=== PATIENT | female | born 1945 | race Caucasian/White ===

== ENCOUNTER → 2018-03-02 15:56 | Outpatient (CLI) | payer MEDICARE, SELFPAY | PROVIDERS: Family Provider Family Medicine; PCP Family Medicine; Referring Provider Family Medicine; Visit Provider Family Medicine | DX: R30.0 Dysuria (principal) | CPT/HCPCS: 87077; 87086; 87088; 87186 ==

== ENCOUNTER → 2018-08-11 11:33 | Outpatient (CLI) | payer MEDICARE, SELFPAY ==
[2017-10-17 09:56] VITALS: BMI 37.1
--- NOTE | 2018-08-11 11:39 | RAD_ITS ---
STUDY: X-RAY - ABDOMEN/PELVIS REASON FOR EXAM: Female, 73 years old. Abdominal pain. History of IBS. TECHNIQUE: AP supine and upright views of the abdomen and pelvis. COMPARISON: None. FINDINGS: Normal visualized lung bases. There is a nonspecific bowel gas pattern. Air is seen in the colon as well as nondistended small bowel loops predominantly in the left mid abdomen. There is no obvious obstruction. There is increased rectal feces There is no demonstrated free abdominal air. The visualized liver, spleen and kidneys are grossly normal in size and morphology. Normal soft tissue structures. The there is a left artificial hip. RAD/Abd Inc Decub and/or Erect IMPRESSION: Nonspecific bowel gas pattern without obvious obstruction or ileus. Electronically Signed: Luis Enrique Santoro DO at 22:51 EST Tel [phone], Service support ,
== END ==
PROVIDERS: Family Provider Family Medicine; PCP Family Medicine; Referring Provider Family Medicine; Visit Provider Family Medicine
DX: R10.9 Unspecified abdominal pain (principal)
CPT/HCPCS: 74019

== ENCOUNTER → 2018-09-13 | Outpatient (CLI) | payer MEDICARE, SELFPAY | END | disposition home or self-care (01) | LOC: PSN 12:40 | PROVIDERS: Family Provider Family Medicine; PCP Family Medicine; Referring Provider Nurse Practitioner Family; Visit Provider Nurse Practitioner Family | DX: R00.2 Palpitations (principal) | CPT/HCPCS: 93225; 93226 ==

== ENCOUNTER 2019-08-27 16:49 | Emergency (ER) | payer MEDICARE, SELFPAY ==
[2019-03-21 10:47] VITALS: BMI 35.0
[2019-08-27 16:50] VITALS: BP 161/102; PULSE 57; RESP 16; TEMP 36.8; O2SAT 100; BMI 35.1
--- NOTE | 2019-08-27 17:20 | CT_ITS ---
STUDY: CT ABDOMEN AND PELVIS WITH CONTRAST REASON FOR EXAM: Female, 74 years old. RUQ PAIN THAT WRAPS AROUND TO THE BACK. PRIOR CHOLECYSTECTOM RADIATION DOSAGE (If Supplied By Facility): CTDIvol = ( 17.78 ) mGy, DLP = ( 1096.82 ) mGycm TECHNIQUE: Transaxial images were obtained from the dome of the diaphragm to the symphysis pubis with oral contrast. Oral and IV Gastrografin and 100mL Isovue-300 was administered. Sagittal and coronal images were reconstructed. Individualized dose optimization techniques were used for this CT. COMPARISON: 03/18/2013 FINDINGS: The visualized lung bases are unremarkable. The visualized portions of the heart are within normal limits. Normal liver. There are surgical clips in the gallbladder fossa consistent with a prior cholecystectomy. There are multiple benign calcified granulomata of the spleen. Normal pancreas. Normal bilateral adrenal glands. Normal right kidney. Normal left kidney. There is a small hiatal hernia. Normal small intestine. There are multiple colonic diverticula consistent with diverticulosis. The appendix is visualized and appears normal. Normal abdominal aorta. Normal inferior vena cava. Normal retroperitoneum. Normal urinary bladder. There is atrophy of the uterus. Normal abdominal wall. There are diffuse degenerative changes of the visualized lumbar spine. Left hip arthroplasty CT/Abdomen/Pelvis WITH Contrast IMPRESSION: No acute findings. Prior cholecystectomy. Chronic diverticulosis without acute diverticulitis. Electronically Signed: Ramesh Darby DO at 19:49 EDT Tel , Service support ,
--- NOTE | 2019-08-27 17:24 | ED.VISSUMM ---
- ER Visit Summary Date of Service: 08/27/19 Chief Complaint: Abdominal pain History of Present Illness: The patient is a 74 F presenting with abdominal pain. She states started yesterday. She is having right upper and right lower quadrant abdominal pain. She states she has had this intermittently in the past. She had her gallbladder removed in 1992. She states that she was told that she has scar tissue in that area and has had intermittent pain associated with this. She has had 3 episodes of diarrhea. She denies blood in her stool. Denies sick contacts. Denies recent travel. Denies recent antibiotics. She denies fever or chills. Denies chest pain or shortness of breath. Denies other complaints. Physical Examination: Vitals are stable. Patient is afebrile. Alert no acute distress. HEENT exam is unremarkable. Neck is supple. Lungs are clear and equal bilaterally. Heart is regular rate and rhythm. Abdomen is soft right upper and right lower quadrant tenderness with no guarding or rebound Extremities are unremarkable. Skin is warm and dry. No focal neurologic deficit. Remainder of exam is unremarkable. Emergency Department Course and Treatment: Patient was given IV fluids, Zofran. She declined pain medication. CBC, CMP, lipase are unremarkable. CT abdomen pelvis shows no acute findings. Prior cholecystectomy. Chronic diverticulosis without acute diverticulitis. On reevaluation, patient is resting comfortably. She will follow-up with her GI physician tomorrow. She is advised return to the ED for worsening complaints. Disposition: Discharge home Impression: Abdominal pain This note was generated with [employer] dictation software. It may contain incorrect words, spelling, and punctuation that were not noted in review of the chart prior to signing ED Disposition - Plan for ED Patient: Instructions: ABDOMINAL PAIN, Unknown Cause, (Female) Referrals: Dimitri Nicole MD [Primary Care Provider] -
[2019-08-27] MEDS: Ondansetron 4 MG/2 ML Vial IV (17:45)
[2019-08-27 17:49] VITALS: BP 161/102; PULSE 57; RESP 16; TEMP 36.8; O2SAT 100
[2019-08-27 17:59] VITALS: BP 155/78; PULSE 52; RESP 18; O2SAT 99
[2019-08-27 18:03] LABS: Mucous, Urine 0 SEEN /hpf (<or=2+); Red Blood Cells-Urine 0 SEEN /hpf (0-5)
[2019-08-27 18:06] LABS: Absolute Lymphocyte Count 2.85 X10^3/uL (0.83-4.51); Absolute Neutrophil Count 3.1 X10^3/uL (2.0-7.7); Basophil# 0.02 X10^3/uL; Basophil% 0.3 % (0-1); Eosinophil# 0.16 X10^3/uL; Eosinophils% 2.4 % (0-5); Hemoglobin 15.4 g/dL (12.0-15.0); Lymphocyte # 2.85 X10^3/ul (4.0); Lymphocyte % 43.2 % (19-41); Mean Corp Hgb Conc 32.8 g/dL (32-36); Mean Corpuscular Hgb 30.6 pg (27.0-32.0); Mean Corpuscular Volume 93.4 fL (81-99); Mean Platelet Vol. 10.2 fl (6.2-12.0); Monocyte# 0.48 X10^3/uL; Monocyte% 7.3 % (0-10); NRBC Flagged by Analyzer 0 % (0-5); Neutrophil # 3.08 X10^3/uL (2.7-7.7); Neutrophil % 46.6 % (47-70); Platelet Count 232 K/mm3 (150-450); RBC Distribution Width CV 13.5 % (11.6-14.6); RBC Distribution Width SD 46.4 fl (35.1-43.9); Red Blood Count 5.03 M/mm3 (4.2-5.4); White Blood Count 6.6 K/mm3 (4.4-11.0)
[2019-08-27 18:08] LABS: Color, Urine Yellow (Yellow); Glucose, Dipstick Normal (Normal); Ketone-Dipstick Negative (Negative); Leukocyte Esterase-Dipstick 25 /ul (Negative); Nitrite-Dipstick Negative (Negative); Occult Blood-Urine Negative /ul (Negative); Protein-Dipstick Negative (Negative); Urine Bilirubin Dipstick Negative (Negative); Urine Clarity Clear (Clear); Urine Urobilinogen Normal (Normal)
[2019-08-27 18:24] LABS: AST(SGOT) 24 U/L (15-37); Alanine Aminotransfer ALT/SGPT 27 U/L (13-56); Albumin, Serum 3.8 g/dL (3.2-5.0); Alkaline Phosphatase 112 U/L (45-117); Anion Gap 5 (5-15); BUN 10 mg/dL (7-18); BUN/Creat Ratio 12.7 RATIO (10-20); Calcium,Total 9.2 mg/dL (8.5-10.1); Chloride 105 mmol/L (98-107); Creatinine, Serum 0.79 mg/dL (0.55-1.02); EST Glomerular Filtration Rate 76 mL/min (>60); Est Glom Filt Rate - Afr Amer 92 mL/min (>60); Estimated Creatinine Clearance 49.45 ml/min; Globulin 3.9 g/dL (2.2-4.2); Glucose 93 mg/dL (74-106); Lipase 83 U/L (73-393); Potassium 3.7 mmol/L (3.5-5.1); Protein, Total 7.7 g/dL (6.4-8.2); Sodium Level 142 mmol/L (136-145)
[2019-08-27 19:00] VITALS: BP 130/74; PULSE 56; RESP 18; TEMP 36.6; O2SAT 97
[2019-08-27 19:15] LABS: Bacteria 1+ /hpf (None Seen); Squamous Epithelial Cells - UA 0-5 SEEN /hpf (5-10); White Blood Cells 0-5 SEEN /hpf (0-5)
--- NOTE | 2019-08-27 19:58 | ED.DEP ---
ED Disposition - Plan for ED Patient: Instructions: ABDOMINAL PAIN, Unknown Cause, (Female) Referrals: Dimitri Nicole MD [Primary Care Provider] -
== END 2019-08-27 20:20 | disposition home or self-care (01) ==
LOC: ED 17:23
PROVIDERS: Emergency Provider Emergency Medicine; PCP Family Medicine
DX: R10.31 Right lower quadrant pain (principal); R10.11 Right upper quadrant pain; K21.9 Gastro-esophageal reflux disease without esophagitis; Z79.82 Long term (current) use of aspirin; Z79.899 Other long term (current) drug therapy
CPT/HCPCS: 74177; 80053; 81001; 83690; 85025; 96361; 96374; 99283; J7030; Q9967; A4216; J2405

== ENCOUNTER → 2020-01-17 | Outpatient (CLI) | payer MEDICARE, SELFPAY ==
--- NOTE | 2020-01-17 15:13 | US_ITS ---
STUDY: THYROID ULTRASOUND REASON FOR EXAM: Female, 74 years old. Palpable nodule. TECHNIQUE: Ultrasound evaluation of the thyroid was performed with real-time and static dickey-scale imaging. COMPARISON: None. FINDINGS: RIGHT LOBE: The right lobe of the thyroid gland measures 4.3 x 1.4 x 1.6 cm. There is a heterogeneous echotexture. In the lower pole, there is a 1.5 x 0.9 x 0.9 cm anechoic structure with coarse calcifications along its posterior wall. Superiorly there is a 0.9 x 0.7 x 0.4 cm minimally hypoechoic nodule with very nodular vascularity. There are also small colloid cysts. LEFT LOBE: The left lobe of the thyroid gland measures 4.0 x 1.1 x 1.2 cm. There is a homogeneous echotexture. In the lateral mid thyroid there is a mixed solid and cystic but primarily solid isoechoic nodule measuring 1.1 x 0.5 x 0.5 cm. There is also 0.7 x 0.4 x 0.4 cm dominantly cystic nodule in the lower pole. Additional either multiple tiny cysts within the thyroid. ISTHMUS: The isthmus measures . The regional lymph nodes are normal. US/Thyroid IMPRESSION: 1. Bilateral thyroid nodules. The most suspicious nodule is the solid right thyroid nodule which would be catheterized via the ACR TIRADS CORD and system as a TR 4, moderately suspicious nodule. One-year follow-up recommended. 2. Larger primarily cystic nodule in the right thyroid. Question whether this correlates with the palpable mass since no further clinical information was provided as to its location. Electronically Signed: Luis Enrique Santoro DO at 16:31 EDT Tel [phone], Service support ,
== END | disposition home or self-care (01) ==
LOC: US 15:12
PROVIDERS: PCP Family Medicine; Referring Provider Family Medicine; Visit Provider Family Medicine
DX: E04.1 Nontoxic single thyroid nodule (principal)
CPT/HCPCS: 76536

== ENCOUNTER → 2020-08-14 10:04 | Outpatient (CLI) | payer MEDICARE, SELFPAY ==
[2020-03-24 10:07] VITALS: BMI 36.5
--- NOTE | 2020-08-14 10:09 | RAD_ITS ---
STUDY: X-RAY - ABDOMEN/PELVIS REASON FOR EXAM: Female, 75 years old. ABD PAIN RLQ TECHNIQUE: 4 AP views COMPARISON: None. FINDINGS: Normal visualized lung bases. There is an unremarkable bowel gas pattern. There is no demonstrated free abdominal air. Splenic calcifications noted, previous cholecystectomy The visualized liver, spleen and kidneys are grossly normal in size and morphology. Normal soft tissue structures. There are diffuse degenerative changes of the visualized lumbar spine. Replaced left hip joint free of complication RAD/Abd Inc Decub and/or Erect IMPRESSION: No acute findings Electronically Signed: Jack Becerril MD at 10:29 EST , Service support ,
== END ==
PROVIDERS: PCP Family Medicine; Referring Provider Family Medicine; Visit Provider Family Medicine
DX: R10.31 Right lower quadrant pain (principal)
CPT/HCPCS: 74019

== ENCOUNTER 2020-09-20 10:18 | Emergency (ER) | payer MEDICARE, SELFPAY ==
[2020-03-24 10:07] VITALS: BMI 36.5
[2020-09-20 10:20] VITALS: BP 117/78; PULSE 59; RESP 17; TEMP 36.6; O2SAT 94; BMI 36.1
--- NOTE | 2020-09-20 10:42 | CT_ITS ---
INDICATION: Flank pain EXAMINATION: CT Abdomen And Pelvis W/O Contrast Injection TECHNIQUE: Helically acquired images were obtained of the abdomen and pelvis without the use of IV contrast. A radiation dose optimization technique was used for this scan. Oral contrast: None. COMPARISON: 08/27/2019 FINDINGS: Evaluation of the solid organs and vascular structures is limited without intravenous contrast. Visualized lung bases: Emphysematous changes. Liver: Diffusely hypodense consistent with fatty liver. Gallbladder: Surgically absent. Spleen: Multiple splenic granulomas. Pancreas: Unremarkable Adrenal Glands: Unremarkable Kidneys: 1.4 cm intermediate density exophytic mass in the left lower pole. When compared to prior CT with contrast on 08/27/2019, this mass enhances. Vasculature: Mild scattered aortoiliac atherosclerotic calcifications. GI Tract: Hiatal hernia. Scattered colonic diverticula. Lymphadenopathy: None Peritoneum: No ascites. Bladder: Unremarkable Reproductive organs: Unremarkable Bones/Soft tissues: Mild scattered degenerative changes of the visualized spine. Status post left hip arthroplasty. CT/Abdomen/Pelvis without Cont IMPRESSION: 1.4 cm mass in the lower pole of the left kidney enhances (when compared to prior CT w/ contrast on 08/27/2019) and therefore is suspicious for renal cell carcinoma. No renal vein involvement or lymphadenopathy. Fatty liver. Hiatal hernia. Electronically Signed: Mart Servin MD at 11:37 EDT Tel , Service support ,
[2020-09-20] MEDS: Ondansetron 4 MG/2 ML Vial IV (11:02)
[2020-09-20] MEDS: Morphine 4 MG/ML Syringe IV (11:02)
[2020-09-20] MEDS: 0.9% Normal Saline 1,000 ML 1000 ML IV (11:03)
[2020-09-20 11:06] LABS: Absolute Lymphocyte Count 1.66 X10^3/uL (0.83-4.51); Absolute Neutrophil Count 2.9 X10^3/uL (2.0-7.7); Basophil# 0.02 X10^3/uL; Basophil% 0.4 % (0-1); Eosinophil# 0.09 X10^3/uL; Eosinophils% 1.8 % (0-5); Hematocrit 45.6 % (37-47); Hemoglobin 14.8 g/dL (12.0-15.0); Lymphocyte # 1.66 X10^3/ul (0.83-4.51); Lymphocyte % 32.7 % (19-41); Mean Corp Hgb Conc 32.5 g/dL (32-36); Mean Corpuscular Volume 95.4 fL (81-99); Monocyte# 0.46 X10^3/uL; Monocyte% 9.1 % (0-10); NRBC Flagged by Analyzer 0 % (0-5); Neutrophil # 2.85 X10^3/uL (2.7-7.7); Platelet Count 236 K/mm3 (150-450); RBC Distribution Width CV 13.4 % (11.6-14.6); RBC Distribution Width SD 47.9 fl (35.1-43.9); Red Blood Count 4.78 M/mm3 (4.2-5.4); White Blood Count 5.1 K/mm3 (4.4-11.0)
[2020-09-20 11:06] LABS: Mucous, Urine 0 SEEN /hpf (<or=2+); Red Blood Cells-Urine 0 SEEN /hpf (0-5)
[2020-09-20 11:07] LABS: Glucose, Dipstick Normal (Normal); Ketone-Dipstick Negative (Negative); Leukocyte Esterase-Dipstick 25 /ul (Negative); Nitrite-Dipstick Positive (Negative); Occult Blood-Urine 10 /ul (Negative); Protein-Dipstick 30 mg/dl (Negative); Specific Gravity, Urine 1.015 (1.002-1.030); Urine Clarity Clear (Clear); Urine Urobilinogen 12 mg/dl (Normal)
[2020-09-20 11:13] LABS: Color, Urine SEE COMMENT BELOW (Yellow); Urine Bilirubin Dipstick 6 mg/dL (Negative)
[2020-09-20 11:16] LABS: Bacteria 1+ /hpf (None Seen); Squamous Epithelial Cells - UA 5-10 SEEN /hpf (5-10); White Blood Cells 10-25 SEEN /hpf (0-5)
[2020-09-20 11:18] LABS: ALB/GLOB Ratio 1.1 RATIO (0.9-2.4); AST(SGOT) 19 U/L (15-37); Alanine Aminotransfer ALT/SGPT 27 U/L (13-56); Albumin, Serum 3.8 g/dL (3.2-5.0); Alkaline Phosphatase 105 U/L (45-117); Anion Gap 4 (5-15); BUN 18 mg/dL (7-18); BUN/Creat Ratio 19.8 RATIO (10-20); Calcium,Total 9.3 mg/dL (8.5-10.1); Chloride 107 mmol/L (98-107); Creatinine, Serum 0.91 mg/dL (0.55-1.02); EST Glomerular Filtration Rate 65 mL/min (>60); Est Glom Filt Rate - Afr Amer 78 mL/min (>60); Estimated Creatinine Clearance 53.54 ml/min; Globulin 3.6 g/dL (2.2-4.2); Glucose 100 mg/dL (74-106); Lipase 67 U/L (73-393); Potassium 3.8 mmol/L (3.5-5.1); Protein, Total 7.4 g/dL (6.4-8.2); Sodium Level 141 mmol/L (136-145)
--- NOTE | 2020-09-20 11:24 | ED.VISSUMM ---
- ER Visit Summary Date of Service: 09/20/20 Chief Complaint: Abdominal pain and right flank pain History of Present Illness: The patient is a [address] Arambula, Dr. Kumar, and has an appointment with Dr. Tomer Lopez for a colonoscopy. Patient reports that she has had abdominal pain intermittently for the past 20 years after having her gallbladder removed. States that she had a colonoscopy and was told it scar tissue. States pain worsened 2 days ago. It is a continuous cramping pain is 9-10 worsening to 10 currently. Is worsened by nothing relieved by nothing. She had nausea without vomiting. No diarrhea. Her last bowel was yesterday. No melena medic easier. Patient reports she has had dysuria and frequency for the past [address] Kumar 2 days ago and had a urinalysis obtained. She was placed on Macrobid and Pyridium. She reports the frequency is improved, but has not resolved. Physical Examination: Vitals: Stable. Afebrile. General: Well-nourished and well-developed. Head: Normocephalic atraumatic. Neck: Supple, no lymphadenopathy. No JVD. Nontender. Cardiovascular: Regular rate and rhythm. No murmurs. Respiratory: No respiratory distress. Clear to auscultation bilaterally. Abdominal: Soft, mild tenderness palpation right upper quadrant and epigastric regions, nondistended, normal bowel sounds. No guarding, rebound, or peritoneal signs. Back: Mild CVA tenderness bilaterally. Extremities: Nontender, no edema. Skin: Normal color, no rash. Neurologic: Alert and oriented ?3. Cranial nerves II through XII are intact. Normal strength and sensation. Psych: Normal affect. Test Results: CBC is normal. Chem-7 is normal. LFTs are normal. Lipase is 67. UA shows leukocytes, nitrites, blood, and 10-25 white blood cells with 5-10 epithelial cells. However, she is on Pyridium. Clinical Impression(s) from Imaging Studies Abdomen/Pelvis CT 09/20/20 10:42 IMPRESSION: 1.4 cm mass in the lower pole of the left kidney enhances (when compared to prior CT w/ contrast on 08/27/2019) and therefore is suspicious for renal cell carcinoma. No renal vein involvement or lymphadenopathy. Fatty liver. Hiatal hernia. Electronically Signed: Mart Servin MD at 11:37 EDT Tel , Service support , Emergency Department Course and Treatment: Patient had an IV placed. She was given morphine and Zofran IV. She is resting more comfortably. I did have a prolonged discussion with her about the results of her CT. I do not think that this is the source of her pain today. Treatment Plan: Patient will be discharged with [place] and senna. Instructed to follow-up with Dr. Arambula in 3 to 5 days for further evaluation of her abdominal pain. She is also instructed to follow Dr. Kumar within 3 to 5 days for further evaluation of this left renal mass. Return to the emergency department for any worsening symptoms. Disposition: To home in improved and stable condition. Impression: 1. Abdominal pain, uncertain cause. 2. Left renal mass. This note was generated with [employer] dictation software. It may contain incorrect words, spelling, and punctuation that were not noted in review of the chart prior to signing ED Disposition - Plan for ED Patient: Instructions: ED Abdominal Pain Unkn Cause Fem Prescriptions: Hydrocodone Bitart/Apap 5-325 [[place] 5MG-325MG] 1 tablet PO Q6H PRN PRN 3 Days #10 tab PRN Reason: Pain Prescription Printed Sennosides [Senna] 8.6 mg PO QHS #10 tablet Prescription Printed Referrals: Dimitri Nicole MD [Primary Care Provider] - 3-5 Days if not improving Sonia Kumar MD [STAFF PHYSICIAN] - 3-5 Days
== END 2020-09-20 12:54 | disposition home or self-care (01) ==
PROVIDERS: Emergency Provider Emergency Medicine; PCP Family Medicine
DX: N28.89 Other specified disorders of kidney and ureter (principal); R10.13 Epigastric pain; R10.11 Right upper quadrant pain
CPT/HCPCS: 74176; 80053; 81001; 83690; 85025; 96361; 96374; 96375; 99283; J7030; A4216; J2405

== ENCOUNTER → 2020-10-13 | Outpatient (CLI) | payer MEDICARE, SELFPAY ==
[2020-09-20 10:20] VITALS: BMI 36.1
[2020-10-13 16:17] LABS: Red Blood Cells-Urine 0 SEEN /hpf (0-5)
[2020-10-13 17:10] LABS: Color, Urine Yellow (Yellow); Glucose, Dipstick Normal (Normal); Ketone-Dipstick Negative (Negative); Leukocyte Esterase-Dipstick 100 /ul (Negative); Nitrite-Dipstick Negative (Negative); Occult Blood-Urine 10 /ul (Negative); Protein-Dipstick Negative (Negative); Urine Bilirubin Dipstick Negative (Negative); Urine Clarity Clear (Clear); Urine Urobilinogen Normal (Normal)
[2020-10-13 17:17] LABS: Bacteria RARE /hpf (None Seen); Mucous, Urine RARE /hpf (<or=2+); Squamous Epithelial Cells - UA 0-5 SEEN /hpf (5-10); White Blood Cells 0-5 SEEN /hpf (0-5)
== END | disposition home or self-care (01) ==
LOC: LABSPEC 15:38
PROVIDERS: PCP Family Medicine; Referring Provider Family Medicine; Visit Provider Family Medicine
DX: K58.9 Irritable bowel syndrome, unspecified (principal); R30.0 Dysuria
CPT/HCPCS: 81001; 87086; 87088

== ENCOUNTER → 2021-03-23 | Outpatient (CLI) | payer MEDICARE, SELFPAY | END | disposition home or self-care (01) | PROVIDERS: PCP Family Medicine; Referring Provider Family Medicine; Visit Provider Family Medicine | DX: Z20.822 Contact with and (suspected) exposure to COVID-19 (principal) | CPT/HCPCS: 87635; U0005; U0003 ==

== ENCOUNTER → 2021-04-16 16:56 | Outpatient (CLI) | payer MEDICARE, SELFPAY | PROVIDERS: PCP Family Medicine; Referring Provider Urology; Visit Provider Urology | DX: N30.00 Acute cystitis without hematuria (principal) | CPT/HCPCS: 87086 ==

== ENCOUNTER → 2021-04-16 17:58 | Outpatient (CLI) | payer MEDICARE, SELFPAY | PROVIDERS: PCP Family Medicine; Referring Provider Family Medicine; Visit Provider Family Medicine | DX: N30.00 Acute cystitis without hematuria (principal); Z20.822 Contact with and (suspected) exposure to COVID-19 | CPT/HCPCS: 87086; 87088; 87635; U0005; U0003 ==

== ENCOUNTER → 2021-05-01 06:59 | Outpatient (CLI) | payer MEDICARE, SELFPAY ==
--- NOTE | 2021-05-01 07:02 | CT_ITS ---
INDICATION: Follow-up left renal mass. EXAMINATION: CT ABDOMEN AND PELVIS WITH CONTRAST - CT Abdomen And Pelvis W/ Contrast Injection TECHNIQUE: Helically acquired images were obtained of the abdomen and pelvis following IV contrast. A radiation dose optimization technique was used for this scan. IV Contrast dosage and agent: 100 mL ISOVUE-300 Oral contrast: None. COMPARISON: CT abdomen/pelvis from 09/30/2020, 08/27/2019, 03/18/2013. FINDINGS: Metallic streak artifact from left hip total arthroplasty somewhat obscures evaluation of adjacent structures. Lower thorax: There are some intraparenchymal thin-walled cystic changes in the visualized lung bases. Bibasilar dependent atelectasis. Liver: Normal morphology. Diffuse hepatic steatosis. No hepatic masses. Gallbladder: Status post cholecystectomy. Spleen: Calcified granulomas. No masses. Pancreas: Chronic pancreatic atrophy. Some irregular areas of pancreatic duct dilation in the pancreatic head appear unchanged since CT from 2012. No new or acute findings. Adrenal glands: Unremarkable. Right kidney: A few stable subcentimeter hypodensities are too small to characterize but likely benign. No solid masses. No hydronephrosis. Left kidney: 1.4 x 1.2 cm enhancing left lower pole partially exophytic lesion (series 2, 59), previously measuring 1.4 x 1.[address] from 08/27/2019. A few additional subcentimeter hypodensities are too small to catheterize but likely benign. No hydronephrosis. GI tract: Small hiatal hernia. Colonic diverticulosis without diverticulitis. No significant bowel wall thickening or bowel dilation. Normal appendix. Peritoneum/mesentery/retroperitoneum: No ascites. No free air. No masses. No lymphadenopathy. Pelvis: Bladder is collapsed. No ascites or free air. No masses. Vascular: Arterial metastatic disease. No abdominal aortic or iliac aneurysm. Bones/soft tissues: Multilevel degenerative disc disease most prominent at the L2-L3 level. No destructive osseous lesions. Stable left hip total arthroplasty postoperative changes. CT/Abdomen/Pelvis W IV Cont ONLY IMPRESSION: 1. 1.4 cm enhancing left renal lesion suspicious for neoplasm is stable since 08/27/2019. No metastatic disease. 2. Thin walled intraparenchymal cystic changes in the visualized lung bases and presence of left renal lesion. Although findings are nonspecific, these can be seen with Qjeh-Pwnp-Igpi syndrome. 3. Diffuse hepatic steatosis. Electronically Signed: Osmel Rudd MD at 10:11 EST Tel , Service support ,
[2021-05-01 07:41] LABS: CREATININE FINGERSTICK 0.9 mg/dL (0.55-1.02); EGFR FINGERSTICK > 60.0000 mL/min (>60)
== END ==
PROVIDERS: PCP Family Medicine; Referring Provider Urology; Visit Provider Urology
DX: D41.02 Neoplasm of uncertain behavior of left kidney (principal)
CPT/HCPCS: 74177; Q9967

== ENCOUNTER → 2021-05-12 10:51 | Outpatient (CLI) | payer MEDICARE, SELFPAY ==
[2021-05-12 12:49] LABS: Erythrocyte Sedimentation Rate 8 mm/hr (0-30)
[2021-05-12 12:51] LABS: Absolute Lymphocyte Count 2.44 X10^3/uL (0.83-4.51); Absolute Neutrophil Count 3.4 X10^3/uL (2.0-7.7); Basophil# 0.02 X10^3/uL; Basophil% 0.3 % (0-1); Eosinophil# 0.13 X10^3/uL; Hematocrit 45.8 % (37-47); Hemoglobin 14.7 g/dL (12.0-15.0); Lymphocyte # 2.44 X10^3/ul (0.83-4.51); Lymphocyte % 37.9 % (19-41); Mean Corp Hgb Conc 32.1 g/dL (32-36); Mean Corpuscular Hgb 30.5 pg (27.0-32.0); Monocyte# 0.47 X10^3/uL; Monocyte% 7.3 % (0-10); NRBC Flagged by Analyzer 0 % (0-5); Neutrophil # 3.35 X10^3/uL (2.7-7.7); Neutrophil % 52.2 % (47-70); Platelet Count 254 K/mm3 (150-450); RBC Distribution Width CV 14.2 % (11.6-14.6); RBC Distribution Width SD 50.2 fl (35.1-43.9); Red Blood Count 4.82 M/mm3 (4.2-5.4); White Blood Count 6.4 K/mm3 (4.4-11.0)
[2021-05-12 13:17] LABS: ALB/GLOB Ratio 0.9 RATIO (0.9-2.4); AST(SGOT) 19 U/L (15-37); Alanine Aminotransfer ALT/SGPT 25 U/L (13-56); Albumin, Serum 3.4 g/dL (3.2-5.0); Alkaline Phosphatase 102 U/L (45-117); Amylase 41 U/L (25-115); Anion Gap 6 (5-15); BUN 13 mg/dL (7-18); BUN/Creat Ratio 15.8 RATIO (10-20); Calcium,Total 9.8 mg/dL (8.5-10.1); Chloride 107 mmol/L (98-107); Creatinine, Serum 0.82 mg/dL (0.55-1.02); EST Glomerular Filtration Rate 72 mL/min (>60); Est Glom Filt Rate - Afr Amer 87 mL/min (>60); Globulin 3.9 g/dL (2.2-4.2); Glucose 96 mg/dL (74-106); Lipase 56 U/L (73-393); Potassium 4.4 mmol/L (3.5-5.1); Protein, Total 7.3 g/dL (6.4-8.2); Sodium Level 142 mmol/L (136-145); Thyroid Stim Hormone (TSH) 0.74 uIU/mL (0.358-3.74)
== END ==
PROVIDERS: PCP Family Medicine; Referring Provider Family Medicine; Visit Provider Family Medicine
DX: E04.1 Nontoxic single thyroid nodule (principal); R10.31 Right lower quadrant pain
CPT/HCPCS: 36415; 80053; 82150; 83690; 84443; 85025; 85652

== ENCOUNTER → 2021-05-22 11:57 | Outpatient (CLI) | payer MEDICARE, SELFPAY ==
--- NOTE | 2021-05-22 11:59 | RAD_ITS ---
EXAM: XR SINUSES/PARANASAL COMPLETE, 3 OR MORE VIEWS CLINICAL INDICATION: SINUSITIS TECHNIQUE: Frontal, lateral and Figueroa views of the sinuses and paranasal structures. This report was created using [employer] report generation technology. COMPARISON: None. FINDINGS: BONES/JOINTS: Unremarkable. The regional bones are grossly intact. SINUSES: Unremarkable. No significant mucosal thickening. There are no air-fluid levels. RAD/Sinuses min 3 Views IMPRESSION: Negative sinus series. Electronically Signed: Jay Moseley MD at 17:04 EST , Service support ,
== END ==
PROVIDERS: PCP Family Medicine; Referring Provider Family Medicine; Visit Provider Family Medicine
DX: J32.9 Chronic sinusitis, unspecified (principal)
CPT/HCPCS: 70220

== ENCOUNTER → 2021-12-21 | Outpatient (CLI) | payer MEDICARE, SELFPAY ==
[2021-12-21 12:22] LABS: Erythrocyte Sedimentation Rate 23 mm/hr (0-30)
[2021-12-21 12:38] LABS: CRP 4.24 mg/L (0.0-3.0); LDH 200 U/L (84-246)
[2021-12-22 13:08] LABS: Anti-Centromere B Ab <0.2 AI (0.0-0.9); Anti-Chromatin <0.2 AI (0.0-0.9); Anti-Jo <0.2 AI (0.0-0.9); Anti-Scleroderma-70 AB <0.2 AI (0.0-0.9); RNP Ab <0.2 AI (0.0-0.9); SJOGREN'S Anti-SS-A test < 0.2 AI (0.0-0.9); SJOGREN'S Anti-SS-B test < 0.2 AI (0.0-0.9); Smith Ab <0.2 AI (0.0-0.9)
[2021-12-22 15:07] LABS: Endomysial Antibody IgA Negative (Negative)
[2021-12-24 14:20] LABS: Immunoglobulin A 179 mg/dL (64-422); t-Transglutaminase IgA <2 U/mL (0-3)
[2021-12-24 14:48] LABS: Anti-dsDNA Ab 2 IU/mL (0-9)
[2021-12-24 19:07] LABS: Albumin 3.5 g/dL (2.9-4.4); Alpha-1-Globulins 0.2 g/dL (0.0-0.4); Alpha-2-Globulins 0.7 g/dL (0.4-1.0); Cytoplasmic Ab (C-ANCA) <1:20 titer (Neg:<1:20); Gamma Globulin 1.2 g/dL (0.4-1.8); Immunoglobulin A 177 mg/dL (64-422); Immunoglobulin G 1047 mg/dL (586-1602); Immunoglobulin M 164 mg/dL (26-217); PROEL- TOTAL PROTEIN 6.7 g/dL (6.0-8.5)
[2021-12-25 07:42] LABS: Gastrin, Serum 16 pg/mL (0-115); Immunoglobulin E 83 IU/mL (6-495); Perinuclear Ab (P-ANCA) <1:20 titer (Neg:<1:20)
== END | disposition home or self-care (01) ==
LOC: LAB 10:46
PROVIDERS: PCP Family Medicine; Referring Provider Internal Medicine Gastroenterology; Visit Provider Internal Medicine Gastroenterology
DX: K58.9 Irritable bowel syndrome, unspecified (principal)
CPT/HCPCS: 36415; 82784; 82785; 82941; 83516; 83615; 84165; 85652; 86140; 86225; 86235; 86255; 86256; 86334

== ENCOUNTER → 2021-12-30 | Outpatient (CLI) | payer MEDICARE, SELFPAY ==
--- NOTE | 2021-12-30 07:35 | US_ITS ---
EXAM: US ABDOMEN LIMITED, RIGHT UPPER QUADRANT CLINICAL INDICATION: RUQ PAIN TECHNIQUE: Real-time ultrasound of the right upper quadrant with image documentation. This report was created using [employer] report generation technology. COMPARISON: None. FINDINGS: LIVER: The liver measures 12.9 cm in length. The liver slightly increased in echogenicity. No intrahepatic biliary ductal dilation. GALLBLADDER: The patient is status post cholecystectomy. COMMON BILE DUCT: Unremarkable as visualized. The proximal common bile duct is within normal limits for the patient''s age. PANCREAS: Unremarkable as visualized. No focal abnormality is demonstrated in the pancreas. No pancreatic ductal dilatation. RIGHT KIDNEY: The right kidney measures 10.2 x 5.3 x 4.7 cm. There is no hydronephrosis. No shadowing calculus. No focal lesion or perinephric collection is demonstrated. OTHER FINDINGS: Comment bilateral measures 7 mm. US/Abdomen Limited IMPRESSION: Mild fatty infiltration of the liver. Patient status post cholecystectomy. Electronically Signed: Jean Claude Linton MD at 3:01 EDT ,
== END | disposition home or self-care (01) ==
LOC: US 07:33
PROVIDERS: PCP Family Medicine; Referring Provider Internal Medicine Gastroenterology; Visit Provider Internal Medicine Gastroenterology
DX: K76.0 Fatty (change of) liver, not elsewhere classified (principal); Z90.49 Acquired absence of other specified parts of digestive tract
CPT/HCPCS: 76705

== ENCOUNTER → 2022-03-16 | Outpatient (CLI) | payer MEDICARE, SELFPAY ==
[2022-03-16 11:08] LABS: Erythrocyte Sedimentation Rate 24 mm/hr (0-30)
[2022-03-16 11:39] LABS: Amylase 40 U/L (25-115); Lipase 103 U/L (73-393)
[2022-03-18 17:30] LABS: Carbohydrate Ag 19-9 2261 11 U/mL (0-35)
== END | disposition home or self-care (01) ==
LOC: LAB 09:51
PROVIDERS: PCP Family Medicine; Visit Provider Internal Medicine Gastroenterology
DX: K86.1 Other chronic pancreatitis (principal); R10.11 Right upper quadrant pain
CPT/HCPCS: 36415; 82150; 83690; 85652; 86140; 86301

== ENCOUNTER → 2022-04-13 | Outpatient (CLI) | payer MEDICARE, SELFPAY ==
--- NOTE | 2022-04-13 13:29 | CT_ITS ---
STUDY: CT ABDOMEN AND PELVIS WITH CONTRAST REASON FOR EXAM: Female, 76 years old. ACUTE ABD PAIN. RADIATION DOSAGE (If Supplied By Facility): CTDIvol = ( 32.52 ) mGy, DLP = ( 1423.10 ) mGycm TECHNIQUE: Transaxial images were obtained from the dome of the diaphragm to the symphysis pubis without oral contrast. IV 100mL Isovue-300 was administered. Sagittal and coronal images were reconstructed. Individualized dose optimization techniques were used for this CT. COMPARISON: Comparison is made with prior study dated 05/01/2021. FINDINGS: Stable mild degree of increased markings at the lung bases suggestive of scarring. There is elevation of the left hemidiaphragm. The visualized portions of the heart are within normal limits. There is decreased attenuation of the liver consistent with steatosis. There are surgical clips in the gallbladder fossa consistent with a prior cholecystectomy. There are multiple benign calcified granulomata of the spleen. Normal pancreas. Normal bilateral adrenal glands. Stable small bilateral renal cysts. Stable 1.4 cm mildly enhancing left renal hypodensity in the inferior aspect of the left kidney. Normal visualized stomach. Normal small intestine. There are multiple colonic diverticula consistent with diverticulosis. The appendix is visualized and appears normal. There is scattered atherosclerotic calcification of the abdominal aorta, without a demonstrated aneurysm. Normal inferior vena cava. Normal retroperitoneum. Normal urinary bladder. Normal abdominal wall. There are degenerative changes of the visualized lumbar spine. Status post left total hip replacement. CT/Abdomen/Pelvis WITH Contrast IMPRESSION: Stable examination. Electronically Signed: Anthony Luna MD at 14:49 EST ,
[2022-04-13 14:01] LABS: CREATININE FINGERSTICK < 0.9 mg/dL (0.55-1.02); EGFR FINGERSTICK > 60.0000 mL/min (>60)
== END | disposition home or self-care (01) ==
LOC: CT 13:26
PROVIDERS: PCP Family Medicine; Referring Provider Family Medicine; Visit Provider Family Medicine
DX: R10.9 Unspecified abdominal pain (principal)
CPT/HCPCS: 74177; Q9967

== ENCOUNTER → 2022-04-19 | Outpatient (CLI) | payer MEDICARE, MEDICAID, SELFPAY ==
[2022-04-19 18:23] LABS: Absolute Lymphocyte Count 2.63 X10^3/uL (0.83-4.51); Absolute Neutrophil Count 4.3 X10^3/uL (2.0-7.7); Basophil# 0.02 X10^3/uL; Basophil% 0.3 % (0-1); Eosinophil# 0.06 X10^3/uL; Eosinophils% 0.8 % (0-5); Hematocrit 45.5 % (37-47); Lymphocyte # 2.63 X10^3/ul (0.83-4.51); Lymphocyte % 34.6 % (19-41); Mean Corpuscular Hgb 31.6 pg (27.0-32.0); Mean Platelet Vol. 11.2 fl (6.2-12.0); Monocyte# 0.57 X10^3/uL; Monocyte% 7.5 % (0-10); NRBC Flagged by Analyzer 0 % (0-5); Neutrophil # 4.31 X10^3/uL (2.7-7.7); Neutrophil % 56.7 % (47-70); Platelet Count 263 K/mm3 (150-450); RBC Distribution Width CV 14.8 % (11.6-14.6); RBC Distribution Width SD 52.9 fl (35.1-43.9); Red Blood Count 4.74 M/mm3 (4.2-5.4); White Blood Count 7.6 K/mm3 (4.4-11.0)
[2022-04-19 18:41] LABS: Vitamin B12 504 pg/mL (211-911); Vitamin D,25 Hydroxy 29.9 ng/mL
[2022-04-19 18:46] LABS: ALB/GLOB Ratio 0.9 RATIO (0.9-2.4); AST(SGOT) 21 U/L (15-37); Alanine Aminotransfer ALT/SGPT 31 U/L (13-56); Albumin, Serum 3.4 g/dL (3.2-5.0); Alkaline Phosphatase 91 U/L (45-117); Anion Gap 8 (5-15); BUN 14 mg/dL (7-18); BUN/Creat Ratio 17.9 RATIO (10-20); CRP 4.77 mg/L (0.0-3.0); Calcium,Total 9.3 mg/dL (8.5-10.1); Chloride 105 mmol/L (98-107); Creatinine, Serum 0.78 mg/dL (0.55-1.02); EST Glomerular Filtration Rate 76 mL/min (>60); Est Glom Filt Rate - Afr Amer 92 mL/min (>60); Globulin 3.6 g/dL (2.2-4.2); Glucose 99 mg/dL (74-106); Potassium 4.1 mmol/L (3.5-5.1); Sodium Level 140 mmol/L (136-145); Thyroid Stim Hormone (TSH) 0.95 uIU/mL (0.358-3.74)
== END | disposition home or self-care (01) ==
LOC: MFPLAB 14:05
PROVIDERS: PCP Family Medicine; Referring Provider Family Medicine; Visit Provider Family Medicine
DX: R10.9 Unspecified abdominal pain (principal); R42 Dizziness and giddiness; F43.20 Adjustment disorder, unspecified
CPT/HCPCS: 36415; 80053; 82306; 82607; 84443; 85025; 86140

== ENCOUNTER → 2022-11-11 | Outpatient (CLI) | payer MEDICARE, SELFPAY | END | disposition home or self-care (01) | LOC: LABSPEC 10:00 | PROVIDERS: PCP Family Medicine; Referring Provider Family Medicine; Visit Provider Family Medicine | DX: R42 Dizziness and giddiness (principal) | CPT/HCPCS: 87077; 87086; 87088; 87186 ==

== ENCOUNTER → 2022-12-14 | Outpatient (CLI) | payer MEDICARE, MEDICAID, SELFPAY ==
[2022-12-14 11:22] LABS: Erythrocyte Sedimentation Rate 16 mm/hr (0-30)
[2022-12-14 11:52] LABS: Amylase 52 U/L (25-115); CPK Total, Creatine Kinase 74 U/L (26-192); LDH 191 U/L (84-246); Lipase 25 U/L (13-75); Thyroid Stim Hormone (TSH) 1.24 uIU/mL (0.358-3.74)
[2022-12-16 15:09] LABS: Albumin 3.2 g/dL (2.9-4.4); Aldolase 4.2 U/L (3.3-10.3); Alpha-1-Globulins 0.2 g/dL (0.0-0.4); Alpha-2-Globulins 0.9 g/dL (0.4-1.0); Carbohydrate Ag 19-9 2261 30 U/mL (0-35); Cytoplasmic Ab (C-ANCA) <1:20 titer (Neg:<1:20); Endomysial Antibody IgA Negative (Negative); Gamma Globulin 1.2 g/dL (0.4-1.8); IgG, Quant 1151 mg/dL (586-1602); Immunoglobulin A 210 mg/dL (64-422); Immunoglobulin G, Subclass 1 683 mg/dL (248-810); Immunoglobulin G, Subclass 2 316 mg/dL (130-555); Immunoglobulin G, Subclass 3 30 mg/dL (15-102); Immunoglobulin G, Subclass 4 37 mg/dL (2-96); Immunoglobulin M 201 mg/dL (26-217); PROEL- TOTAL PROTEIN 6.7 g/dL (6.0-8.5); Perinuclear Ab (P-ANCA) <1:20 titer (Neg:<1:20); t-Transglutaminase IgA <2 U/mL (0-3)
== END | disposition home or self-care (01) ==
LOC: LAB 10:53
PROVIDERS: PCP Family Medicine; Referring Provider Internal Medicine Gastroenterology; Visit Provider Internal Medicine Gastroenterology
DX: K86.1 Other chronic pancreatitis (principal); R10.11 Right upper quadrant pain; K58.9 Irritable bowel syndrome, unspecified; E78.00 Pure hypercholesterolemia, unspecified
CPT/HCPCS: 36415; 82085; 82150; 82533; 82550; 82784; 82787; 83516; 83615; 83690; 84165; 84443; 85652; 86140; 86255; 86256; 86301; 86334

== ENCOUNTER → 2023-03-03 | Outpatient (CLI) | payer MEDICARE, MEDICAID, SELFPAY ==
--- NOTE | 2023-03-03 13:28 | ECHOCS_ITS ---
Reason For Study: Dizziness Procedure This was a 2D Doppler, Color Flow transthoracic echocardiogram. The study was technically difficult. Contrast injection was performed. Exam performed in department. Left Ventricle Normal size and thickness. Apical false tendon noted. The left ventricular ejection fraction is 65 %. Normal diastology for age. Right Ventricle Normal right ventricle. Atria The left atrium is mildly enlarged. Normal right atrium. Mitral Valve Trivial mitral valve insufficiency. Tricuspid Valve Trivial tricuspid valve insufficiency. Unable to estimate RV systolic pressure due to insufficient tricuspid regurgitant envelope. Aortic Valve Aortic sclerosis, no stenosis. Pulmonic Valve The pulmonic valve is not well visualized. Great Vessels Mildly dilated aortic root. Pericardium/Pleural No pericardial effusion. Medication 22 gauge I.V. with prn adaptor inserted into left arm. Diluted definity 1.5ml given slow IV push to enhance endocardial definition. Performed a rapid injection of agitated mix of 9 cc saline and 1cc air to assess for atrial septal defect. MMode/2D Measurements & Calculations LVIDd: 4.5 cm IVSd: 0.92 cm Ao root diam: 3.0 cm LVIDs: 2.9 cm LVPWd: 0.82 cm LA dimension: 3.7 cm RVDd: 3.0 cm FS: 34.4 % LAV(MOD-bp): 44.1 ml LVAd ap4: 26.8 cm2 SV(MOD-sp4): 56.5 ml LAV(MOD-bp) Indexed: 21.3 ml/m2 LVLd ap4: 7.1 cm LAV(MOD-sp2): 44.7 ml EDV(MOD-sp4): 82.0 ml LAV(MOD-sp4): 42.1 ml EDV(sp4-el): 85.5 ml LVAs ap4: 12.5 cm2 LVLs ap4: 5.1 cm ESV(MOD-sp4): 25.5 ml ESV(sp4-el): 26.1 ml EF(MOD-sp4): 68.9 % EF(sp4-el): 69.5 % SV(sp4-el): 59.5 ml LA A4 area: 17.2 cm2 RA A4 area: 11.8 cm2 TAPSE: 1.6 cm Time Measurements MV dec time: 0.20 sec Doppler Measurements & Calculations MV E max gabe: 80.6 cm/sec Lat Peak E' Gabe: 8.5 cm/sec Med Peak E' Gabe: 6.5 cm/sec MV A max gabe: 100.4 cm/sec E/E' lat: 9.5 E/E' med: 12.4 MV E/A: 0.80 MV V2 max: 125.5 cm/sec MV P1/2t max gabe: 91.8 cm/sec Ao V2 max: 165.4 cm/sec MV max P.3 mmHg MV P1/2t: 66.8 msec Ao max P.9 mmHg MV V2 mean: 60.2 cm/sec Ao V2 mean: 110.9 cm/sec MV mean P.8 mmHg MV dec slope: 402.6 cm/sec2 Ao mean P.6 mmHg MV V2 VTI: 29.8 cm MVA(P1/2t): 3.3 cm2 Ao V2 VTI: 39.1 cm AV (velocity ratio): 0.61 LV V1 max: 106.1 cm/sec PA V2 max: 62.2 cm/sec LV V1 max P.5 mmHg LV V1 mean P.5 mmHg LV V1 mean: 73.5 cm/sec LV V1 VTI: 23.9 cm ECHO/Echo Complete W/ Contrast Interpretation Summary Apical false tendon noted. The left ventricular ejection fraction is 65 %. The left atrium is mildly enlarged. Aortic sclerosis, no stenosis. Mildly dilated aortic root. Ordering Physician: Imer Zarate Referring Physician: Imer Zarate Performed By: Anthony Mendoza RCS
== END | disposition home or self-care (01) ==
PROVIDERS: PCP Family Medicine; Referring Provider Nurse Practitioner Family; Visit Provider Nurse Practitioner Family
DX: R42 Dizziness and giddiness (principal); R00.2 Palpitations
CPT/HCPCS: 93306; Q9957; A4216; C8929

== ENCOUNTER → 2023-05-16 | Outpatient (CLI) | payer MEDICARE, MEDICAID, SELFPAY ==
[2023-05-16 09:56] LABS: Bacteria 0 SEEN /hpf (None Seen); Mucous, Urine 0 SEEN /hpf (<or=2+); Red Blood Cells-Urine 0 SEEN /hpf (0-5)
[2023-05-16 10:12] LABS: Color, Urine Yellow (Yellow); Glucose, Dipstick Normal (Normal); Ketone-Dipstick Negative (Negative); Leukocyte Esterase-Dipstick 25 /ul (Negative); Nitrite-Dipstick Negative (Negative); Occult Blood-Urine 10 /ul (Negative); Protein-Dipstick Negative (Negative); Urine Bilirubin Dipstick Negative (Negative); Urine Clarity Clear (Clear); Urine Urobilinogen Normal (Normal)
[2023-05-16 10:26] LABS: White Blood Cells 0-5 SEEN /hpf (0-5)
[2023-05-16 10:27] LABS: Squamous Epithelial Cells - UA 0-5 SEEN /hpf (5-10)
== END | disposition home or self-care (01) ==
LOC: LABSPEC 09:47
PROVIDERS: PCP Family Medicine; Referring Provider Physician Assistant; Visit Provider Physician Assistant
DX: R10.11 Right upper quadrant pain (principal)
CPT/HCPCS: 81001; 87086; 87088

== ENCOUNTER → 2023-06-02 | Outpatient (CLI) | payer MEDICARE, MEDICAID, SELFPAY ==
[2023-06-02 10:08] LABS: Mucous, Urine 0 SEEN /hpf (<or=2+); Red Blood Cells-Urine 0 SEEN /hpf (0-5)
--- OUTSIDE RECORDS SUMMARY | 2023-06-02 10:24 | XMS RPT_ITS | CCD ---
Author Name Unknown Address [address] [place] [address] Organization [facility] Care Team Providers 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 Name Role Phone TEQUILA DAVIS Attending Unavailable CHERYL BUCIO Consulting Unavailable TEQUILA DAVIS Admitting Unavailable TEQUILA DAVIS Primary Care Unavailable PROVIDER, UNKNOWN Consulting Unavailable CHERYL BUCIO Consulting Unavailable IRVING, DR GREY Anguiano Admitting Unavaila ble IRVING, DR GREY Anguiano Primary Care Unavaila ble IRVING, DR GREY Anguiano Attending Unavaila ble PROVIDER, UNKNOWN Consulting Unavailable Kaesy Nicole MD Primary Care Provider Kasey Nicole MD Primary Care Provider Kasey Nicole MD Primary Care Provider Kasey Nicole MD Primary Care Provider KASEY NICOLE Primary Care Unavailabl e KASEY NICOLE Primary Care Unavailabl e KASEY NICOLE Primary Care Unavailabl e DR KASEY LAGUERRE DO Consulting Sylvia vailable CARLOTTA CHUA, ~[phone] KASEY Diaz Admittin g Unavailable CARLOTTA CHUA DR~[phone] KASEY Diaz Attendin g Unavailable KASEY NICOLE Primary Care Unavailabl e DR KASEY LAGUERRE DO Consulting Sylvia vailable KASEY NICOLE Consulting Unavailabl KASEY Arndt Consulting Unavailabl michele TAPIA MD, MATHEUS Consulting Unavailable WILLIE GENTILE, MATHEUS Consulting Unavailable Allergies Allergy Classification Reported Allergen(s) Allergy Type Date of Onset Reaction(s) Facility (1 source) Penicillins Drug allergy (disorder) [facility] Repository (1 source) Sulfonamides (Antibiotic) Drug allergy (disorder) [facility] Repository (7 sources) gabapentin; Translations: [GABAPENTIN] Drug Allergy 0 Mental Status Change [facility] (7 sources) Morphine; Translations: [MORPHINE] Drug Allergy 0 Other: See Comments [facility] (7 sources) Penicillin G; Translations: [PENICILLIN G] Drug Allergy 6 [facility] Work Phone: (7 sources) Sulfonamides (Antibiotic); Translations: [SULFA (SULFONAMIDE ANTIBIOTICS)] Propensity to adverse reactions 6 [facility] Work Phone: Medications Current Medications Medication Drug Class(es) Dates Sig (Normalized) Sig (Original) cephalexin 500 mg oral capsule (2 sources) Cephalosporin Antibacterial Start: 03-13-2022 End: 03-20-2022 take 1 capsule by mouth twice daily cephALEXin (KEFLEX) 500 mg capsule Take 1 capsule by mouth twice daily for 7 days. 14 capsule 0 03/13/2022 03/20/2022 Active Completed/Discontinued Medications Medication Drug Class(es) Dates Sig (Normalized) Sig (Original) amylase 86629 unt / lipase 3000 unt / protease 9500 unt delayed release oral capsule (1 source) Start: 12-15-2022 CREON 3,000-9,500- 15,000 unit delayed release capsule aspirin 81 mg oral tablet (6 sources) Platelet Aggregation Inhibitor, Nonsteroidal Anti-inflammatory Drug Start: 06-21-2005 ASPIRIN 81 MG TAB Indications: Headache(784.0) Take one (1) tablet daily . 0 06/21/2005 Active Problems Active Problems Problem Classification Problem Date Documented Da te Episodic/Chronic Gastrointestinal hemorrhage (12 sources) Hemorrhage of rectum and anus; Translations: [Hemorrhage of anus and rectum] Onset: 08-03-2005 08-03-2005 Episodic Genitourinary symptoms and ill-defined conditions (1 source) Dysuria; Translations: [Dysuria] Episodic Other bone disease and musculoskeletal deformities (6 sources) Osteopenia; Translations: [Other specified disorders of bone density and structure, unspecified site] 04-24-2015 Episodic Other screening for suspected conditions (not mental disorders or infectious disease) (2 sources) Mammography abnormal; Translations: [Other abnormal and inconclusive findings on diagnostic imaging of breast] Episodic Other upper respiratory infections (4 sources) Chronic sinusitis, unspecified; Translations: [Chronic ethmoidal sinusitis] Onset: 04-19-2023 Chronic Other upper respiratory infections (2 sources) Acute frontal sinusitis; Translations: [Acute frontal sinusitis, unspecified] Episodic Past or Other Problems Problem Classification Problem Date Documented Date Episodic/Chronic Gastritis and duodenitis (6 sources) Acute gastritis; Translations: [Acute gastritis without bleeding] Onset: 08-03-2005 08-03-2005 Episodic Other acquired deformities (6 sources) Other specified acquired deformities of unspecified lower leg; Translations: [Other acquired deformities of ankle and foot] Onset: 09-22-2009 09-22-2009 Episodic Residual codes; unclassified (6 sources) Family history of malignant neoplasm of gastrointestinal tract; Translations: [Family history of malignant neoplasm of digestive organs] Onset: 08-03-2005 06-19-2015 Episodic Spondylosis; intervertebral disc disorders; other back problems (6 sources) Backache; Translations: [Dorsalgia, unspecified] Onset: 04-14-2009 04-14-2009 Episodic Results Test Name Value Interpretation Reference Range Facil ity Vital Signs Date Time Vital Sign Value Performing Clinician Faci lity 02-20-2023 08:18-0400 Body temperature 98.2 [degF] Deb Duval APRN.CNP Work Phone: [facility] 02-20-2023 08:18-0400 Body weight 96.16 kg Deb Duval APRN.CNP Work Phone: [facility] 02-20-2023 08:18-0400 Diastolic blood pressure 82 mm[Hg] Deb Duval APRN.CNP Work Phone: [facility] 02-20-2023 08:18-0400 Heart rate 72 /min Deb Duval APRN.CNP Work Phone: [facility] 02-20-2023 08:18-0400 Respiratory rate 16 /min Deb Duval APRN.CNP Work Phone: [facility] 02-20-2023 08:18-0400 SaO2% (BldA) [Mass fraction] 97 % Deb Duval APRN.CNP Work Phone: [facility] 02-20-2023 08:18-0400 Systolic blood pressure 132 mm[Hg] Deb Duval INSTRUMENT MAN.BENCH EXAMINER Work Phone: [facility] 10-31-2022 12:48-0400 Body temperature 98.29 [degF] Krislyn Aberegg PA Work Phone: [facility] 10-31-2022 12:48-0400 Body weight 96.62 kg Krislyn Aberegg PA Work Phone: [facility] 10-31-2022 12:48-0400 Diastolic blood pressure 64 mm[Hg] Krislyn Aberegg PA Work Phone: [facility] 10-31-2022 12:48-0400 Heart rate 80 /min Krislyn Aberegg PA Work Phone: [facility] 10-31-2022 12:48-0400 Respiratory rate 16 /min Krislyn Aberegg PA Work Phone: [facility] 10-31-2022 12:48-0400 SaO2% (BldA) [Mass fraction] 96 % Krislyn Aberegg PA Work Phone: [facility] 10-31-2022 12:48-0400 Systolic blood pressure 102 mm[Hg] Krislyn Aberegg PA Work Phone: [facility] 03-13-2022 08:57-0400 Body temperature 98.2 [degF] Caren Jose INSTRUMENT MAN.BENCH EXAMINER Work Phone: [facility] 03-13-2022 08:57-0400 Body weight 99.52 kg Caren Jose INSTRUMENT MAN.BENCH EXAMINER Work Phone: [facility] 03-13-2022 08:57-0400 Diastolic blood pressure 72 mm[Hg] Caren Jose INSTRUMENT MAN.BENCH EXAMINER Work Phone: [facility] 03-13-2022 08:57-0400 Heart rate 71 /min Caren Jose INSTRUMENT MAN.BENCH EXAMINER Work Phone: [facility] 03-13-2022 08:57-0400 Respiratory rate 18 /min Caren Jose INSTRUMENT MAN.BENCH EXAMINER Work Phone: [facility] 03-13-2022 08:57-0400 SaO2% (BldA) [Mass fraction] 97 % Caren Jose INSTRUMENT MAN.BENCH EXAMINER Work Phone: [facility] 03-13-2022 08:57-0400 Systolic blood pressure 110 mm[Hg] Caren Jose INSTRUMENT MAN.BENCH EXAMINER Work Phone: [facility] Encounters Encounter Date Encounter Type Care Provider Facility Start: 04-19-2023 End: 04-20-[address] KASEY LAGUERRE DO Facility:[facility] Start: 02-20-2023 End: 02-20-2023 ambulatory KASEY NICOLE Facility:[facility] Start: 02-20-2023 End: 02-20-2023 Patient encounter procedure Deb Duval INSTRUMENT MAN.BENCH EXAMINER Work Phone: [facility] Procedures Date Procedure Procedure Detail Performing Clinician Start: 03-13-2022 Urnls dip stick/tabl et rgnt auto w/o microscopy Caren Jose INSTRUMENT MAN.BENCH EXAMINER Work Phone: Start: 09-23-2021 Us breast uni real t amina with image limited Isatu Ramirez MD Work Phone: Start: 09-23-2021 ANA DIAG W JESUS RT Rianna Ramirez MD Work Phone: Start: 08-21-2021 Mammography Us 1 Work Phone: Start: 10-07-2020 Colonoscopy Us 1 Work Phone: Plan of Treatment Date Care Activity Detail Author Start: 10-07-2025 Colonoscopy COLONOSCOPY [facility] Start: 10-07-2025 COLORECTAL CANCER SCREENING COLORECTAL CANCER SCREENING [facility] Start: 10-24-2023 DIABETES SCREEN DIABETES SCREEN [facility] Start: 10-24-2023 Diabetes Screening Diabetes Screening [facility] Start: 02-20-2023 End: 03-06-2023 COVID & INFLUENZA A/B & RSV NAAT, ROUTINE COVID & INFLUENZA A/B & RSV NAAT, ROUTINE Microbiology Routine URI, acute Expected: 02/20/2023, Expires: 03/06/2023 [facility] Work Phone: Immunizations Immunization Date Immunization Notes Care Provider Barak pedraza 03-02-2022 influenza virus vaccine, unspecified formulation Deb Duval APRN.BENCH EXAMINER Work Phone: [facility] 08-15-2020 COVID-19 vaccine, ag e 12+ yr (PFIZER-BIONTECH - PURPLE TOP) Us 1 Work Phone: [facility] Work Phone: 07-25-2020 COVID-19 vaccine, ag e 12+ yr (PFIZER-BIONTECH - PURPLE TOP) Us 1 Work Phone: [facility] Work Phone: Payers Date Payer Category Payer Medicare HU[employer]NA MEDICARE HU[employer]NA MEDICARE PPO [id number] 2013-Present [phone] [address] [address] [place] [address] PPO [id number] 2013 Medicare HUMANA MEDICARE HU[employer]NA MEDICARE PPO [id number] 2013-Present [phone] [address] [address] [place] [address] PPO [id number] 1959 Medicaid [id number] 1957 Medicare [id number] 1945 Unknown [id number] 1945 Unknown [id number] 1945 Unknown [id number] Social History Date Type Detail Facility Start: 03-07-2012 Tobacco smoking stat us MIIS Never smoked tobacco [facility] Start: 08-03-2021 End: 02-20-2023 Alcohol intake Current non-drinker of alcohol (finding) [facility] Start: 1945 Sex Assigned At Not on file [facility] Start: 08-22-2021 End: 03-13-2022 Exposure to SARS-CoV-2 (event) Not sure [facility] Start: 03-07-2012 Tobacco use and exposure Smokeless tobacco non-user [facility] Work Phone: Start: 05-11-2020 End: 02-20-2023 History of Social function [facility] Start: 05-11-2020 End: 02-20-2023 Tobacco use panel [facility] National Score (1-100), lower number is lower risk Not on file [facility] Clinical Notes 02-16-2012 to 02-20-2023 Deb Duval APRN.CNP - 02/20/2023 8:23 AM KATHARINATBRI Vega - 10/31/2022 12:55 PM EDTTelephone Encounter - Citlaly Giron LPN - 03/16/2022 4:25 PM EDTPatient Instructions Note Date & Type Note Facility 02-20-2023 Note HNO ID: [id number] Author: Deb Duval APRN.HAMMAD Service: ? Author Type: Nurse Practitioner Type: Progress Notes Filed: 02/20/2023 8:29 AM Note Text: CC: Patient presents with: Flu Like Symptoms: Started 4 days ago HPI: Landon Cabral is a 77 year old female who presents to the office with complaint of head congestion, cough, nonproductive, sore throat, sinus symptoms, and rhinorrhea for 4 days. Symptoms are staying the same. Associated symptoms includes nausea. Denies wheezing, dyspnea, vomiting , and diarrhea. Treatments tried include nothing so far. with no relief of symptoms. Sick contacts: unknown. History of asthma, frequent episodes of bronchitis, chronic bronchitis, bronchiectasis or COPD: No Smoker: No Seasonal/environmental allergies: No The ROS is otherwise negative. The patient's pmh, medications, allergies, and past visits are reviewed. PHYSICAL EXAM: BP 132/82 Pulse 72 Temp 36.8 ?C (98.2 ?F) Resp 16 Wt 96.2 kg (212 lb) SpO2 97% BMI 33.67 kg/m? General appearance: alert, cooperative, pleasant, in no acute distress Head: Normocephalic Eyes: EOM's intact, conjunctiva pink and moist, no icterus, sclera white, non-injected Ears: Right ear: External ear/canal- Normal, TM - clear with good landmarks. Left ear: External ear/canal- Normal, TM - clear with good landmarks Oropharynx:moist without lesions, No erythema, exudates or tonsillar hypertrophy. Heart: Negative. RRR without obvious murmur, gallop, or rubs. No ectopy. Lungs: clear to auscultation, without rales or wheeze, good air exchange PAST MEDICAL HISTORY Diagnosis Date Abdominal pain, right upper quadrant Allergic rhinitis, cause unspecified Chest pain, unspecified Disorders of lipoid metabolism Diverticulosis of colon (without mention of hemorrhage) Esophagitis, unspecified Family history of malignant neoplasm of gastrointestinal tract Colon Cancer/Brother Hemorrhage of gastrointestinal tract, unspecified Hemorrhage of rectum and anus Irritable bowel syndrome Osteopenia Palpitations Skin cancer Temporomandibular joint disorders, unspecified Unspecified constipation PAST SURGICAL HISTORY Procedure Laterality Date ABDOMINAL SURGERY HX ARTHRP ACETBLR/PROX FEM PROSTC AGRFT/ALGRFT 05/2010 Lt hip ARTHRP KNE CONDYLEANDPLATU MEDIALANDLAT COMPARTMENTS 02/19/2013 Knee replacement, total, Right BACK SURGERY HX DELIVERY ONLY X 2 , low transverse CHOLECYSTECTOMY 1992 COLONOSCOPY FLX DX W/COLLJ SPEC WHEN PFRMD 08/26/2005 COLONOSCOPY FLX DX W/COLLJ SPEC WHEN PFRMD 10/01/2010 COLONOSCOPY FLX DX W/COLLJ SPEC WHEN PFRMD 06/19/2015 Colonoscopy COLONOSCOPY FLX DX W/COLLJ SPEC WHEN PFRMD 10/07/2020 EGD TRANSORAL BIOPSY SINGLE/MULTIPLE 07/26/2006 ESOPHAGOGASTRODUODENOSCOPY TRANSORAL DIAGNOSTIC 10/07/2020 HYSTEROSCOPY 04/20/2012 Hysteroscopy and DANDC JOINT REPLACEMENT HX LAMINECTOMY W/O FFD 1/2 VERT SEG LUMBAR 1974 L4-5 PAST SURGICAL HISTORY OF 2013 part of nose tissue removed PAST SURGICAL HISTORY OF 1974 laminectomy SKIN BIOPSY HX TONSILLECTOMY HX ALLERGIES Gabapentin, Morphine, Penicillin G, and Sulfa (Sulfonamide Antibiotics) MEDICATIONS CREON 3,000-9,500- 15,000 unit delayed release capsule omeprazole (PRILOSEC) 40 mg capsule Take 1 capsule by mouth once daily. propranolol 20 mg tablet Take 40 mg by mouth one time only. phenazopyridine (PYRIDIUM) 200 mg tablet Take 1 tablet by mouth three times daily as needed. (Patient not taking: Reported on 10/31/2022) sucralfate (CARAFATE) 1 gram tablet Take 1 tablet by mouth four times daily. Dissolve tablet in water (medicine cup) then swallow (Patient not taking: Reported on 08/03/2021 ) polyethylene glycol 3350 (MIRALAX, GLYCOLAX) 17 gram/dose powder Use as directed for Miralax / Gatorade Bowel Prep Kit (Patient not taking: Reported on 10/31/2022) Gatorade Sports Drink Use as directed for Miralax / Gatorade Bowel Prep Kit (Patient not taking: Reported on 10/31/2022) Bisacodyl (DULCOLAX) 5 mg tab Use as directed for Miralax / Gatorade Bowel Prep Kit (Patient not taking: Reported on 10/31/2022) dicyclomine (BENTYL) 20 mg tablet Take 1 tablet by mouth twice daily as needed. (Patient not taking: Reported on 10/31/2022) predniSONE (DELTASONE) 20 mg tablet Take 2 with lunch daily. (Patient not taking: Reported on 09/15/2020 ) colestipol (COLESTID) 1 gram tablet Take 1 tablet by mouth twice daily. (Patient not taking: Reported on 09/15/2020 ) clotrimazole-betamethasone (LOTRISONE) cream Apply 1 application to affected area twice daily. (Patient not taking: Reported on 09/15/2020 ) CALCIUM CARBONATE/VITAMIN D3 (CALCIUM 600 + D ORAL) Take 1 tablet by mouth once daily. (Patient not taking: Reported on 09/15/2020 ) Cholecalciferol, Vitamin D3, (VITAMIN D-3) 5,000 unit tab Take 5,000 Units by mouth twice daily. Takes a total of 10,000 units a day (Patient not taki (more content not included)... [facility] 02-20-2023 History of Presen t illness Narrative CC: Patient presents with: Flu Like Symptoms: Started 4 days ago HPI: Landon Cabral is a 77 year old female who presents to the office with complaint of head congestion, cough, nonproductive, sore throat, sinus symptoms, and rhinorrhea for 4 days. Symptoms are staying the same. Associated symptoms includes nausea. Denies wheezing, dyspnea, vomiting , and diarrhea. Treatments tried include nothing so far. with no relief of symptoms. Sick contacts: unknown. History of asthma, frequent episodes of bronchitis, chronic bronchitis, bronchiectasis or COPD: No Smoker: No Seasonal/environmental allergies: No The ROS is otherwise negative. The patient's pmh, medications, allergies, and past visits are reviewed. PHYSICAL EXAM: BP 132/82 Pulse 72 Temp 36.8 C (98.2 F) Resp 16 Wt 96.2 kg (212 lb) SpO2 97% BMI 33.67 kg/m General appearance: alert, cooperative, pleasant, in no acute distress Head: Normocephalic Eyes: EOM's intact, conjunctiva pink and moist, no icterus, sclera white, non-injected Ears: Right ear: External ear/canal- Normal, TM - clear with good landmarks. Left ear: External ear/canal- Normal, TM - clear with good landmarks Oropharynx:moist without lesions, No erythema, exudates or tonsillar hypertrophy. Heart: Negative. RRR without obvious murmur, gallop, or rubs. No ectopy. Lungs: clear to auscultation, without rales or wheeze, good air exchange PAST MEDICAL HISTORY Diagnosis Date Abdominal pain, right upper quadrant Allergic rhinitis, cause unspecified Chest pain, unspecified Disorders of lipoid metabolism Diverticulosis of colon (without mention of hemorrhage) Esophagitis, unspecified Family history of malignant neoplasm of gastrointestinal tract Colon Cancer/Brother Hemorrhage of gastrointestinal tract, unspecified Hemorrhage of rectum and anus Irritable bowel syndrome Osteopenia Palpitations Skin cancer Temporomandibular joint disorders, unspecified Unspecified constipation PAST SURGICAL HISTORY Procedure Laterality Date ABDOMINAL SURGERY HX ARTHRP ACETBLR/PROX FEM PROSTC AGRFT/ALGRFT 05/2010 Lt hip ARTHRP KNE CONDYLE&PLATU MEDIAL&LAT COMPARTMENTS 02/19/2013 Knee replacement, total, Right BACK SURGERY HX DELIVERY ONLY X 2 , low transverse CHOLECYSTECTOMY 1992 COLONOSCOPY FLX DX W/COLLJ SPEC WHEN PFRMD 08/26/2005 COLONOSCOPY FLX DX W/COLLJ SPEC WHEN PFRMD 10/01/2010 COLONOSCOPY FLX DX W/COLLJ SPEC WHEN PFRMD 06/19/2015 Colonoscopy COLONOSCOPY FLX DX W/COLLJ SPEC WHEN PFRMD 10/07/2020 EGD TRANSORAL BIOPSY SINGLE/MULTIPLE 07/26/2006 ESOPHAGOGASTRODUODENOSCOPY TRANSORAL DIAGNOSTIC 10/07/2020 HYSTEROSCOPY 04/20/2012 Hysteroscopy and D&C JOINT REPLACEMENT HX LAMINECTOMY W/O FFD 06/07 VERT SEG LUMBAR 1974 L4-5 PAST SURGICAL HISTORY OF 2013 part of nose tissue removed PAST SURGICAL HISTORY OF 1974 laminectomy SKIN BIOPSY HX TONSILLECTOMY HX ALLERGIES Gabapentin, Morphine, Penicillin G, and Sulfa (Sulfonamide Antibiotics) MEDICATIONS CREON 3,000-9,500- 15,000 unit delayed release capsule omeprazole (PRILOSEC) 40 mg capsule Take 1 capsule by mouth once daily. propranolol 20 mg tablet Take 40 mg by mouth one time only. phenazopyridine (PYRIDIUM) 200 mg tablet Take 1 tablet by mouth three times daily as needed. (Patient not taking: Reported on 10/31/2022) sucralfate (CARAFATE) 1 gram tablet Take 1 tablet by mouth four times daily. Dissolve tablet in water (medicine cup) then swallow (Patient not taking: Reported on 08/03/2021 ) polyethylene glycol 3350 (MIRALAX, GLYCOLAX) 17 gram/dose powder Use as directed for Miralax / Gatorade Bowel Prep Kit (Patient not taking: Reported on 10/31/2022) Gatorade Sports Drink Use as directed for Miralax / Gatorade Bowel Prep Kit (Patient not taking: Reported on 10/31/2022) Bisacodyl (DULCOLAX) 5 mg tab Use as directed for Miralax / Gatorade Bowel Prep Kit (Patient not taking: Reported on 10/31/2022) dicyclomine (BENTYL) 20 mg tablet Take 1 tablet by mouth twice daily as needed. (Patient not taking: Reported on 10/31/2022) predniSONE (DELTASONE) 20 mg tablet Take 2 with lunch daily. (Patient not taking: Reported on 09/15/2020 ) colestipol (COLESTID) 1 gram tablet Take 1 tablet by mouth twice daily. (Patient not taking: Reported on 09/15/2020 ) clotrimazole-betamethasone (LOTRISONE) cream Apply 1 application to affected area twice daily. (Patient not taking: Reported on 09/15/2020 ) CALCIUM CARBONATE/VITAMIN D3 (CALCIUM 600 + D ORAL) Take 1 tablet by mouth once daily. (Patient not taking: Reported on 09/15/2020 ) Cholecalciferol, Vitamin D3, (VITAMIN D-3) 5,000 unit tab Take 5,000 Units by mouth twice daily. Takes a total of 10,000 units a day (Patient not taking: Reported on 09/15/2020 ) ibuprofen 200 mg ORAL tablet Take 200 mg by mouth every 6 hours as needed. ASPIRIN 81 MG TAB Take one (1) tablet daily . (Patient not taking: Reported on 02/20/2023) FAMILY HISTORY Problem Relation Age of Onset other (Other) Mother Archana Aby's Heart Father Colon Cancer Brother Social History Tobacco Use Smoking status: Never Smokeless tobacco: Never Substance Use Topics Alcohol use: No Drug use: No ASSESSMENT/PLAN: 1. URI, acute - ICD9: 465.9, ICD10: J06.9 - COVID & INFLUENZA A/B & RSV NAAT, ROUTINE OTC medication for symptoms management. Potential red flag symptoms discussed with the patient. Reviewed appropriate action plan to take if red flag symptoms occur. Patient agreeable to treatment plan. Deb Duval APRN.HAMMAD documented in this encounter [facility] 10-31-2022 Note HNO ID: [id number] Author: BRI Vega Service: ? Author Type: Physician Assistant Director Of Financial Aid Type: Progress Notes Filed: 10/31/2022 12:57 PM Note Text: This note was created using Bocomriter. Subjective Landon Cabral is a 77 year old female. HPI 77-year-old female presents for sinus pressure, sinus pain, nasal congestion x10 days. Patient states that she has seasonal allergies. She has seen ENT and is on Flonase and allergy medication. She states that normally these help somewhat, but over the past 10 days, she feels ill and feels symptoms are much worse. She states that she has chills, sinus pressure and pain, headaches. No cough. No fevers. No vomiting or diarrhea. No other complaints. PAST MEDICAL HISTORY Diagnosis Date Abdominal pain, right upper quadrant Allergic rhinitis, cause unspecified Chest pain, unspecified Disorders of lipoid metabolism Diverticulosis of colon (without mention of hemorrhage) Esophagitis, unspecified Family history of malignant neoplasm of gastrointestinal tract Colon Cancer/Brother Hemorrhage of gastrointestinal tract, unspecified Hemorrhage of rectum and anus Irritable bowel syndrome Osteopenia Palpitations Skin cancer Temporomandibular joint disorders, unspecified Unspecified constipation PAST SURGICAL HISTORY Procedure Laterality Date ABDOMINAL SURGERY HX ARTHRP ACETBLR/PROX FEM PROSTC AGRFT/ALGRFT 05/2010 Lt hip ARTHRP KNE CONDYLEANDPLATU MEDIALANDLAT COMPARTMENTS 02/19/2013 Knee replacement, total, Right BACK SURGERY HX DELIVERY ONLY X 2 , low transverse CHOLECYSTECTOMY 1992 COLONOSCOPY FLX DX W/COLLJ SPEC WHEN PFRMD 08/26/2005 COLONOSCOPY FLX DX W/COLLJ SPEC WHEN PFRMD 10/01/2010 COLONOSCOPY FLX DX W/COLLJ SPEC WHEN PFRMD 06/19/2015 Colonoscopy COLONOSCOPY FLX DX W/COLLJ SPEC WHEN PFRMD 10/07/2020 EGD TRANSORAL BIOPSY SINGLE/MULTIPLE 07/26/2006 ESOPHAGOGASTRODUODENOSCOPY TRANSORAL DIAGNOSTIC 10/07/2020 HYSTEROSCOPY 04/20/2012 Hysteroscopy and DANDC JOINT REPLACEMENT HX LAMINECTOMY W/O FFD 1/2 VERT SEG LUMBAR 1974 L4-5 PAST SURGICAL HISTORY OF 2013 part of nose tissue removed PAST SURGICAL HISTORY OF 1974 laminectomy SKIN BIOPSY HX TONSILLECTOMY HX ALLERGIES Gabapentin, Morphine, Penicillin G, and Sulfa (Sulfonamide Antibiotics) MEDICATIONS omeprazole (PRILOSEC) 40 mg capsule Take 1 capsule by mouth once daily. propranolol 20 mg tablet Take 40 mg by mouth one time only. ibuprofen 200 mg ORAL tablet Take 200 mg by mouth every 6 hours as needed. ASPIRIN 81 MG TAB Take one (1) tablet daily . doxycycline monohydrate 100 mg tablet Take 1 tablet by mouth twice daily for 5 days. phenazopyridine (PYRIDIUM) 200 mg tablet Take 1 tablet by mouth three times daily as needed. (Patient not taking: Reported on 10/31/2022) sucralfate (CARAFATE) 1 gram tablet Take 1 tablet by mouth four times daily. Dissolve tablet in water (medicine cup) then swallow (Patient not taking: Reported on 08/03/2021 ) polyethylene glycol 3350 (MIRALAX, GLYCOLAX) 17 gram/dose powder Use as directed for Miralax / Gatorade Bowel Prep Kit (Patient not taking: Reported on 10/31/2022) Gatorade Sports Drink Use as directed for Miralax / Gatorade Bowel Prep Kit (Patient not taking: Reported on 10/31/2022) Bisacodyl (DULCOLAX) 5 mg tab Use as directed for Miralax / Gatorade Bowel Prep Kit (Patient not taking: Reported on 10/31/2022) dicyclomine (BENTYL) 20 mg tablet Take 1 tablet by mouth twice daily as needed. (Patient not taking: Reported on 10/31/2022) predniSONE (DELTASONE) 20 mg tablet Take 2 with lunch daily. (Patient not taking: Reported on 09/15/2020 ) colestipol (COLESTID) 1 gram tablet Take 1 tablet by mouth twice daily. (Patient not taking: Reported on 09/15/2020 ) clotrimazole-betamethasone (LOTRISONE) cream Apply 1 application to affected area twice daily. (Patient not taking: Reported on 09/15/2020 ) CALCIUM CARBONATE/VITAMIN D3 (CALCIUM 600 + D ORAL) Take 1 tablet by mouth once daily. (Patient not taking: Reported on 09/15/2020 ) Cholecalciferol, Vitamin D3, (VITAMIN D-3) 5,000 unit tab Take 5,000 Units by mouth twice daily. Takes a total of 10,000 units a day (Patient not taking: Reported on 09/15/2020 ) FAMILY HISTORY Problem Relation Age of Onset other (Other) Mother Archana Gehrig's Heart Father Colon Cancer Brother Social History Tobacco Use Smoking status: Never Smokeless tobacco: Never Substance Use Topics Alcohol use: No Drug use: No Review of Systems Constitutional: Positive for chills. Negative for fever. HENT: Positive for congestion, ear pain, postnasal drip, sinus pressure and sinus pain. Negative for sore throat. Respiratory: Negative for cough and shortness of breath. Cardiovascular: Negative for chest pain. Gastrointestinal: Negative for diarrhea and vomiting. Objective BP 102/64 Pulse 80 Temp 36.8 ?C (98.3 ?F) Resp 16 Wt 96. (more content not included)... [facility] 10-31-2022 History of Presen t illness Narrative This note was created using Bocomriter. Subjective Landon Cabral is a 77 year old female. HPI 77-year-old female presents for sinus pressure, sinus pain, nasal congestion x10 days. Patient states that she has seasonal allergies. She has seen ENT and is on Flonase and allergy medication. She states that normally these help somewhat, but over the past 10 days, she feels ill and feels symptoms are much worse. She states that she has chills, sinus pressure and pain, headaches. No cough. No fevers. No vomiting or diarrhea. No other complaints. PAST MEDICAL HISTORY Diagnosis Date Abdominal pain, right upper quadrant Allergic rhinitis, cause unspecified Chest pain, unspecified Disorders of lipoid metabolism Diverticulosis of colon (without mention of hemorrhage) Esophagitis, unspecified Family history of malignant neoplasm of gastrointestinal tract Colon Cancer/Brother Hemorrhage of gastrointestinal tract, unspecified Hemorrhage of rectum and anus Irritable bowel syndrome Osteopenia Palpitations Skin cancer Temporomandibular joint disorders, unspecified Unspecified constipation PAST SURGICAL HISTORY Procedure Laterality Date ABDOMINAL SURGERY HX ARTHRP ACETBLR/PROX FEM PROSTC AGRFT/ALGRFT 05/2010 Lt hip ARTHRP KNE CONDYLE&PLATU MEDIAL&LAT COMPARTMENTS 02/19/2013 Knee replacement, total, Right BACK SURGERY HX DELIVERY ONLY X 2 , low transverse CHOLECYSTECTOMY 1992 COLONOSCOPY FLX DX W/COLLJ SPEC WHEN PFRMD 08/26/2005 COLONOSCOPY FLX DX W/COLLJ SPEC WHEN PFRMD 10/01/2010 COLONOSCOPY FLX DX W/COLLJ SPEC WHEN PFRMD 06/19/2015 Colonoscopy COLONOSCOPY FLX DX W/COLLJ SPEC WHEN PFRMD 10/07/2020 EGD TRANSORAL BIOPSY SINGLE/MULTIPLE 07/26/2006 ESOPHAGOGASTRODUODENOSCOPY TRANSORAL DIAGNOSTIC 10/07/2020 HYSTEROSCOPY 04/20/2012 Hysteroscopy and D&C JOINT REPLACEMENT HX LAMINECTOMY W/O FFD 1/2 VERT SEG LUMBAR 1974 L4-5 PAST SURGICAL HISTORY OF 2013 part of nose tissue removed PAST SURGICAL HISTORY OF 1974 laminectomy SKIN BIOPSY HX TONSILLECTOMY HX ALLERGIES Gabapentin, Morphine, Penicillin G, and Sulfa (Sulfonamide Antibiotics) MEDICATIONS omeprazole (PRILOSEC) 40 mg capsule Take 1 capsule by mouth once daily. propranolol 20 mg tablet Take 40 mg by mouth one time only. ibuprofen 200 mg ORAL tablet Take 200 mg by mouth every 6 hours as needed. ASPIRIN 81 MG TAB Take one (1) tablet daily . doxycycline monohydrate 100 mg tablet Take 1 tablet by mouth twice daily for 5 days. phenazopyridine (PYRIDIUM) 200 mg tablet Take 1 tablet by mouth three times daily as needed. (Patient not taking: Reported on 10/31/2022) sucralfate (CARAFATE) 1 gram tablet Take 1 tablet by mouth four times daily. Dissolve tablet in water (medicine cup) then swallow (Patient not taking: Reported on 08/03/2021 ) polyethylene glycol 3350 (MIRALAX, GLYCOLAX) 17 gram/dose powder Use as directed for Miralax / Gatorade Bowel Prep Kit (Patient not taking: Reported on 10/31/2022) Gatorade Sports Drink Use as directed for Miralax / Gatorade Bowel Prep Kit (Patient not taking: Reported on 10/31/2022) Bisacodyl (DULCOLAX) 5 mg tab Use as directed for Miralax / Gatorade Bowel Prep Kit (Patient not taking: Reported on 10/31/2022) dicyclomine (BENTYL) 20 mg tablet Take 1 tablet by mouth twice daily as needed. (Patient not taking: Reported on 10/31/2022) predniSONE (DELTASONE) 20 mg tablet Take 2 with lunch daily. (Patient not taking: Reported on 09/15/2020 ) colestipol (COLESTID) 1 gram tablet Take 1 tablet by mouth twice daily. (Patient not taking: Reported on 09/15/2020 ) clotrimazole-betamethasone (LOTRISONE) cream Apply 1 application to affected area twice daily. (Patient not taking: Reported on 09/15/2020 ) CALCIUM CARBONATE/VITAMIN D3 (CALCIUM 600 + D ORAL) Take 1 tablet by mouth once daily. (Patient not taking: Reported on 09/15/2020 ) Cholecalciferol, Vitamin D3, (VITAMIN D-3) 5,000 unit tab Take 5,000 Units by mouth twice daily. Takes a total of 10,000 units a day (Patient not taking: Reported on 09/15/2020 ) FAMILY HISTORY Problem Relation Age of Onset other (Other) Mother Archana Darlings Heart Father Colon Cancer Brother Social History Tobacco Use Smoking status: Never Smokeless tobacco: Never Substance Use Topics Alcohol use: No Drug use: No Review of Systems Constitutional: Positive for chills. Negative for fever. HENT: Positive for congestion, ear pain, postnasal drip, sinus pressure and sinus pain. Negative for sore throat. Respiratory: Negative for cough and shortness of breath. Cardiovascular: Negative for chest pain. Gastrointestinal: Negative for diarrhea and vomiting. Objective BP 102/64 Pulse 80 Temp 36.8 C (98.3 F) Resp 16 Wt 96.6 kg (213 lb) SpO2 96% BMI 33.83 kg/m Physical Exam Vitals and nursing note reviewed. Constitutional: General: She is not in acute distress. Appearance: Normal appearance. She is not toxic-appearing. HENT: Right Ear: Ear canal normal. A middle ear effusion is present. Left Ear: Ear canal normal. A middle ear effusion is present. Nose: Mucosal edema present. Right Sinus: Frontal sinus tenderness present. Left Sinus: Frontal sinus tenderness present. Mouth/Throat: Mouth: Mucous membranes are moist. Pharynx: No oropharyngeal exudate or posterior oropharyngeal erythema. Eyes: Conjunctiva/sclera: Conjunctivae normal. Cardiovascular: Rate and Rhythm: Normal rate and regular rhythm. Pulmonary: Effort: Pulmonary effort is normal. Breath sounds: Normal breath sounds. Neurological: Mental Status: She is alert. Assessment and Plan ASSESSMENT/PLAN: 1. Acute frontal sinusitis, recurrence not specified - ICD9: 461.1, ICD10: J01.10 - Will begin treatment with Doxycycline - The patient should also be given OTC decongestants prn for the first 5-7 days of treatment. Recommend continuing allergy medication and Flonase. - Supportive care with plenty of fluids, rest, and analgesia prn. Diagnosis and treatment plan were discussed and questions were answered to the patient's satisfaction. Pt acknowledged understanding of concepts and follow up plan. Specific signs and symptoms that would indicate the need for higher level of care were discussed in detail warranting prompt ER evaluation. BRI Vega documented in this encounter [facility] 03-16-2022 Miscellaneous Notes Spoke with pt and information listed below given. Pt verbalizes understanding. Citlaly Giron LPN Unable to reach patient. Mailbox full/Mailbox not set up/ Number incorrect. Please try again later. Violetta Segovia ----- Message from Lakisha Melendez APRN.BENCH EXAMINER sent at 03/15/2022 7:15 AM EDT ----- Please advise patient: Urine culture did not show clear evidence of infection. She may continue to take antibiotic if it has been helpful. If not improving, recommend follow up with PCP. Lakisha Melendez CNP documented in this encounter [facility] 03-13-2022 Note HNO ID: [id number] Author: Caren Jose APRN.HAMMAD Service: ? Author Type: Nurse Practitioner Type: Progress Notes Filed: 03/13/2022 10:43 AM Note Text: This note was created using NoteWriter. Subjective Landon Misty Cabral is a 76 year old female. 76 year old female with PMH gastritis and osteopenia presents with complaints of possible UTI. Acute onset yesterday evening. +suprapubic pressure that kept her up during night This morning she has developed burning with urination +lower back pain Denies vaginal bleeding. Denies vaginal discharge Denies recent sexual activity (states that her last week from [place]) The history is provided by the patient. No life skills educator was used. UTI This is a new problem. The current episode started yesterday. The problem occurs every urination. The problem has been gradually worsening. The quality of the pain is described as burning. The pain is at a severity of 4/10. The pain is mild. There has been no fever. She is Not sexually active. There is No history of pyelonephritis. Associated symptoms include frequency and urgency. Pertinent negatives include no chills, no sweats, no nausea, no vomiting, no discharge, no hematuria, no hesitancy, no possible and no flank pain. She has tried nothing for the symptoms. Her past medical history does not include kidney stones, single kidney, urological procedure, recurrent UTIs, urinary stasis or catheterization. PAST MEDICAL HISTORY Diagnosis Date Abdominal pain, right upper quadrant Allergic rhinitis, cause unspecified Chest pain, unspecified Disorders of lipoid metabolism Diverticulosis of colon (without mention of hemorrhage) Esophagitis, unspecified Family history of malignant neoplasm of gastrointestinal tract Colon Cancer/Brother Hemorrhage of gastrointestinal tract, unspecified Hemorrhage of rectum and anus Irritable bowel syndrome Osteopenia Palpitations Skin cancer Temporomandibular joint disorders, unspecified Unspecified constipation PAST SURGICAL HISTORY Procedure Laterality Date ABDOMINAL SURGERY HX ARTHRP ACETBLR/PROX FEM PROSTC AGRFT/ALGRFT 05/2010 Lt hip ARTHRP KNE CONDYLEANDPLATU MEDIALANDLAT COMPARTMENTS 02/19/2013 Knee replacement, total, Right BACK SURGERY HX DELIVERY ONLY X 2 , low transverse CHOLECYSTECTOMY 1992 COLONOSCOPY FLX DX W/COLLJ SPEC WHEN PFRMD 08/26/2005 COLONOSCOPY FLX DX W/COLLJ SPEC WHEN PFRMD 10/01/2010 COLONOSCOPY FLX DX W/COLLJ SPEC WHEN PFRMD 06/19/2015 Colonoscopy COLONOSCOPY FLX DX W/COLLJ SPEC WHEN PFRMD 10/07/2020 EGD TRANSORAL BIOPSY SINGLE/MULTIPLE 07/26/2006 ESOPHAGOGASTRODUODENOSCOPY TRANSORAL DIAGNOSTIC 10/07/2020 HYSTEROSCOPY 04/20/2012 Hysteroscopy and DANDC JOINT REPLACEMENT HX LAMINECTOMY W/O FFD 1/2 VERT SEG LUMBAR 1974 L4-5 PAST SURGICAL HISTORY OF 2013 part of nose tissue removed PAST SURGICAL HISTORY OF 1974 laminectomy SKIN BIOPSY HX TONSILLECTOMY HX ALLERGIES Gabapentin, Morphine, Penicillin G, and Sulfa (Sulfonamide Antibiotics) MEDICATIONS Bisacodyl (DULCOLAX) 5 mg tab Use as directed for Miralax / Gatorade Bowel Prep Kit dicyclomine (BENTYL) 20 mg tablet Take 1 tablet by mouth twice daily as needed. omeprazole (PRILOSEC) 40 mg capsule Take 1 capsule by mouth once daily. propranolol 20 mg tablet Take 40 mg by mouth one time only. ASPIRIN 81 MG TAB Take one (1) tablet daily . cephALEXin (KEFLEX) 500 mg capsule Take 1 capsule by mouth twice daily for 7 days. phenazopyridine (PYRIDIUM) 200 mg tablet Take 1 tablet by mouth three times daily as needed. sucralfate (CARAFATE) 1 gram tablet Take 1 tablet by mouth four times daily. Dissolve tablet in water (medicine cup) then swallow (Patient not taking: Reported on 08/03/2021 ) polyethylene glycol 3350 (MIRALAX, GLYCOLAX) 17 gram/dose powder Use as directed for Miralax / Gatorade Bowel Prep Kit Gatorade Sports Drink Use as directed for Miralax / Gatorade Bowel Prep Kit predniSONE (DELTASONE) 20 mg tablet Take 2 with lunch daily. (Patient not taking: Reported on 09/15/2020 ) colestipol (COLESTID) 1 gram tablet Take 1 tablet by mouth twice daily. (Patient not taking: Reported on 09/15/2020 ) clotrimazole-betamethasone (LOTRISONE) cream Apply 1 application to affected area twice daily. (Patient not taking: Reported on 09/15/2020 ) CALCIUM CARBONATE/VITAMIN D3 (CALCIUM 600 + D ORAL) Take 1 tablet by mouth once daily. (Patient not taking: Reported on 09/15/2020 ) Cholecalciferol, Vitamin D3, (VITAMIN D-3) 5,000 unit tab Take 5,000 Units by mouth twice daily. Takes a total of 10,000 units a day (Patient not taking: Reported on 09/15/2020 ) ibuprofen 200 mg ORAL tablet Take 200 mg by mouth every 6 hours as needed. FAMILY HISTORY Problem Relation Age of Onset other (Other) Mother Archana Gehrig's Heart Father Colon Cancer Brother Social History Tobacco Use (more content not included)... [facility] 03-13-2022 Instructions Caren Jose APRN.BENCH EXAMINER - 03/13/2022 9:10 AM EDT Images from the original note were not included. Urinary Problem-When to Seek Help? Symptoms of a urinary problem may lead to a bladder infection. Women are at greater risk of a urinary tract infection than are men. Most urinary tract infections in women are caused by bacteria and involve the lower urinary tract including the bladder and urethra. Symptoms: Pain or burning when passing urine, urgency, frequency, blood in the urine, difficult emptying your bladder, and lower abdominal fullness or pressure. Common Causes: Sexual intercourse, menopause, constipation, uncontrolled diabetes, dehydration and feminine products such as tampons, and kidney stones. When to Get Help: Seek medical attention if you get frequent bladder infections, urinary concerns such as leakage, blood in the urine or frequent need to urinate. You may be recommended to get help from a specialist, such as a urologist. Diagnosis & Treatment: Lab testing may include: urinalysis, and urine culture that can be collected in the lab or walk-in clinic. Most bladder infections can easily be treated. A physician, nurse practitioner or physician assistant county attorney may treat with a short course of an antibiotic. Delaying treatment can lead to worsening symptoms, like a kidney infection. Self-Care: Avoid a full bladder, bubble baths, bath oils, food and beverages that may irritate the bladder such as caffeine. Avoid spermicide foam and diaphragms Void before and after sexual intercourse Wipe front to back after using the bathroom. Stay hydrated Stop Smoking Follow-up Care: Follow up testing is not needed in healthy young women if symptoms resolve. documented in this encounter [facility] 03-13-2022 History of Presen t illness Narrative This note was created using Bocomriter. Subjective Landon Cabral is a 76 year old female. 76 year old female with PMH gastritis and osteopenia presents with complaints of possible UTI. Acute onset yesterday evening. +suprapubic pressure that kept her up during night This morning she has developed burning with urination +lower back pain Denies vaginal bleeding. Denies vaginal discharge Denies recent sexual activity (states that her last week from [place]) The history is provided by the patient. No life skills educator was used. UTI This is a new problem. The current episode started yesterday. The problem occurs every urination. The problem has been gradually worsening. The quality of the pain is described as burning. The pain is at a severity of 4/10. The pain is mild. There has been no fever. She is Not sexually active. There is No history of pyelonephritis. Associated symptoms include frequency and urgency. Pertinent negatives include no chills, no sweats, no nausea, no vomiting, no discharge, no hematuria, no hesitancy, no possible and no flank pain. She has tried nothing for the symptoms. Her past medical history does not include kidney stones, single kidney, urological procedure, recurrent UTIs, urinary stasis or catheterization. PAST MEDICAL HISTORY Diagnosis Date Abdominal pain, right upper quadrant Allergic rhinitis, cause unspecified Chest pain, unspecified Disorders of lipoid metabolism Diverticulosis of colon (without mention of hemorrhage) Esophagitis, unspecified Family history of malignant neoplasm of gastrointestinal tract Colon Cancer/Brother Hemorrhage of gastrointestinal tract, unspecified Hemorrhage of rectum and anus Irritable bowel syndrome Osteopenia Palpitations Skin cancer Temporomandibular joint disorders, unspecified Unspecified constipation PAST SURGICAL HISTORY Procedure Laterality Date ABDOMINAL SURGERY HX ARTHRP ACETBLR/PROX FEM PROSTC AGRFT/ALGRFT 05/2010 Lt hip ARTHRP KNE CONDYLE&PLATU MEDIAL&LAT COMPARTMENTS 02/19/2013 Knee replacement, total, Right BACK SURGERY HX DELIVERY ONLY X 2 , low transverse CHOLECYSTECTOMY 1992 COLONOSCOPY FLX DX W/COLLJ SPEC WHEN PFRMD 08/26/2005 COLONOSCOPY FLX DX W/COLLJ SPEC WHEN PFRMD 10/01/2010 COLONOSCOPY FLX DX W/COLLJ SPEC WHEN PFRMD 06/19/2015 Colonoscopy COLONOSCOPY FLX DX W/COLLJ SPEC WHEN PFRMD 10/07/2020 EGD TRANSORAL BIOPSY SINGLE/MULTIPLE 07/26/2006 ESOPHAGOGASTRODUODENOSCOPY TRANSORAL DIAGNOSTIC 10/07/2020 HYSTEROSCOPY 04/20/2012 Hysteroscopy and D&C JOINT REPLACEMENT HX LAMINECTOMY W/O FFD 1/2 VERT SEG LUMBAR 1974 L4-5 PAST SURGICAL HISTORY OF 2013 part of nose tissue removed PAST SURGICAL HISTORY OF 1974 laminectomy SKIN BIOPSY HX TONSILLECTOMY HX ALLERGIES Gabapentin, Morphine, Penicillin G, and Sulfa (Sulfonamide Antibiotics) MEDICATIONS Bisacodyl (DULCOLAX) 5 mg tab Use as directed for Miralax / Gatorade Bowel Prep Kit dicyclomine (BENTYL) 20 mg tablet Take 1 tablet by mouth twice daily as needed. omeprazole (PRILOSEC) 40 mg capsule Take 1 capsule by mouth once daily. propranolol 20 mg tablet Take 40 mg by mouth one time only. ASPIRIN 81 MG TAB Take one (1) tablet daily . cephALEXin (KEFLEX) 500 mg capsule Take 1 capsule by mouth twice daily for 7 days. phenazopyridine (PYRIDIUM) 200 mg tablet Take 1 tablet by mouth three times daily as needed. sucralfate (CARAFATE) 1 gram tablet Take 1 tablet by mouth four times daily. Dissolve tablet in water (medicine cup) then swallow (Patient not taking: Reported on 08/03/2021 ) polyethylene glycol 3350 (MIRALAX, GLYCOLAX) 17 gram/dose powder Use as directed for Miralax / Gatorade Bowel Prep Kit Gatorade Sports Drink Use as directed for Miralax / Gatorade Bowel Prep Kit predniSONE (DELTASONE) 20 mg tablet Take 2 with lunch daily. (Patient not taking: Reported on 09/15/2020 ) colestipol (COLESTID) 1 gram tablet Take 1 tablet by mouth twice daily. (Patient not taking: Reported on 09/15/2020 ) clotrimazole-betamethasone (LOTRISONE) cream Apply 1 application to affected area twice daily. (Patient not taking: Reported on 09/15/2020 ) CALCIUM CARBONATE/VITAMIN D3 (CALCIUM 600 + D ORAL) Take 1 tablet by mouth once daily. (Patient not taking: Reported on 09/15/2020 ) Cholecalciferol, Vitamin D3, (VITAMIN D-3) 5,000 unit tab Take 5,000 Units by mouth twice daily. Takes a total of 10,000 units a day (Patient not taking: Reported on 09/15/2020 ) ibuprofen 200 mg ORAL tablet Take 200 mg by mouth every 6 hours as needed. FAMILY HISTORY Problem Relation Age of Onset other (Other) Mother Archana Gehrig's Heart Father Colon Cancer Brother Social History Tobacco Use Smoking status: Never Smokeless tobacco: Never Substance Use Topics Alcohol use: No Drug use: No Review of Systems Constitutional: Negative for chills, fatigue and fever. Eyes: Negative for pain, discharge, redness and itching. Respiratory: Negative for apnea, cough, choking and chest tightness. Cardiovascular: Negative for chest pain, palpitations and leg swelling. Gastrointestinal: Negative for nausea and vomiting. +suprapubic pressure Genitourinary: Positive for dysuria, frequency and urgency. Negative for flank pain, hematuria and hesitancy. Musculoskeletal: Negative for arthralgias, back pain and gait problem. Skin: Negative for color change, pallor, rash and wound. Allergic/Immunologic: Negative for environmental allergies, food allergies and immunocompromised state. Neurological: Negative for dizziness and facial asymmetry. Hematological: Negative for adenopathy. Does not bruise/bleed easily. Psychiatric/Behavioral: Negative for agitation and behavioral problems. Objective BP 110/72 Pulse 71 Temp 36.8 C (98.2 F) (Tympanic) Resp 18 Wt 99.5 kg (219 lb 6.4 oz) SpO2 97% BMI 34.84 kg/m Physical Exam Vitals and nursing note reviewed. Constitutional: General: She is not in acute distress. Appearance: Normal appearance. She is normal weight. She is not ill-appearing, toxic-appearing or diaphoretic. HENT: Head: Normocephalic and atraumatic. Right Ear: Ear canal and external ear normal. Left Ear: Ear canal and external ear normal. Nose: Nose normal. No congestion or rhinorrhea. Mouth/Throat: Mouth: Mucous membranes are moist. Pharynx: No oropharyngeal exudate or posterior oropharyngeal erythema. Eyes: General: Right eye: No discharge. Left eye: No discharge. Extraocular Movements: Extraocular movements intact. Conjunctiva/sclera: Conjunctivae normal. Pupils: Pupils are equal, round, and reactive to light. Cardiovascular: Rate and Rhythm: Normal rate and regular rhythm. Pulses: Normal pulses. Heart sounds: Normal heart sounds. No murmur heard. No friction rub. Pulmonary: Effort: Pulmonary effort is normal. No respiratory distress. Breath sounds: Normal breath sounds. No stridor. No wheezing, rhonchi or rales. Chest: Chest wall: No tenderness. Abdominal: General: Abdomen is flat. There is no distension. Palpations: Abdomen is soft. There is no mass. Tenderness: There is no abdominal tenderness. There is no right CVA tenderness, left CVA tenderness, guarding or rebound. Hernia: No hernia is present. Musculoskeletal: General: No swelling, tenderness, deformity or signs of injury. Normal range of motion. Cervical back: Normal range of motion and neck supple. No rigidity. Right lower leg: No edema. Left lower leg: No edema. Lymphadenopathy: Cervical: No cervical adenopathy. Skin: General: Skin is warm and dry. Capillary Refill: Capillary refill takes less than 2 seconds. Coloration: Skin is not jaundiced or pale. Findings: No bruising, erythema, lesion or rash. Neurological: General: No focal deficit present. Mental Status: She is alert and oriented to person, place, and time. Cranial Nerves: No cranial nerve deficit. Sensory: No sensory deficit. Motor: No weakness. Coordination: Coordination normal. Gait: Gait normal. Psychiatric: Mood and Affect: Mood normal. Behavior: Behavior normal. Thought Content: Thought content normal. Judgment: Judgment normal. Assessment and Plan ASSESSMENT/PLAN: 1. Dysuria - ICD9: 788.1, ICD10: R30.0 acute - UA positive for lyric esterase, protein, bili - Send urine for culture - Begin treatment with Keflex for 7 days - Patient education for prevention given RX Pyridium - UA DIP, URINE (POC) - URINE CULTURE Caren Jose APRN.HAMMAD documented in this encounter [facility] 09-23-2021 History of Presen t illness Narrative Radiology Service Progress Note PATIENT NAME: Landon Cabral DATE OF SERVICE: September 23, 2021 TIME: 9:19 AM PATIENT IDENTITY VERIFICATION COMPLETED USING TWO (2) IDENTIFIERS: Name and Date of confirmed by patient verbally. FALL SCREENING: Has the patient had 2 falls in the last year or 1 fall with injury or currently using an Ambulatory Assistive Device (Walker, Cane, Wheelchair, Crutches, etc.)? No PATIENT GENDER DATA: Female. status: : No status: NO. PATIENT RELEVANT IMPLANT DATA REVIEWED: Not Applicable RADIOLOGY DEPARTMENT: Mammography PERIPHERAL IV DATA: Not applicable SIGNED BY: Mimi Aguirre September 23, 2021 9:19 AM documented in this encounter [facility] documented as of this encounter (statuses as of 09/24/2021) [facility] History of Past illness Narrative* Problem Noted Date Resolved Date Post-menopausal bleeding 02/16/2012 015 Hip joint replacement by other means 07/24/2010 04/29/2015 Osteoarthrosis, unspecified whether generalized or localized, pelvic region and thigh 10/01/2009 07/20/2011 Palpitations 10/12/2006 04/29/2015 Unspecified constipation 08/03/2005 015 documented as of this encounter (statuses as of 09/24/2021) [facility] History of Past illness Narrative* Problem Noted Date Resolved Date Post-menopausal bleeding 02/16/2012 015 Hip joint replacement by other means 07/24/2010 04/29/2015 Osteoarthrosis, unspecified whether generalized or localized, pelvic region and thigh 10/01/2009 07/20/2011 Palpitations 10/12/2006 04/29/2015 Unspecified constipation 08/03/2005 015 documented as of this encounter (statuses as of 03/13/2022) [facility] of Past illness Narrative* Problem Noted Date Resolved Date Post-menopausal bleeding 02/16/2012 015 Hip joint replacement by other means 07/24/2010 04/29/2015 Osteoarthrosis, unspecified whether generalized or localized, pelvic region and thigh 10/01/2009 07/20/2011 Palpitations 10/12/2006 04/29/2015 Unspecified constipation 08/03/2005 015 documented as of this encounter (statuses as of 03/16/2022) [facility] of [facility] illness Narrative* Problem Noted Date Resolved Date Post-menopausal bleeding 02/16/2012 015 Hip joint replacement by other means 07/24/2010 04/29/2015 Osteoarthrosis, unspecified whether generalized or localized, pelvic region and thigh 10/01/2009 07/20/2011 Palpitations 10/12/2006 04/29/2015 Unspecified constipation 08/03/2005 015 documented as of this encounter (statuses as of 10/31/2022) [facility] of Past illness Narrative* Problem Noted Date Diagnosed Date Resolved Date Post-menopausal bleeding 02/16/2012 Hip joint replacement by other means 07/24/2010 04/29/2015 Osteoarthrosis, unspecified whether generalized or localized, pelvic region and thigh 10/01/2009 07/20/2011 Palpitations 10/12/2006 04/29/2015 Unspecified constipation 08/03/2005 documented as of this encounter (statuses as of 02/20/2023) [facility] note* Diagnosis Abnormal mammogram Abnormal mammogram, unspecified documented in this encounter [facility] note* Diagnosis Abnormal mammogram Abnormal mammogram, unspecified documented in this encounter [facility] note* Diagnosis Dysuria- Primary documented in this encounter [facility] note* Diagnosis Acute frontal sinusitis, recurrence not specified- Primary documented in this encounter [facility] note* Diagnosis URI, acute- Primary Acute upper respiratory infections of unspecified site documented in this encounter [facility] for referral (narrative)* Diagnostic Procedure Only (Routine) - Closed Specialty Diagnoses / Procedures Referred By Jennifer villa Referred To Contact [facility] Diagnoses Abnormal mammogram Procedures US BREAST LTD RT US BREAST UNI REAL TIME WITH IMAGE LIMITED Isatu Betancourt MD [address] [place] [address] [facility] [address] [place] [address] Referral ID Status Reason Start Date Expiration Date V isits Requested Visits Authorized [id number] Closed Auto-Generate d Referral 08/21/2021 09/20/2022 1 1 [facility] for visit Narrative* Diagnostic Procedure Only (Routine) - Closed Specialty Diagnoses / Procedures Referred By Jennifer villa Referred To Contact [facility] Diagnoses Abnormal mammogram Procedures US BREAST LTD RT US BREAST UNI REAL TIME WITH IMAGE LIMITED Isatu Betancourt MD [address] [place] [address] [facility] [address] [place] [address] Referral ID Status Reason Start Date Expiration Date V isits Requested Visits Authorized [id number] Closed Auto-Generate d Referral 08/21/2021 09/20/2022 1 1 [facility] Summary Purpose Family History No Family History Records FoundNo Family History Records FoundNo Family History Records FoundNo Family History Records Found Advance Directives No Advanced Directives Records FoundDocuments on File Type Date Recorded 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 Advance Directive(s) Advance Directive(s) 10/07/2020 11:35 AM Advance Directive(s) 10/02/2020 10:48 AM Documents on File Type Date Recorded 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 Advance Directive(s) Advance Directive(s) 10/07/2020 11:35 AM Advance Directive(s) 10/02/2020 10:48 AM Reason for Referral Specialty Diagnoses / Procedures Referred By Jennifer t Referred To Contact Caren Jose APRN.[employer] [address] [place] [address] Referral ID Status Reason Start Date Expiration Date V isits Requested Visits Authorized [id number] Pending Review 1 1 Health Concerns Infection Onset Date Last Indicated Resolved Time COVID-19 Rule-Out 02/20/2023 02/20/2023 Additional Source Comments INFORMATION SOURCE (unrecogn ized section and content) DATE CREATED AUTHOR AUTHOR'S ORGANIZ ATION 05/20/2021 [facility] DATE CREATED AUTHOR AUTHOR'S ORGANIZ ATION 02/22/2023 [facility] DATE CREATED AUTHOR AUTHOR'S ORGANIZ ATION 04/23/2023 [facility] Source Comments (unrecognize d section and content) In the event this informatio n is protected by the Federal Confidentiality of Alcohol and Drug Abuse Patient Records regulations: The Federal rules restrict any use of the information to criminally investigate or prosecute any alcohol or drug abuse patient.[facility] the event this information is protected by the Federal Confidentiality of Alcohol and Drug Abuse Patient Records regulations: The Federal rules restrict any use of the information to criminally investigate or prosecute any alcohol or drug abuse patient.[facility] the event this information is protected by the Federal Confidentiality of Alcohol and Drug Abuse Patient Records regulations: The Federal rules restrict any use of the information to criminally investigate or prosecute any alcohol or drug abuse patient.[facility] the event this information is protected by the Federal Confidentiality of Alcohol and Drug Abuse Patient Records regulations: The Federal rules restrict any use of the information to criminally investigate or prosecute any alcohol or drug abuse patient.[facility] the event this information is protected by the Federal Confidentiality of Alcohol and Drug Abuse Patient Records regulations: The Federal rules restrict any use of the information to criminally investigate or prosecute any alcohol or drug abuse patient.[facility] the event this information is protected by the Federal Confidentiality of Alcohol and Drug Abuse Patient Records regulations: The Federal rules restrict any use of the information to criminally investigate or prosecute any alcohol or drug abuse patient.[facility] Care Teams (unrecognized sec tion and content) 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 Relationship Specialty Start Date End Date Kasey Nicole MD [address] [place] [address] [phone] PCP - General 04/20/12 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 Relationship Specialty Start Date End Date Kasey Nicole MD [address] [place] [address] [phone] PCP - General 04/20/12 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 Relationship Specialty Start Date End Date Kasey Nicole MD [address] [place] [address] [phone] PCP - General 04/20/12 [employer]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 Relationship Specialty Start Date End Date Kasey Nicole MD [address] [place] [address] [id number] PCP - General 04/20/12 [employer]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 Relationship Specialty Start Date End Date Kasey Nicole MD [address] [place] [address] [phone] PCP - General 04/20/12 Reason for Visit (unrecogniz ed section and content) Specialty Diagnoses / Procedures Referred By Contac t Referred To Contact [facility] Diagnoses Abnormal mammogram Procedures AAN DIAGNOSTIC RT DIAGNOSTIC MAMMOGRAPHY COMPUTER-AIDED [facility] Isatu Betancourt MD [address] [place] [address] [facility] [address] [place] [address] Referral ID Status Reason Start Date Expiration Date V isits Requested Visits Authorized [id number] Closed Auto-Generate d Referral 08/21/2021 09/20/2022 1 1 Reason Comments lower abdominal discomfort Started last night-not really having any other urinary symptoms Reason Comments Results Reason Comments Sinus Problem sinus pressure x 10 days Reason Comments Flu Like Symptoms Started 4 days ago FOR RECORDS PERTAINING TO PATIENTS WHO ARE OR HAVE BEEN ENROLLED IN A CHEMICAL DEPENDENCY/SUBSTANCEABUSE PROGRAM, SOME INFORMATION MAY BE OMITTED. This clinical summary was aggregated from multiple sources. Caution should be exercised in using it in the provision of clinical care. This summary normalizes information from multiple sources, and as a consequence, information in this document may materially change the coding, format and clinical context of patient data. In addition, data may be omitted in some cases. CLINICAL DECISIONS SHOULD BE BASED ON THE PRIMARY CLINICAL RECORDS. [facility] provides no warranty or guarantee of the accuracy or completeness of information in this document.
[2023-06-02 10:25] LABS: Color, Urine Yellow (Yellow); Glucose, Dipstick Normal (Normal); Ketone-Dipstick Negative (Negative); Leukocyte Esterase-Dipstick 100 /ul (Negative); Nitrite-Dipstick Negative (Negative); Occult Blood-Urine Negative /ul (Negative); Protein-Dipstick Negative (Negative); Urine Bilirubin Dipstick Negative (Negative); Urine Clarity Sl. Cloudy (Clear); Urine Urobilinogen Normal (Normal)
[2023-06-02 10:39] LABS: Bacteria 1+ /hpf (None Seen); Squamous Epithelial Cells - UA 10-25 SEEN /hpf (5-10); White Blood Cells 10-25 SEEN /hpf (0-5)
== END | disposition home or self-care (01) ==
LOC: LABSPEC 10:01
PROVIDERS: PCP Family Medicine; Referring Provider Physician Assistant Surgical; Visit Provider Physician Assistant Surgical
DX: N39.0 Urinary tract infection, site not specified (principal); R30.0 Dysuria
CPT/HCPCS: 81001; 87086

== ENCOUNTER → 2023-06-08 | Outpatient (CLI) | payer MEDICARE, MEDICAID, SELFPAY ==
--- OUTSIDE RECORDS SUMMARY | 2023-06-08 16:15 | XMS RPT_ITS | CCD ---
Author Name Unknown Address [address] [place] [address] Organization [facility] Care Team Providers Care Checkout Operator Name Role Phone TEQUILA DAVIS Attending Unavailable CHERYL BUCIO Consulting Unavailable TEQUILA DAVIS Admitting Unavailable TEQUILA DAVIS Primary Care Unavailable PROVIDER, UNKNOWN Consulting Unavailable CHERYL BUCIO Consulting Unavailable IRVING, DR GREY Anguiano Admitting Unavaila ble IRVING, DR GREY Anguiano Primary Care Unavaila ble IRVING, DR GREY Anguiano Attending Unavaila ble PROVIDER, UNKNOWN Consulting Unavailable Kasey Nicole MD Primary Care Provider Kasey Nicole MD Primary Care Provider Kasey Nicole MD Primary Care Provider Kasey Nicole MD Primary Care Provider KASEY NICOLE Primary Care Unavailabl e KASEY NICOLE Primary Care Unavailabl e KASEY NICOLE Primary Care Unavailabl e DR KASEY LAGUERRE DO Consulting Sylvia vailable CARLOTTA CHUA, ~[phone] KASEY Diaz Admittin g Unavailable CARLOTTA CHUA DR~[phone] KASEY Diaz Attendin g Unavailable KASEY NICOLE Primary Care Unavailabl e DR KASEY LAGUERRE DO Consulting Sylvia vailable KASEY NICOLE Consulting Unavailabl KASEY Arndt Consulting Unavailabl michele TAPIA MD, MATHEUS Consulting Unavailable WILLIE GENTILE, MATHEUS Consulting Unavailable Allergies Allergy Classification Reported Allergen(s) Allergy Type Date of Onset Reaction(s) Facility (1 source) Penicillins Drug allergy (disorder) [facility] Repository (1 source) Sulfonamides (Antibiotic) Drug allergy (disorder) [facility] (7 sources) gabapentin; Translations: [GABAPENTIN] Drug Allergy 0 Mental Status Change [facility] (7 sources) Morphine; Translations: [MORPHINE] Drug Allergy 0 Other: See Comments [facility] (7 sources) Penicillin G; Translations: [PENICILLIN G] Drug Allergy 6 [facility] Work Phone: (7 sources) Sulfonamides (Antibiotic); Translations: [SULFA (SULFONAMIDE ANTIBIOTICS)] Propensity to adverse reactions 6 [facility] Work Phone: Medications Current Medications Medication [...] Class(es) Dates Sig (Normalized) Sig (Original) amylase 13020 unt / lipase 3000 unt / protease [...] 98.2 [degF] Deb Duval APRN.CNP Work Phone: [facility] 02-20-2023 08:18-0400 Body weight 96.16 kg Deb Duval APRN.CNP Work Phone: [facility] 02-20-2023 08:18-0400 Diastolic blood pressure 82 mm[Hg] Deb Duval APRN.CNP Work Phone: [facility] 02-20-2023 08:18-0400 Heart rate 72 /min Deb Duval APRN.CNP Work Phone: [facility] 02-20-2023 08:18-0400 Respiratory rate 16 /min Deb Duval APRN.CNP Work Phone: [facility] 02-20-2023 08:18-0400 SaO2% (BldA) [Mass fraction] 97 % Deb Duval APRN.CNP Work Phone: [facility] 02-20-2023 08:18-0400 Systolic blood pressure 132 mm[Hg] Deb Duval RUBBER GOODS CUTTER FINISHER.CYBER SYSTEMS ENGINEER Work Phone: [facility] 10-31-2022 12:48-0400 Body temperature 98.29 [degF] Krislyn Aberegg PA Work Phone: [facility] 10-31-2022 12:48-0400 Body weight 96.62 kg Krislyn Aberegg PA Work Phone: [facility] 10-31-2022 12:48-0400 Diastolic blood pressure 64 mm[Hg] Krislyn Aberegg PA Work Phone: [facility] 10-31-2022 12:48-0400 Heart rate 80 /min Krislyn Aberegg PA Work Phone: [facility] 10-31-2022 12:48-0400 Respiratory rate 16 /min Krislyn Aberegg PA Work Phone: [facility] 10-31-2022 12:48-0400 SaO2% (BldA) [Mass fraction] 96 % Krislyn Aberegg PA Work Phone: [facility] 10-31-2022 12:48-0400 Systolic blood pressure 102 mm[Hg] Krislyn Aberegg PA Work Phone: [facility] 03-13-2022 08:57-0400 Body temperature 98.2 [degF] Caren Jose RUBBER GOODS CUTTER FINISHER.CYBER SYSTEMS ENGINEER Work Phone: [facility] 03-13-2022 08:57-0400 Body weight 99.52 kg Caren Jose RUBBER [employer] CUTTER FINISHER.CYBER SYSTEMS ENGINEER Work Phone: [facility] 03-13-2022 08:57-0400 Diastolic blood pressure 72 mm[Hg] Caren Jose RUBBER [employer] CUTTER FINISHER.CYBER SYSTEMS ENGINEER Work Phone: [facility] 03-13-2022 08:57-0400 Heart rate 71 /min Caren Jose RUBBER [employer] CUTTER FINISHER.CYBER SYSTEMS ENGINEER Work Phone: [facility] 03-13-2022 08:57-0400 Respiratory rate 18 /min Caren Jose RUBBER [employer] CUTTER FINISHER.CYBER SYSTEMS ENGINEER Work Phone: [facility] 03-13-2022 08:57-0400 SaO2% (BldA) [Mass fraction] 97 % Caren Jose RUBBER [employer] CUTTER FINISHER.CYBER SYSTEMS ENGINEER Work Phone: [facility] 03-13-2022 08:57-0400 Systolic blood pressure 110 mm[Hg] Caren Jose RUBBER GOODS CUTTER FINISHER.CYBER SYSTEMS ENGINEER Work Phone: [facility] Encounters Encounter Date Encounter Type Care Provider Facility Start: 04-19-2023 End: 04-20-[address] KASEY LAGUERRE DO Facility:[facility] Start: 02-20-2023 End: 02-20-2023 ambulatory KASEY NICOLE Facility:[facility] Start: 02-20-2023 End: 02-20-2023 Patient encounter procedure Deb Duval RUBBER [employer] CUTTER FINISHER.CYBER SYSTEMS ENGINEER Work Phone: [facility] Procedures Date Procedure Procedure Detail Performing Clinician Start: 03-13-2022 Urnls dip stick/tabl et rgnt auto w/o microscopy Caren Jose RUBBER [employer] CUTTER FINISHER.CYBER SYSTEMS ENGINEER Work Phone: Start: 09-23-2021 Us breast uni real t amina with image limited Isatu Ramirez MD Work Phone: Start: 09-23-2021 ANA DIAG W JESUS RT Rianna Ramirez MD Work Phone: Start: 08-21-2021 Mammography Us 1 Work Phone: Start: 10-07-2020 Colonoscopy [facility] 1 Work Phone: Plan of Treatment Date Care Activity Detail Author Start: 10-07-2025 Colonoscopy COLONOSCOPY [facility] Start: 10-07-2025 COLORECTAL CANCER SCREENING COLORECTAL CANCER SCREENING [facility] Start: 10-24-2023 DIABETES SCREEN DIABETES SCREEN [facility] Start: 10-24-2023 Diabetes Screening Diabetes Screening [facility] Start: 02-20-2023 End: 03-06-2023 COVID & INFLUENZA A/B & RSV NAAT, ROUTINE COVID & INFLUENZA A/B & RSV NAAT, ROUTINE Microbiology Routine URI, acute Expected: 02/20/2023, Expires: 03/06/2023 [facility] Work Phone: Immunizations Immunization Date Immunization Notes Care Provider Barak pedraza 03-02-2022 influenza virus vaccine, unspecified formulation Deb Duval APRN.CYBER SYSTEMS ENGINEER Work Phone: [facility] 08-15-2020 COVID-19 vaccine, ag e 12+ yr (PFIZER-BIONTECH - PURPLE TOP) Us 1 Work Phone: [facility] Work Phone: 07-25-2020 COVID-19 vaccine, ag e 12+ yr (PFIZER-BIONTECH - PURPLE TOP) Us 1 Work Phone: [facility] Work Phone: Payers Date Payer Category Payer Medicare HUMANA MEDICARE HU[employer]NA MEDICARE PPO [id number] 2013-Present [phone] [address] [address] [place] [address] PPO [id number] 2013 Medicare HUMANA MEDICARE HU[employer]NA MEDICARE PPO [id number] 2013-Present [phone] [address] [address] [place] [address] PPO [id number] 1959 Medicaid [id number] 1957 Medicare [id number] 1945 Unknown [id number] 1945 Unknown [id number] 1945 Unknown [id number] Social History Date Type Detail Facility Start: 03-07-2012 Tobacco smoking stat us [facility] Never smoked tobacco [facility] Start: 08-03-2021 End: 02-20-2023 Alcohol intake Current non-drinker of alcohol (finding) [facility] Start: 1945 Sex Assigned At Not on file [facility] Start: 08-22-2021 End: 03-13-2022 Exposure to SARS-CoV-2 (event) Not sure [facility] Start: 03-07-2012 Tobacco use and exposure Smokeless tobacco non-user [facility] Work Phone: Start: 05-11-2020 End: 02-20-2023 History of Social function [facility] Start: 05-11-2020 End: 02-20-2023 Tobacco use panel [facility] National Score (1-100), lower number is lower risk Not on file [facility] Clinical Notes 02-16-2012 to 02-20-2023 Deb Duval APRN.CNP - 02/20/2023 8:23 AM KATHARINATBRI Vega - 10/31/2022 12:55 PM EDTTelephone Encounter - Citlaly Giron LPN - 03/16/2022 4:25 PM EDTPatient Instructions Note Date & Type Note Facility 02-20-2023 Note HNO ID: [id number] Author: Deb Duval APRN.HAMMAD Service: ? Author [...] (Patient not taki (more content not included)... [facility] 02-20-2023 History of Presen t illness Narrative [...] Deb Duval APRN.HAMMAD documented in this encounter [facility] 10-31-2022 Note HNO ID: [id number] Author: BRI Vega Service: ? Author Type: Physician Child Protective Investigator Type: Progress Notes Filed: 10/31/2022 12:57 PM Note Text: This note was created using Vipshopriter. Subjective Landon Cabral is a 77 year [...] 16 Wt 96. (more content not included)... [facility] 10-31-2022 History of Presen t illness Narrative This note was created using Vipshopriter. Subjective Landon Cabral is a 77 year [...] evaluation. BRI Vega documented in this encounter [facility] 03-16-2022 Miscellaneous Notes Spoke with pt and information listed below given. Pt verbalizes understanding. Citlaly Giron LPN Unable to reach patient. Mailbox full/Mailbox not set up/ Number incorrect. Please try again later. Violetta Segovia ----- Message from Lakisha Melendez APRN.CYBER SYSTEMS ENGINEER sent at 03/15/2022 7:15 AM EDT ----- Please advise patient: Urine culture did not show clear evidence of infection. She may continue to take antibiotic if it has been helpful. If not improving, recommend follow up with PCP. Lakisha Melendez CNP documented in this encounter [facility] 03-13-2022 Note HNO ID: [id number] Author: Caren Jose APRN.HAMMAD Service: ? Author [...] activity (states that her last week from [place]) The history is provided by the patient. No wincher was used. UTI This is a new [...] History Tobacco Use (more content not included)... [facility] 03-13-2022 Instructions Caren Jose APRN.CYBER SYSTEMS ENGINEER - 03/13/2022 9:10 AM EDT Images from [...] treated. A physician, nurse practitioner or physician carpenter's assistant may treat with a short course of [...] if symptoms resolve. documented in this encounter [facility] 03-13-2022 History of Presen t illness Narrative This note was created using Vipshopriter. Subjective Landon Cabral is a 76 year old female. 76 year old female with PMH gastritis and osteopenia presents with complaints of possible UTI. Acute onset yesterday evening. +suprapubic pressure that kept her up during night This morning she has developed burning with urination +lower back pain Denies vaginal bleeding. Denies vaginal discharge Denies recent sexual activity (states that her last week from [place]) The history is provided by the patient. No wincher was used. UTI This is a new [...] Caren Jose APRN.HAMMAD documented in this encounter [facility] 09-23-2021 History of Presen t illness Narrative [...] 2021 9:19 AM documented in this encounter [facility] documented as of this encounter (statuses as of 09/24/2021) [facility]2012 History of Past illness Narrative* Problem Noted Date Resolved Date Post-menopausal bleeding 02/16/2012 015 Hip joint replacement by other means 07/24/2010 04/29/2015 Osteoarthrosis, unspecified whether generalized or localized, pelvic region and thigh 10/01/2009 07/20/2011 Palpitations 10/12/2006 04/29/2015 Unspecified constipation 08/03/2005 015 documented as of this encounter (statuses as of 09/24/2021) [facility] History of Past illness Narrative* Problem Noted Date Resolved Date Post-menopausal bleeding 02/16/2012 015 Hip joint replacement by other means 07/24/2010 04/29/2015 Osteoarthrosis, unspecified whether generalized or localized, pelvic region and thigh 10/01/2009 07/20/2011 Palpitations 10/12/2006 04/29/2015 Unspecified constipation 08/03/2005 015 documented as of this encounter (statuses as of 03/13/2022) [facility] History of Past illness Narrative* Problem Noted Date Resolved Date Post-menopausal bleeding 02/16/2012 015 Hip joint replacement by other means 07/24/2010 04/29/2015 Osteoarthrosis, unspecified whether generalized or localized, pelvic region and thigh 10/01/2009 07/20/2011 Palpitations 10/12/2006 04/29/2015 Unspecified constipation 08/03/2005 015 documented as of this encounter (statuses as of 03/16/2022) [facility] History of Past illness Narrative* Problem Noted Date Resolved Date Post-menopausal bleeding 02/16/2012 015 Hip joint replacement by other means 07/24/2010 04/29/2015 Osteoarthrosis, unspecified whether generalized or localized, pelvic region and thigh 10/01/2009 07/20/2011 Palpitations 10/12/2006 04/29/2015 Unspecified constipation 08/03/2005 015 documented as of this encounter (statuses as of 10/31/2022) [facility] History of Past illness Narrative* Problem Noted Date Diagnosed Date Resolved Date Post-menopausal bleeding 02/16/2012 Hip joint replacement by other means 07/24/2010 04/29/2015 Osteoarthrosis, unspecified whether generalized or localized, pelvic region and thigh 10/01/2009 07/20/2011 Palpitations 10/12/2006 04/29/2015 Unspecified constipation 08/03/2005 documented as of this encounter (statuses as of 02/20/2023) [facility] note* Diagnosis Abnormal mammogram Abnormal mammogram, unspecified documented in this encounter [facility] note* Diagnosis Abnormal mammogram Abnormal mammogram, unspecified documented in this encounter [facility] note* Diagnosis Dysuria- Primary documented in this encounter [facility] note* Diagnosis Acute frontal sinusitis, recurrence not specified- Primary documented in this encounter [facility] note* Diagnosis URI, acute- Primary Acute upper respiratory infections of unspecified site documented in this encounter [facility] for referral (narrative)* Diagnostic Procedure Only (Routine) - Closed Specialty Diagnoses / Procedures Referred By Jennifer villa Referred To Contact [facility] Diagnoses Abnormal mammogram Procedures US BREAST LTD RT US BREAST UNI REAL TIME WITH IMAGE LIMITED Isatu Betancourt MD [address] [place] [address] [facility] [address] [place] [place] [address] Referral ID Status Reason Start Date Expiration Date V isits Requested Visits Authorized [id number] Closed Auto-Generate d Referral 08/21/2021 09/20/2022 1 1 [facility] for visit Narrative* Diagnostic Procedure Only (Routine) - Closed Specialty Diagnoses / Procedures Referred By Jennifer villa Referred To Contact [facility] Diagnoses Abnormal mammogram Procedures US BREAST LTD RT US BREAST UNI REAL TIME WITH IMAGE LIMITED Isatu Betancourt MD [address] [place] [address] [facility] [address] [place] [address] Referral ID Status Reason Start Date Expiration Date V isits Requested Visits Authorized [id number] Closed Auto-Generate d Referral 08/21/2021 09/20/2022 1 1 [facility] Summary Purpose Family History No Family History Records FoundNo Family History Records FoundNo Family History Records FoundNo Family History Records Found Advance Directives No Advanced Directives Records FoundDocuments on File Type Date Recorded Patient Retail Cashier Associate Expl anation Advance Directive(s) Advance Directive(s) 10/07/2020 11:35 AM Advance Directive(s) 10/02/2020 10:48 AM Documents on File Type Date Recorded Patient Retail Cashier Associate Expl anation Advance Directive(s) Advance Directive(s) 10/07/2020 11:35 AM Advance Directive(s) 10/02/2020 10:48 AM Reason for Referral Specialty Diagnoses / Procedures Referred By Jennifer t Referred To Contact Caren Jose APRN.CYBER SYSTEMS ENGINEER [address] [place] [address] Referral ID Status Reason Start Date Expiration Date V isits Requested Visits Authorized [id number] Pending Review 1 1 Health Concerns Infection Onset Date Last Indicated Resolved Time COVID-19 Rule-Out 02/20/2023 02/20/2023 Additional Source Comments INFORMATION SOURCE (unrecogn ized section and content) DATE CREATED AUTHOR AUTHOR'S ORGANIZ ATION 05/20/2021 [facility] DATE CREATED AUTHOR AUTHOR'S ORGANIZ ATION 02/22/2023 [facility] DATE CREATED AUTHOR AUTHOR'S ORGANIZ ATION 04/23/2023 [facility] Source Comments (unrecognize d section and content) In the event this informatio n is protected by the Federal Confidentiality of Alcohol and Drug Abuse Patient Records regulations: The Federal rules restrict any use of the information to criminally investigate or prosecute any alcohol or drug abuse patient.[facility] the event this information is protected by the Federal Confidentiality of Alcohol and Drug Abuse Patient Records regulations: The Federal rules restrict any use of the information to criminally investigate or prosecute any alcohol or drug abuse patient.[facility] the event this information is protected by the Federal Confidentiality of Alcohol and Drug Abuse Patient Records regulations: The Federal rules restrict any use of the information to criminally investigate or prosecute any alcohol or drug abuse patient.[facility] the event this information is protected by the Federal Confidentiality of Alcohol and Drug Abuse Patient Records regulations: The Federal rules restrict any use of the information to criminally investigate or prosecute any alcohol or drug abuse patient.[facility] the event this information is protected by the Federal Confidentiality of Alcohol and Drug Abuse Patient Records regulations: The Federal rules restrict any use of the information to criminally investigate or prosecute any alcohol or drug abuse patient.[facility] the event this information is protected by the Federal Confidentiality of Alcohol and Drug Abuse Patient Records regulations: The Federal rules restrict any use of the information to criminally investigate or prosecute any alcohol or drug abuse patient.[facility] Care Teams (unrecognized sec tion and content) Checkout Operator Relationship Specialty Start Date End Date Kasey Nicole MD [address] [place] [address] [id number] PCP - General 04/20/12 Checkout Operator Relationship Specialty Start Date End Date Kasey Nicole MD [address] [place] [address] [id number] PCP - General 04/20/12 Checkout Operator Relationship Specialty Start Date End Date Kasey Nicole MD [address] [place] [address] [id number] PCP - General 04/20/12 Checkout Operator Relationship Specialty Start Date End Date Kasey Nicole MD [address] [place] [address] [id number] PCP - General 04/20/12 Checkout Operator Relationship Specialty Start Date End Date Kasey Nicole MD [address] [place] [address] [id number] PCP - General 04/20/12 Reason for Visit (unrecogniz ed section and content) Specialty Diagnoses / Procedures Referred By Contac t Referred To Contact [facility] Diagnoses Abnormal mammogram Procedures ANA DIAGNOSTIC RT DIAGNOSTIC MAMMOGRAPHY COMPUTER-AIDED [facility]CJ [facility] Isatu Betancourt MD [address] [place] [address] [facility] [address] [place] [address] Referral ID Status Reason Start Date Expiration Date V isits Requested Visits Authorized [id number] Closed Auto-Generate d Referral 08/21/2021 09/20/2022 1 [...] BE BASED ON THE PRIMARY CLINICAL RECORDS. [employer] provides no warranty or guarantee of the accuracy or completeness of information in this document.
== END | disposition home or self-care (01) ==
PROVIDERS: PCP Family Medicine; Referring Provider Physician Assistant; Visit Provider Physician Assistant
DX: N39.0 Urinary tract infection, site not specified (principal)
CPT/HCPCS: 87086; 87088

== ENCOUNTER → 2023-06-27 | Outpatient (CLI) | payer MEDICARE, MEDICAID, SELFPAY ==
--- NOTE | 2023-06-27 13:05 | CT_ITS ---
INDICATION: NEOPLASM OF UNCERTAIN BEHAVIOR OF LEFT KIDNEY EXAMINATION: CT ABDOMEN AND PELVIS WITH AND WITHOUT CONTRAST - CT Abdomen And Pelvis WO/W Contrast Injection TECHNIQUE: Helically acquired images were obtained of the abdomen and pelvis both before and after IV contrast. A radiation dose optimization technique was used for this scan. IV Contrast dosage and agent: 100 cc of Isovue-370 Oral contrast: None. RADIATION DOSAGE (If Supplied By Facility): CTDIvol = ( 19.51 ) mGy, DLP = ( 1596.35 ) mGycm COMPARISON: Prior studies dated: 04/13/2022 and 05/01/2021 FINDINGS: LOWER CHEST: Lung bases are clear. No cardiomegaly or pericardial effusion. LIVER: Hepatic steatosis. No focal mass. GALLBLADDER AND BILIARY TREE: Status post cholecystectomy. No intra- or extrahepatic biliary ductal dilation. PANCREAS: No focal cystic or solid mass. SPLEEN: Multiple calcified granulomata. ADRENAL GLANDS: No nodules. KIDNEYS AND URETERS: Stable 1.1 cm hypodense nodule in the lower pole of the left kidney unchanged since prior examinations. Additional small tiny symphysis bilaterally for which no further follow-up exam is needed. No hydronephrosis. PERITONEUM: No ascites or free air. No other fluid collection. BOWEL: Moderate size hiatal hernia. No stomach or bowel distension. No focal inflammatory change. LYMPH NODES: No enlarged mesenteric or retroperitoneal lymph nodes. VESSELS: Aorta is non-dilated. URINARY BLADDER: Unremarkable. REPRODUCTIVE ORGANS: No pelvic masses. ABDOMINAL WALL: No discrete abdominal or pelvic wall hernia. BONES: No lytic or blastic abnormality. Degenerative changes of the spine. Left hip arthroplasty. CT/CT Abd/Pelvis W/WO Contrast IMPRESSION: 1. Stable small left renal lesion unchanged since prior examinations. 2. No focal acute inflammatory process. 3. Hepatic steatosis. 4. Moderate size hiatal hernia Electronically Signed: Roby Alford MD at 14:11 EST ,
[2023-06-27 13:39] LABS: CREATININE FINGERSTICK < 1.0 mg/dL (0.55-1.02); EGFR FINGERSTICK > 60.0000 mL/min (>60)
== END | disposition home or self-care (01) ==
PROVIDERS: PCP Family Medicine; Referring Provider Urology; Visit Provider Urology
DX: D41.02 Neoplasm of uncertain behavior of left kidney (principal)
CPT/HCPCS: 74178; Q9967

== ENCOUNTER → 2023-07-12 | Outpatient (CLI) | payer MEDICARE, MEDICAID, SELFPAY ==
[2023-07-12 12:18] LABS: Erythrocyte Sedimentation Rate 9 mm/hr (0-30)
[2023-07-12 12:19] LABS: Absolute Lymphocyte Count 1.84 X10^3/uL (0.83-4.51); Absolute Neutrophil Count 3.2 X10^3/uL (2.0-7.7); Basophil# 0.03 X10^3/uL; Basophil% 0.5 % (0-1); Eosinophil# 0.08 X10^3/uL; Eosinophils% 1.4 % (0-5); Hematocrit 47.9 % (37-47); Hemoglobin 15.3 g/dL (12.0-15.0); Lymphocyte # 1.84 X10^3/ul (0.83-4.51); Lymphocyte % 32.5 % (19-41); Mean Corp Hgb Conc 31.9 g/dL (32-36); Mean Corpuscular Hgb 30.4 pg (27.0-32.0); Mean Platelet Vol. 10.7 fl (6.2-12.0); Monocyte# 0.46 X10^3/uL; Monocyte% 8.1 % (0-10); NRBC Flagged by Analyzer 0 % (0-5); Neutrophil # 3.24 X10^3/uL (2.7-7.7); Neutrophil % 57.3 % (47-70); Platelet Count 260 K/mm3 (150-450); RBC Distribution Width CV 13.9 % (11.6-14.6); RBC Distribution Width SD 48.8 fl (35.1-43.9); Red Blood Count 5.04 M/mm3 (4.2-5.4); White Blood Count 5.7 K/mm3 (4.4-11.0)
--- OUTSIDE RECORDS SUMMARY | 2023-07-12 13:07 | XMS RPT_ITS | CCD ---
Author Name Unknown Address [address] [place] [address] Organization [facility] Care Team Providers Care Neck Pinner Name Role Phone TEQUILA DAVIS Attending Unavailable [...] LAGUERRE DO Consulting Sylvia vailable CARLOTTA CHUA, ~[phone] KASEY Diaz Admittin g Unavailable CARLOTTA CHUA DR~[phone] KASEY Diaz Attendin g Unavailable KASEY NICOLE Primary Care Unavailabl e DR KASEY LAGUERRE DO Consulting Sylvia vailable KASEY INCOLE Consulting Unavailabl KASEY Arndt Consulting Unavailabl michele TAPIA MD, MATHEUS Consulting Unavailable WILLIE GENTILE, MATHEUS Consulting Unavailable Allergies Allergy Classification Reported Allergen(s) Allergy Type Date of Onset Reaction(s) Facility (1 source) Penicillins Drug allergy (disorder) [facility] Repository (1 source) Sulfonamides (Antibiotic) Drug allergy (disorder) [facility] Repository (7 sources) gabapentin; Translations: [GABAPENTIN] Drug Allergy 0 Mental Status Change [facility] (7 sources) Morphine; Translations: [MORPHINE] Drug Allergy 0 Other: See Comments [facility] (7 sources) Penicillin G; Translations: [PENICILLIN G] Drug Allergy 6 [facility] Work Phone: (7 sources) Sulfonamides (Antibiotic); Translations: [SULFA (SULFONAMIDE ANTIBIOTICS)] Propensity to adverse reactions 6 [facility] Work Phone: Medications Current Medications Medication Drug [...] Class(es) Dates Sig (Normalized) Sig (Original) amylase 54954 unt / lipase 3000 unt / protease [...] 98.2 [degF] Deb Duval APRN.CNP Work Phone: [facility] 02-20-2023 08:18-0400 Body weight 96.16 kg Deb Duval APRN.CNP Work Phone: [facility] 02-20-2023 08:18-0400 Diastolic blood pressure 82 mm[Hg] Deb Duval APRN.CNP Work Phone: [facility] 02-20-2023 08:18-0400 Heart rate 72 /min Deb Duval APRN.CNP Work Phone: [facility] 02-20-2023 08:18-0400 Respiratory rate 16 /min Deb Duval APRN.CNP Work Phone: [facility] 02-20-2023 08:18-0400 SaO2% (BldA) [Mass fraction] 97 % Deb Duval APRN.CNP Work Phone: [facility] 02-20-2023 08:18-0400 Systolic blood pressure 132 mm[Hg] Deb Duval PROTOHISTORIAN.INFERTILITY MEDICAL ASSISTANT Work Phone: [facility] 10-31-2022 12:48-0400 Body temperature 98.29 [degF] Krislyn Aberegg PA Work Phone: [facility] 10-31-2022 12:48-0400 Body weight 96.62 kg Krislyn Aberegg PA Work Phone: [facility] 10-31-2022 12:48-0400 Diastolic blood pressure 64 mm[Hg] Krislyn Aberegg PA Work Phone: [facility] 10-31-2022 12:48-0400 Heart rate 80 /min Krislyn Aberegg PA Work Phone: [facility] 10-31-2022 12:48-0400 Respiratory rate 16 /min Krislyn Aberegg PA Work Phone: [facility] 10-31-2022 12:48-0400 SaO2% (BldA) [Mass fraction] 96 % Krislyn Aberegg PA Work Phone: [facility] 10-31-2022 12:48-0400 Systolic blood pressure 102 mm[Hg] Krislyn Aberegg PA Work Phone: [facility] 03-13-2022 08:57-0400 Body temperature 98.2 [degF] Caren Jose PROTOHISTORIAN.INFERTILITY MEDICAL ASSISTANT Work Phone: [facility] 03-13-2022 08:57-0400 Body weight 99.52 kg Caren Jose PROTOHISTORIAN.INFERTILITY MEDICAL ASSISTANT Work Phone: [facility] 03-13-2022 08:57-0400 Diastolic blood pressure 72 mm[Hg] Caren Jose PROTOHISTORIAN.INFERTILITY MEDICAL ASSISTANT Work Phone: [facility] 03-13-2022 08:57-0400 Heart rate 71 /min Caren Jose PROTOHISTORIAN.INFERTILITY MEDICAL ASSISTANT Work Phone: [facility] 03-13-2022 08:57-0400 Respiratory rate 18 /min Caren Jose PROTOHISTORIAN.INFERTILITY MEDICAL ASSISTANT Work Phone: [facility] 03-13-2022 08:57-0400 SaO2% (BldA) [Mass fraction] 97 % Caren Jose PROTOHISTORIAN.INFERTILITY MEDICAL ASSISTANT Work Phone: [facility] 03-13-2022 08:57-0400 Systolic blood pressure 110 mm[Hg] Caren Jose PROTOHISTORIAN.INFERTILITY MEDICAL ASSISTANT Work Phone: [facility] Encounters Encounter Date Encounter Type Care Provider Facility Start: 04-19-2023 End: 04-20-[address] KASEY LAGUERRE DO Facility:[facility] Start: 02-20-2023 End: 02-20-2023 ambulatory KASEY NICOLE Facility:[facility] [place] Start: 02-20-2023 End: 02-20-2023 Patient encounter procedure eDb Duval PROTOHISTORIAN.INFERTILITY MEDICAL ASSISTANT Work Phone: [facility] Procedures Date Procedure Procedure Detail Performing Clinician Start: 03-13-2022 Urnls dip stick/tabl et rgnt auto w/o microscopy Caren Jose PROTOHISTORIAN.INFERTILITY MEDICAL ASSISTANT Work Phone: Start: 09-23-2021 Us breast uni real t amina with image limited Isatu Ramirez MD Work Phone: Start: 09-23-2021 ANA DIAG W JESUS RT Rianna Ramirez MD Work Phone: Start: 08-21-2021 Mammography Us 1 Work Phone: Start: 10-07-2020 Colonoscopy Us 1 Work Phone: Plan of Treatment Date Care Activity Detail Author Start: 10-07-2025 Colonoscopy COLONOSCOPY [facility] Start: 10-07-2025 COLORECTAL CANCER SCREENING COLORECTAL CANCER SCREENING [facility] Start: 10-24-2023 DIABETES SCREEN DIABETES SCREEN [facility] Start: 10-24-2023 Diabetes Screening Diabetes Screening [facility] Start: 02-20-2023 End: 03-06-2023 COVID & INFLUENZA A/B & RSV NAAT, ROUTINE COVID & INFLUENZA A/B & RSV NAAT, ROUTINE Microbiology Routine URI, acute Expected: 02/20/2023, Expires: 03/06/2023 [facility] Work Phone: Immunizations Immunization Date Immunization Notes Care Provider Barak pedraza 03-02-2022 influenza virus vaccine, unspecified formulation Deb Duval APRN.INFERTILITY MEDICAL ASSISTANT Work Phone: [facility] 08-15-2020 COVID-19 vaccine, ag e 12+ yr (PFIZER-BIONTECH - PURPLE TOP) Us 1 Work Phone: [facility] Work Phone: 07-25-2020 COVID-19 vaccine, ag e 12+ yr (PFIZER-BIONTECH - PURPLE TOP) Us 1 Work Phone: [facility] Work Phone: Payers Date Payer Category Payer Medicare [employer] MEDICARE HU[employer]NA MEDICARE PPO [id number] 2013-Present [phone] [address] [address] [place] [address] PPO [id number] 2013 Medicare HU[employer]NA MEDICARE HU[employer] MEDICARE PPO [id number] 2013-Present [phone] [address] [address] [place] [address] PPO [id number] 1959 Medicaid [id number] 1957 Medicare [id number] 1945 Unknown [id number] 1945 Unknown [id number] 1945 Unknown [id number] Social History Date Type Detail Facility Start: 03-07-2012 Tobacco smoking stat us WIIS Never smoked tobacco [facility] Start: 08-03-2021 End: 02-20-2023 Alcohol intake Current non-drinker of alcohol (finding) [facility] Start: 1945 Sex Assigned At Not on file [facility] Start: 08-22-2021 End: 03-13-2022 Exposure to SARS-CoV-2 (event) Not sure [facility] Start: 03-07-2012 Tobacco use and exposure Smokeless tobacco non-user [facility] Work Phone: Start: 05-11-2020 End: 02-20-2023 History of Social function [facility] Start: 05-11-2020 End: 02-20-2023 Tobacco use panel [facility] National Score (1-100), lower number is lower risk Not on file [facility] Clinical Notes 02-16-2012 to 02-20-2023 Deb Duval APRN.CNP - 02/20/2023 8:23 AM KATHARINATBRI Vega - 10/31/2022 12:55 PM EDTTelephone Encounter - Citlaly Giron LPN - 03/16/2022 4:25 PM EDTPatient Instructions Note Date & Type Note Facility 02-20-2023 Note HNO ID: [id number] Author: Deb Duval APRN.HAMMAD Service: ? Author [...] (Patient not taki (more content not included)... [facility] 02-20-2023 History of Presen t illness Narrative [...] Deb Duval APRN.HAMMAD documented in this encounter [facility] 10-31-2022 Note HNO ID: [id number] Author: BRI Vega Service: ? Author Type: Physician Scale Assembly Set Up Worker Type: Progress Notes Filed: 10/31/2022 12:57 PM Note Text: This note was created using qunbriter. Subjective Landon Cabral is a 77 year [...] 16 Wt 96. (more content not included)... [facility] 10-31-2022 History of Presen t illness Narrative This note was created using qunbriter. Subjective Landon Cabral is a 77 year [...] evaluation. BRI Vega documented in this encounter [facility] 03-16-2022 Miscellaneous Notes Spoke with pt and information listed below given. Pt verbalizes understanding. Citlaly Giron LPN Unable to reach patient. Mailbox full/Mailbox not set up/ Number incorrect. Please try again later. Violetta Segovia ----- Message from Lakisha Melendez APRN.INFERTILITY MEDICAL ASSISTANT sent at 03/15/2022 7:15 AM EDT ----- Please advise patient: Urine culture did not show clear evidence of infection. She may continue to take antibiotic if it has been helpful. If not improving, recommend follow up with PCP. Lakisha Melendez CNP documented in this encounter [facility] 03-13-2022 Note HNO ID: [id number] Author: Caren Jose APRN.HAMMAD Service: ? Author [...] activity (states that her last week from [place]) The history is provided by the patient. No telecom analyst was used. UTI This is a new [...] History Tobacco Use (more content not included)... [facility] 03-13-2022 Instructions Caren Jose APRN.INFERTILITY MEDICAL ASSISTANT - 03/13/2022 9:10 AM EDT Images from [...] treated. A physician, nurse practitioner or physician legal document assistant may treat with a short course [...] if symptoms resolve. documented in this encounter [facility] 03-13-2022 History of Presen t illness Narrative This note was created using qunbriter. Subjective Landon Cabral is a 76 year old female. 76 year old female with PMH gastritis and osteopenia presents with complaints of possible UTI. Acute onset yesterday evening. +suprapubic pressure that kept her up during night This morning she has developed burning with urination +lower back pain Denies vaginal bleeding. Denies vaginal discharge Denies recent sexual activity (states that her last week from [place]) The history is provided by the patient. No telecom analyst was used. UTI This is a new [...] Caren Jose APRN.HAMMAD documented in this encounter [facility] 09-23-2021 History of Presen t illness [...] 2021 9:19 AM documented in this encounter [facility] documented as of this encounter (statuses as of 09/24/2021) [facility]09-12-2012 History of Past illness Narrative* Problem Noted Date Resolved Date Post-menopausal bleeding 02/16/2012 015 Hip joint replacement by other means 07/24/2010 04/29/2015 Osteoarthrosis, unspecified whether generalized or localized, pelvic region and thigh 10/01/2009 07/20/2011 Palpitations 10/12/2006 04/29/2015 Unspecified constipation 08/03/2005 015 documented as of this encounter (statuses as of 09/24/2021) [facility] History of Past illness Narrative* Problem Noted Date Resolved Date Post-menopausal bleeding 02/16/2012 015 Hip joint replacement by other means 07/24/2010 04/29/2015 Osteoarthrosis, unspecified whether generalized or localized, pelvic region and thigh 10/01/2009 07/20/2011 Palpitations 10/12/2006 04/29/2015 Unspecified constipation 08/03/2005 015 documented as of this encounter (statuses as of 03/13/2022) [facility] History of Past illness Narrative* Problem Noted Date Resolved Date Post-menopausal bleeding 02/16/2012 015 Hip joint replacement by other means 07/24/2010 04/29/2015 Osteoarthrosis, unspecified whether generalized or localized, pelvic region and thigh 10/01/2009 07/20/2011 Palpitations 10/12/2006 04/29/2015 Unspecified constipation 08/03/2005 015 documented as of this encounter (statuses as of 03/16/2022) [facility]-12-2012 History of Past illness Narrative* Problem Noted Date Resolved Date Post-menopausal bleeding 02/16/2012 015 Hip joint replacement by other means 07/24/2010 04/29/2015 Osteoarthrosis, unspecified whether generalized or localized, pelvic region and thigh 10/01/2009 07/20/2011 Palpitations 10/12/2006 04/29/2015 Unspecified constipation 08/03/2005 015 documented as of this encounter (statuses as of 10/31/2022) [facility]2012 History of Past illness Narrative* Problem Noted Date Diagnosed Date Resolved Date Post-menopausal bleeding 02/16/2012 Hip joint replacement by other means 07/24/2010 04/29/2015 Osteoarthrosis, unspecified whether generalized or localized, pelvic region and thigh 10/01/2009 07/20/2011 Palpitations 10/12/2006 04/29/2015 Unspecified constipation 08/03/2005 documented as of this encounter (statuses as of 02/20/2023) [facility] note* Diagnosis Abnormal mammogram Abnormal mammogram, unspecified documented in this encounter [facility] note* Diagnosis Abnormal mammogram Abnormal mammogram, unspecified documented in this encounter [facility] note* Diagnosis Dysuria- Primary documented in this encounter [facility] note* Diagnosis Acute frontal sinusitis, recurrence not specified- Primary documented in this encounter [facility] note* Diagnosis URI, acute- Primary Acute upper respiratory infections of unspecified site documented in this encounter [facility] for referral (narrative)* Diagnostic Procedure Only (Routine) - Closed Specialty Diagnoses / Procedures Referred By Jennifer villa Referred To Contact [facility] Diagnoses Abnormal mammogram Procedures US BREAST LTD RT US BREAST UNI REAL TIME WITH IMAGE LIMITED Isatu Betancourt MD [address] [place] [address] [facility] [address] [place] [address] Referral ID Status Reason Start Date Expiration Date V isits Requested Visits Authorized [id number] Closed Auto-Generate d Referral 08/21/2021 09/20/2022 1 1 [facility] for visit Narrative* Diagnostic Procedure Only (Routine) - Closed Specialty Diagnoses / Procedures Referred By Jennifer villa Referred To Contact [facility] Diagnoses Abnormal mammogram Procedures US BREAST LTD RT US BREAST UNI REAL TIME WITH IMAGE LIMITED Isatu Betancourt MD [address] [place] [address] [facility] [address] [place] [address] Referral ID Status Reason Start Date Expiration Date V isits Requested Visits Authorized [id number] Closed Auto-Generate d Referral 08/21/2021 09/20/2022 1 1 [facility] Summary Purpose Family History No Family History Records FoundNo Family History Records FoundNo Family History Records FoundNo Family History Records Found Advance Directives No Advanced Directives Records FoundDocuments on File Type Date Recorded Patient Senior Contracts Manager Expl anation Advance Directive(s) Advance Directive(s) 10/07/2020 11:35 AM Advance Directive(s) 10/02/2020 10:48 AM Documents on File Type Date Recorded Patient Senior Contracts Manager Expl anation Advance Directive(s) Advance Directive(s) 10/07/2020 11:35 AM Advance Directive(s) 10/02/2020 10:48 AM Reason for Referral Specialty Diagnoses / Procedures Referred By Jennifer t Referred To Contact Caren Jose APRN.INFERTILITY MEDICAL ASSISTANT [address] [place] [address] Referral ID Status Reason Start Date Expiration Date V isits Requested Visits Authorized [id number] Pending Review 1 1 Health Concerns Infection Onset Date Last Indicated Resolved Time COVID-19 Rule-Out 02/20/2023 02/20/2023 Additional Source Comments INFORMATION SOURCE (unrecogn ized section and content) DATE CREATED AUTHOR AUTHOR'S ORGANIZ ATION 05/20/2021 [facility] DATE CREATED AUTHOR AUTHOR'S ORGANIZ ATION 02/22/2023 [facility] DATE CREATED AUTHOR AUTHOR'S ORGANIZ ATION 04/23/2023 [facility] ospital Source Comments (unrecognize d section and content) In the event this informatio n is protected by the Federal Confidentiality of Alcohol and Drug Abuse Patient Records regulations: The Federal rules restrict any use of the information to criminally investigate or prosecute any alcohol or drug abuse patient.[facility] the event this information is protected by the Federal Confidentiality of Alcohol and Drug Abuse Patient Records regulations: The Federal rules restrict any use of the information to criminally investigate or prosecute any alcohol or drug abuse patient.[facility] the event this information is protected by the Federal Confidentiality of Alcohol and Drug Abuse Patient Records regulations: The Federal rules restrict any use of the information to criminally investigate or prosecute any alcohol or drug abuse patient.[facility] the event this information is protected by the Federal Confidentiality of Alcohol and Drug Abuse Patient Records regulations: The Federal rules restrict any use of the information to criminally investigate or prosecute any alcohol or drug abuse patient.[facility] the event this information is protected by the Federal Confidentiality of Alcohol and Drug Abuse Patient Records regulations: The Federal rules restrict any use of the information to criminally investigate or prosecute any alcohol or drug abuse patient.[facility] the event this information is protected by the Federal Confidentiality of Alcohol and Drug Abuse Patient Records regulations: The Federal rules restrict any use of the information to criminally investigate or prosecute any alcohol or drug abuse patient.[facility] Care Teams (unrecognized sec tion and content) Neck Pinner Relationship Specialty Start Date End Date Kasey Nicole MD [address] [place] [address] [id number] PCP - General 04/20/12 Neck Pinner Relationship Specialty Start Date End Date Kasey Nicole MD [address] [place] [address] [id number] PCP - General 04/20/12 Neck Pinner Relationship Specialty Start Date End Date Kasey Nicole MD [address] [place] [address] [id number] PCP - General 04/20/12 Neck Pinner Relationship Specialty Start Date End Date Kasey Nicole MD [address] [place] [address] [id number] PCP - General 04/20/12 Neck Pinner Relationship Specialty Start Date End Date Kasey Nicole MD [address] [place] [address] [id number] PCP - General 04/20/12 Reason for Visit (unrecogniz ed section and content) Specialty Diagnoses / Procedures Referred By Contac t Referred To Contact [facility] Diagnoses Abnormal mammogram Procedures ANA DIAGNOSTIC RT DIAGNOSTIC MAMMOGRAPHY COMPUTER-AIDED [facility]CJ [facility] Isatu Betancourt MD [address] [place] [address] [facility] [address] [place] [address] Referral ID Status Reason Start Date Expiration Date V isits Requested Visits Authorized [id number] Closed Auto-Generate d Referral 08/21/2021 09/20/2022 1 [...] BE BASED ON THE PRIMARY CLINICAL RECORDS. [employer] provides no warranty or guarantee of the accuracy or completeness of information in this document.
[2023-07-12 13:51] LABS: ALB/GLOB Ratio 0.9 RATIO (0.9-2.4); AST(SGOT) 22 U/L (15-37); Alanine Aminotransfer ALT/SGPT 28 U/L (13-56); Albumin, Serum 3.6 g/dL (3.2-5.0); Alkaline Phosphatase 106 U/L (45-117); Anion Gap 5 (5-15); BUN 16 mg/dL (7-18); BUN/Creat Ratio 22.8 RATIO (10-20); Calcium,Total 9.4 mg/dL (8.5-10.1); Chloride 104 mmol/L (98-107); EST Glomerular Filtration Rate 86 mL/min (>60); Est Glom Filt Rate - Afr Amer 104 mL/min (>60); Globulin 3.9 g/dL (2.2-4.2); Glucose 92 mg/dL (74-106); Potassium 3.9 mmol/L (3.5-5.1); Protein, Total 7.5 g/dL (6.4-8.2); Sodium Level 136 mmol/L (136-145); Thyroid Stim Hormone (TSH) 0.93 uIU/mL (0.358-3.74)
== END | disposition home or self-care (01) ==
PROVIDERS: PCP Family Medicine; Visit Provider Family Medicine
DX: N39.0 Urinary tract infection, site not specified (principal); R53.81 Other malaise; R53.83 Other fatigue
CPT/HCPCS: 36415; 80053; 84443; 85025; 85652; 87086; 87088

== ENCOUNTER → 2023-07-21 | Outpatient (CLI) | payer MEDICARE, MEDICAID, SELFPAY ==
--- OUTSIDE RECORDS SUMMARY | 2023-07-21 11:39 | XMS RPT_ITS | CCD ---
Author Name Unknown Address [address] [place] [address] Organization [facility] Care Team Providers Care Software Test Automation Engineer Name Role Phone TEQUILA DAVIS Attending Unavailable [...] LAGUERRE DO Consulting Sylvia vailable CARLOTTA CHUA, [phone] KASEY Diaz Admittin g Unavailable CARLOTTA CHUA DR~[phone] KASEY Diaz Attendin g Unavailable KASEY NICOLE Primary Care Unavailabl e DR KASEY LAGUERRE DO Consulting Sylvia vailable KASEY NICOLE Consulting Unavailabl KASEY Arndt Consulting Unavailabl michele TAPIA MD, MATHEUS Consulting Unavailable WILLIE GENTILE, MATHEUS Consulting Unavailable Allergies Allergy Classification Reported Allergen(s) Allergy Type Date of Onset Reaction(s) Facility (1 source) Penicillins Drug allergy (disorder) [facility] Repository (1 source) Sulfonamides (Antibiotic) Drug allergy (disorder) [facility] Repository (7 sources) gabapentin; Translations: [GABAPENTIN] Drug Allergy 0 Mental Status Change [facility] (7 sources) Morphine; Translations: [MORPHINE] Drug Allergy 0 Other: See Comments [facility] (7 sources) Penicillin G; Translations: [PENICILLIN G] Drug Allergy 6 [facility] Work Phone: (7 sources) Sulfonamides (Antibiotic); Translations: [SULFA (SULFONAMIDE ANTIBIOTICS)] Propensity to adverse reactions 6 [facility] Work Phone: Medications Current Medications Medication Drug [...] Class(es) Dates Sig (Normalized) Sig (Original) amylase 71242 unt / lipase 3000 unt / protease [...] 98.2 [degF] Deb Duval APRN.CNP Work Phone: [facility] 02-20-2023 08:18-0400 Body weight 96.16 kg Deb Duval APRN.CNP Work Phone: [facility] 02-20-2023 08:18-0400 Diastolic blood pressure 82 mm[Hg] Deb Duval APRN.CNP Work Phone: [facility] 02-20-2023 08:18-0400 Heart rate 72 /min Deb Duval APRN.CNP Work Phone: [facility] 02-20-2023 08:18-0400 Respiratory rate 16 /min Deb Duavl APRN.CNP Work Phone: [facility] 02-20-2023 08:18-0400 SaO2% (BldA) [Mass fraction] 97 % Deb Duval APRN.CNP Work Phone: [facility] 02-20-2023 08:18-0400 Systolic blood pressure 132 mm[Hg] Deb Duval AIRVEYOR OPERATOR.MANAGER ADMINISTRATIVE Work Phone: [facility] 10-31-2022 12:48-0400 Body temperature 98.29 [degF] Krislyn Aberegg PA Work Phone: [facility] 10-31-2022 12:48-0400 Body weight 96.62 kg Krislyn Aberegg PA Work Phone: [facility] 10-31-2022 12:48-0400 Diastolic blood pressure 64 mm[Hg] Krislyn Aberegg PA Work Phone: [facility] 10-31-2022 12:48-0400 Heart rate 80 /min Krislyn Aberegg PA Work Phone: [facility] 10-31-2022 12:48-0400 Respiratory rate 16 /min Krislyn Aberegg PA Work Phone: [facility] 10-31-2022 12:48-0400 SaO2% (BldA) [Mass fraction] 96 % Krislyn Aberegg PA Work Phone: [facility] 10-31-2022 12:48-0400 Systolic blood pressure 102 mm[Hg] Krislyn Aberegg PA Work Phone: [facility] 03-13-2022 08:57-0400 Body temperature 98.2 [degF] Caren Jose AIRVEYOR OPERATOR.MANAGER ADMINISTRATIVE Work Phone: [facility] 03-13-2022 08:57-0400 Body weight 99.52 kg Caren Jose AIRVEYOR OPERATOR.MANAGER ADMINISTRATIVE Work Phone: [facility] 03-13-2022 08:57-0400 Diastolic blood pressure 72 mm[Hg] Caren Jose AIRVEYOR OPERATOR.MANAGER ADMINISTRATIVE Work Phone: [facility] 03-13-2022 08:57-0400 Heart rate 71 /min Caren Jose AIRVEYOR OPERATOR.MANAGER ADMINISTRATIVE Work Phone: [facility] 03-13-2022 08:57-0400 Respiratory rate 18 /min Caren Jose AIRVEYOR OPERATOR.MANAGER ADMINISTRATIVE Work Phone: [facility] 03-13-2022 08:57-0400 SaO2% (BldA) [Mass fraction] 97 % Caren Jose AIRVEYOR OPERATOR.MANAGER ADMINISTRATIVE Work Phone: [facility] 03-13-2022 08:57-0400 Systolic blood pressure 110 mm[Hg] Caren Jose AIRVEYOR OPERATOR.MANAGER ADMINISTRATIVE Work Phone: [facility] Encounters Encounter Date Encounter Type Care Provider Facility Start: 04-19-2023 End: 04-20-[address] KASEY LAGUERRE DO Facility:[facility] Start: 02-20-2023 End: 02-20-2023 ambulatory KASEY NICOLE Facility:[facility] Start: 02-20-2023 End: 02-20-2023 Patient encounter procedure Deb Duval AIRVEYOR OPERATOR.MANAGER ADMINISTRATIVE Work Phone: [facility] Procedures Date Procedure Procedure Detail Performing Clinician Start: 03-13-2022 Urnls dip stick/tabl et rgnt auto w/o microscopy Caren Jose AIRVEYOR OPERATOR.MANAGER ADMINISTRATIVE Work Phone: Start: 09-23-2021 Us breast uni real t amina with image limited Isatu Ramirez MD Work Phone: Start: 09-23-2021 ANA DIAG W JESUS RT Rianna Ramirez MD Work Phone: Start: 08-21-2021 Mammography Us 1 Work Phone: Start: 10-07-2020 Colonoscopy Us 1 Work Phone: Plan of Treatment Date Care Activity Detail Author Start: 10-07-2025 Colonoscopy COLONOSCOPY [facility] Start: 10-07-2025 COLORECTAL CANCER SCREENING COLORECTAL CANCER SCREENING [facility] Start: 10-24-2023 DIABETES SCREEN DIABETES SCREEN [facility] Start: 10-24-2023 Diabetes Screening Diabetes Screening [facility] Start: 02-20-2023 End: 03-06-2023 COVID & INFLUENZA A/B & RSV NAAT, ROUTINE COVID & INFLUENZA A/B & RSV NAAT, ROUTINE Microbiology Routine URI, acute Expected: 02/20/2023, Expires: 03/06/2023 [facility] Work Phone: Immunizations Immunization Date Immunization Notes Care Provider Barak pedraza 03-02-2022 influenza virus vaccine, unspecified formulation Deb Duval APRN.MANAGER ADMINISTRATIVE Work Phone: [facility] 08-15-2020 COVID-19 vaccine, ag e 12+ yr (PFIZER-BIONTECH - PURPLE TOP) Us 1 Work Phone: [facility] Work Phone: 07-25-2020 COVID-19 vaccine, ag e 12+ yr (PFIZER-BIONTECH - PURPLE TOP) Us 1 Work Phone: [facility] Work Phone: Payers Date Payer Category Payer Medicare HUMANA MEDICARE HU[employer]NA MEDICARE PPO [id number] 2013-Present [phone] [address] [address] [place] [address] PPO [id number] 2013 Medicare HUMANA MEDICARE HU[employer]NA MEDICARE PPO [id number] 2013-Present [phone] [address] [address] [place] [address] PPO [id number] 1959 Medicaid [id number] 1957 Medicare [id number] 1945 Unknown [id number] 1945 Unknown [id number] 1945 Unknown [id number] Social History Date Type Detail Facility Start: 03-07-2012 Tobacco smoking stat us NMIS Never smoked tobacco [facility] Start: 08-03-2021 End: 02-20-2023 Alcohol intake Current non-drinker of alcohol (finding) [facility] Start: 1945 Sex Assigned At Not on file [facility] Start: 08-22-2021 End: 03-13-2022 Exposure to SARS-CoV-2 (event) Not sure [facility] Start: 03-07-2012 Tobacco use and exposure Smokeless tobacco non-user [facility] Work Phone: Start: 05-11-2020 End: 02-20-2023 History of Social function [facility] Start: 05-11-2020 End: 02-20-2023 Tobacco use panel [facility] National Score (1-100), lower number is lower risk Not on file [facility] Clinical Notes 02-16-2012 to 02-20-2023 Deb Duval APRN.CNP - 02/20/2023 8:23 AM KATHARINATBRI Vega - 10/31/2022 12:55 PM EDTTelephone Encounter - Citlaly Giron LPN - 03/16/2022 4:25 PM EDTPatient Instructions Note Date & Type Note Facility 02-20-2023 Note HNO ID: [id number] Author: Deb Duval APRN.HAMMAD Service: ? Author [...] (Patient not taki (more content not included)... [facility] 02-20-2023 History of Presen t illness Narrative [...] Deb Duval APRN.HAMMAD documented in this encounter [facility] 10-31-2022 Note HNO ID: [id number] Author: BRI Vega Service: ? Author Type: Physician Developer [employer] Type: Progress Notes Filed: 10/31/2022 12:57 PM Note Text: This note was created using [employer]riter. Subjective Landon Cabral is a 77 year [...] 16 Wt 96. (more content not included)... [facility] 10-31-2022 History of Presen t illness Narrative This note was created using [employer]riter. Subjective Landon Cabral is a 77 year [...] evaluation. BRI Vega documented in this encounter [facility] 03-16-2022 Miscellaneous Notes Spoke with pt and information listed below given. Pt verbalizes understanding. Citlaly Giron LPN Unable to reach patient. Mailbox full/Mailbox not set up/ Number incorrect. Please try again later. Violetta Segovia ----- Message from Lakisha Melendez APRN.MANAGER ADMINISTRATIVE sent at 03/15/2022 7:15 AM EDT ----- Please advise patient: Urine culture did not show clear evidence of infection. She may continue to take antibiotic if it has been helpful. If not improving, recommend follow up with PCP. Lakisha Melendez CNP documented in this encounter [facility] 03-13-2022 Note HNO ID: [id number] Author: Caren Jose APRN.HAMMAD Service: ? Author [...] activity (states that her last week from [place]) The history is provided by the patient. No high school foreign language teacher was used. UTI This is a new [...] History Tobacco Use (more content not included)... [facility] 03-13-2022 Instructions Caren Jose APRN.MANAGER ADMINISTRATIVE - 03/13/2022 9:10 AM EDT Images from [...] treated. A physician, nurse practitioner or physician school health assistant may treat with a short course [...] if symptoms resolve. documented in this encounter [facility] 03-13-2022 History of Presen t illness Narrative This note was created using [employer]riter. Subjective Landon Cabral is a 76 year old female. 76 year old female with PMH gastritis and osteopenia presents with complaints of possible UTI. Acute onset yesterday evening. +suprapubic pressure that kept her up during night This morning she has developed burning with urination +lower back pain Denies vaginal bleeding. Denies vaginal discharge Denies recent sexual activity (states that [place] last [place] from [place]) The history is provided by the patient. No high school foreign language teacher was used. UTI This is a new [...] Caren Jose APRN.HAMMAD documented in this encounter [facility] 09-23-2021 History of Presen t illness [...] 2021 9:19 AM documented in this encounter [facility] documented as of this encounter (statuses as of 09/24/2021) [facility]09-12-2012 History of Past illness Narrative* Problem Noted Date Resolved Date Post-menopausal bleeding 02/16/2012 015 Hip joint replacement by other means 07/24/2010 04/29/2015 Osteoarthrosis, unspecified whether generalized or localized, pelvic region and thigh 10/01/2009 07/20/2011 Palpitations 10/12/2006 04/29/2015 Unspecified constipation 08/03/2005 015 documented as of this encounter (statuses as of 09/24/2021) [facility] History of Past illness Narrative* Problem Noted Date Resolved Date Post-menopausal bleeding 02/16/2012 015 Hip joint replacement by other means 07/24/2010 04/29/2015 Osteoarthrosis, unspecified whether generalized or localized, pelvic region and thigh 10/01/2009 07/20/2011 Palpitations 10/12/2006 04/29/2015 Unspecified constipation 08/03/2005 015 documented as of this encounter (statuses as of 03/13/2022) [facility] History of Past illness Narrative* Problem Noted Date Resolved Date Post-menopausal bleeding 02/16/2012 015 Hip joint replacement by other means 07/24/2010 04/29/2015 Osteoarthrosis, unspecified whether generalized or localized, pelvic region and thigh 10/01/2009 07/20/2011 Palpitations 10/12/2006 04/29/2015 Unspecified constipation 08/03/2005 015 documented as of this encounter (statuses as of 03/16/2022) [facility] History of Past illness Narrative* Problem Noted Date Resolved Date Post-menopausal bleeding 02/16/2012 015 Hip joint replacement by other means 07/24/2010 04/29/2015 Osteoarthrosis, unspecified whether generalized or localized, pelvic region and thigh 10/01/2009 07/20/2011 Palpitations 10/12/2006 04/29/2015 Unspecified constipation 08/03/2005 015 documented as of this encounter (statuses as of 10/31/2022) [facility] History of Past illness Narrative* Problem Noted Date Diagnosed Date Resolved Date Post-menopausal bleeding 02/16/2012 Hip joint replacement by other means 07/24/2010 04/29/2015 Osteoarthrosis, unspecified whether generalized or localized, pelvic region and thigh 10/01/2009 07/20/2011 Palpitations 10/12/2006 04/29/2015 Unspecified constipation 08/03/2005 documented as of this encounter (statuses as of 02/20/2023) [facility] note* Diagnosis Abnormal mammogram Abnormal mammogram, unspecified documented in this encounter [facility] note* Diagnosis Abnormal mammogram Abnormal mammogram, unspecified documented in this encounter [facility] note* Diagnosis Dysuria- Primary documented in this encounter [facility] note* Diagnosis Acute frontal sinusitis, recurrence not specified- Primary documented in this encounter [facility] note* Diagnosis URI, acute- Primary Acute upper respiratory infections of unspecified site documented in this encounter [facility] for referral (narrative)* Diagnostic Procedure Only (Routine) - Closed Specialty Diagnoses / Procedures Referred By Jennifer villa Referred To Contact [facility] Diagnoses Abnormal mammogram Procedures US BREAST LTD RT US BREAST UNI REAL TIME WITH IMAGE LIMITED Isatu Betancourt MD [address] [place] [address] [facility] [address] [place] [address] Referral ID Status Reason Start Date Expiration Date V isits Requested Visits Authorized [id number] Closed Auto-Generate d Referral 08/21/2021 09/20/2022 1 1 [facility] for visit Narrative* Diagnostic Procedure Only (Routine) - Closed Specialty Diagnoses / Procedures Referred By Jennifer villa Referred To Contact [facility] Diagnoses Abnormal mammogram Procedures US BREAST LTD RT US BREAST UNI REAL TIME WITH IMAGE LIMITED Isatu Betancourt MD [address] [place] [address] [facility] [address] [place] [address] Referral ID Status Reason Start Date Expiration Date V isits Requested Visits Authorized [id number] Closed Auto-Generate d Referral 08/21/2021 09/20/2022 1 1 [facility] Summary Purpose Family History No Family History Records FoundNo Family History Records FoundNo Family History Records FoundNo Family History Records Found Advance Directives No Advanced Directives Records FoundDocuments on File Type Date Recorded Patient Clother In Expl anation Advance Directive(s) Advance Directive(s) 10/07/2020 11:35 AM Advance Directive(s) 10/02/2020 10:48 AM Documents on File Type Date Recorded Patient Clother In Expl anation Advance Directive(s) Advance Directive(s) 10/07/2020 11:35 AM Advance Directive(s) 10/02/2020 10:48 AM Reason for Referral Specialty Diagnoses / Procedures Referred By Jennifer t Referred To Contact Caren Jose APRN.MANAGER ADMINISTRATIVE [address] [place] [address] Referral ID Status Reason Start Date Expiration Date V isits Requested Visits Authorized [id number] Pending Review 1 1 Health Concerns Infection Onset Date Last Indicated Resolved Time COVID-19 Rule-Out 02/20/2023 02/20/2023 Additional Source Comments INFORMATION SOURCE (unrecogn ized section and content) DATE CREATED AUTHOR AUTHOR'S ORGANIZ ATION 05/20/2021 [facility] DATE CREATED AUTHOR AUTHOR'S ORGANIZ ATION 02/22/2023 [facility] DATE CREATED AUTHOR AUTHOR'S ORGANIZ ATION 04/23/2023 [facility] Source Comments (unrecognize d section and content) In the event this informatio n is protected by the Federal Confidentiality of Alcohol and Drug Abuse Patient Records regulations: The Federal rules restrict any use of the information to criminally investigate or prosecute any alcohol or drug abuse patient.[facility] the event this information is protected by the Federal Confidentiality of Alcohol and Drug Abuse Patient Records regulations: The Federal rules restrict any use of the information to criminally investigate or prosecute any alcohol or drug abuse patient.[facility] the event this information is protected by the Federal Confidentiality of Alcohol and Drug Abuse Patient Records regulations: The Federal rules restrict any use of the information to criminally investigate or prosecute any alcohol or drug abuse patient.[facility] the event this information is protected by the Federal Confidentiality of Alcohol and Drug Abuse Patient Records regulations: The Federal rules restrict any use of the information to criminally investigate or prosecute any alcohol or drug abuse patient.[facility] the event this information is protected by the Federal Confidentiality of Alcohol and Drug Abuse Patient Records regulations: The Federal rules restrict any use of the information to criminally investigate or prosecute any alcohol or drug abuse patient.[facility] the event this information is protected by the Federal Confidentiality of Alcohol and Drug Abuse Patient Records regulations: The Federal rules restrict any use of the information to criminally investigate or prosecute any alcohol or drug abuse patient.[facility] Care Teams (unrecognized sec tion and content) Software Test Automation Engineer Relationship Specialty Start Date End Date Kasey Nicole MD [address] [place] [address] [id number] PCP - General 04/20/12 Software Test Automation Engineer Relationship Specialty Start Date End Date Kasey Nicole MD [address] [place] [address] [id number] PCP - General 04/20/12 Software Test Automation Engineer Relationship Specialty Start Date End Date Kasey Nicole MD [address] [place] [id number] PCP - General 04/20/12 Software Test Automation Engineer Relationship Specialty Start Date End Date Kasey Nicole MD [address] [place] [address] [id number] PCP - General 04/20/12 Software Test Automation Engineer Relationship Specialty Start Date End Date Kasey Nicole MD [address] [place] [address] [id number] PCP - General 04/20/12 Reason for Visit (unrecogniz ed section and content) Specialty Diagnoses / Procedures Referred By Contac t Referred To Contact [facility] Diagnoses Abnormal mammogram Procedures ANA DIAGNOSTIC RT DIAGNOSTIC MAMMOGRAPHY COMPUTER-AIDED [facility] Isatu Betancourt MD [address] [place] [address] [facility] [address] [place] [address] Referral ID Status Reason Start Date Expiration Date V isits Requested Visits Authorized [id number] Closed Auto-Generate d Referral 08/21/2021 09/20/2022 1 [...] BE BASED ON THE PRIMARY CLINICAL RECORDS. [employer] provides no warranty or guarantee of the accuracy or completeness of information in this document.
[2023-07-27 06:09] LABS: Alternaria tenuis <0.10 kU/L (Class 0); Bermuda Grass 0.16 kU/L (Class 0/I); Bluegrass, Kentucky 0.14 kU/L (Class 0/I); Cat Hair / Dander,Stand <0.10 kU/L (Class 0); Cladosporium herbarum 0.48 kU/L (Class I); D farinae Mite <0.10 kU/L (Class 0); D pteronyssinus <0.10 kU/L (Class 0); Dog Epithelia <0.10 kU/L (Class 0); Lamb's Quarter 0.14 kU/L (Class 0/I); Maple/Box Elder 0.15 kU/L (Class 0/I); Oak, White 0.13 kU/L (Class 0/I); Ragweed, Short/Common 0.17 kU/L (Class 0/I)
[2023-07-29 14:34] LABS: Cockroach, American <0.10
== END | disposition home or self-care (01) ==
PROVIDERS: PCP Family Medicine
DX: J30.89 Other allergic rhinitis (principal)
CPT/HCPCS: 36415; 86003

== ENCOUNTER → 2023-09-05 | Outpatient (CLI) | payer MEDICARE, MEDICAID, SELFPAY ==
--- NOTE | 2023-09-05 16:02 | MRI_ITS ---
INDICATION: Dizziness, headaches, unsteady gait and nausea EXAMINATION: MRI - MR Brain WO/W Contrast TECHNIQUE: Multiplanar and multisequence MR images of the brain were obtained without and with gadolinium. IV Contrast Dosage and Agent: 20 cc Clariscan COMPARISON: No relevant prior comparison study available FINDINGS: BRAIN PARENCHYMA: No MRI evidence of hemorrhage. No evidence of acute infarct. No intracranial mass or mass effect. There is preservation of the dickey/white matter interface. Normal sella turcica, pituitary gland, infundibular stalk, optic chiasm and hypothalamus. Posterior fossa structures are unremarkable. INTERNAL AUDITORY CANALS: The internal auditory canals are well visualized and patent. No mass identified. CSF SPACES: Appropriate for age. No hydrocephalus. Basal cisterns are patent. VASCULAR SYSTEM: Normal flow voids in the major intracranial circulation. CALVARIUM, SKULL BASE, PARANASAL SINUSES AND MASTOID AIR CELLS: Clear. No expansile changes. ORBITS: Both globes, extraocular muscles, optic nerves and retrobulbar fat appear unremarkable. MRI/Brain W/WO Contrast IMPRESSION: Negative MRI Brain and Internal Auditory Canals. Electronically Signed: Tucker Wheatley MD at 21:11 EDT ,
[2023-09-05 16:45] LABS: CREATININE FINGERSTICK < 1.0 mg/dL (0.55-1.02); EGFR FINGERSTICK > 60.0000 mL/min (>60)
== END | disposition home or self-care (01) ==
LOC: MRI 15:56
PROVIDERS: PCP Family Medicine
DX: D33.3 Benign neoplasm of cranial nerves (principal)
CPT/HCPCS: 70553; A9575

== ENCOUNTER 2023-12-17 08:50 | Emergency (ER) | payer MEDICARE, MEDICAID, SELFPAY ==
[2023-12-17 08:51] VITALS: BP 144/90; PULSE 113; PULSE 114; RESP 12; RESP 16; TEMP 35.8; O2SAT 97
[2023-12-17 08:53] VITALS: BMI 35.5
--- NOTE | 2023-12-17 10:22 | EKG12_ITS ---
Test Reason : GENERAL Blood Pressure : / mmHG Vent. Rate : 061 BPM Atrial Rate : 061 BPM P-R Int : 162 ms QRS Dur : 088 ms QT Int : 414 ms P-R-T Axes : 034 018 016 degrees QTc Int : 416 ms Normal sinus rhythm Normal ECG Confirmed by MARK ANTHONY GENTILE, SEDRICK ([id number]), script editor JEREMÍAS VALVERDE ([id number]) on 12/21/2023 9:44:46 AM Referred By: Confirmed By:SHAY HOPSON MD
--- NOTE | 2023-12-17 10:22 | EX.ED.DYSGE1 ---
HPI History of Present Illness Chief Complaint: Weakness Informant: patient Narrative Narrative: Patient presents secondary to weakness and dizziness. She reports having waxing and waning symptoms for the last 18 months. She has seen her primary care physician and had significant workups with no definitive cause. She was seen by neurology earlier this week who found her to be orthostatically hypotensive. She called her preschool assistant who advised her to hold her propranolol that she had been on secondary to MVP. Patient states that she is been feeling worse the past 2 days and lives alone so she was concerned. She does report having palpitations where her heart will start racing. She did not check her pulse during these episodes. She describes a lightheaded sensation and does not feel as if she is vertiginous. She does not feel as if she is going to pass out. 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 Home Medications ?Medication ?Instructions ?Recorded ?Last Taken ?Type [id number] 3 cap PO TID #320 caps 09/14/23 Unknown Rx 3,000-9,500-15,000 unit capsule, delayed rel (Creon) meclizine 25 mg tablet 25 mg PO TID PRN dizziness #20 tabs 11/08/23 Unknown Rx dicyclomine 20 mg tablet 20 mg PO TID PRN abdominal 12/09/23 Unknown Rx discomfort #360 TABLETS omeprazole 20 mg capsule,delayed 20 mg PO BID #180 caps 12/09/23 Unknown Rx release propranolol 40 mg tablet 20 mg (1/2 x 40 mg) PO .COMPLEX 12/09/23 Unknown Rx #180 tabs Allergy/AdvReac Type Severity Reaction Status Date / Time nitrofurantoin (From Allergy Mild Rash Verified 12/17/23 09:28 Macrobid) ciprofloxacin (From Cipro) Allergy Itching Verified 12/17/23 09:28 Penicillins (PCN) Allergy Hives Verified 12/17/23 09:28 Sulfa (Sulfonamide Allergy Hives Verified 12/17/23 09:28 Antibiotics) atorvastatin (From Lipitor) AdvReac Severe Myalgias Verified 12/17/23 09:28 pravastatin (From Pravachol) AdvReac Intermediate Myalgias Verified 12/17/23 09:28 Family History Father CAD (coronary artery disease) Myocardial infarction Brother CAD (coronary artery disease) Colon cancer Myocardial infarction Mother No problems noted. Surgical History History of knee replacement History of hip replacement H/O laminectomy FH: cholecystectomy Social History Smoking Status: Never smoker alcohol intake: never caffeine: Yes Type: other what type of physical activity do you participate in: none ROS ROS ED Constitutional Constitutional ED: Denies chills or fever(s) Eyes Eyes: Denies discharge from eye(s) ENT ENT ED: Denies discharge from eye(s), rhinorrhea or sore throat Cardiovascular Cardiovascular: Reports palpitations; Denies chest pain Respiratory/Chest Respiratory/Chest: Denies cough or dyspnea Gastrointestinal Gastrointestinal: Denies abdominal pain, nausea or vomiting Genitourinary Genitourinary ED: Denies dysuria Musculoskeletal Musculoskeletal: Denies back pain or extremity pain Integumentary Denies Abrasions or rash Neurologic Neurologic: Reports weakness; Denies headache(s) Psychiatric Psychiatric: Reports anxiety; Denies depression Allergic/Immunologic Allergic/Immunologic ED: Denies urticaria EXAM Physical Exam Const Vital Signs: 12/17/23 08:51 12/17/23 08:51 12/17/23 09:24 Temperature 96.5 F L Temperature Source Temporal Pulse Rate 113 H 114 H Pulse Rate [Lying] Pulse Rate [Sitting (for 1 minute prior to obtaining)] Pulse Rate [Standing (for 1 minute prior to obtaining)] Respiratory Rate 16 12 Respiratory Effort Normal Respiratory Pattern Normal Blood Pressure 144/90 H 144/90 H Blood Pressure [Lying] Blood Pressure [Sitting (for 1 minute prior to obtaining)] Blood Pressure [Standing (for 1 minute prior to obtaining)] Blood Pressure Mean 108 108 Blood Pressure Mean [Lying] Blood Pressure Mean [Sitting (for 1 minute prior to obtaining)] Blood Pressure Mean [Standing (for 1 minute prior to obtaining)] Pulse Ox 97 97 Oxygen Delivery Method Room Air Room Air 12/17/23 11:00 12/17/23 12:01 Temperature Temperature Source Pulse Rate 64 Pulse Rate [Lying] 71 Pulse Rate [Sitting (for 1 minute prior to obtaining)] 70 Pulse Rate [Standing (for 1 minute prior to obtaining)] 85 Respiratory Rate 16 Respiratory Effort Respiratory Pattern Blood Pressure 129/77 H Blood Pressure [Lying] 133/72 H Blood Pressure [Sitting (for 1 minute prior to obtaining)] 149/77 H Blood Pressure [Standing (for 1 minute prior to obtaining)] 146/85 H Blood Pressure Mean 94 Blood Pressure Mean [Lying] 92 Blood Pressure Mean [Sitting (for 1 minute prior to obtaining)] 101 Blood Pressure Mean [Standing (for 1 minute prior to obtaining)] 105 Pulse Ox 98 Oxygen Delivery Method Room Air Positive well nourished and well developed General Appearance ED: well developed HEENT Reports moist mucous membranes Eyes EOMs intact bilaterally Chest Wall inspection of chest normal and palpation of chest normal Resp normal respiratory effort and clear to auscultation bilaterally Cardio regular rate and regular rhythm GI non-tender Auscultation: normoactive bowel sounds Palpation: soft Extremity normal to inspection Neuro oriented x3 and no sensory deficits noted Motor Exam: strength 5/5 throughout Psych mental status grossly normal Skin no rashes or lesions noted MDM MDM MDM Narrative Medical decision making narrative: Patient's heart rate when I was in the room was in the 60s. It is noted that on arrival her heart rate was in the 1 teens. Blood pressure appears to be stable. Patient placed on cotton picker operator. IV line established. Patient given IV fluids. EKG obtained to evaluate for cardiac arrhythmia/ischemia. Chest x-ray obtained to evaluate for acute lung pathology, cardiac size, or mediastinal abnormality. Labwork obtained to evaluate for leukocytosis, anemia, and electrolyte derangement. Urinalysis obtained to evaluate for infection/hematuria. History & Record Review Discussion w/independent historian: Patient Additional record(s) reviewed:: Prior outpatient record and Prior labs Lab Data Attestation: I reviewed the patient's lab results. Labs: Laboratory Results - last 24 hr 12/17/23 12/17/23 09:35 11:15 WBC 5.5 RBC 4.75 Hgb 15.1 H Hct 45.9 MCV 96.6 MCH 31.8 MCHC 32.9 RDW Std Deviation 50.1 H RDW Coeff of Christiane 13.9 Plt Count 263 MPV 10.4 Immature Gran % (Auto) 0.200 Neut % (Auto) 57.6 Lymph % (Auto) 33.9 [place] % (Auto) 6.6 Eos % (Auto) 1.1 Baso % (Auto) 0.6 Absolute Neuts (auto) 3.1 Absolute Lymphs (auto) 1.85 Nucleated RBC % 0 Sodium 141 Potassium 4.2 Chloride 108 H Carbon Dioxide 31.0 Anion Gap 2 L BUN 11 Creatinine 0.82 Estim Creat Clear Calc 71.98 Est GFR (MDRD) Af Amer 87 Est GFR (MDRD) Non-Af 72 BUN/Creatinine Ratio 13.3 Glucose 105 Calcium 9.4 Troponin I High Sens 6 TSH 0.96 Urine Color Yellow Urine Clarity Clear Urine pH 7.0 Ur Specific [place] 1.005 Urine Protein Negative Urine Glucose (UA) Normal Urine Ketones Negative Urine Occult Blood Negative Urine Nitrite Negative Urine Bilirubin Negative Urine Urobilinogen Normal Ur Leukocyte Esterase 25 H Urine RBC 0 SEEN Urine WBC 0-5 SEEN Ur Squamous Epith Cells 0 SEEN Urine Bacteria 1+ Urine Mucus 0 SEEN Radiography Chest X-Ray - ED: 1 View, Read by ED Physician, Chronic Changes and No Infiltrates Diagnostic Testing: Clinical Impression(s) from Imaging Studies Chest X-Ray 12/17/23 10:30 IMPRESSION: No radiographic evidence of acute cardiopulmonary disease. Electronically Signed: Roby Alford MD at 11:24 EDT , EKG Initial EKG: Attestation: I personally reviewed and interpreted this EKG as follows: Interpretation: Sinus Rhythm (Sinus at 61 bpm. No acute ischemia.) Treatment and Re-Evaluation :: CBC was normal white count 5.5 with a hemoglobin of 15.1. Normal differential. Chemistry studies unremarkable with normal renal function. Potassium is normal at 4.2. Troponin is normal at 6 and TSH is normal at 0.96. Urinalysis reveals no ketones. 1+ bacteria is noted with 0-5 white cells. No nitrites. Patient has no urinary symptoms. EKG is sinus rhythm with no evidence of acute ischemia. I have not seen any arrhythmias on the cotton picker operator while in the emergency room. Portable chest x-ray per my interpretation was chronic changes with no evidence of infiltrate or overt fluid overload. Radiology interpretation reviewed and agrees. After the patient received initial fluids, I performed orthostatic vital signs at bedside. Blood pressure remained stable but heart rate did increase to 15 points from sitting to standing. She has received additional fluids here. She is able to ambulate to the restroom and back but still feels lightheaded when she first stands. Patient states that she feels worse after stopping her propranolol cold turkey. I did recommend she go back on half dose and taper herself off. Another physician had recommended she may have POTS syndrome and recommended she follow-up with her preschool assistant for further workup for this. I did recommend she call her cardiology office and notify them of these recent medication changes and schedule close follow-up. Patient voices understanding and agreement. I do feel she is stable for discharge. Discharge Plan Triage Chief Complaint: Weakness Other Complaint: Headache ED Provider: Mallory Francois Dx/Rx/DC Orders Clinical Impression: Dizziness Instructions: ED Dizziness, Uncertain Cause Prescriptions: No Action meclizine 25 mg tablet 25 mg PO TID PRN (Reason: dizziness) Qty: 20 0RF Creon 3,000-9,500- 15,000 unit capsule,delayed release(DR/EC) 3 cap PO TID Qty: 320 3RF Rx Instructions: take three caps with meals and one to two with snacks. dicyclomine 20 mg tablet 20 mg PO TID PRN (Reason: abdominal discomfort) Qty: 360 3RF omeprazole 20 mg capsule,delayed release(DR/EC) 20 mg PO BID Qty: 180 3RF propranolol 40 mg tablet 20 mg PO .COMPLEX Qty: 180 4RF Rx Instructions: 20 mg orally daily, may take one extra prn for tachycardia episodes; Primary Care Provider: Mart Nicole Referrals: Mart Nicole MD [Primary Care Provider] - 1 Week Hugo Mcgraw MD [Med Staff - Active Staff] - 1-2 Weeks Print Language: Moldovan Disposition Disposition: Home, Self Care
--- NOTE | 2023-12-17 10:30 | RAD_ITS ---
INDICATION: PALPITATIONS EXAMINATION/TECHNIQUE: X-RAY - XR Chest 1 View COMPARISON: Prior study dated: 03/18/2013 FINDINGS: LINES/DEVICES: None. LUNGS: Mild hypoventilatory changes. Mild stranding in the lower lungs likely due to scarring. No focal infiltrate is seen. No evidence of pleural effusions. MEDIASTINUM AND CARDIOVASCULAR STRUCTURES: Cardiac silhouette not enlarged. Central airways and mediastinal contour are unremarkable. BONES AND SOFT TISSUES: No demonstrated acute osseous changes. RAD/Chest 1 View (Portable) IMPRESSION: No radiographic evidence of acute cardiopulmonary disease. Electronically Signed: Roby Alford MD at 11:24 EDT ,
[2023-12-17] MEDS: 0.9% Normal Saline (1000mL) 1,000 ML 1000 ML IV (10:31)
[2023-12-17 10:33] LABS: Absolute Lymphocyte Count 1.85 X10^3/uL (0.83-4.51); Absolute Neutrophil Count 3.1 X10^3/uL (2.0-7.7); Basophil# 0.03 X10^3/uL; Basophil% 0.6 % (0-1); Eosinophil# 0.06 X10^3/uL; Eosinophils% 1.1 % (0-5); Hematocrit 45.9 % (37-47); Hemoglobin 15.1 g/dL (12.0-15.0); Lymphocyte # 1.85 X10^3/ul (0.83-4.51); Lymphocyte % 33.9 % (19-41); Mean Corp Hgb Conc 32.9 g/dL (32-36); Mean Corpuscular Hgb 31.8 pg (27.0-32.0); Mean Corpuscular Volume 96.6 fL (81-99); Mean Platelet Vol. 10.4 fl (6.2-12.0); Monocyte# 0.36 X10^3/uL; Monocyte% 6.6 % (0-10); NRBC Flagged by Analyzer 0 % (0-5); Neutrophil # 3.14 X10^3/uL (2.7-7.7); Neutrophil % 57.6 % (47-70); Platelet Count 263 K/mm3 (150-450); RBC Distribution Width CV 13.9 % (11.6-14.6); RBC Distribution Width SD 50.1 fl (35.1-43.9); Red Blood Count 4.75 M/mm3 (4.2-5.4); White Blood Count 5.5 K/mm3 (4.4-11.0)
[2023-12-17 10:57] LABS: Anion Gap 2 (5-15); BUN 11 mg/dL (7-18); BUN/Creat Ratio 13.3 RATIO (10-20); Calcium,Total 9.4 mg/dL (8.5-10.1); Chloride 108 mmol/L (98-107); Creatinine, Serum 0.82 mg/dL (0.55-1.02); EST Glomerular Filtration Rate 72 mL/min (>60); Est Glom Filt Rate - Afr Amer 87 mL/min (>60); Estimated Creatinine Clearance 71.98 ml/min; Glucose 105 mg/dL (74-106); Potassium 4.2 mmol/L (3.5-5.1); Sodium Level 141 mmol/L (136-145); Thyroid Stim Hormone (TSH) 0.96 uIU/mL (0.358-3.74); Troponin-I HS 6 pg/mL (3.0-54.0)
[2023-12-17 11:00] VITALS: BP 129/77; PULSE 64; RESP 16; O2SAT 98
[2023-12-17] MEDS: 0.9% Normal Saline (1000mL) 1,000 ML 150 ML IV (11:23)
[2023-12-17 11:28] LABS: Mucous, Urine 0 SEEN /hpf (<or=2+); Red Blood Cells-Urine 0 SEEN /hpf (0-5); Squamous Epithelial Cells - UA 0 SEEN /hpf (5-10)
[2023-12-17 11:33] LABS: Color, Urine Yellow (Yellow); Glucose, Dipstick Normal (Normal); Ketone-Dipstick Negative (Negative); Leukocyte Esterase-Dipstick 25 /ul (Negative); Nitrite-Dipstick Negative (Negative); Occult Blood-Urine Negative /ul (Negative); Protein-Dipstick Negative (Negative); Specific Gravity, Urine 1.005 (1.002-1.030); Urine Bilirubin Dipstick Negative (Negative); Urine Clarity Clear (Clear); Urine Urobilinogen Normal (Normal)
[2023-12-17 11:41] LABS: Bacteria 1+ /hpf (None Seen); White Blood Cells 0-5 SEEN /hpf (0-5)
[2023-12-17 12:01] VITALS: BP 133/72; BP 146/85; BP 149/77; PULSE 70; PULSE 71; PULSE 85
[2023-12-17 13:00] VITALS: BP 139/76; PULSE 64; RESP 18; TEMP 36.4; O2SAT 99
== END 2023-12-17 13:05 | disposition home or self-care (01) ==
PROVIDERS: Emergency Provider Emergency Medicine; PCP Family Medicine; Visit Provider Emergency Medicine
DX: R42 Dizziness and giddiness (principal); E78.00 Pure hypercholesterolemia, unspecified; R00.2 Palpitations; R53.1 Weakness; Z79.899 Other long term (current) drug therapy; F41.9 Anxiety disorder, unspecified
CPT/HCPCS: 71045; 80048; 81001; 84443; 84484; 85025; 93005; 96360; 96361; 99285; J7030; A4216

== ENCOUNTER 2023-12-27 07:48 | Emergency (ER) | payer MEDICARE, MEDICAID, SELFPAY ==
[2023-12-27] VITALS (13 sets, daily range): BP systolic 113–168; BP diastolic 37–97; PULSE 50–86; RESP 6–19; TEMP 36.4–36.7; O2SAT 98–99; BMI 37.5
--- NOTE | 2023-12-27 08:18 | EKG12_ITS ---
Test Reason : DIZZY Blood Pressure : / mmHG Vent. Rate : 053 BPM Atrial Rate : 053 BPM P-R Int : 174 ms QRS Dur : 090 ms QT Int : 432 ms P-R-T Axes : 055 020 014 degrees QTc Int : 405 ms Sinus bradycardia Otherwise normal ECG Confirmed by LENNIE GENTILE, LESLY ([id number]), deputy editor in chief JEREMÍAS VALVERDE ([id number]) on 12/28/2023 10:17:31 AM Referred By: Confirmed By:LESLY HOGUE MD
[2023-12-27 08:40] LABS: Absolute Lymphocyte Count 1.76 X10^3/uL (0.83-4.51); Absolute Neutrophil Count 3.4 X10^3/uL (2.0-7.7); Basophil# 0.02 X10^3/uL; Basophil% 0.3 % (0-1); Eosinophil# 0.07 X10^3/uL; Eosinophils% 1.2 % (0-5); Hematocrit 45.2 % (37-47); Hemoglobin 14.6 g/dL (12.0-15.0); Lymphocyte # 1.76 X10^3/ul (0.83-4.51); Lymphocyte % 30.8 % (19-41); Mean Corp Hgb Conc 32.3 g/dL (32-36); Mean Platelet Vol. 9.9 fl (6.2-12.0); Monocyte% 8.7 % (0-10); NRBC Flagged by Analyzer 0 % (0-5); Neutrophil # 3.36 X10^3/uL (2.7-7.7); Neutrophil % 58.8 % (47-70); Platelet Count 238 K/mm3 (150-450); RBC Distribution Width CV 13.7 % (11.6-14.6); RBC Distribution Width SD 48.7 fl (35.1-43.9); Red Blood Count 4.71 M/mm3 (4.2-5.4); White Blood Count 5.7 K/mm3 (4.4-11.0)
--- NOTE | 2023-12-27 08:42 | EDS_ITS ---
HPI History of Present Illness Chief Complaint: Dizziness Narrative Narrative: 78-year-old female past medical history of tachycardia, on propranolol presents with lightheadedness that she has had for over a year. She states that is been getting worse. In fact, she relates history that she was seen in the emergency department approximately 10 days ago. She had spoken with her acetylene operator previously who told her to stop taking the propranolol as she had spoken with her dressing room attendant regarding its use. While she had stopped that and might of shown improvement, she started having an increased heart rate and tachycardia again so she started taking it approximately 9 days ago. This morning, when she awoke, she states that she feels very lightheaded, and is sometimes nauseated. No chest pain or shortness of breath. She endorses that she had diarrhea for about a week that is resolving. She does have history of irritable bowel syndrome for which she sees gastroenterology. She presents because of the worsening lightheadedness that is worse with standing. She denies vertiginous type symptoms, no room spinning or feeling off balance. [facility] Medical History Dizziness Earache, right RUQ abdominal pain Irritable bowel syndrome (IBS) Seasonal allergies Nonrheumatic mitral (valve) prolapse Pure hypercholesterolemia Lightheadedness Chest pain Palpitations prison use of drug Home Medications ?Medication ?Instructions ?Recorded ?Last Taken ?Type [id number] 3 cap PO TID #320 caps 09/14/23 Unknown Rx 3,000-9,500-15,000 unit capsule, delayed rel (Creon) meclizine 25 mg tablet 25 mg PO TID PRN dizziness #20 tabs 11/08/23 Unknown Rx dicyclomine 20 mg tablet 20 mg PO TID PRN abdominal 12/09/23 Unknown Rx discomfort #360 TABLETS omeprazole 20 mg capsule,delayed 20 mg PO BID #180 caps 12/09/23 Unknown Rx release propranolol 40 mg tablet 20 mg (1/2 x 40 mg) PO .COMPLEX 12/09/23 Unknown Rx #180 tabs Allergy/AdvReac Type Severity Reaction Status Date / Time nitrofurantoin (From Allergy Mild Rash Verified 12/27/23 08:01 Macrobid) ciprofloxacin (From Cipro) Allergy Itching Verified 12/27/23 08:01 Penicillins (PCN) Allergy Hives Verified 12/27/23 08:01 Sulfa (Sulfonamide Allergy Hives Verified 12/27/23 08:01 Antibiotics) atorvastatin (From Lipitor) AdvReac Severe Myalgias Verified 12/27/23 08:01 pravastatin (From Pravachol) AdvReac Intermediate Myalgias Verified 12/27/23 08:01 Family History Father CAD (coronary artery disease) Myocardial infarction Brother CAD (coronary artery disease) Colon cancer Myocardial infarction Mother No problems noted. Surgical History History of knee replacement History of hip replacement H/O laminectomy FH: cholecystectomy Social History Smoking Status: Never smoker alcohol intake: never caffeine: Yes Type: other what type of physical activity do you participate in: none ROS ROS ED ROS Narrative Constitutional: No fever, no chills. HEENT: No sore throat. No neck pain. No loss of vision. No rhinorrhea. Cardiovascular: No chest pain. No palpitations. No pedal edema. Respiratory: No cough, no shortness of breath. Abdominal: No abdominal pain. Positive nausea. No vomiting. Positive diarrhea with history of IBS. Genitourinary: No dysuria. No hematuria. Musculoskeletal: No myalgias. No arthralgias. Neurologic: No headaches. No dizziness. Positive lightheadedness, worse with standing. Skin: No rash. No change in color. Psychiatric: No depression. No anxiety. EXAM Physical Exam Narrative Exam Narrative: Afebrile. Vital signs noted. HEENT: Normocephalic. Atraumatic. PERRL, EOMI. Neck soft and supple. No point tenderness or step off. Cardiovascular: Regular rate and rhythm. No murmurs, rubs, or gallops appreciated. Respiratory: No tachypnea. Lungs clear to auscultation bilaterally. Gastrointestinal: Abdomen soft, nontender, with normoactive bowel sounds. No rebound or guarding. Neurological: Awake. Alert. Nonfocal, nonlateralizing. Skin: No rash. Normal color. No pallor. Musculoskeletal: No pedal edema. Full range of motion extremities. Const Vital Signs: 07/23/24 07:49 12/27/23 08:27 12/27/23 08:30 Temperature 97.5 F L Temperature Source Temporal Pulse Rate 59 L 53 L 56 L Pulse Rate [Lying] Pulse Rate [Sitting (for 1 minute prior to obtaining)] Pulse Rate [Standing (for 1 minute prior to obtaining)] Respiratory Rate 16 16 Blood Pressure 168/97 H 134/76 H Blood Pressure [Lying] Blood Pressure [Sitting (for 1 minute prior to obtaining)] Blood Pressure [Standing (for 1 minute prior to obtaining)] Blood Pressure Mean 120 94 Blood Pressure Mean [Lying] Blood Pressure Mean [Sitting (for 1 minute prior to obtaining)] Blood Pressure Mean [Standing (for 1 minute prior to obtaining)] Pulse Ox 99 Oxygen Delivery Method Room Air 12/27/23 08:34 12/27/23 08:36 12/27/23 08:39 Temperature Temperature Source Pulse Rate 54 L 61 Pulse Rate [Lying] 57 L Pulse Rate [Sitting (for 1 minute prior to obtaining)] 60 Pulse Rate [Standing (for 1 minute prior to obtaining)] 63 Respiratory Rate 19 H 18 Blood Pressure 138/37 H 117/73 Blood Pressure [Lying] 138/37 H Blood Pressure [Sitting (for 1 minute prior to obtaining)] 117/73 Blood Pressure [Standing (for 1 minute prior to obtaining)] 113/81 H Blood Pressure Mean 64 87 Blood Pressure Mean [Lying] 70 Blood Pressure Mean [Sitting (for 1 minute prior to obtaining)] 87 Blood Pressure Mean [Standing (for 1 minute prior to obtaining)] 91 Pulse Ox Oxygen Delivery Method 12/27/23 08:41 12/27/23 08:45 12/27/23 09:00 Temperature Temperature Source Pulse Rate 60 54 L 54 L Pulse Rate [Lying] Pulse Rate [Sitting (for 1 minute prior to obtaining)] Pulse Rate [Standing (for 1 minute prior to obtaining)] Respiratory Rate 15 12 10 L Blood Pressure 113/81 H 126/75 H 122/67 H Blood Pressure [Lying] Blood Pressure [Sitting (for 1 minute prior to obtaining)] Blood Pressure [Standing (for 1 minute prior to obtaining)] Blood Pressure Mean 91 91 84 Blood Pressure Mean [Lying] Blood Pressure Mean [Sitting (for 1 minute prior to obtaining)] Blood Pressure Mean [Standing (for 1 minute prior to obtaining)] Pulse Ox Oxygen Delivery Method 12/27/23 09:20 12/27/23 09:30 12/27/23 09:45 Temperature Temperature Source Pulse Rate 63 50 L 58 L Pulse Rate [Lying] Pulse Rate [Sitting (for 1 minute prior to obtaining)] Pulse Rate [Standing (for 1 minute prior to obtaining)] Respiratory Rate 17 6 L 18 Blood Pressure 125/67 H 133/74 H Blood Pressure [Lying] Blood Pressure [Sitting (for 1 minute prior to obtaining)] Blood Pressure [Standing (for 1 minute prior to obtaining)] Blood Pressure Mean 85 93 Blood Pressure Mean [Lying] Blood Pressure Mean [Sitting (for 1 minute prior to obtaining)] Blood Pressure Mean [Standing (for 1 minute prior to obtaining)] Pulse Ox Oxygen Delivery Method MDM MDM MDM Narrative Medical decision making narrative: I reviewed the patient's prior laboratory work and ED visit. She had been found to be orthostatic at 1 time. Orthostatics were obtained and she did have a drop in her blood pressure from the 130s to 111. She did not become tachycardic, but she is taking her propranolol. She may be dehydrated secondary to her reported diarrhea. I discussed with the patient that I do not feel that she needs CT imaging of her brain, or her abdomen as she is not having any abdominal pain. I think the diarrhea may be secondary to her IBS, and I have low clinical suspicion for obstruction or colitis or diverticulitis. This is because the history and physical does not support this. EKG was obtained and interpreted by myself independently as normal sinus rhythm/sinus bradycardia at [address] changes. No STEMI. I reviewed her laboratory work and she has normal white count of 5.7, hemoglobin 14.6 with hematocrit 45.2 so I do not think anemia is the cause of her lightheadedness. Platelet count normal at 238. Sodium normal at 139 with potassium also normal at 3.9, BUN is normal at 13 and creatinine 0.86 I do not feel that she is dehydrated but she may be intravascularly volume depleted given her positive orthostatics. Glucose is 110 and appropriately elevated with a normal anion gap/low at 2. High-sensitivity troponin is 4. I do not feel that she needs serial enzymes because this has been ongoing. Urinalysis is negative for ketones, negative for infection. I do not feel she needs antibiotics. After 1 L of fluids, she felt the same. However, after her second bolus had begun, she was able to ambulate to the bathroom independently. She does not want the remaining IV fluids. I feel this is acceptable and reasonable and I feel she can be discharged to follow-up with her acetylene operator as well as her primary care provider as well. Return instructions to the emergency department were reviewed. Disposition is discharged home in stable condition. History & Record Review Discussion w/independent historian: Patient Additional record(s) reviewed:: Prior ED visit and Prior labs Lab Data Attestation: I reviewed the patient's lab results. Labs: Laboratory Results - last 24 hr 12/27/23 12/27/23 08:32 09:20 WBC 5.7 RBC 4.71 Hgb 14.6 Hct 45.2 MCV 96.0 MCH 31.0 MCHC 32.3 RDW Std Deviation 48.7 H RDW Coeff of Christiane 13.7 Plt Count 238 MPV 9.9 Immature Gran % (Auto) 0.200 Neut % (Auto) 58.8 Lymph % (Auto) 30.8 [place] % (Auto) 8.7 Eos % (Auto) 1.2 Baso % (Auto) 0.3 Absolute Neuts (auto) 3.4 Absolute Lymphs (auto) 1.76 Nucleated RBC % 0 Sodium 139 Potassium 3.9 Chloride 106 Carbon Dioxide 31.0 Anion Gap 2 L BUN 13 Creatinine 0.86 Estim Creat Clear Calc 70.71 Est GFR (MDRD) Af Amer 83 Est GFR (MDRD) Non-Af 68 BUN/Creatinine Ratio 15.1 Glucose 110 H Calcium 9.3 Total Bilirubin 0.50 AST 21 ALT 25 Alkaline Phosphatase 102 Troponin I High Sens 4 Total Protein 7.0 Albumin 3.2 Globulin 3.8 Albumin/Globulin Ratio 0.8 L Urine Color Yellow Urine Clarity Clear Urine pH 6.5 Ur Specific [place] 1.010 Urine Protein Negative Urine Glucose (UA) Normal Urine Ketones Negative Urine Occult Blood 10 H Urine Nitrite Negative Urine Bilirubin Negative Urine Urobilinogen Normal Ur Leukocyte Esterase 25 H Urine RBC 0-5 SEEN Urine WBC 0-5 SEEN Ur Squamous Epith Cells 0-5 SEEN Urine Bacteria 0 SEEN Urine Mucus 0 SEEN Discharge Plan Triage Chief Complaint: Dizziness ED Provider: Rico Ayers Dx/Rx/DC Orders Clinical Impression: Lightheadedness, Orthostatic hypotension Instructions: ED Hypotension, Orthostatic, ED Near-Fainting, Uncertain Cause Prescriptions: No Action meclizine 25 mg tablet 25 mg PO TID PRN (Reason: dizziness) Qty: 20 0RF Creon 3,000-9,500- 15,000 unit capsule,delayed release(DR/EC) 3 cap PO TID Qty: 320 3RF Rx Instructions: take three caps with meals and one to two with snacks. dicyclomine 20 mg tablet 20 mg PO TID PRN (Reason: abdominal discomfort) Qty: 360 3RF omeprazole 20 mg capsule,delayed release(DR/EC) 20 mg PO BID Qty: 180 3RF propranolol 40 mg tablet 20 mg PO .COMPLEX Qty: 180 4RF Rx Instructions: 20 mg orally daily, may take one extra prn for tachycardia episodes; Primary Care Provider: Mart Nicole Referrals: Mart Nicole MD [Primary Care Provider] - As soon as possible Activity Restrictions/Additional Instructions: Follow-up with your acetylene operator as well. Your propranolol may be causing the drop in your blood pressure. Return with new or worsening symptoms. Print Language: Serbian Disposition Disposition: Home, Self Care
[2023-12-27 09:02] LABS: ALB/GLOB Ratio 0.8 RATIO (0.9-2.4); AST(SGOT) 21 U/L (15-37); Alanine Aminotransfer ALT/SGPT 25 U/L (13-56); Albumin, Serum 3.2 g/dL (3.2-5.0); Alkaline Phosphatase 102 U/L (45-117); Anion Gap 2 (5-15); BUN 13 mg/dL (7-18); BUN/Creat Ratio 15.1 RATIO (10-20); Calcium,Total 9.3 mg/dL (8.5-10.1); Chloride 106 mmol/L (98-107); Creatinine, Serum 0.86 mg/dL (0.55-1.02); EST Glomerular Filtration Rate 68 mL/min (>60); Est Glom Filt Rate - Afr Amer 83 mL/min (>60); Estimated Creatinine Clearance 70.71 ml/min; Globulin 3.8 g/dL (2.2-4.2); Glucose 110 mg/dL (74-106); Potassium 3.9 mmol/L (3.5-5.1); Sodium Level 139 mmol/L (136-145); Troponin-I HS 4 pg/mL (3.0-54.0)
[2023-12-27] MEDS: 0.9% Normal Saline (1000mL) 1,000 ML 999 ML IV ×2 (09:10→10:00)
[2023-12-27 09:25] LABS: Bacteria 0 SEEN /hpf (None Seen); Mucous, Urine 0 SEEN /hpf (<or=2+)
[2023-12-27 09:26] LABS: Color, Urine Yellow (Yellow); Glucose, Dipstick Normal (Normal); Ketone-Dipstick Negative (Negative); Leukocyte Esterase-Dipstick 25 /ul (Negative); Nitrite-Dipstick Negative (Negative); Occult Blood-Urine 10 /ul (Negative); Protein-Dipstick Negative (Negative); Urine Bilirubin Dipstick Negative (Negative); Urine Clarity Clear (Clear); Urine Urobilinogen Normal (Normal); Urine pH 6.5 (5.0 - 8.0)
[2023-12-27 09:32] LABS: Red Blood Cells-Urine 0-5 SEEN /hpf (0-5); Squamous Epithelial Cells - UA 0-5 SEEN /hpf (5-10); White Blood Cells 0-5 SEEN /hpf (0-5)
== END 2023-12-27 10:47 | disposition home or self-care (01) ==
PROVIDERS: Emergency Provider Emergency Medicine; PCP Family Medicine; Visit Provider Emergency Medicine
DX: R42 Dizziness and giddiness (principal); R00.1 Bradycardia, unspecified; E78.00 Pure hypercholesterolemia, unspecified; R19.7 Diarrhea, unspecified; I95.1 Orthostatic hypotension; Z79.899 Other long term (current) drug therapy; Z87.19 Personal history of other diseases of the digestive system; E86.0 Dehydration
CPT/HCPCS: 80053; 81001; 84484; 85025; 93005; 96360; 99285; J7030; A4216

== ENCOUNTER → 2024-01-04 | Outpatient (CLI) | payer MEDICARE, MEDICAID, SELFPAY ==
--- NOTE | 2024-01-04 12:46 | NEURO ---
NCS and/or EMG Patient Report Ordering Doctor: MARGO BHANDARI DATE OF SERVICE: 01/04/24 Anahy presents with complaints of intermittent numbness in the toes of the right foot. He has a remote history of lower back surgery. Electrodiagnostic findings: Right peroneal motor nerve demonstrates normal distal latency and amplitude with an approximately 25% drop in conduction across the fibular head. Right tibial motor response is within normal limits. Normal right tibial and peroneal F?wave. Prolonged left tibial H-reflex. Right sural and right superficial peroneal responses are within normal limits. Needle EMG testing was performed in the right lower limb all muscles tested showed no evidence of denervation with normal motor unit action potentials Electrodiagnostic impression: This is an abnormal study in the right lower limb 1. 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 There is a an approximately 25% drop in conduction across the fibular head. 2. There is no electrodiagnostic evidence for lumbosacral radiculopathy. Multi Select Codes Neurology Neurology Interp Codes: 91144-85 Musc test done w/n test comp (interp) and 31780-09 Nrv cndj tst 5-6 studies (interp)
== END | disposition home or self-care (01) ==
LOC: PSN 08:05
PROVIDERS: PCP Family Medicine; Referring Provider Physician Assistant Medical; Visit Provider Physician Assistant Medical
DX: R53.83 Other fatigue (principal); G62.9 Polyneuropathy, unspecified; R42 Dizziness and giddiness
CPT/HCPCS: 95886; 95909

== ENCOUNTER → 2024-01-09 | Outpatient (CLI) | payer MEDICARE, MEDICAID, SELFPAY ==
--- NOTE | 2024-01-09 07:23 | CDU_ITS ---
Reason For Study: Dizziness Rt. Velocities/BP Lt. Velocities/BP Prox CCA 92/19 cm/sec. Prox CCA 94/25 cm/sec. Mid CCA 79/20 cm/sec. Mid CCA 82/24 cm/sec. Dist CCA 82/23 cm/sec. Dist CCA 87/28 cm/sec. Prox ICA 61/25 cm/sec. Prox ICA 82/24 cm/sec. Mid ICA 51/21 cm/sec. Mid ICA 87/31 cm/sec. Dist ICA 52/23 cm/sec. Dist ICA 110/46 cm/sec. Rt. ICA/CCA = 0.8. Lt. ICA/CCA = 1.3. Prox ECA 79/11 cm/sec. Prox ECA 82/6 cm/sec. Rt. Vert. 62/17 cm/sec. Lt. Vert. 41/13 cm/sec. Right Extracranial There is heterogeneous, irregular atherosclerotic plaque noted in the right common carotid artery. There is intimal thickening but no significant atherosclerotic plaque noted in the right internal carotid artery. There is heterogeneous, smooth atherosclerotic plaque noted in the right external carotid artery. Antegrade flow is noted in the right vertebral artery. Left Extracranial There is intimal thickening but no significant atherosclerotic plaque noted in the left common carotid artery. There is heterogeneous, irregular atherosclerotic plaque noted in the left internal carotid artery. There is no significant atherosclerotic plaque noted in the left external carotid artery. Antegrade flow is noted in the left vertebral artery. Procedure Carotid Duplex 05857. This is a Carotid Duplex examination using B-mode, color flow and specral Doppler. Exam performed in department. VL/Carotid Duplex Ultrasound Interpretation Summary Normal right extracranial internal carotid. Mild (<50%) stenosis left extracranial internal carotid. Patent and antegrade vertebrals bilaterally. Ordering Physician: Nellie Henderson Referring Physician: Mart Nicole Performed By: Karyn Zarate, OSVALDO, RVT
== END | disposition home or self-care (01) ==
LOC: CVS 07:22
PROVIDERS: PCP Family Medicine; Referring Provider Physician Assistant Medical; Visit Provider Physician Assistant Medical
DX: R42 Dizziness and giddiness (principal); I95.1 Orthostatic hypotension; R00.0 Tachycardia, unspecified; R00.2 Palpitations; E78.00 Pure hypercholesterolemia, unspecified
CPT/HCPCS: 93225; 93226; 93880

== ENCOUNTER → 2024-02-21 | Outpatient (CLI) | payer MEDICARE, MEDICAID, SELFPAY ==
[2024-02-21 10:59] LABS: Erythrocyte Sedimentation Rate 29 mm/hr (0-30)
[2024-02-21 11:02] LABS: Hematocrit 45.8 % (37-47); Hemoglobin 14.8 g/dL (12.0-15.0); Mean Corp Hgb Conc 32.3 g/dL (32-36); Mean Corpuscular Hgb 31.4 pg (27.0-32.0); Mean Platelet Vol. 10.1 fl (6.2-12.0); Platelet Count 295 K/mm3 (150-450); RBC Distribution Width CV 13.2 % (11.6-14.6); RBC Distribution Width SD 47.8 fl (35.1-43.9); Red Blood Count 4.72 M/mm3 (4.2-5.4); White Blood Count 5.3 K/mm3 (4.4-11.0)
[2024-02-21 11:14] LABS: CRP 7.67 mg/L (0.0-3.0)
[2024-02-21 11:19] LABS: Cholesterol 260 mg/dL (200); High Density Lipoprotein 68 mg/dL; Triglycerides 106 mg/dL; Very Low Density Lipoprotein 21 mg/dL (5-40)
[2024-02-21 11:29] LABS: Anion Gap 8 (5-15); BUN 18 mg/dL (7-18); BUN/Creat Ratio 22.4 RATIO (10-20); Calcium,Total 9.9 mg/dL (8.5-10.1); Chloride 107 mmol/L (98-107); EST Glomerular Filtration Rate 74 mL/min (>60); Est Glom Filt Rate - Afr Amer 89 mL/min (>60); Glucose 107 mg/dL (74-106); Sodium Level 142 mmol/L (136-145)
[2024-02-22 08:13] LABS: Carbohydrate AG 19-9 13 U/mL (0-35)
--- NOTE | 2024-02-27 17:28 | TILTTABLE_ITS ---
Staff Staff: Kim Lane and Karyn Aguilar Summary Pre Test Resting HR: 78 Pre Test Resting BP: 110/74 Minimum Test HR: 78 Maximum Test HR: 97 Minimum Test BP: 85/58 Maximum Test BP: 110/83 Reason for Test Termination: Reached Maximum Test Time Physician Tilt Table Report Patient's Physicians Primary Care Physician: Mart Nicole Metal Spray Operator: Last Hull Indications/Diagnosis: Syncope Procedure Comments: Patient was brought to the noninvasive lab in the postabsorptive nonsedated state. Informed consent was obtained. Initial heart rate and EKG was obtained demonstrating a heart rate of 72 bpm blood pressure is 151/75 mmHg. The patient was then put in the 70 degree head upright tilt position. The initial vitals recorded a heart rate of 78 bpm and a blood pressure 110/74 mmHg. The patient then stayed in this 70 degree head upright tilt position for the next 30 minutes. The heart rate vacillated between 78 and 96 bpm. The blood pressure stayed stable for almost 10 minutes and then dropped briefly to 85/58 with a mild increase in heart rate to 92 bpm. Mild lightheadedness was noted. After the patient completed the test he was put back in the recumbent position was less lightheaded blood pressure was 119/72 mmHg and heart rate in the 70s to 80s. Summary: The above is suggestive of likely orthostatic changes with 70 degree head upright tilt testing.
[2024-02-27 17:32] VITALS: BP 110/74; BP 110/83; BP 85/58
== END | disposition home or self-care (01) ==
LOC: CVS 10:05
PROVIDERS: Internal Medicine Cardiovascular Disease; Internal Medicine Gastroenterology; PCP Family Medicine; Visit Provider Family Medicine
DX: R42 Dizziness and giddiness (principal); K86.1 Other chronic pancreatitis; E78.00 Pure hypercholesterolemia, unspecified
CPT/HCPCS: 36415; 80048; 80061; 85027; 85652; 86140; 86301; 93660; J7040; A4216

== ENCOUNTER 2024-02-26 08:33 | Emergency (ER) | payer MEDICARE, MEDICAID, SELFPAY ==
[2024-02-26 08:34] VITALS: BP 166/73; PULSE 85; RESP 14; TEMP 36.6; O2SAT 93; BMI 34.9
--- NOTE | 2024-02-26 09:12 | CT_ITS ---
STUDY: CT ABDOMEN AND PELVIS WITH CONTRAST REASON FOR EXAM: Female, 78 years old. LLQ pain RADIATION DOSAGE (If Supplied By Facility): CTDIvol = ( 19.4 ) mGy, DLP = ( 1438.94 ) mGycm TECHNIQUE: IV 100mL Isovue-370 was administered. Transaxial images were obtained from the dome of the diaphragm to the symphysis pubis. Multiplanar coronal and sagittal images were reformatted. The protocol utilizes one or more of the following dose reduction techniques: automated exposure control, adjustment of mA and/or kV according to patient size,and/or use of iterative reconstruction technique. COMPARISON: Prior study dated: 06/27/2023 FINDINGS: The visualized lung bases are essentially unremarkable. The visualized portions of the heart are within normal limits. There is decreased attenuation of the liver consistent with steatosis. There are surgical clips in the gallbladder fossa consistent with a prior cholecystectomy. There are multiple benign calcified granulomata of the spleen. Normal pancreas. Normal bilateral adrenal glands. 9 mm simple cyst in the left kidney for which no further follow-up exam is needed. Another small hyperdense nodule in the lower pole of the left kidney measuring about 9 mm unchanged. Small to moderate size hiatal hernia. Normal in caliber small bowel loops. Focal thickening and inflammatory changes of the distal descending and proximal sigmoid colon consistent with acute diverticulitis. No evidence of drainable abscess or free air. The appendix is visualized and appears normal. Tortuosity of the thoracic aorta without evidence of aneurysm. No retroperitoneal adenopathy. Normal urinary bladder. Mass in the lower uterine segment and cervical region could be due to uterine fibroid. Correlation with pelvic ultrasound is recommended. Very small umbilical hernia containing fat. Normal osseous structures. CT/Abdomen/Pelvis W IV Cont ONLY IMPRESSION: 1. Acute diverticulitis of the sigmoid colon. No evidence of drainable abscess or free air. 2. Hepatic steatosis. 3. Mass in the lower uterine segment and upper cervix could be due to fibroid. Correlation with nonemergent pelvic ultrasound is recommended. Electronically Signed: Roby Alford MD at 11:23 EDT ,
--- NOTE | 2024-02-26 09:12 | EKG12_ITS ---
Test Reason : ABD/FLANK PAIN Blood Pressure : / mmHG Vent. Rate : 069 BPM Atrial Rate : 069 BPM P-R Int : 156 ms QRS Dur : 084 ms QT Int : 384 ms P-R-T Axes : 038 010 010 degrees QTc Int : 411 ms Normal sinus rhythm MINOR Nonspecific T wave abnormality Abnormal ECG Confirmed by Hugo Mcgraw ([id number]), general expeditor JEREMÍAS VALVERDE ([id number]) on 02/28/2024 9:28:08 AM Referred By: Confirmed By:Hugo Mcgraw
[2024-02-26] MEDS: Ondansetron 4 MG/2 ML Vial IV (09:28)
[2024-02-26] MEDS: 0.9% Normal Saline (1000mL) 1,000 ML 999 ML IV (09:28)
[2024-02-26 09:38] LABS: Absolute Lymphocyte Count 1.59 X10^3/uL (0.83-4.51); Basophil# 0.01 X10^3/uL; Basophil% 0.1 % (0-1); Eosinophil# 0.04 X10^3/uL; Eosinophils% 0.5 % (0-5); Hematocrit 43.3 % (37-47); Hemoglobin 14.3 g/dL (12.0-15.0); Lymphocyte # 1.59 X10^3/ul (0.83-4.51); Lymphocyte % 19.2 % (19-41); Mean Corpuscular Hgb 31.9 pg (27.0-32.0); Mean Corpuscular Volume 96.7 fL (81-99); Mean Platelet Vol. 9.8 fl (6.2-12.0); Monocyte# 0.57 X10^3/uL; Monocyte% 6.9 % (0-10); NRBC Flagged by Analyzer 0 % (0-5); Neutrophil # 6.03 X10^3/uL (2.7-7.7); Neutrophil % 73.1 % (47-70); Platelet Count 256 K/mm3 (150-450); RBC Distribution Width CV 13.1 % (11.6-14.6); RBC Distribution Width SD 47.2 fl (35.1-43.9); Red Blood Count 4.48 M/mm3 (4.2-5.4); White Blood Count 8.3 K/mm3 (4.4-11.0)
[2024-02-26 09:45] LABS: Mucous, Urine 0 SEEN /hpf (<or=2+)
[2024-02-26 09:50] LABS: Color, Urine Yellow (Yellow); Glucose, Dipstick Normal (Normal); Ketone-Dipstick Negative (Negative); Leukocyte Esterase-Dipstick 25 /ul (Negative); Nitrite-Dipstick Negative (Negative); Occult Blood-Urine 10 /ul (Negative); Protein-Dipstick 15 mg/dl (Negative); Urine Bilirubin Dipstick Negative (Negative); Urine Clarity Clear (Clear); Urine Urobilinogen Normal (Normal)
--- NOTE | 2024-02-26 09:51 | EX.ED.DYSGE1 ---
HPI History of Present Illness Chief Complaint: Flank Pain Narrative Narrative: Patient is a 78-year-old female past medical history of IBS, hypercholesterolemia, foot drop who presents to the emerged part with a chief complaint of abdominal pain. Patient states that on Tuesday she had eaten at a restaurant and shortly after this developed some abdominal discomfort. States that she believed that this was secondary to what she ate however noted that throughout the weekend things were not getting better therefore she went to urgent care today and they advised her to come to the emergency department further evaluation management. Patient denies any recent sick contacts. [facility] Medical History Dizziness Earache, right RUQ abdominal pain Irritable bowel syndrome (IBS) Seasonal allergies Nonrheumatic mitral (valve) prolapse Pure hypercholesterolemia Lightheadedness Chest pain Palpitations [facility] use of drug Home Medications ?Medication ?Instructions ?Recorded ?Last Taken ?Type [id number] 3 cap PO TID #320 caps 09/14/23 Unknown Rx 3,000-9,500-15,000 unit capsule, delayed rel (Creon) omeprazole 20 mg capsule,delayed 20 mg PO BID PRN 01/03/24 Unknown History release amitriptyline 10 mg tablet 10 mg PO QHS #30 tabs 01/05/24 Unknown Rx hyoscyamine sulfate 0.125 mg tablet 0.125 mg PO BID-QID PRN dyspepsia 01/05/24 Unknown Rx #120 tabs propranolol 40 mg tablet 20 mg PO DAILY 02/03/24 Unknown History Allergy/AdvReac Type Severity Reaction Status Date / Time nitrofurantoin (From Allergy Mild Rash Verified 02/26/24 08:34 Macrobid) ciprofloxacin (From Cipro) Allergy Itching Verified 02/26/24 08:34 Penicillins (PCN) Allergy Hives Verified 02/26/24 08:34 Sulfa (Sulfonamide Allergy Hives Verified 02/26/24 08:34 Antibiotics) atorvastatin (From Lipitor) AdvReac Severe Myalgias Verified 02/26/24 08:34 pravastatin (From Pravachol) AdvReac Intermediate Myalgias Verified 02/26/24 08:34 Family History Father CAD (coronary artery disease) Myocardial infarction Brother CAD (coronary artery disease) Colon cancer Myocardial infarction Mother No problems noted. Surgical History History of knee replacement History of hip replacement H/O laminectomy FH: cholecystectomy Social History Smoking Status: Never smoker alcohol intake: never caffeine: Yes Type: other what type of physical activity do you participate in: none ROS ROS ED ROS Narrative Constitutional: Denies fevers, chills, headaches Eyes: Denies double vision blurry vision change in vision Cardiovascular: Denies chest pain Respiratory: Denies shortness of breath cough Abdomen: Complains of abdominal pain as noted above as well as some nausea denies vomiting diarrhea states that her stools been normal color denies any black stools or blood in her stool : Denies any urinary symptoms Neurological: Denies numbness, weakness or tingling Musculoskeletal: Denies back pain Skin: Denies rashes or lesions EXAM Physical Exam Narrative Exam Narrative: General: Patient was lying in bed rest comfortably did not appear to be in acute distress Head: Atraumatic, normocephalic Eyes: PERRL bilateral, EOMI bilateral, no conjunctival injection noted Neck: Soft, supple, trach midline Cardiovascular: Regular rate and rhythm no murmurs gallops rubs noted Respiratory: Clear to auscultation bilaterally no rales rhonchi or wheeze noted Abdomen: Soft, nondistended, tenderness palpation noted in the left lower quadrant no rebound or guarding on exam, bowel sounds present x 4 Extremities: +5/5 strength noted in the bilateral upper and lower extremities, no pedal edema on exam Neurological: Patient was following commands knew that she was at [facility] years 2023 Skin: Warm, dry, intact Const Vital Signs: 02/26/24 08:34 02/26/24 12:31 Temperature 97.9 F 97.8 F Temperature Source Oral Pulse Rate 85 81 Respiratory Rate 14 16 Blood Pressure 166/73 H 152/70 H Blood Pressure Mean 104 97 Pulse Ox 93 99 Oxygen Delivery Method Room Air MDM MDM MDM Narrative Medical decision making narrative: Patient is a 78-year-old female who presented to the emerged part with a chief complaint of abdominal pain. Patient will have a workup performed here on the differential diagnose includes but not limited to diverticulitis, UTI, viral gastroenteritis, constipation. Once workup is obtained reviewed she will be reevaluated. Patient will be given IV fluids and Zofran does not anything for pain right now. Patient CBC reviewed and showed no evidence leukocytosis white blood count normal at 8.3, hemoglobin stable 14.3, plate count normal at 256. Patient sodium normal 141, potassium normal 3.8, creatinine normal at 0.84. Patient's AST and ALT were 18 and 21 respectively. Patient's lipase normal at 21. Patient's EKG reviewed and showed sinus rhythm rate of 69 bpm. Patient's urinalysis reviewed and showed no evidence of urinary tract infection. Patient CT abdomen pelvis with IV contrast showed acute diverticulitis of the sigmoid colon no evidence of drainable abscess or free air. Hepatic steatosis. Mass in the lower uterine segment and upper cervix could be due to fibroid correlation with nonemergent pelvic ultrasound was recommended. Patient was given a hard copy of this result and encouraged to take this to her Primary care physician appointment and follow-up on this. On reevaluation the patient she would like to go home at this point in time. She does have multiple medicine allergies noted therefore after discussion with the patient we will forego antibiotics. Patient once again was encouraged to return with worsening symptoms or other concerns. She was encouraged to follow-up with Dr. Andres in the outpatient setting as well as her primary care physician. All question concerns answered she is discharged home in stable condition. Lab Data Labs: Laboratory Results - last 24 hr 02/26/24 02/26/24 09:25 09:40 WBC 8.3 RBC 4.48 Hgb 14.3 Hct 43.3 MCV 96.7 MCH 31.9 MCHC 33.0 RDW Std Deviation 47.2 H RDW Coeff of Christiane 13.1 Plt Count 256 MPV 9.8 Immature Gran % (Auto) 0.200 Neut % (Auto) 73.1 H Lymph % (Auto) 19.2 [place] % (Auto) 6.9 Eos % (Auto) 0.5 Baso % (Auto) 0.1 Absolute Neuts (auto) 6.0 Absolute Lymphs (auto) 1.59 Nucleated RBC % 0 Sodium 141 Potassium 3.8 Chloride 107 Carbon Dioxide 29.0 Anion Gap 5 BUN 13 Creatinine 0.84 Estim Creat Clear Calc 69.73 Est GFR (MDRD) Af Amer 85 Est GFR (MDRD) Non-Af 70 BUN/Creatinine Ratio 15.6 Glucose 112 H Calcium 9.2 Total Bilirubin 0.70 AST 18 ALT 21 Alkaline Phosphatase 94 Total Protein 6.8 Albumin 3.2 Globulin 3.6 Albumin/Globulin Ratio 0.9 Lipase 21 Urine Color Yellow Urine Clarity Clear Urine pH 7.0 Ur Specific [place] 1.010 Urine Protein 15 H Urine Glucose (UA) Normal Urine Ketones Negative Urine Occult Blood 10 H Urine Nitrite Negative Urine Bilirubin Negative Urine Urobilinogen Normal Ur Leukocyte Esterase 25 H Urine RBC 0-5 SEEN Urine WBC 0-5 SEEN Ur Squamous Epith Cells 0-5 SEEN Urine Bacteria RARE Urine Mucus 0 SEEN Radiography Diagnostic Testing: Clinical Impression(s) from Imaging Studies Abdomen/Pelvis CT 02/26/24 09:12 IMPRESSION: 1. Acute diverticulitis of the sigmoid colon. No evidence of drainable abscess or free air. 2. Hepatic steatosis. 3. Mass in the lower uterine segment and upper cervix could be due to fibroid. Correlation with nonemergent pelvic ultrasound is recommended. Electronically Signed: Roby Alford MD at 11:23 EDT , Discharge Plan Triage Chief Complaint: Flank Pain ED Provider: Noe Oreilly Dx/Rx/DC Orders Clinical Impression: Diverticulitis Instructions: ED Diverticulitis Prescriptions: No Action omeprazole 20 mg capsule,delayed release(DR/EC) 20 mg PO BID PRN Creon 3,000-9,500- 15,000 unit capsule,delayed release(DR/EC) 3 cap PO TID Qty: 320 3RF Rx Instructions: take three caps with meals and one to two with snacks. hyoscyamine sulfate 0.125 mg tablet 0.125 mg PO BID-QID PRN (Reason: dyspepsia) Qty: 120 1RF amitriptyline 10 mg tablet 10 mg PO QHS Qty: 30 1RF propranolol 40 mg tablet 20 mg PO DAILY Primary Care Provider: Mart Nicole Referrals: Mart Nicole MD [Primary Care Provider] - Activity Restrictions/Additional Instructions: Start with a bland diet over the next couple days advance as tolerated. Return with worsening symptoms such as fevers, worsening pain, vomiting not tolerating oral intake. Follow-up with your primary care physician on your CT scan which you were provided a hardcopy for for a nonemergent pelvic ultrasound. Follow-up with Dr. Andres in the outpatient setting as well. Print Language: Vietnamese Disposition Disposition: Home, Self Care
[2024-02-26 09:54] LABS: ALB/GLOB Ratio 0.9 RATIO (0.9-2.4); AST(SGOT) 18 U/L (15-37); Alanine Aminotransfer ALT/SGPT 21 U/L (13-56); Albumin, Serum 3.2 g/dL (3.2-5.0); Alkaline Phosphatase 94 U/L (45-117); Anion Gap 5 (5-15); BUN 13 mg/dL (7-18); BUN/Creat Ratio 15.6 RATIO (10-20); Calcium,Total 9.2 mg/dL (8.5-10.1); Chloride 107 mmol/L (98-107); Creatinine, Serum 0.84 mg/dL (0.55-1.02); EST Glomerular Filtration Rate 70 mL/min (>60); Est Glom Filt Rate - Afr Amer 85 mL/min (>60); Estimated Creatinine Clearance 69.73 ml/min; Globulin 3.6 g/dL (2.2-4.2); Glucose 112 mg/dL (74-106); Lipase 21 U/L (13-75); Potassium 3.8 mmol/L (3.5-5.1); Protein, Total 6.8 g/dL (6.4-8.2); Sodium Level 141 mmol/L (136-145)
[2024-02-26 09:57] LABS: Bacteria RARE /hpf (None Seen); Red Blood Cells-Urine 0-5 SEEN /hpf (0-5); Squamous Epithelial Cells - UA 0-5 SEEN /hpf (5-10); White Blood Cells 0-5 SEEN /hpf (0-5)
--- NOTE | 2024-02-26 10:55 | ED.RN ---
late seeing this patient r/t busy ED
[2024-02-26 12:31] VITALS: BP 152/70; PULSE 81; RESP 16; TEMP 36.6; O2SAT 99
== END 2024-02-26 13:33 | disposition home or self-care (01) ==
PROVIDERS: Emergency Provider Emergency Medicine; PCP Family Medicine; Visit Provider Emergency Medicine
DX: K57.32 Diverticulitis of large intestine without perforation or abscess without bleeding (principal); K76.0 Fatty (change of) liver, not elsewhere classified; E78.00 Pure hypercholesterolemia, unspecified; K58.9 Irritable bowel syndrome, unspecified
CPT/HCPCS: 74177; 80053; 81001; 83690; 85025; 93005; 96361; 96374; 99282; J7030; Q9967; J2405

== ENCOUNTER 2024-03-09 16:02 | Emergency (ER) | payer MEDICARE, MEDICAID, SELFPAY ==
[2024-03-09 16:03] VITALS: BP 147/87; PULSE 104; RESP 16; TEMP 36.9; O2SAT 98; BMI 35.2
--- NOTE | 2024-03-09 16:36 | CT_ITS ---
STUDY: CT ABDOMEN AND PELVIS WITH CONTRAST REASON FOR EXAM: Female, 78 years old. hx of diverticulitis RADIATION DOSAGE (If Supplied By Facility): CTDIvol = ( 18.34 ) mGy, DLP = ( 1393.27 ) mGycm TECHNIQUE: IV 100mL Isovue-300 was administered. Transaxial images were obtained from the dome of the diaphragm to the symphysis pubis. Multiplanar coronal and sagittal images were reformatted. The protocol utilizes one or more of the following dose reduction techniques: automated exposure control, adjustment of mA and/or kV according to patient size,and/or use of iterative reconstruction technique. COMPARISON: Prior study dated: 02/26/2024 FINDINGS: The visualized lung bases are essentially unremarkable. The visualized portions of the heart are within normal limits. There is decreased attenuation of the liver consistent with steatosis. There are surgical clips in the gallbladder fossa consistent with a prior cholecystectomy. There are multiple benign calcified granulomata of the spleen. Normal pancreas. Normal bilateral adrenal glands. Moderate size hiatal hernia. Normal in caliber small bowel loops. Fecal retention. Diverticulosis of the sigmoid and descending colon. Previously noted acute diverticulitis has essentially resolved. The appendix is visualized and appears normal. There is mild atherosclerotic calcification of the abdominal aorta with elongation and tortuosity, but without a demonstrated aneurysm. No retroperitoneal adenopathy. Multiple small bilateral renal low-density lesion/cysts likely simple and no further follow-up exam is needed. No evidence of hydronephrosis. Normal urinary bladder. Significant artifacts and pelvic region from left hip arthroplasty. These result and ovaries are better evaluated by ultrasound. Normal abdominal wall. Degenerative changes of the spine. CT/Abdomen/Pelvis W IV Cont ONLY IMPRESSION: 1. Diverticulosis without evidence of acute diverticulitis at this time. 2. Hepatic steatosis. 3. No focal acute inflammatory process Electronically Signed: Roby Alford MD at 19:31 EDT ,
--- NOTE | 2024-03-09 17:06 | EX.ED.DYSGE1 ---
HPI <KELLIE Girard - Last Filed: 03/09/24 20:13> History of Present Illness Chief Complaint: Abd Pain Narrative Narrative: Patient is a 78-year-old female with history of tachycardia, diverticulitis who is also being worked up for dizziness for 1 year. Patient was seen here on February 26, 2024, patient was diagnosed with acute diverticulitis. Patient was placed on cefdinir, Flagyl, this is secondary to her allergies. Patient states that she was nauseous the entire time, she never had any pain that was relieved from her abdomen. Pay states the pain is actually getting worse so she is here for reevaluation. Patient denies any fever or chills. Patient dates yesterday she was given a prescription for Zofran, she is also complaining of full body itching and hives, she is concerned about the antibiotics he is on. She is aware that she has multiple allergies. 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 Home Medications ?Medication ?Instructions ?Recorded ?Last Taken ?Type [id number]-[id number] 3 cap PO TID #320 caps 09/14/23 Unknown Rx 3,000-9,500-15,000 unit capsule, delayed rel (Creon) omeprazole 20 mg capsule,delayed 20 mg PO BID PRN 01/03/24 Unknown History release amitriptyline 10 mg tablet 10 mg PO QHS #30 tabs 01/05/24 Unknown Rx hyoscyamine sulfate 0.125 mg tablet 0.125 mg PO BID-QID PRN dyspepsia 01/05/24 Unknown Rx #120 tabs propranolol 40 mg tablet 20 mg PO DAILY 02/03/24 Unknown History metronidazole 500 mg tablet 500 mg PO BID #30 tabs 03/01/24 Unknown Rx moxifloxacin 400 mg tablet 400 mg PO QDAY 14 days #14 tabs 03/01/24 Unknown Rx hydrocodone-acetaminophen 5-325mg 1 tab PO Q6H PRN PRN Pain 3 days 03/09/24 Unknown Rx 5mg-325mg #8 TABLETS Allergy/AdvReac Type Severity Reaction Status Date / Time nitrofurantoin (From Allergy Mild Rash Verified 03/09/24 16:06 Macrobid) ciprofloxacin (From Cipro) Allergy Itching Verified 03/09/24 16:06 Penicillins (PCN) Allergy Hives Verified 03/09/24 16:06 Sulfa (Sulfonamide Allergy Hives Verified 03/09/24 16:06 Antibiotics) atorvastatin (From Lipitor) AdvReac Severe Myalgias Verified 03/09/24 16:06 pravastatin (From Pravachol) AdvReac Intermediate Myalgias Verified 03/09/24 16:06 Family History Father CAD (coronary artery disease) Myocardial infarction Brother CAD (coronary artery disease) Colon cancer Myocardial infarction Mother No problems noted. Surgical History History of knee replacement History of hip replacement H/O laminectomy FH: cholecystectomy Social History Smoking Status: Never smoker alcohol intake: never caffeine: Yes Type: other what type of physical activity do you participate in: none ROS <KELLIE Girard - Last Filed: 03/09/24 20:13> ROS ED ROS Narrative Constitutional: Negative for fever, chills, weight loss, weakness Eyes: Negative for vision loss, vision change, double vision ENT: Negative for any sore throat, ear pain, congestion Cardiovascular: Negative for any chest pain, tightness, palpitations Respiratory: Negative for any cough, sputum production, hemoptysis, dyspnea, dyspnea on exertion, orthopnea Gastrointestinal: Negative for any vomiting, diarrhea, constipation, blood in stool, blood in vomit. Positive for abdominal pain, nausea : Negative for any urinary frequency, dysuria, retention, blood in urine Muscle skeletal: Negative for any neck pain, back pain Neurological: Negative for any headache, syncope, dizziness Skin: Negative for any abrasions, lacerations. Positive for rash, hives Psychiatric: Negative for any depression, anxiety, stress, suicidal ideation, homicidal ideation Hematologic: Negative for any excessive bruising, easy bleeding EXAM <KELLIE Girard - Last Filed: 03/09/24 20:13> Physical Exam Narrative Exam Narrative: Vital signs reviewed. Patient alert and orient x 4, patient is in no obvious distress. HEET: Head normocephalic atraumatic, TMs clear bilaterally. Posterior pharynx is clear, moist mucous membranes. Nares clear bilaterally. Neck: Supple with no lymphadenopathy or tenderness. No signs of meningismus. Cardiac: Regular rate and rhythm no murmurs gallops or rubs, equal peripheral pulses bilaterally. Respiratory: Lungs clear to auscultation bilaterally. No chest tenderness. Abdomen: Soft,nondistended. No abdominal bruit or pulsatile masses. No hepatosplenomegaly. Patient does have pain to the left lower quadrant, as well as the suprapubic area Extremities: No peripheral edema, no signs of gross trauma or deformity. Active full range of motion of all extremities. Neuro: Cranial nerves II through XII intact, no focal neurological deficits. Skin: Clean dry and intact with no rash, purpura, petechiae, vesicles or pustules. Patient does have a hive-like rash to her right arm, upper neck, mid back Backs/flank: No CVA tenderness, no midline spinal tenderness, no deformity. Psych: Normal mood and affect. No SI, HI or acute psychosis. Const Vital Signs: 03/09/24 16:03 03/09/24 18:03 03/09/24 20:00 Temperature 98.4 F 98.2 F Temperature Source Oral Pulse Rate 104 H 70 90 Respiratory Rate 16 18 16 Blood Pressure 147/87 H 118/60 147/97 H Blood Pressure Mean 107 79 113 Pulse Ox 98 99 96 Oxygen Delivery Method Room Air Room Air <Dr. Yoshi Retana, DO - Last Filed: 03/09/24 20:50> Physical Exam Const Vital Signs: 03/09/24 16:03 03/09/24 18:03 03/09/24 20:00 Temperature 98.4 F 98.2 F Temperature Source Oral Pulse Rate 104 H 70 90 Respiratory Rate 16 18 16 Blood Pressure 147/87 H 118/60 147/97 H Blood Pressure Mean 107 79 113 Pulse Ox 98 99 96 Oxygen Delivery Method Room Air Room Air MDM <KELLIE Girard - Last Filed: 03/09/24 20:13> MDM Lab Data Labs: Laboratory Results - last 24 hr 03/09/24 03/09/24 17:23 19:52 WBC 7.1 RBC 4.51 Hgb 14.1 Hct 43.3 MCV 96.0 MCH 31.3 MCHC 32.6 RDW Std Deviation 47.6 H RDW Coeff of [place] 13.4 Plt Count 273 MPV 10.4 Immature Gran % (Auto) 0.100 Neut % (Auto) 61.6 Lymph % (Auto) 29.9 [place] % (Auto) 6.8 Eos % (Auto) 1.0 Baso % (Auto) 0.6 Absolute Neuts (auto) 4.4 Absolute Lymphs (auto) 2.12 Nucleated RBC % 0 Sodium 140 Potassium 3.7 Chloride 108 H Carbon Dioxide 29.0 Anion Gap 4 L BUN 12 Creatinine 0.86 Estim Creat Clear Calc 68.26 Est GFR (MDRD) Af Amer 83 Est GFR (MDRD) Non-Af 69 BUN/Creatinine Ratio 14.0 Glucose 99 Lactic Acid 1.1 Calcium 9.3 Total Bilirubin 0.50 AST 30 ALT 36 Alkaline Phosphatase 81 Total Protein 6.7 Albumin 3.3 Globulin 3.4 Albumin/Globulin Ratio 1.0 Lipase 21 Urine Color Yellow Urine Clarity Clear Urine pH 6.0 Ur Specific [place] 1.010 Urine Protein Negative Urine Glucose (UA) Normal Urine Ketones 5 H Urine Occult Blood Negative Urine Nitrite Negative Urine Bilirubin Negative Urine Urobilinogen Normal Ur Leukocyte Esterase Negative Urine RBC 0 SEEN Urine WBC 0 SEEN Ur Squamous Epith Cells 0-5 SEEN Urine Bacteria 0 SEEN Urine Mucus 0 SEEN Radiography Diagnostic Testing: Clinical Impression(s) from Imaging Studies Abdomen/Pelvis CT 03/09/24 16:36 IMPRESSION: 1. Diverticulosis without evidence of acute diverticulitis at this time. 2. Hepatic steatosis. 3. No focal acute inflammatory process Electronically Signed: Roby Alford MD at 19:31 EDT , Treatment and Re-Evaluation :: Differential diagnosis includes however is not limited to: Acute diverticulitis, diverticulitis with abscess, bowel obstruction, colitis, medication reaction Patient appears generally well, vital signs are stable, patient is nontoxic-appearing. Presenting to the emergency department with complaints of generalized abdominal pain, not improving with antibiotics after being diagnosed with acute diverticulitis. Patient will receive a repeat scan of her abdomen and pelvis, on her previous there was acute diverticulitis with a ureteral mass however she did get this followed up with [facility]. Patient will receive the basic laboratory values well as lactic acid. IV Zofran will be given. All radiologic examinations were read, reviewed by the emergency department attending. From these reads, a plan of care will be put in place. Patient CBC was unremarkable, chemistries were unremarkable, lipase was negative, negative lactic acid. Patient CT scan of the abdomen pelvis showed diverticulosis without evidence of acute diverticulitis at this time. Hepatic steatosis, no focal acute inflammatory process. At this time, patient will stop her antibiotics, by stopping antibiotics, she will stop her hives. She is instructed to take Benadryl. I will give her some pain medicine for home. She already has nausea medicine at home. She is instructed to take half a pill at nighttime to see how she reacts. She is happy with the plan of care, she was given strict return precautions, all questions answered, stable for discharge. <Dr. Yoshi Retana, DO - Last Filed: 03/09/24 20:50> [facility] Narrative Medical decision making narrative: I have personally performed a face to face assessment of the patient and have reviewed the ROSS Note. I performed a substantive portion of the visit including all aspects of the following. My gaines findings include: History: Patient presents with abdominal pain and hives that has gotten progressively worse. Patient states she was seen here on 02/26/2024. Patient was diagnosed with diverticulitis at that point. Patient has been on cefdinir and Flagyl. Patient states she has developed hives while on these medications. Patient denies any difficulty breathing or difficulty swallowing. Patient states her abdominal pain is improving. Patient denies any fevers or chills. Exam: Vital signs are stable. Patient is afebrile. Patient is in no acute distress. Oral mucosa is pink and moist. Neck is supple. Trachea is midline. There is no JVD. Heart was regular rate and rhythm. Lungs are clear and equal bilaterally. Abdomen is soft. Bowel sounds are normal. There is tenderness over the left lower quadrant, left upper quadrant, and right upper quadrant. There is no rebound or guarding noted. Cranial nerves II through XII are intact. There are no focal motor or sensory deficits. Medical Decision Making: Differential diagnosis includes diverticulitis, perforation, abscess, pancreatitis, and gastroenteritis. CBC will be obtained to assess for leukocytosis and anemia. Comprehensive metabolic profile will be obtained to assess for electrolyte abnormality, hepatic function, and renal function. Lipase will be obtained to assess for pancreatitis. Urinalysis will be obtained to assess for urinary tract infection and hematuria. Serum lactate will be obtained to assess for sepsis. CT scan of the abdomen and pelvis will be obtained to assess for perforation, abscess, and diverticulitis. CBC was reviewed and was within normal limits. Comprehensive metabolic profile was reviewed and was within normal limits. Lipase was reviewed and was normal at 21. Serum lactate was reviewed and was normal at 1.1. Urinalysis was reviewed. There is no evidence of urinary tract infection or hematuria. CT scan of the abdomen pelvis was obtained. There is diverticulosis but no evidence of diverticulitis. There is no acute abnormality noted. This was interpreted by the radiologist also independently reviewed by myself. Patient was given a dose of Zofran and Benadryl here. Patient is feeling better on reevaluation. Patient was instructed to stop taking her antibiotics. Patient was instructed to follow-up with her primary care physician in 5 to 7 days. Patient understood and was agreeable with the plan. All questions were answered. Lab Data Labs: Laboratory Results - last 24 hr 03/09/24 03/09/24 17:23 19:52 WBC 7.1 RBC 4.51 Hgb 14.1 Hct 43.3 MCV 96.0 MCH 31.3 MCHC 32.6 RDW Std Deviation 47.6 H RDW Coeff of [place] 13.4 Plt Count 273 MPV 10.4 Immature Gran % (Auto) 0.100 Neut % (Auto) 61.6 Lymph % (Auto) 29.9 Payne % (Auto) 6.8 Eos % (Auto) 1.0 Baso % (Auto) 0.6 Absolute Neuts (auto) 4.4 Absolute Lymphs (auto) 2.12 Nucleated RBC % 0 Sodium 140 Potassium 3.7 Chloride 108 H Carbon Dioxide 29.0 Anion Gap 4 L BUN 12 Creatinine 0.86 Estim Creat Clear Calc 68.26 Est GFR (MDRD) Af Amer 83 Est GFR (MDRD) Non-Af 69 BUN/Creatinine Ratio 14.0 Glucose 99 Lactic Acid 1.1 Calcium 9.3 Total Bilirubin 0.50 AST 30 ALT 36 Alkaline Phosphatase 81 Total Protein 6.7 Albumin 3.3 Globulin 3.4 Albumin/Globulin Ratio 1.0 Lipase 21 Urine Color Yellow Urine Clarity Clear Urine pH 6.0 Ur Specific [place] 1.010 Urine Protein Negative Urine Glucose (UA) Normal Urine Ketones 5 H Urine Occult Blood Negative Urine Nitrite Negative Urine Bilirubin Negative Urine Urobilinogen Normal Ur Leukocyte Esterase Negative Urine RBC 0 SEEN Urine WBC 0 SEEN Ur Squamous Epith Cells 0-5 SEEN Urine Bacteria 0 SEEN Urine Mucus 0 SEEN Radiography Diagnostic Testing: Clinical Impression(s) from Imaging Studies Abdomen/Pelvis CT 03/09/24 16:36 IMPRESSION: 1. Diverticulosis without evidence of acute diverticulitis at this time. 2. Hepatic steatosis. 3. No focal acute inflammatory process Electronically Signed: Roby Alford MD at 19:31 EDT , Discharge Plan Triage Chief Complaint: Abd Pain ED Midlevel Provider: David Zheng ED Provider: Yoshi Retana Dx/Rx/DC Orders Clinical Impression: Abdominal pain, Diverticulosis, Urticaria Instructions: ED Hives (Adult), ED Diverticulosis Prescriptions: New hydrocodone-acetaminophen 5-325 mg tablet 1 tab PO Q6H PRN PRN (Reason: Pain) 3 Days Qty: 8 0RF Rx Instructions: You may take one half a pill. No Action omeprazole 20 mg capsule,delayed release(DR/EC) 20 mg PO BID PRN Creon 3,000-9,500- 15,000 unit capsule,delayed release(DR/EC) 3 cap PO TID Qty: 320 3RF Rx Instructions: take three caps with meals and one to two with snacks. hyoscyamine sulfate 0.125 mg tablet 0.125 mg PO BID-QID PRN (Reason: dyspepsia) Qty: 120 1RF amitriptyline 10 mg tablet 10 mg PO QHS Qty: 30 1RF propranolol 40 mg tablet 20 mg PO DAILY moxifloxacin 400 mg tablet 400 mg PO QDAY 14 Days Qty: 14 0RF metronidazole 500 mg tablet 500 mg PO BID Qty: 30 0RF Primary Care Provider: Mart Nicole Referrals: Mart Nicole MD [Primary Care Provider] - Activity Restrictions/Additional Instructions: Please take the pain medicine, you may take one half at nighttime to see how you react. The hives should decrease because you are stopping the antibiotics. Return for any worsening symptoms. Print Language: [place] Disposition Disposition: Home, Self Care Discharge Date/Time: 03/09/24 20:32
[2024-03-09] MEDS: Ondansetron 4 MG/2 ML Vial IV (17:20)
[2024-03-09] MEDS: DiphenhydrAMINE 25 MG Capsule PO (17:20)
[2024-03-09 17:47] LABS: Absolute Lymphocyte Count 2.12 X10^3/uL (0.83-4.51); Absolute Neutrophil Count 4.4 X10^3/uL (2.0-7.7); Basophil# 0.04 X10^3/uL; Basophil% 0.6 % (0-1); Eosinophil# 0.07 X10^3/uL; Hematocrit 43.3 % (37-47); Hemoglobin 14.1 g/dL (12.0-15.0); Lymphocyte # 2.12 X10^3/ul (0.83-4.51); Lymphocyte % 29.9 % (19-41); Mean Corp Hgb Conc 32.6 g/dL (32-36); Mean Corpuscular Hgb 31.3 pg (27.0-32.0); Mean Platelet Vol. 10.4 fl (6.2-12.0); Monocyte# 0.48 X10^3/uL; Monocyte% 6.8 % (0-10); NRBC Flagged by Analyzer 0 % (0-5); Neutrophil # 4.38 X10^3/uL (2.7-7.7); Neutrophil % 61.6 % (47-70); Platelet Count 273 K/mm3 (150-450); RBC Distribution Width CV 13.4 % (11.6-14.6); RBC Distribution Width SD 47.6 fl (35.1-43.9); Red Blood Count 4.51 M/mm3 (4.2-5.4); White Blood Count 7.1 K/mm3 (4.4-11.0)
[2024-03-09 18:03] VITALS: BP 118/60; PULSE 70; RESP 18; O2SAT 99
[2024-03-09 18:04] LABS: AST(SGOT) 30 U/L (15-37); Alanine Aminotransfer ALT/SGPT 36 U/L (13-56); Albumin, Serum 3.3 g/dL (3.2-5.0); Alkaline Phosphatase 81 U/L (45-117); Anion Gap 4 (5-15); BUN 12 mg/dL (7-18); Calcium,Total 9.3 mg/dL (8.5-10.1); Chloride 108 mmol/L (98-107); Creatinine, Serum 0.86 mg/dL (0.55-1.02); EST Glomerular Filtration Rate 69 mL/min (>60); Est Glom Filt Rate - Afr Amer 83 mL/min (>60); Estimated Creatinine Clearance 68.26 ml/min; Globulin 3.4 g/dL (2.2-4.2); Glucose 99 mg/dL (74-106); Lipase 21 U/L (13-75); Potassium 3.7 mmol/L (3.5-5.1); Protein, Total 6.7 g/dL (6.4-8.2); Sodium Level 140 mmol/L (136-145)
[2024-03-09 18:06] LABS: Lactic Acid 1.1 mmol/L (0.4-1.9)
[2024-03-09 19:55] LABS: Bacteria 0 SEEN /hpf (None Seen); Mucous, Urine 0 SEEN /hpf (<or=2+); Red Blood Cells-Urine 0 SEEN /hpf (0-5); White Blood Cells 0 SEEN /hpf (0-5)
[2024-03-09 20:00] VITALS: BP 147/97; PULSE 90; RESP 16; TEMP 36.8; O2SAT 96
[2024-03-09 20:01] LABS: Color, Urine Yellow (Yellow); Glucose, Dipstick Normal (Normal); Ketone-Dipstick 5 mg/dl (Negative); Leukocyte Esterase-Dipstick Negative /ul (Negative); Nitrite-Dipstick Negative (Negative); Occult Blood-Urine Negative /ul (Negative); Protein-Dipstick Negative (Negative); Urine Bilirubin Dipstick Negative (Negative); Urine Clarity Clear (Clear); Urine Urobilinogen Normal (Normal)
[2024-03-09 20:46] LABS: Squamous Epithelial Cells - UA 0-5 SEEN /hpf (5-10)
== END 2024-03-09 20:32 | disposition home or self-care (01) ==
PROVIDERS: Nurse Practitioner; Emergency Provider Emergency Medicine; PCP Family Medicine; Visit Provider Emergency Medicine
DX: R10.9 Unspecified abdominal pain (principal); L50.9 Urticaria, unspecified; K57.90 Diverticulosis of intestine, part unspecified, without perforation or abscess without bleeding; E78.00 Pure hypercholesterolemia, unspecified
CPT/HCPCS: 74177; 80053; 81001; 83605; 83690; 85025; 96374; 99282; Q9967; A4216; J2405

== ENCOUNTER → 2024-10-03 | Outpatient (CLI) | payer MEDICARE, MEDICAID, SELFPAY ==
[2024-10-03 13:10] LABS: Absolute Lymphocyte Count 1.95 X10^3/uL (0.83-4.51); Absolute Neutrophil Count 2.5 X10^3/uL (2.0-7.7); Basophil# 0.03 X10^3/uL; Basophil% 0.6 % (0-1); Eosinophil# 0.08 X10^3/uL; Eosinophils% 1.6 % (0-5); Hematocrit 43.9 % (37-47); Hemoglobin 14.8 g/dL (12.0-15.0); Lymphocyte # 1.95 X10^3/ul (0.83-4.51); Lymphocyte % 39.2 % (19-41); Mean Corp Hgb Conc 33.7 g/dL (32-36); Mean Corpuscular Hgb 31.6 pg (27.0-32.0); Mean Corpuscular Volume 93.8 fL (81-99); Monocyte# 0.36 X10^3/uL; Monocyte% 7.2 % (0-10); NRBC Flagged by Analyzer 0 % (0-5); Neutrophil # 2.54 X10^3/uL (2.7-7.7); Neutrophil % 51.2 % (47-70); Platelet Count 245 K/mm3 (150-450); RBC Distribution Width SD 47.9 fl (35.1-43.9); Red Blood Count 4.68 M/mm3 (4.2-5.4)
[2024-10-03 13:56] LABS: ALB/GLOB Ratio 1.2 RATIO (0.9-2.4); AST(SGOT) 29 U/L (<=31); Alanine Aminotransfer ALT/SGPT 22 U/L (<=34); Alkaline Phosphatase 101 U/L (35-104); Anion Gap 12 (5-15); BUN 18 mg/dL (4-19); BUN/Creat Ratio 22.6 RATIO (10-20); Calcium,Total 9.6 mg/dL (7.6-11.0); Carbon Dioxide 24.5 mmol/L (21.0-32.0); Chloride 105 mmol/L (98-108); Creatinine, Serum 0.78 mg/dL (0.70-1.20); EST Glomerular Filtration Rate 79 (>60); Globulin 3.2 g/dL (2.2-4.2); Glucose 99 mg/dL (70-99); Potassium 4.3 mmol/L (3.3-5.1); Protein, Total 7.2 g/dL (5.9-8.4); Sodium Level 141 mmol/L (133-145); Total Bilirubin 0.41 mg/dL (0.00-1.30); Vitamin B12 540 pg/mL (180-914); Vitamin D,25 Hydroxy 37.1 ng/mL (30-100)
[2024-10-03 14:14] LABS: Iron 106 ug/dL (50-170)
== END | disposition home or self-care (01) ==
LOC: MFPLAB 11:03
PROVIDERS: PCP Family Medicine; Referring Provider Family Medicine; Visit Provider Family Medicine
DX: R79.89 Other specified abnormal findings of blood chemistry (principal); R53.83 Other fatigue; E55.9 Vitamin D deficiency, unspecified
CPT/HCPCS: 80053; 82306; 82607; 83540; 84443; 85025

== ENCOUNTER → 2025-01-10 | Outpatient (CLI) | payer MEDICARE, MEDICAID, SELFPAY ==
[2025-01-10 18:19] LABS: Hematocrit 46.2 % (37-47); Hemoglobin 15.4 g/dL (12.0-15.0); Mean Corp Hgb Conc 33.3 g/dL (32-36); Mean Corpuscular Volume 95.7 fL (81-99); Mean Platelet Vol. 11.4 fl (6.2-12.0); Platelet Count 231 K/mm3 (150-450); RBC Distribution Width CV 14.1 % (11.6-14.6); RBC Distribution Width SD 49.6 fl (35.1-43.9); Red Blood Count 4.83 M/mm3 (4.2-5.4); White Blood Count 8.0 K/mm3 (4.4-11.0)
[2025-01-10 18:33] LABS: Anion Gap 14 (5-15); BUN 17 mg/dL (4-19); BUN/Creat Ratio 20.7 RATIO (10-20); Calcium,Total 10.1 mg/dL (7.6-11.0); Carbon Dioxide 24.8 mmol/L (21.0-32.0); Chloride 103 mmol/L (98-108); Glucose 99 mg/dL (70-99); Potassium 4.3 mmol/L (3.3-5.1)
== END | disposition home or self-care (01) ==
LOC: MTLAB 15:22
PROVIDERS: PCP Family Medicine; Referring Provider Family Medicine; Visit Provider Family Medicine
DX: R42 Dizziness and giddiness (principal)
CPT/HCPCS: 36415; 80048; 85027

== ENCOUNTER 2025-02-01 15:31 | Emergency (ER) | payer MEDICARE, MEDICAID, SELFPAY ==
[2025-02-01 15:32] VITALS: BP 133/107; PULSE 92; RESP 16; TEMP 36.9; O2SAT 95; BMI 34.9
--- NOTE | 2025-02-01 16:28 | EDS_ITS ---
HPI <BRI Juan - Last Filed: 02/01/25 19:34> History of Present Illness Chief Complaint: Flank Pain Narrative Narrative: 79-year-old female with past medical history of hyperlipidemia, remote kidney stone, tachycardia presents with 2 days of pressure in her bilateral lower abdomen and low back. She has slight burning with urination. She went to urgent care today and was given Azo and was sent here for evaluation. She denies fever, chills, nausea or vomiting. PFSH <BRI Juan - Last Filed: 02/01/25 19:34> [facility] Medical History Dizziness Earache, right (Unknown) RUQ abdominal pain Irritable bowel syndrome (IBS) Seasonal allergies Nonrheumatic mitral (valve) prolapse Pure hypercholesterolemia Lightheadedness Chest pain Palpitations custodial use of drug Home Medications ?Medication ?Instructions ?Recorded ?Last Taken ?Type aogqha-rshtxzxs-jkveooy 3 cap PO TID #320 caps 09/13 Unknown Rx 3,000-9,500-15,000 unit capsule, delayed rel (Creon) omeprazole 20 mg capsule,delayed 20 mg PO QDAY PRN Unknown History release propranolol 40 mg tablet 40 mg PO DAILY dose increase d back 11/29/24 Unknown Rx Held on 01/09/25. to 40 mg #90 tabs Instructions: Dizziness nitrofurantoin 100 mg PO BID 7 days #14 cap s 02/01/25 Unknown Rx monohydrate/macrocrystals 100 mg capsule (Macrobid) phenazopyridine 200 mg tablet 200 mg PO TID PRN pain 3 days #9 02/01/25 Unknown Rx (Pyridium) tabs Allergy/AdvReac Type Severity Reaction Status Date / Time nitrofurantoin (From Allergy Mild Rash Verified 02/01/25 15:31 Macrobid) ciprofloxacin (From Cipro) Allergy Itching Verified 02/01/25 15:31 Penicillins (PCN) Allergy Hives Verified 02/01/25 15:31 Sulfa (Sulfonamide Allergy Hives Verified 02/01/25 15:31 Antibiotics) atorvastatin (From Lipitor) AdvReac Severe Myalgias Verified 02/01/25 15:31 pravastatin (From Pravachol) AdvReac Intermediate Myalgias Verified 02/01/25 15:31 Family History Father CAD (coronary artery disease) Myocardial infarction Brother CAD (coronary artery disease) Colon cancer Myocardial infarction Mother No problems noted. Surgical History History of knee replacement History of hip replacement H/O laminectomy FH: cholecystectomy Social History Smoking Status: Never smoker alcohol intake: never caffeine: Yes Type: other what type of physical activity do you participate in: none ROS <BRI Juan - Last Filed: 02/01/25 19:34> ROS ED ROS Narrative Constitutional: Negative for fever, chills, malaise. GI: Positive for abdominal pain. No nausea, vomiting. : Positive for dysuria. No hematuria. EXAM <BRI Juan - Last Filed: 02/01/25 19:34> Physical Exam Narrative Exam Narrative: CONST: Patient sitting in no acute distress. EYES: Normal inspection. NECK: Normal inspection. RESP: No respiratory distress, CTAB. CVS: Regular rate and rhythm, no murmur, no gallop. ABD: Soft with suprapubic tenderness, no guarding or rebound, nondistended. Back: Normal inspection, no CVA tenderness. SKIN: Color normal, no rash, warm, dry, intact. EXTREMITIES: Normal appearance, no pedal edema. NEURO: Alert and answering questions appropriately. PSYCH: Normal affect. Const Vital Signs: 02/01/25 15:32 02/01/25 19:00 Temperature 98.4 F Temperature Source Oral Pulse Rate 92 58 L Respiratory Rate 16 16 Blood Pressure 133/107 H 130/70 H Blood Pressure Mean 115 90 Pulse Ox 95 100 Oxygen Delivery Method Room Air Room Air <Dr. Lobo Elkins MD - Last Filed: 02/01/25 17:21> Physical Exam Const Vital Signs: 02/01/25 15:32 02/01/25 19:00 Temperature 98.4 F Temperature Source Oral Pulse Rate 92 58 L Respiratory Rate 16 16 Blood Pressure 133/107 H 130/70 H Blood Pressure Mean 115 90 Pulse Ox 95 100 Oxygen Delivery Method Room Air Room Air [facility] <BRI Juan - Last Filed: 02/01/25 19:34> [facility] Narrative Medical decision making narrative: Differential includes but not limited to UTI, kidney stone 79-year-old female has lower abdominal pain and low back pain with dysuria. She appears well and nontoxic. Vital stable. Abdomen soft suprapubic tenderness without peritoneal signs. No flank tenderness. CBC and BMP are unremarkable. UA is consistent with UTI and was sent for culture. Patient has multiple allergies to antibiotics to treat UTIs. She was on Keflex about a week ago so I do not want to repeat this in case it was resistant. She does not recall any severe allergies or anaphylaxis and cannot remember her reactions clearly. I administered the first dose of Macrobid here and she was monitored for 30+ minutes without issue. I prescribed this for home and discussed return precautions. She was discharged in stable condition. I have personally performed a face to face assessment of the patient and have reviewed the ROSS Note. I performed a substantive portion of the visit including all aspects of the following. My gaines findings include: History is 79-year-old female suprapubic and bilateral lower quadrant abdominal pain for 5 to 7 days. Thought she had a UTI was started on Keflex but her symptoms have not improved. Exam is [well-appearing 79-year-old female. Vital signs stable afebrile. H EENT exam pupils round react light. Moist mucous membranes. Neck nontender no JVD. No lymphadenopathy. Lungs clear to auscultation bilaterally. Heart regular rhythm rate about 85 no murmur. Chest wall ribs nontender. Abdomen soft nondistended normal bowel sounds without peritoneal signs. Suprapubic bilateral lower quadrant tenderness. No hernia or mass. No obstruction. Back nontender. No CVA tenderness. Moving all 4 extremities. Nontender. Normal belt back operator strength. Normal dorsi plantarflexion. Neurologically she is awake alert. Answering questions following commands.] Medical Decision Making [79-year-old female lower abdominal pain UTI versus diverticulitis versus other etiologies. CAT scan labs. She did not wining for pain.] Other additions or changes: [None] Lab Data Labs: Laboratory Results - last 24 hr 02/01/25 02/01/25 16:35 17:00 WBC 10.1 RBC 4.88 Hgb 15.8 H Hct 46.3 MCV 94.9 MCH 32.4 H MCHC 34.1 RDW Std Deviation 51.1 H RDW Coeff of Christiane 14.6 Plt Count 278 MPV 9.9 Immature Gran % (Auto) 0.500 Neut % (Auto) 74.6 H Lymph % (Auto) 18.3 L [place] % (Auto) 6.4 Eos % (Auto) 0.0 Baso % (Auto) 0.2 Absolute Neuts (auto) 7.6 Absolute Lymphs (auto) 1.85 Nucleated RBC % 0 Sodium 142 Potassium 4.3 Chloride 105 Carbon Dioxide 25.1 Anion Gap 12 BUN 22 H Creatinine 0.90 Estim Creat Clear Calc 63.93 Est GFR (MDRD) Non-Af 66 BUN/Creatinine Ratio 24.7 H Glucose 110 H Calcium 9.7 Urine Color SEE COMMENT BELOW Urine Clarity Sl. Cloudy Urine pH 5.0 Ur Specific [place] 1.015 Urine Protein 30 H Urine Glucose (UA) 50 H Urine Ketones Negative Urine Occult Blood 10 H Urine Nitrite Positive H Urine Bilirubin 6 H Urine Urobilinogen 8 H Ur Leukocyte Esterase Negative Urine RBC 0-5 SEEN Urine WBC 0-5 SEEN Ur Squamous Epith Cells 0-5 SEEN Ur Transition Epith Cell 0-5 SEEN Urine Bacteria 3+ Urine Mucus 0 SEEN Radiography Diagnostic Testing: Clinical Impression(s) from Imaging Studies Abdomen/Pelvis CT 02/01/25 16:29 IMPRESSION: No acute abnormality Reading [facility] <Dr. Lobo Elkins MD - Last Filed: 02/01/25 17:21> [facility] Narrative Medical decision making narrative: I have personally performed a face to face assessment of the patient and have reviewed the ROSS Note. I performed a substantive portion of the visit including all aspects of the following. My gaines findings include: History is 79-year-old female suprapubic and bilateral lower quadrant abdominal pain for 5 to 7 days. Thought she had a UTI was started on Keflex but her symptoms have not improved. Exam is [well-appearing 79-year-old female. Vital signs stable afebrile. H EENT exam pupils round react light. Moist mucous membranes. Neck nontender no JVD. No lymphadenopathy. Lungs clear to auscultation bilaterally. Heart regular rhythm rate about 85 no murmur. Chest wall ribs nontender. Abdomen soft nondistended normal bowel sounds without peritoneal signs. Suprapubic bilateral lower quadrant tenderness. No hernia or mass. No obstruction. Back nontender. No CVA tenderness. Moving all 4 extremities. Nontender. Normal belt back operator strength. Normal dorsi plantarflexion. Neurologically she is awake alert. Answering questions following commands.] Medical Decision Making [79-year-old female lower abdominal pain UTI versus diverticulitis versus other etiologies. CAT scan labs. She did not wining for pain.] Other additions or changes: [None] History & Record Review Discussion w/independent historian: Patient Additional record(s) reviewed:: Prior inpatient record, Prior outpatient record, Prior ED visit and Prior labs Lab Data Attestation: I reviewed the patient's lab results. Lab results narrative: CBC shows a white count of 10. H&H 15 and 46. Platelets 278. Labs: Laboratory Results - last 24 hr 02/01/25 02/01/25 16:35 17:00 WBC 10.1 RBC 4.88 Hgb 15.8 H Hct 46.3 MCV 94.9 MCH 32.4 H MCHC 34.1 RDW Std Deviation 51.1 H RDW Coeff of Christiane 14.6 Plt Count 278 MPV 9.9 Immature Gran % (Auto) 0.500 Neut % (Auto) 74.6 H Lymph % (Auto) 18.3 L [place] % (Auto) 6.4 Eos % (Auto) 0.0 Baso % (Auto) 0.2 Absolute Neuts (auto) 7.6 Absolute Lymphs (auto) 1.85 Nucleated RBC % 0 Sodium 142 Potassium 4.3 Chloride 105 Carbon Dioxide 25.1 Anion Gap 12 BUN 22 H Creatinine 0.90 Estim Creat Clear Calc 63.93 Est GFR (MDRD) Non-Af 66 BUN/Creatinine Ratio 24.7 H Glucose 110 H Calcium 9.7 Urine Color SEE COMMENT BELOW Urine Clarity Sl. Cloudy Urine pH 5.0 Ur Specific [place] 1.015 Urine Protein 30 H Urine Glucose (UA) 50 H Urine Ketones Negative Urine Occult Blood 10 H Urine Nitrite Positive H Urine Bilirubin 6 H Urine Urobilinogen 8 H Ur Leukocyte Esterase Negative Urine RBC 0-5 SEEN Urine WBC 0-5 SEEN Ur Squamous Epith Cells 0-5 SEEN Ur Transition Epith Cell 0-5 SEEN Urine Bacteria 3+ Urine Mucus 0 SEEN Radiography Diagnostic Testing: Clinical Impression(s) from Imaging Studies Abdomen/Pelvis CT 02/01/25 16:29 IMPRESSION: No acute abnormality Reading Location: [facility] Discharge Plan Triage Chief Complaint: Flank Pain ED Midlevel Provider: Azul Gilmore ED Provider: Lobo Elkins Dx/Rx/DC Orders Clinical Impression: Acute UTI, Abdominal pain Instructions: Urinary Tract Infections in Women Prescriptions: New nitrofurantoin monohyd/m-cryst [Macrobid] 100 mg capsule 100 mg PO BID 7 Days Qty: 14 0RF Rx Instructions: must administer with a meal/food No Action omeprazole 20 mg capsule,delayed release(DR/EC) 20 mg PO QDAY PRN phenazopyridine [Pyridium] 200 mg tablet 200 mg PO TID PRN (Reason: pain) 3 Days Qty: 9 0RF Creon 3,000-9,500- 15,000 unit capsule,delayed release(DR/EC) 3 cap PO TID Qty: 320 3RF Rx Instructions: take three caps with meals and one to two with snacks. propranolol 40 mg tablet 40 mg PO DAILY Qty: 90 3RF Primary Care Provider: Mart Nicole Referrals: Mart Nicole MD [Primary Care Provider] - Activity Restrictions/Additional Instructions: Take all the antibiotics for the UTI. You have multiple allergies so we tried Macrobid since you do not remember when you had a reaction to this and it was not severe. If you have any issues call your PCP or the ED. Print Language: Turkish Disposition Disposition: Home, Self Care
--- NOTE | 2025-02-01 16:29 | CT_ITS ---
PROCEDURE: ABDOMEN/PELVIS WITHOUT CONT 02/01/2025 REASON FOR EXAM: FLANK PAIN TECHNIQUE: Procedure Code: CTABDPEL Modality: CT Procedure: ABDOMEN/PELVIS WITHOUT CONT Noncontrast technique limits evaluation of the abdominal and pelvic viscera. Coronal and Sagittal reconstruction series were provided. One or more dose reduction techniques were used (e.g., Automated exposure control, adjustment of the mA and/or kV according to patient size, use of iterative reconstruction technique). RADIATION DOSE SUMMARY: CTDlvol: 20.3 mGy DLP: 1053 mGycm FINDINGS: Calcified benign splenic granulomas are present. Small hiatal hernia. Gallbladder surgically absent. No noncontrast evidence of liver mass. No pancreatic contour deformity. No hydronephrosis. Negative for renal calculi. Negative for ureteral dilatation. 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 There is sigmoid diverticulosis but no diverticulitis. Negative for adenopathy or aneurysm. CT/Abdomen/Pelvis without Cont IMPRESSION: No acute abnormality Reading [facility]
[2025-02-01 16:56] LABS: Hematocrit 46.3 % (37-47); Hemoglobin 15.8 g/dL (12.0-15.0); Immature Granulocytes Count 0.050 X10^3/uL (0.0-0.0); Mean Corp Hgb Conc 34.1 g/dL (32-36); Mean Corpuscular Volume 94.9 fL (81-99); Mean Platelet Vol. 9.9 fl (6.2-12.0); NRBC Flagged by Analyzer 0 % (0-5); Platelet Count 278 K/mm3 (150-450); RBC Distribution Width CV 14.6 % (11.6-14.6); RBC Distribution Width SD 51.1 fl (35.1-43.9); Red Blood Count 4.88 M/mm3 (4.2-5.4); White Blood Count 10.1 K/mm3 (4.4-11.0)
[2025-02-01 17:14] LABS: Mucous, Urine 0 SEEN /hpf (<or=2+)
[2025-02-01 17:50] LABS: Glucose, Dipstick 50 mg/dl (Normal); Ketone-Dipstick Negative (Negative); Leukocyte Esterase-Dipstick Negative /ul (Negative); Nitrite-Dipstick Positive (Negative); Occult Blood-Urine 10 /ul (Negative); Protein-Dipstick 30 mg/dl (Negative); Specific Gravity, Urine 1.015 (1.002-1.030)
[2025-02-01 17:53] LABS: Color, Urine SEE COMMENT BELOW (Yellow)
[2025-02-01 17:54] LABS: Urine Bilirubin Dipstick 6 mg/dL (Negative)
[2025-02-01 18:16] LABS: Anion Gap 12 (5-15); BUN 22 mg/dL (4-19); BUN/Creat Ratio 24.7 RATIO (10-20); Calcium,Total 9.7 mg/dL (7.6-11.0); Carbon Dioxide 25.1 mmol/L (21.0-32.0); Chloride 105 mmol/L (98-108); Estimated Creatinine Clearance 63.93 ml/min (50-250); Glucose 110 mg/dL (70-99); Potassium 4.3 mmol/L (3.3-5.1)
[2025-02-01 18:35] LABS: Red Blood Cells-Urine 0-5 SEEN /hpf (0-5); Squamous Epithelial Cells - UA 0-5 SEEN /hpf (5-10); Transitional Epithelial - Ur 0-5 SEEN /hpf (0-5)
[2025-02-01 19:00] VITALS: BP 130/70; PULSE 58; RESP 16; O2SAT 100
[2025-02-01 19:45] VITALS: BP 130/70; PULSE 58; RESP 16; TEMP 37; O2SAT 100
== END 2025-02-01 19:49 | disposition home or self-care (01) ==
PROVIDERS: Physician Assistant; Emergency Provider Emergency Medicine; PCP Family Medicine; Visit Provider Emergency Medicine
DX: N39.0 Urinary tract infection, site not specified (principal); R10.9 Unspecified abdominal pain
CPT/HCPCS: 74176; 80048; 81001; 85025; 87086; 87088; 99282; A4216

== ENCOUNTER → 2025-02-01 | Outpatient (CLI) | payer MEDICARE, MEDICAID, SELFPAY | END | disposition home or self-care (01) | LOC: LABSPEC 13:14 | PROVIDERS: PCP Family Medicine; Referring Provider Physician Assistant Surgical; Visit Provider Physician Assistant Surgical | DX: R82.90 Unspecified abnormal findings in urine (principal) | CPT/HCPCS: 87086; 87088 ==

== ENCOUNTER 2025-02-08 05:48 | Day surgery (SDC) | payer MEDICARE, MEDICAID, SELFPAY ==
--- NOTE | 2025-02-05 14:13 | PAT.ANESEVAL ---
Pre-Assessment Diagnosis/Proposed Procedure Planned Operative Procedure(s): HYSTEROSCOPY DILATION AND CURRETAGE Anesthesia History Anesthesia History - dental chairside assistant: Anesthesia History - dental chairside assistant Hx Hospitalization No 02/05/25 10:45 Any Problems With Anesthesia No 02/05/25 10:45 Cholinesterase deficiency No 02/05/25 10:45 You/Your Family Experience No 02/05/25 10:45 fever (hyperthermia) with Relationship Recent Exposure to Contagious Disease Does patient have nerve No 02/05/25 10:45 stimulator Patient instructed to have device shut off --Does patient have Pacemaker or ICD? When Was Last Pacemaker Check QUESTION #4 FULL TEXT: You/Your Family Experience fever (hyperthermia) with Anesthesia Last Oral Intake Last Oral intake: Last Oral Intake NPO since Meds taken in AM with sips of water? Meds patient instructed to take am of surgery PONV PONV - dental chairside assistant: PONV - dental chairside assistant Female Yes 02/05/25 10:45 HX of Motion Sickness No 02/05/25 10:45 HX of N/V After Surgery No 02/05/25 10:45 Non-Smoker Yes 02/05/25 10:45 Duration of Surgery greater No 02/05/25 10:45 than 60 minutes Number of Risk Factors 2 02/05/25 10:45 PONV Score Moderate Risk 02/05/25 10:45 Height & Weight Height & Weight: Anesthesia: Height & Weight Height 5 ft 7 in 03/26/24 10:28 Respiratory Assessment Respiratory Assessment - dental chairside assistant: Respiratory Tract Infection Hx - dental chairside assistant Hx Respiratory Tract Infection No 02/05/25 10:45 STOP Sleep Apnea STOP Sleep Apnea - dental chairside assistant: STOP Sleep Apnea - dental chairside assistant Hx Hypertension No 02/05/25 10:45 Hx Sleep Apnea No 02/05/25 10:45 CPAP BIPAP Do you snore loudly (louder No 02/05/25 10:45 than talking or can be heard Do you often feel tired/ No 02/05/25 10:45 fatigued/ sleepy during daytime? Has anyone observed you stop No 02/05/25 10:45 breathing during sleep? STOP Results Negative 02/05/25 10:45 QUESTION #5 FULL TEXT : Do you snore loudly (louder than talking or can be heard through closed doors)? 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 Specify any problems Hx of Preganancy in last 3 No 02/05/25 10:45 Months Nurse Filling Out Transfusion [email or web address] 02/05/25 10:45 & Questions: Date: 02/05/25 02/05/25 10:45 Time: 10:51 02/05/25 10:45 Patient unable to answer at this time (ie. 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 Home Medications ?Medication ?Instructions ?Recorded ?Last Taken ?Type omeprazole 20 mg capsule,delayed 20 mg PO QDAY PRN GERD 06/18/24 Unknown History release propranolol 40 mg tablet 40 mg PO DAILY dose increased back 11/29/24 Unknown Rx to 40 mg #90 tabs cefdinir 300 mg capsule 300 mg PO BID 7 days #14 caps 02/03/25 Unknown Rx nmdaqk-eifwvenx-nvmlycc 3 cap PO DAILY 02/05/25 Unknown History 3,000-9,500-15,000 unit capsule, delayed rel (Creon) ondansetron HCl 4 mg tablet 4 mg PO Q12H 02/05/25 Unknown History Allergy/AdvReac Type Severity Reaction Status Date / Time nitrofurantoin (From Allergy Mild Rash Verified 02/05/25 10:41 Macrobid) ciprofloxacin (From Cipro) Allergy Itching Verified 02/05/25 10:41 Penicillins (PCN) Allergy Hives Verified 02/05/25 10:41 Sulfa (Sulfonamide Allergy Hives Verified 02/05/25 10:41 Antibiotics) atorvastatin (From Lipitor) AdvReac Severe Myalgias Verified 02/05/25 10:41 pravastatin (From Pravachol) AdvReac Intermediate Myalgias Verified 02/05/25 10:41 Family History Father CAD (coronary artery disease) Myocardial infarction Brother CAD (coronary artery disease) Colon cancer Myocardial infarction Mother No problems noted. Surgical History History of knee replacement History of hip replacement H/O laminectomy FH: cholecystectomy Social History Smoking Status: Never smoker alcohol intake: never caffeine: Yes Type: other what type of physical activity do you participate in: none Audit: Pertinent Findings Pertinent Findings EKG Perinent findings: 03/26/2024. Sinus rhythm. Nonspecific T wave abnormality. Echo (EF%) pertinent findings: 03/03/2023. EF of 65%. No aortic stenosis. Consult pertinent findings: 03/26/2024. Beatriz SHANKAR. 1. Nonrheumatic mitral valve prolapse-by history-no significant mitral regurgitation on the most recent echo. LV is normal EF of 65%. Stable, will continue to follow. 2. Dizziness-encouraged hydration, compression stockings to help alleviate symptoms. Additional pertinent findings: Tilt test?02/27/2024. Likely orthostatic changes with a 70 degree head upright tilt testing. 14-day event monitor. 2023. Baseline sinus rhythm. Less than 1% PVCs and P SVC's no atrial fibrillation. Symptoms of fatigue, flutter or skipped beats correlated with sinus rhythm and sinus tachycardia. Recommendation Anesthesia Recommendation Anesthesia recommendation: OPTIMIZED for anesthesia
--- NOTE | 2025-02-06 16:32 | PCM.HP.BLA ---
History and Physical Date of Admission: 02/08/25 Pre-Op History and Physical HPI: The patient is a 79 year old female presenting for discussion regarding PMB- had episdoe in OCTOBER 2023 for which work up was benign but again presented today for bleeding in jan 2025. pre-operative visit. She is scheduled for Hysteroscopy D&C, for PMB on 02/08/25. Procedure discussed along with risks, benefits and complications. Other alternatives discussed for management. Consent form signed? Yes. PAST MEDICAL HISTORY PAST MEDICAL HISTORY Diagnosis Date ? Abdominal pain, right upper quadrant ? Allergic rhinitis, cause unspecified ? Chest pain, unspecified ? Disorders of lipoid metabolism ? Diverticulosis of colon (without mention of hemorrhage) ? Esophagitis, unspecified ? Family history of malignant neoplasm of gastrointestinal tract Colon Cancer/Brother ? Hemorrhage of gastrointestinal tract, unspecified ? Hemorrhage of rectum and anus ? Irritable bowel syndrome ? Osteopenia ? Palpitations ? Skin cancer ? Temporomandibular joint disorders, unspecified ? Unspecified constipation PAST SURGICAL HISTORY PAST SURGICAL HISTORY Procedure Laterality Date ? ABDOMINAL SURGERY HX ? ARTHRP ACETBLR/PROX FEM PROSTC AGRFT/ALGRFT 05/2010 Lt hip ? ARTHRP KNE CONDYLE&PLATU MEDIAL&LAT COMPARTMENTS 02/19/2013 Knee replacement, total, Right ? BACK SURGERY HX ? DELIVERY ONLY X 2 , low transverse ? CHOLECYSTECTOMY 1992 ? COLONOSCOPY FLX DX W/COLLJ SPEC WHEN PFRMD 08/26/2005 ? COLONOSCOPY FLX DX W/COLLJ SPEC WHEN PFRMD 10/01/2010 ? COLONOSCOPY FLX DX W/COLLJ SPEC WHEN PFRMD 06/19/2015 Colonoscopy ? COLONOSCOPY FLX DX W/COLLJ SPEC WHEN PFRMD 10/07/2020 ? EGD TRANSORAL BIOPSY SINGLE/MULTIPLE 07/26/2006 ? ESOPHAGOGASTRODUODENOSCOPY TRANSORAL DIAGNOSTIC 10/07/2020 ? HYSTEROSCOPY 04/20/2012 Hysteroscopy and D&C ? JOINT REPLACEMENT HX ? LAMINECTOMY W/O FFD 1/2 VERT SEG LUMBAR 1974 L4-5 ? PAST SURGICAL HISTORY OF 2013 part of nose tissue removed ? PAST SURGICAL HISTORY OF 1974 laminectomy ? SKIN BIOPSY HX ? TONSILLECTOMY HX CURRENT MEDICATIONS Current Outpatient Medications Medication Sig Dispense Refill ? ondansetron (ZOFRAN) 4 mg tablet Take 1 tablet by mouth every 8 hours as needed for nausea/vomiting. 90 tablet 0 ? CREON 3,000-9,500- 15,000 unit delayed release capsule Take 1 capsule by mouth once daily. ? propranolol 20 mg tablet Take 40 mg by mouth one time only. ? cefdinir (OMNICEF) 300 mg capsule Take 300 mg by mouth two times a day. Take for 10 days- started on March 02, 2024 (Patient not taking: Reported on 12/08/2024) ? metroNIDAZOLE (FLAGYL) 500 mg tablet Take 500 mg by mouth three times a day. Take for 10 days- started on March 02, 2024 (Patient not taking: Reported on 12/08/2024) ? ibuprofen 200 mg ORAL tablet Take 200 mg by mouth every 6 hours as needed. (Patient not taking: Reported on 12/08/2024) ? ASPIRIN 81 MG TAB Take 81 mg by mouth once daily. (Patient not taking: Reported on 12/08/2024) 0 No current facility-administered medications for this visit. ALLERGIES: Atorvastatin, Ciprofloxacin, Gabapentin, Morphine, Penicillin G, Sulfa (Sulfonamide Antibiotics), and Nitrofurantoin PERSONAL HISTORY: [SOCIAL HISTORY] [SOCIAL HISTORY] Social History Tobacco Use ? Smoking status: Never ? Smokeless tobacco: Never Vaping Use ? Vaping status: Never Used Substance Use Topics ? Alcohol use: Not Currently ? Drug use: Never FAMILY HISTORY: FAMILY HISTORY FAMILY HISTORY Problem Relation Age of Onset ? other (Other) Mother Archana Aby's ? Heart Father ? Colon Cancer Brother REVIEW OF SYMPTOMS: Feeling dizzy with ear pain last few weeks- seeing ENT PHYSICAL EXAMINATION: VITALS: Blood pressure 118/72, height 168.9 cm (5' 6.5), weight 99.8 kg (220 lb). GENERAL: The patient is well nourished, well hydrated in no acute distress. , The patient is oriented to time, place, and person. NECK: full range of motion LUNGS: Clear to auscultation bilaterally. no wheezes, rhonchi or rales HEART: Regular rate and rhythm, Normal heart sounds, and No murmurs or gallops IMPRESSION: 79yo with PMB PLAN: Hysteroscopy D&C Pt has been counseled on risks/benefits and alternatives of surgery including but not limited to anesthesia, bleeding, infection, uterine perforation with subsequent injury to pelvic structures including bowel, bladder, ureters and vessels. Pt wishes to proceed with surgery at this time. Pre and post op instructions reviewed I have reviewed and updated past medical and surgical history, medications and allergies Isatu Ramirez MD
[2025-02-08] VITALS (11 sets, daily range): BP systolic 98–142; BP diastolic 56–98; PULSE 50–65; RESP 16; TEMP 36.1–36.3; O2SAT 94–100; BMI 35.6
--- OUTSIDE RECORDS SUMMARY | 2025-02-08 06:01 | XMS RPT_ITS | CCD ---
Author Organization [facility] CliniSypr Care Team Providers Care Paint Roller Winder Name Role Phone TEQUILA DAVIS Attending Unavailable CHERYL BUCIO Consulting Unavailable TEQUILA DAVIS Admitting Unavailable TEQUILA DAVIS Primary Care Unavailable PROVIDER, UNKNOWN Consulting Unavailable CHERYL BUCIO Consulting Unavailable IRVING, DR GREY Anguiano Admitting Unavaila ble IRVING, DR GREY Anguiano Primary Care Unavaila ble IRVING, DR GREY Anguiano Attending Unavaila ble PROVIDER, UNKNOWN Consulting Unavailable Kasey Nicole MD Primary Care Provider Dr. Dimitri Nicole Primary Care Provider [phone] Dr. Dimitri Nicole Referring Provider Dr. Harsh Andres Attending Provider [phone] Kasey Nicole MD Primary Care Provider Dr. Dimitri Nicole Primary Care Provider [phone] Dr. Dimitri Nicole Referring Provider Dr. Harsh Andres Attending Provider Kasey Nicole MD Primary Care Provider Kasey Nicole MD Primary Care Provider Dr. Dimitri Nicole Primary Care Provider [phone] Dr. Sarbjit Rausch Attending Provider Dr. Sarbjit Rausch Referring Provider [facility] TRIMMING OPERATOR, TRIMMING OPERATOR-Maxwell Diaz Attending Provider Dr. Dimitri Nicole Referring Provider Yo GREGORY, BRI Avendano Attending Provider KELLIE Jacobo Attending Provider BRI Betancourt Attending Provider Dhara Duval Attending Provider Unavailable Friend, Dr. House Attending Provider Dr. Dimitri Nicole Primary Care Provider Dr. Kasey Nicole Primary Care Provider Dr. Kasey Nicole Referring Provider BRI Montaño Attending Provider KELLIE Jacobo Attending Provider BRI Betancourt Attending Provider Dhara Duval Attending Provider Unavailable Friend, Dr. House Attending Provider Dr. Hugo Mcgraw Attending Provider Kasey Nicole MD Primary Care Provider CARLOTTA CHUA, DR~[phone] KASEY Diaz Admittin g Unavailable CARLOTTA CHUA, ~[phone] KASEY Diaz Attendin g Unavailable CARLOTTA CHUA, DR KASEY Diaz Consulting Sylvia vailable KASEY DIAZ~[phone] Primary Care Unavailable CARLOTTA CHUA, DR KASEY Diaz Consulting Sylvia vailable KASEY DIAZ~[phone] Consulting Unavailable KASEY NICOLE Consulting Unavailabl e WILLIE GENTILE, MATHEUS Consulting Unavailable WILLIE GENTILE, MATHEUS Consulting Unavailable Dr. Kasey Nicole MD Primary Care Provider Dr. Kasey Nicole MD Referring Provider Dr. Harsh Andres DO Attending Provider Dr. Kasey Nicole MD Attending Provider Dr. Kasey Nicole MD Primary Care Provider Dr. Kasey Nicole MD Referring Provider Jen Melchor Attending Provider Lavell Bajwa MD Attending Provider Lavell Bajwa MD Referring Provider Dr. Kasey Nicole MD Primary Care Provider Dr. Kasey Nicole MD Referring Provider [phone] Robson Betancourt Attending Provider Robson Betancourt Referring Provider Dr. Lobo Elkins MD Emergency Provider [phone] [facility] TRIMMING OPERATOR-C, Imer Diaz Attending Provider FLOR, MANIER B Primary Care Unavailabl e FELIX DENISE Attending Unavailable KVNG, CAREN Attending Unavailable RANNEY, CHRISTOPHER B Primary Care Unavailabl e KVNG CAREN Referring Unavailable RANNEY, CHRISTOPHER B Primary Care Unavailabl e KVNG, CAREN Referring Unavailable RANNEY, CHRISTOPHER B Primary Care Unavailabl e JOSE PHILLIPS Attending Unavailable ISATU MAST Attending Unavail able KELLY, CAREN Referring Unavailable RANNEY, CHRISTOPHER B Primary Care Unavailabl e RANNEY, CHRISTOPHER B Primary Care Unavailabl e PIPE PATEL Attending Unavailable RANNEY, CHRISTOPHER B Primary Care Unavailabl Robson Godinez Attending Unavailable Ranney, Christopher Primary Care Unavailable Ranney, Christopher Referring Unavailable Ranney, Christopher Primary Care Unavailable Negin Callejas Attending Unavailable Ranney, Christopher Referring Unavailable Ranney, Christopher Primary Care Unavailable Nellie Velasco Attending Unavail able Ranney, Christopher Referring Unavailable Ranney, Christopher Consulting Unavailable Ranney, Christopher Primary Care Unavailable [place] Attending Unavailable Ranney, Christopher Primary Care Unavailable Lei Montaño Attending Unavailable Ranney, Christopher Referring Unavailable Ranney, Christopher Primary Care Unavailable Harsh Andres Attending Unavailable Ranney, Christopher Referring Unavailable Ranney, Christopher Primary Care Unavailable Ranney, Christopher Referring Unavailable Jen Jacobo Attending Unavailable Ranney, Christopher Primary Care Unavailable Ranney, Christopher Referring Unavailable Nellie Velasco Attending Unavail able Ranney, Christopher Primary Care Unavailable [place] Attending Unavailable Nellie Velasco Referring Unavail able Ranney, [facility] Primary Care Unavailable Lobo Elkins Attending Unavailable Tyrese GREGORY, Robson Attending Unavailable Ranney, [facility] Primary Care Unavailable Ranney, Christopher Referring [facility]available [facility]available Lavell Bajwa Referring Unavailable AydeeLavell Attending Unavailable Ranney, Christkareemer Attending Unavailable Ranney, [facility] Primary Care Unavailable Ranney, [facility] Primary Care Unavailable Noe Oreilly Attending Unavailable Ranney, [facility] Primary Care Unavailable Yoshi Retana Attending Unavailable Tyrese GREGORY, Robson Referring Unavailable Tyrese GREGORY, Robson Attending Unavailable Ranney, [facility] Primary Care Unavailable [place], [facility]er Primary Care Unavailable Isatu Andrea Referring Unavail able Isatu Andrea Attending Unavail able Ranney, [facility] Primary Care Unavailable Nellie Velasco Referring Unavail able Nellie Velasco Attending Unavail able [facility] Referring Unavailable Ranney, [facility] Primary Care Unavailable Ranney, Christkareemer Attending Unavailable Tessa TRIMMING OPERATORImer Attending Unavailable [facility] Referring Unavailable Ranney, [facility] Primary Care Unavailable Allergies Allergy Classification Reported Allergen(s) Allergy Type Date of Onset Reaction(s) Facility Anti-Epileptic Agents (1 source) gabapentin Drug Allergy 09-17-19 10 Mental Status Change [facility] Opioid Agonists (1 source) Morphine Drug Allergy 06-02-20 10 Other: See Comments [facility] Penicillins (antibiotic) (1 source) Penicillin G Drug Allergy 06-21-19 06 [facility] Work Phone: Sulfonamides (antibiotic) (1 source) Sulfonamides (Antibiotic) Drug Allergy 06-21-19 06 [facility] (1 source) Penicillins Drug allergy (disorder) [facility] (1 source) Sulfonamides (Antibiotic) Drug allergy (disorder) [facility] (20 sources) gabapentin; Translations: [GABAPENTIN] Drug Allergy 09-17-19 10 Mental Status Change [facility] (20 sources) Morphine; Translations: [MORPHINE] Drug Allergy 06-02-20 10 Other: See Comments [facility] (20 sources) Penicillin G; Translations: [PENICILLIN G] Drug Allergy 06-21-19 06 [facility] Work Phone: (20 sources) Sulfonamides (Antibiotic); Translations: [SULFA (SULFONAMIDE ANTIBIOTICS)] Propensity to adverse reactions 06-21-19 [facility] Work Phone: (20 sources) atorvastatin; Translations: [ATORVASTATIN] Drug Allergy 03-21-20 19 Myalgia [facility] (20 sources) Penicillins; Translations: [Penicillins] Allergy to substance 12-22-19 22 [facility] (19 sources) Pravastatin Drug Allergy 12-22-19 22 Myalgias [facility] (17 sources) Sulfonamides (Antibiotic) Allergy to substance 12-22-19 22 [facility] (20 sources) Nitrofurantoin; Translations: [NITROFURANTOIN] Drug Allergy 06-08-19 24 Rash [facility] (16 sources) Ciprofloxacin; Translations: [CIPROFLOXACIN] Drug Allergy 08-03-19 24 Itching [facility] (1 source) atorvastatin Drug Allergy 02-06-20 25 [facility] (1 source) Ciprofloxacin Drug Allergy 02-06-20 25 [facility] (1 source) Nitrofurantoin Drug Allergy 02-06-20 25 [facility] (1 source) Pravastatin Drug Allergy 02-06-20 25 [facility] (1 source) Sulfonamides (Antibiotic) Drug allergy (disorder) 02-06-20 25 [facility] Medications Current Medications Medication Drug Class(es) Dates Sig (Normalized) Sig (Original) cefdinir 300 mg oral capsule (9 sources) Cephalosporin Antibacterial Start: 02-03-2025 take 1 capsule by mouth twice daily Cefdinir 300 mg capsule Active 300 mg PO TWICE A DAY 14 7 0 February 03, 2025 12:00am February 09, 2025 12:00am Start: 03-01-2024 End: 01-30-2025 cefdinir (OMNICEF) 300 mg ca psule Take 300 mg by mouth two times a day. Take for 10 days- started on March 02, 2024 03/01/2024 01/30/2025 Discontinued cephalexin 500 mg oral capsule (4 sources) Cephalosporin Antibacterial Start: 01-24-2025 End: 01-29-2025 take 1 capsule by mouth twice daily cephALEXin (KEFLEX) 500 mg capsule Indications: Urinary frequency Take 1 capsule by mouth two times a day for 5 days. 10 capsule 01/24/2025 01/29/2025 Active Start: 03-13-2022 End: 03-20-2022 take 1 capsule by mouth twice daily cephALEXin (KEFLEX) 500 mg capsule Take 1 capsule by mouth twice daily for 7 days. 14 capsule 0 03/13/2022 03/20/2022 Active Comment on above: Take 1 capsule by mo [facility] twice daily for 7 days. doxycycline hyclate 100 mg oral tablet (14 sources) Tetracycline-clas s Drug Start: 11-19-2023 End: 11-24-2023 take 1 tablet by mouth twice daily doxycycline (VIBRA-TABS) 100 mg tablet Indications: Bacterial sinusitis Take 1 tablet by mouth two times a day for 5 days. 10 tablet 0 11/19/2023 11/24/2023 Active Start: 05-21-2023 End: 05-28-2023 take 1 capsule by mouth twice daily Doxycycline Hyclate 100 mg capsule Discontinued 100 mg PO TWICE A DAY 14 7 0 May 21, 2023 1:00am May 27, 2023 1:00am May 28, 2023 1:27am Start: 10-31-2022 End: 11-05-2022 take 1 tablet by mouth twice daily doxycycline monohydrate 100 mg tablet Take 1 tablet by mouth twice daily for 5 days. 10 tablet 0 10/31/2022 11/05/2022 Active Comment on above: Take 1 tablet by [facility] twice daily for 5 days. Kovgas-Koacgoqy-Ap ylase (Creon) 3,000-9,500- 15,000 unit capsule,delayed release(DR/EC) (1 source) Start: 02-06-20 Gfgpke-Kefzphql-Ed ylase (Creon) 3,000-9,500- 15,000 unit capsule,delayed release(DR/EC) Active 3 NMA PO DAILY February 05, 2025 12:00am take three caps with meals and one to two with snacks. omeprazole 20 mg delayed release oral capsule (20 sources) Proton Pump Inhibitor Start: 06-18-19 take 1 capsule by mouth once daily as needed for gastroesophageal reflux disease Omeprazole 20 mg capsule,delayed release(DR/EC) Active 20 mg PO daily as needed for GERD June 18, 2024 1:00am Start: 01-19-2023 End: 03-26-2024 take 1 capsule by mouth twice daily Omeprazole 20 mg capsule,delayed release(DR/EC) Discontinued 20 mg PO TWICE A DAY 180 3 December 09, 2023 8:14am January 03, 2024 1:11pm Start: 09-15-2020 End: 03-08-2024 take 1 capsule by mouth once daily Omeprazole 40 mg capsule,delayed release(DR/EC) Discontinued 40 mg PO DAILY 30 60 0 December 22, 2022 2:38pm February 19, 2023 12:00am January 19, 2023 10:52am Start: 10-11-2017 End: 03-21-2019 take 1 capsule by mouth once daily as needed Omeprazole 40 mg capsule,delayed release(DR/EC) Discontinued 40 mg PO daily as needed October 11, 2017 12:00am March 21, 2019 10:48am Comment on above: Take 1 capsule by [facility] once daily. ondansetron 4 mg oral tablet (20 sources) Serotonin-3 Receptor Antagonist Start: take 1 tablet by mouth every twelve hours Ondansetron Hcl 4 mg tablet Active 4 mg PO Q12H February 05, 2025 12:00am Start: 03-08-2024 End: 03-08-2024 take 1 tablet by mouth every eight hours as needed for nausea and nausea ondansetron (ZOFRAN) 4 mg tablet Indications: Nausea Take 1 tablet by mouth every 8 hours as needed for nausea/vomiting. 90 tablet 03/08/2024 Active Start: 03-18-2013 End: 10-17-2017 take 1 tablet by mouth every eight hours as needed for nausea Ondansetron Hcl 8 MG tablet Discontinued 8 mg PO EVERY 8 HOURS NEEDED as needed for Nausea 20 0 March 18, 2013 10:36pm October 17, 2017 10:13am propranolol hydrochloride 40 mg oral tablet (20 sources) beta-Adrenergic Ruslan Start: 11-29-2024 End: 11-29-2024 take 1 tablet by mouth once daily Propranolol 40 mg tablet Active 40 mg PO DAILY 90 3 November 29, 2024 11:55am dose increased back to 40 mg Start: 07-27-2024 End: 11-29-2024 take 1 tablet by mouth once daily at bedtime Propranolol 10 mg tablet Discontinued 10 mg PO .COMPLEX 30 July 27, 2024 4:39pm November 29, 2024 11:30am 10 mg orally qhs; Start: 02-03-2024 End: 07-27-2024 Propranolol 40 mg tablet Discontinued 20 mg PO DAILY February 03, 2024 3:44pm July 27, 2024 4:38pm Start: 01-20-2024 End: 02-03-2024 take 1 tablet by mouth once daily Propranolol 40 mg tablet Discontinued 40 mg PO DAILY January 20, 2024 12:00am February 03, 2024 3:44pm Start: 03-14-2023 Propranolol Ac tive 20 MG PO .COMPLEX 180 March 14, 2023 3:22pm 20 mg orally daily, may take one extra prn for tachycardia episodes; Start: 03-18-2013 End: 01-03-2024 take 1 tablet by mouth once daily as needed Propranolol 40 mg tablet Discontinued 20 mg PO .COMPLEX 180 December 09, 2023 10:04am January 03, 2024 1:40pm 20 mg orally daily, may take one extra prn for tachycardia episodes; Start: 04-11-2012 take 2 tablets by mouth once p ropranolol 20 mg tablet Take 40 mg by mouth one time only. 04/11/2012 Active Comment on above: Take 40 mg by mouth one time only. Completed/Discontinued Medications Medication Drug Class(es) Dates Sig (Normalized) Sig (Original) acetaminophen 325 mg / HYDROcodone bitartrate 5 mg oral tablet (20 sources) Opioid Agonist Start: 03-09-2024 End: 03-26-2024 take 1 tablet by mouth every six hours as needed for pain Hydrocodone-Acetami nophen 5-325 mg tablet Discontinued 1 {tbl} PO EVERY 6 HOURS NEEDED as needed for Pain 8 3 0 March 09, 2024 March 26, 2024 9:19am Abdominal pain Unspecified abdominal pain You may take one half a pill. Start: 09-20-2020 End: 09-23-2020 Hydrocodone-Acetaminophen 1 TABLET tablet Discontinued 1 {tbl} PO EVERY 6 HOURS NEEDED as needed for Pain 10 3 0 September 20th, 2021 [place] 19th, 2021 12:00am September 23, 2020 12:02am Abdominal pain Unspecified abdominal pain Start: 09-20-2020 End: 09-23-2020 take 1 tablet by mouth every six hours as needed Hydrocodone-Acetaminophen Discontinued 1 TABLET PO EVERY 6 HOURS NEEDED 10 September 20, 2020 September 23, 2020 12:02am amitriptyline hydrochloride 10 mg oral tablet (20 sources) Tricyclic Antidepressant Start: 01-05-2024 End: 03-20-2024 take 1 tablet by mouth at bedtime Amitriptyline 10 mg tablet Discontinued 10 mg PO AT BEDTIME 30 January 05, 2024 12:00am March 20, 2024 7:53am Start: 06-11-2022 End: 08-03-2023 take 1 tablet by mouth at bedtime Amitriptyline 10 mg tablet Discontinued 10 mg PO AT BEDTIME 30 0 June 11, 2022 1:00am August 03, 2023 2:17pm amylase [id number] unt / lipase 3000 unt / protease 9500 unt delayed release oral capsule (20 sources) Start: 12-15-2022 take 1 capsule by mouth once daily CREON 3,000-9,500- 15,000 unit delayed release capsule Take 1 capsule by mouth once daily. 12/15/2022 Active Start: 12-15-2022 CREON 3,000-9, 500- 15,000 unit delayed release capsule 12/15/2022 Active Start: 03-16-2022 End: 02-05-2025 Wubpsa-Ksoszlof-Btipprp (Cre on) 3,000-9,500- 15,000 unit capsule,delayed release(DR/EC) Discontinued 3 NMA PO THREE TIMES A DAY 320 September 14, 2023 1:45pm February 05, 2025 10:44am take three caps with meals and one to two with snacks. Start: 03-16-2022 End: 03-16-2022 take 1 capsule by mouth every twenty-four hours Skhksn-Iokajhaw-Pibezjh (Creon) 3,000-9,500- 15,000 unit capsule,delayed release(DR/EC) Discontinued 12.417 NMA PO THREE TIMES A DAY 90 March 16, 2022 12:00am March 16, 2022 4:39pm do not exceed 10,000 unit/kg lipase per 24 hrs aspirin 81 mg delayed release oral tablet (20 sources) Platelet Aggregation Inhibitor, Nonsteroidal Anti-inflammatory Drug Start: 10-11-2017 End: 08-03-2023 Aspirin (Adult Low Dose Aspirin) 81 mg tablet,delayed release (DR/EC) Discontinued 81 mg PO daily October 11, 2017 12:00am August 03, 2023 2:17pm Start: 06-21-2005 End: 01-30-2025 take 1 tablet by mouth once daily ASPIRIN 81 MG TAB Indications: Headache(784.0) Take 81 mg by mouth once daily. 0 06/21/2005 01/30/2025 Discontinued Comment on above: Take one (1) tablet daily . azithromycin 250 mg oral tablet (7 sources) Macrolide Antimicrobial Start: 03-26-20 End: 06-18-19 Azithromycin 250 mg tablet Discontinued 250 mg PO .COMPLEX 12 0 March 26, 2024 12:00am June 18, 2024 2:49pm 2 tablets (500 mg) on day 1, then 1 tablet daily on days 2 through 11 betamethasone 0.5 mg/ml / clotrimazole 10 mg/ml topical cream (19 sources) Azole Antifungal, Corticosteroid Start: 03-09-20 End: 03-08-20 clotrimazole-betamet hasone (LOTRISONE) cream Indications: Acute vaginitis Apply 1 application to affected area twice daily. 15 g 2 03/09/2018 03/08/2024 Discontinued Comment on above: Apply 1 application to affected area twice daily. bisacodyl 5 mg delayed release oral tablet (19 sources) Stimulant Laxative Start: 09-16-19 End: 03-08-20 Bisacodyl (DULCOLAX) 5 mg tab Use as directed for Miralax / Gatorade Bowel Prep Kit 4 tablet 09/15/2020 03/08/2024 Discontinued Comment on above: Use as directed for Miralax / Gatorade Bowel Prep Kit calcium carbonate 1500 mg oral tablet (19 sources) Start: 10-18-19 18 End: 03-21-20 take 1 tablet by mouth once daily Calcium Carbonate (Calcium 600) 600 mg calcium (1,500 mg) tablet Discontinued 600 mg PO daily October 17, 2017 12:00am March 21, 2019 10:48am Calcium Carbonate / vitamin D3 (19 sources) End: 03-08-20 take 1 tablet by mouth once daily CALCIUM CARBONATE/VITAMIN D3 (CALCIUM 600 + D ORAL) Take 1 tablet by mouth once daily. 03/08/2024 Discontinued take 1 tablet by mouth once swapna y CALCIUM CARBONATE/VITAMIN D3 (CALCIUM 600 + D ORAL) Take 1 tablet by mouth once daily. Active take 1 tablet by mouth once swapna y CALCIUM CARBONATE/VITAMIN D3 (CALCIUM 600 + D ORAL) Take 1 tablet by mouth once daily. 0 Active Comment on above: Take 1 tablet by renato th once daily. cholecalciferol 0.125 mg oral tablet (19 sources) Vitamin D End: take 1 tablet by mouth twice daily, then take 2 tablets by mouth once daily Cholecalciferol, Vitamin D3, (VITAMIN D-3) 5,000 unit tab Take 5,000 Units by mouth twice daily. Takes a total of 10,000 units a day 03/08/2024 Discontinued Comment on above: Take 5,000 Units by mouth twice daily. Takes a total of 10,000 units a day ciprofloxacin 500 mg oral tablet (20 sources) Quinolone Antimicrobial Start: End: take 1 tablet by mouth twice daily Ciprofloxacin Hcl 500 mg tablet Discontinued 500 mg PO TWICE A DAY 10 June 08, 2023 1:00am August 03, 2023 2:17pm Start: 03-18-2013 End: 10-17-2017 take 1 tablet by mouth twice daily Ciprofloxacin Hcl 250 MG tablet Discontinued 250 mg PO TWICE A DAY March 18, 2013 12:00am October 17, 2017 10:13am colestipol hydrochloride 1000 mg oral tablet (19 sources) Bile Acid Sequestrant Start: 09-06-2019 End: 03-08-2024 take 1 tablet by mouth twice daily colestipol (COLESTID) 1 gram tablet Indications: Functional bowel disorder , Status post cholecystectomy Take 1 tablet by mouth twice daily. 60 tablet 6 09/06/2019 03/08/2024 Discontinued Comment on above: Take 1 tablet by renato th twice daily. dicyclomine hydrochloride 10 mg oral capsule (20 sources) Anticholinergic Start: 03-20-2024 End: 03-26-2024 take 1 capsule by mouth twice daily as needed for pain Dicyclomine 10 mg capsule Discontinued 10 mg PO TWICE A DAY as needed for abdominal pain 30 0 March 20, 2024 12:00am March 26, 2024 9:19am Start: 10-11-2017 End: 01-05-2024 take 1 tablet by mouth three times daily as needed Dicyclomine 20 mg tablet Discontinued 20 mg PO THREE TIMES A DAY as needed for abdominal discomfort 360 3 December 09, 2023 8:13am January 05, 2024 4:19pm Start: 10-11-2017 End: 03-08-2024 Dicyclomine 20 mg tablet Discontinued 20 mg PO .As needed September 14, 2023 1:45pm December 09, 2023 8:14am Comment on above: Take 1 tablet by renato twice daily as needed. escitalopram 5 mg oral tablet (14 sources) Serotonin Reuptake Inhibitor Start: End: take 1 tablet by mouth once daily Escitalopram Oxalate (Lexapro) 5 mg tablet Discontinued 5 mg PO DAILY May 03, 2022 1:00am August 03, 2023 2:17pm Gatorade Sports Drink (19 sources) Start: End: Gatorade Sports Drink Use as directed for Miralax / Gatorade Bowel Prep Kit 64 oz 09/15/2020 03/08/2024 Discontinued Start: 09-15-2020 Gatorade Sport s Drink Use as directed for Miralax / Gatorade Bowel Prep Kit 64 oz 09/15/2020 Active Start: 09-15-2020 Gatorade Sport s Drink Use as directed for Miralax / Gatorade Bowel Prep Kit 64 oz 0 09/15/2020 Active Comment on above: Use as directed for Miralax / Gatorade Bowel Prep Kit hyoscyamine sulfate 0.125 mg oral tablet (20 sources) Start: 01-05-2024 End: 03-20-2024 Hyoscyamine Sulfate 0.125 mg tablet Discontinued 0.125 mg PO 2 to 4 times per day as needed for dyspepsia 120 1 January 05, 2024 12:00am March 20, 2024 7:53am Start: 03-16-2022 End: 04-15-2022 Hyoscyamine Sulfate 0.125 mg tablet Discontinued 0.125 mg PO 2 to 4 times per day as needed for dyspepsia 30 30 0 March 16, 2022 12:00am April 14, 2022 1:00am April 15, 2022 1:04am ibuprofen 200 mg oral tablet (20 sources) Nonsteroidal Anti-inflammatory Drug End: 01-30-2025 take 1 tablet by mouth every six hours as needed ibuprofen 200 mg ORAL tablet Take 200 mg by mouth every 6 hours as needed. 01/30/2025 Discontinued Comment on above: Take 200 mg by mouth every 6 hours as needed. meclizine hydrochloride 25 mg oral tablet (7 sources) Antiemetic Start: 11-08-2023 End: 01-03-2024 take 1 tablet by mouth three times daily as needed for dizziness Meclizine 25 mg tablet Discontinued 25 mg PO THREE TIMES A DAY as needed for dizziness 20 0 November 08, 2023 12:00am January 03, 2024 1:11pm metoprolol tartrate 25 mg oral tablet (7 sources) beta-Adrenergic Ruslan Start: 01-03-2024 End: 01-20-2024 take 1 tablet by mouth twice daily Metoprolol Tartrate 25 mg tablet Discontinued 25 mg PO TWICE A DAY 180 3 January 03, 2024 12:00am January 20, 2024 4:35pm On Hold: multiple symptoms metroNIDAZOLE 500 mg oral tablet (14 sources) Nitroimidazole Antimicrobial Start: 03-01-2024 End: 01-30-2025 metroNIDAZOLE (FLAGYL) 500 mg tablet Take 500 mg by mouth three times a day. Take for 10 days- started on March 02, 2024 03/01/2024 01/30/2025 Discontinued Start: 03-01-2024 End: 03-20-2024 take 1 tablet by mouth twice daily Metronidazole 500 mg tablet Discontinued 500 mg PO TWICE A DAY 30 0 March 01, 2024 12:00am March 20, 2024 7:53am miSOPROStol 0.2 mg oral tablet (10 sources) Prostaglandin E1 Analog Start: 10-28-2023 End: 03-08-2024 miSOPROStol (CYTOTEC) 200 mcg tablet Indications: PMB (postmenopausal bleeding) , Thickened endometrium Take two tablets PO night before procedure and two tablets morning of procedure 4 tablet 10/28/2023 03/08/2024 Discontinued moxifloxacin 400 mg oral tablet (7 sources) Quinolone Antimicrobial Start: 03-01-2024 End: 03-15-2024 take 1 tablet by mouth once daily Moxifloxacin 400 mg tablet Discontinued 400 mg PO daily 14 14 0 March 01, 2024 12:00am March 14, 2024 12:00am March 15, 2024 12:08am nitrofurantoin, macrocrystals 25 mg / nitrofurantoin, monohydrate 75 mg oral capsule (20 sources) Nitrofuran Antibacterial Start: 02-01-2025 End: 02-03-2025 take 1 capsule by mouth twice daily at mealtime Nitrofurantoin Monohyd/M-Cryst (Macrobid) 100 mg capsule Discontinued 100 mg PO TWICE A DAY 14 7 0 February 01, 2025 12:00am February 03, 2025 10:58am must administer with a meal/food Start: 06-02-2023 End: 06-08-2023 take 1 capsule by mouth every twelve hours at mealtime Nitrofurantoin Monohyd/M-Cryst 100 mg capsule Discontinued 1 NMA PO Q12H 14 7 0 June 02, 2023 1:00am June 08, 2023 1:00am June 08, 2023 11:24am administer with a meal/food; swallow whole; do not open, crush, dissolve , or chew Start: 05-16-2023 End: 05-21-2023 take 1 capsule by mouth every twelve hours at mealtime Nitrofurantoin Monohyd/M-Cryst (Macrobid) 100 mg capsule Discontinued 100 mg PO Q12H 10 5 0 May 16, 2023 1:00am May 20, 2023 1:00am May 21, 2023 1:31am must administer with a meal/food phenazopyridine hydrochloride 200 mg oral tablet (20 sources) Start: 02-01-2025 End: 02-04-2025 take 1 tablet by mouth three times daily as needed for pain Phenazopyridine (Pyridium) 200 mg tablet Discontinued 200 mg PO THREE TIMES A DAY as needed for pain 9 3 0 February 01, 2025 12:00am February 03, 2025 12:00am February 04, 2025 12:12am Start: 03-13-2022 End: 03-08-2024 take 1 tablet by mouth every eight hours as needed phenazopyridine (PYRIDIUM) 200 mg tablet Take 1 tablet by mouth three times daily as needed. 6 tablet 03/13/2022 03/08/2024 Discontinued Comment on above: Take 1 tablet by [facility] three times daily as needed. polyethylene glycol 3350 64821 mg powder for oral solution (19 sources) Osmotic Laxative Start: 09-16-19 End: 03-08-20 polyethylene glycol 3350 (MIRALAX, GLYCOLAX) 17 gram/dose powder Use as directed for Miralax / Gatorade Bowel Prep Kit 238 g 09/15/2020 03/08/2024 Discontinued Comment on above: Use as directed for Miralax / Gatorade Bowel Prep Kit predniSONE 20 mg oral tablet (19 sources) Start: 09-11-19 End: 03-08-20 predniSONE (DELTASONE) 20 mg tablet Indications: Altered bowel function Take 2 with lunch daily. 30 tablet 09/11/2019 03/08/2024 Discontinued Comment on above: Take 2 with lunch da danny. promethazine hydrochloride 25 mg oral tablet (7 sources) Phenothiazine Start: 03-16-20 End: 03-20-20 take 1 tablet by mouth every four to six hours as needed for nausea and vomiting Promethazine 25 mg tablet Discontinued 25 mg PO EVERY 4-6 HOURS as needed for nausea and vomiting 20 0 March 16, 2024 12:00am March 20, 2024 7:53am selenium 200 mcg tablet (12 sources) Start: 10-12-19 18 End: 10-18-19 18 take 1 tablet by mouth once daily selenium 200 mcg tablet Discontinued 200 MCG PO daily October 10, 2017 11:00pm October 17, 2017 9:13am Start: 10-11-2017 End: 10-17-2017 take 1 tablet by mouth once daily selenium 200 mcg tablet Discontinued 200 MCG PO daily October 11, 2017 12:00am October 17, 2017 10:13am Selenium 200 mcg tablet (7 sources) Start: 10-11-2017 End: 10-17-2017 take 1 tablet by mouth once daily Selenium 200 mcg tablet Discontinued 200 ug PO daily October 11, 2017 12:00am October 17, 2017 10:13am Sennosides (Senna) 8.6 MG tablet (19 sources) Start: 09-20-2020 End: 04-14-2021 take 1 tablet by mouth at bedtime Sennosides (Senna) 8.6 MG tablet Discontinued 8.6 mg PO AT BEDTIME 10 September 20, 2020 12:00am April 14, 2021 4:10pm Start: 09-20-2020 End: 04-14-2021 take 1 tablet by mouth at bedtime Sennosides (Senna) 8.6 MG tablet Discontinued 8.6 mg PO AT BEDTIME September 20, 2020 12:00am April 14, 2021 4:10pm Start: 09-20-2020 End: 04-14-2021 take 1 tablet by mouth at bedtime Sennosides (Senna) 8.6 MG tablet Discontinued 8.6 MG PO AT BEDTIME September 19, 2020 11:00pm April 14, 2021 3:10pm Start: 09-20-2020 End: 04-14-2021 take 1 tablet by mouth at bedtime Sennosides (Senna) 8.6 MG tablet Discontinued 8.6 MG PO AT BEDTIME September 20, 2020 12:00am April 14, 2021 4:10pm sucralfate 1000 mg oral tablet (19 sources) Aluminum Complex Start: 10-17-2020 End: 03-08-2024 sucralfate (CARAFATE) 1 gram tablet Indications: RUQ pain , Nausea Take 1 tablet by mouth four times daily. Dissolve tablet in water (medicine cup) then swallow 120 tablet 1 10/17/2020 03/08/2024 Discontinued Comment on above: Take 1 tablet by renato four times daily. Dissolve tablet in water (medicine cup) then swallow Problems Active Problems Problem Classification Problem Date Documented Date Episodic/Chronic Abdominal pain (20 sources) Right upper quadrant pain; Translations: [Right upper quadrant pain] Onset: Episodic Allergic reactions (7 sources) Urticaria; Translations: [Urticaria, unspecified] 03-17-2024 Episodic Cardiac dysrhythmias (20 sources) Palpitations; Translations: [Palpitations] Onset: 7 Resolved: 5 10-11-2017 Episodic Conditions associated with dizziness or vertigo (20 sources) Lightheadedness; Translations: [Dizziness and giddiness] Onset: 4 10-17-2017 Episodic Disorders of lipid metabolism (20 sources) Pure hypercholesterolemia; Translations: [Pure hypercholesterolemia, unspecified] Onset: 4 02-14-2019 Chronic Comment on above: Patient is intoleran t to all statin therapy by her report. She does not have a history of known atherosclerotic disease. There is a family history of coronary disease. Diverticulosis and diverticulitis (14 sources) Diverticular disease; Translations: [Diverticulosis of intestine, part unspecified, without perforation or abscess without bleeding] 03-17-2024 Chronic Esophageal disorders (3 sources) Gastro-esophageal reflux disease without esophagitis; Translations: [Esophageal reflux] Chronic Gastrointestinal hemorrhage (20 sources) Hemorrhage of rectum and anus; Translations: [Hemorrhage of anus and rectum] Onset: 6 08-03-2005 Episodic Genitourinary symptoms and ill-defined conditions (15 sources) Dysuria; Translations: [Dysuria] Onset: 5 Episodic Headache; including migraine (7 sources) Headache; Translations: [Headache] 11-03-2024 Episodic Headache; including migraine (1 source) Headache; including migraine; Translations: [Headache, unspecified headache type] Onset: 5 Heart valve disorders (20 sources) Mitral valve prolapse; Translations: [Nonrheumatic mitral (valve) prolapse] 02-14-2019 Chronic Comment on above: The patient has a hi story of mitral valve prolapse there is no significant mitral regurgitation on recent echocardiogram February 26 left ventricular has normal EF of 65%. The patient denies any significant palpitations. 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 therapy] 10-17-2017 Episodic Comment on above: Antihyperlipidemic Other bone disease and musculoskeletal deformities (20 sources) Osteopenia; Translations: [Other specified disorders of bone density and structure, unspecified site] 04-24-2015 Episodic Other circulatory disease (7 sources) Orthostatic hypotension; Translations: [Orthostatic hypotension] 01-04-2024 Episodic Other circulatory disease (12 sources) Nasal discharge; Translations: [Other specified symptoms and signs involving the circulatory and respiratory systems] 11-03-2024 Episodic Other ear and sense organ disorders (7 sources) Otalgia, right ear; Translations: [Earache on right] 03-09-2024 Episodic Other female genital disorders (6 sources) Finding of contents of uterus; Translations: [Noninflammatory disorder of uterus, unspecified] Onset: 5 11-04-2023 Episodic Other gastrointestinal disorders (20 sources) Irritable bowel syndrome; Translations: [Irritable bowel syndrome without diarrhea] 12-21-2021 Chronic Other gastrointestinal disorders (6 sources) Irritable bowel syndrome without diarrhea; Translations: [Irritable bowel syndrome] Chronic Other gastrointestinal disorders (8 sources) History of diverticulitis; Translations: [Personal history of other diseases of the digestive system] 03-20-2024 Episodic Other lower respiratory disease (1 source) Dyspnea on exertion; Translations: [Other forms of dyspnea] 12-08-2024 Episodic Other lower respiratory disease (1 source) Other forms of dyspnea; Translations: [CEBALLOS (dyspnea on exertion)] Onset: Episodic Other nervous system disorders (1 source) Neuropathy; Translations: [Polyneuropathy, unspecified] 12-13-2023 Chronic Other screening for suspected conditions (not mental disorders or infectious disease) (7 sources) Endometrium thickened; Translations: [Abnormal findings on diagnostic imaging of other specified body structures] Onset: 5 10-28-2023 Chronic Other upper respiratory disease (20 sources) Seasonal allergy; Translations: [Other seasonal allergic rhinitis] 12-21-2021 Chronic Other upper respiratory disease (1 source) Other seasonal allergic rhinitis; Translations: [Other seasonal allergic rhinitis] Onset: Chronic Other upper respiratory disease (12 sources) Congestion of nasal sinus; Translations: [Nasal congestion] 11-03-2024 Episodic Other upper respiratory infections (5 sources) Bacterial sinusitis; Translations: [Chronic sinusitis, unspecified] Onset: 3 11-19-2023 Chronic Other upper respiratory infections (20 sources) Acute frontal sinusitis; Translations: [Acute frontal sinusitis, unspecified] Episodic Pancreatic disorders (not diabetes) (20 sources) Chronic pancreatitis; Translations: [Other chronic pancreatitis] Onset: 4 Chronic Spondylosis; intervertebral disc disorders; other back problems (20 sources) Backache; Translations: [Dorsalgia, unspecified] Onset: 9 04-14-2009 Episodic Urinary tract infections (8 sources) Urinary tract infection, site not specified; Translations: [Urinary tract infection, site not specified] 06-02-2023 Episodic Past or Other Problems Problem Classification Problem Date Documented Da te Episodic/Chronic Gastritis and duodenitis (20 sources) Acute gastritis; Translations: [Acute gastritis without bleeding] Onset: 6 08-03-2005 Episodic Osteoarthritis (20 sources) Lower limb joint arthritis; 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, unspecified hip] Onset: 0 Resolved: 2 07-20-2011 Chronic Other acquired deformities (20 sources) Other specified acquired deformities of unspecified lower leg; Translations: [Other acquired deformities of ankle and foot] Onset: 0 09-22-2009 Episodic Other circulatory disease (1 source) Other specified symptoms and signs involving the circulatory and respiratory systems; Translations: [Other specified symptoms and signs involving the circulatory and respiratory systems] Onset: 5 Episodic Other connective tissue disease (20 sources) History of repair of hip joint; Translations: [Presence of unspecified artificial hip joint] Onset: 1 Resolved: 5 04-29-2015 Chronic Other gastrointestinal disorders (20 sources) Constipation; Translations: [Constipation, unspecified] Onset: 6 Resolved: 5 04-29-2015 Episodic Other screening for suspected conditions (not mental disorders or infectious disease) (5 sources) Mammography abnormal; Translations: [Other abnormal and inconclusive findings on diagnostic imaging of breast] Onset: 5 Episodic Other upper respiratory disease (1 source) Nasal congestion; Translations: [Nasal congestion] Onset: 5 Episodic Residual codes; unclassified (20 sources) Family history of malignant neoplasm of gastrointestinal tract; Translations: [Family history of malignant neoplasm of digestive organs] Onset: 6 06-19-2015 Episodic Results Test Name Value Interpretation Reference Range Facility MR/Bandar 02-05-2025 /[facility] Medical Records Department [address] [place] [address] PAT - Anesthesia 02/05/25 1413 MR#: [id number] Acct: [id number] Name: LANDON CASE Rep #: [id number] : 1945 79 From: Abad Montero MD PCP: Dr. 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 When Was Last Pacemaker Check QUESTION #4 FULL TEXT: You/Your Family Experience fever (hyperthermia) with Anesthesia Last Oral Intake Last Oral intake: Last Oral Intake NPO since Meds taken in AM with sips of water? 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 Female Yes 02/05/25 10:45 HX of Motion Sickness No 02/05/25 10:45 HX of N/V After Surgery No 02/05/25 10:45 Non-Smoker Yes 02/05/25 10:45 Duration of Surgery greater No 02/05/25 10:45 than 60 minutes Number of Risk Factors 2 02/05/25 10:45 PONV Score Moderate Risk 02/05/25 10:45 Height Weight Height Weight: Anesthesia: Height Weight Height 5 ft 7 in 03/26/24 10:28 Respiratory Assessment Respiratory Assessment - drain tile press operator: Respiratory Tract Infection Hx - drain tile press operator Hx Respiratory Tract Infection No 02/05/25 10:45 STOP Sleep Apnea STOP Sleep Apnea - drain tile press operator: STOP Sleep Apnea - drain tile press operator Hx Hypertension No 02/05/25 10:45 Hx Sleep Apnea No 02/05/25 10:45 CPAP BIPAP Do you snore loudly (louder No 02/05/25 10:45 than talking or can be heard Do you often feel tired/ No 02/05/25 10:45 fatigued/ sleepy during daytime? Has anyone observed you stop No 02/05/25 10:45 breathing during sleep? STOP Results Negative 02/05/25 10:45 QUESTION #5 FULL TEXT : Do you snore loudly (louder than talking or can be heard through closed doors)? 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 Specify any problems Hx of Preganancy in last 3 No 02/05/25 10:45 Months Nurse Filling Out Transfusion [id number] 02/05/25 10:45 Questions: Date: 02/05/25 02/05/25 10:45 Time: 10:51 02/05/25 10:45 Patient unable to answer at this time (ie. 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 Normal [facility] Urine Cultureon 02-04-2025 URC Below infection leve l. Mixed Gram Pos Gram Neg Org [place] Count 1000-10,000 MIXC Mixed contaminants. Submit a new specimen if indicated. Normal [facility] Comment on above: Performed By: #### L 503.6150, L500.4050, L100.0100, L501.9520 #### [facility] [address] [place], [place], [id number] Urgent Care Visit Reporton 0 02-03-2025 Urgent Care Visit Report [facility] [address] [facility], [address] [place], [place] [address] OFFICE VISIT Date of Service: 02/03/25 MR#: [id number] Acct: [id number] Name: LANDON CASE Rep #: [id number] : 1945 Provider: KELLIE garcia Age/Sex: 79/F Location: [facility] Status: Signed Intake Vital Signs 02/01/25 15:32 02/03/25 10:33 Height 5 ft 7 in 5 ft 7 in Weight: 222 lb BMI 34.7 BP 132/82 H Blood Pressure Location Lt brachial Position Standing Pulse 70 Pulse Source Monitor Temp 97.9 F Temp Source Oral Pulse Oximetry (%) 96 Oxygen Delivery Method room air Intake Visit Reasons: CONCERN FOR UTI Chief Complaint: UTI Accompanied by: Self Allergies nitrofurantoin (From Macrobid) Allergy (Mild, Verified 02/03/25 10:32) Rash ciprofloxacin (From Cipro) Allergy (Verified 02/03/25 10:32) Itching Penicillins (PCN) Allergy (Verified 02/03/25 10:32) Hives Sulfa (Sulfonamide Antibiotics) Allergy (Verified 02/03/25 10:32) Hives atorvastatin (From Lipitor) Adverse Reaction (Severe, Verified 02/03/25 10:32) Myalgias pravastatin (From Pravachol) Adverse Reaction (Intermediate, Verified 02/03/25 10:32) Myalgias Medications ???Medication ???Instructions ???Recorded ???Confirmed ???Type jhhydb-urbrqbsl-jpyvyjs 3 cap PO TID #320 caps 09/14/23 Rx 3,000-9,500-15,000 unit capsule, delayed rel (Creon) omeprazole 20 mg capsule,delayed 20 mg PO QDAY PRN 06/18/24 5 History release propranolol 40 mg tablet 40 mg PO DAILY dose increased back 11/29/24 02/03/25 Rx Held on 01/09/25. to 40 mg #90 tabs Instructions: Dizziness phenazopyridine 200 mg tablet 200 mg PO TID PRN pain 3 days #9 0 02/01/25 02/03/25 Rx (Pyridium) tabs cefdinir 300 mg capsule 300 mg PO BID 7 days #14 caps 01/0602/03/25 Rx Have you fallen in the past year?: No Nurse's Note: Re eval from Tuesday. Went to ER and was given Macrobid for UTI and now having reaction. 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 Social History Smoking Status: Never smoker alcohol intake: never caffeine: Yes Type: other what type of physical activity do you participate in: none HPI HPI Chief Complaint: UTI Details: LANDON CASE, is a 79 F who presents to the office today for concerns regarding reaction to Macrobid that she received for recent UTI. She expresses concerns regarding headache. ROS Const Constitutional: Positive for headache(s); No body ache, chills, fatigue, fever(s) (no fever greater than 99.9 F), malaise, night sweats or other (rigors) ENT ENT: Positive for headache(s) Resp Respiratory: No shortness of breath Cardio Cardiology: No chest pain at rest or chest pain with exertion Gastro GI: No abdominal pain Genitourinary-Female: Positive for burning urination, urinary frequency, urinary urgency and suprapubic fullness; No painful urination, blood in urine or side pain Neuro Neurology: Positive for headache(s) Endo Endocrine: No fatigue Exam Const General: cooperative, healthy appearing, comfortable and no acute distress Orientation: alert, awake and oriented x3 Chest Chest palpation inspection: normal inspection of the chest Resp Effort Inspection: normal respiratory effort Auscultation: Bilateral: Clear to Auscultation Cardio Rhythm: other (Normal) Heart Sounds: S1 normal, S2 normal and no murmurs GI Inspection: normal to inspection and non-distended Auscultation: normal bowel sounds Palpation: soft and nontender General: No CVA tenderness Skin General: no rashes or lesions noted Coding Level of Care Code Off vis,est,level 3 Diagnoses Dysuria R30.0 Assessment and Plan Assessment and Plan (1) Dysuria: Status: Acute Plan: Will stop Macrobid due to headache. Since she was on Keflex prior to presentation on 02/01/2025, will not add this. With her allergy list will add Cefdinir. Urine culture 1 was below infection level. Urine culture 2 is still pending. She was encouraged to follow wi (more content not included)... Normal [facility] Urine Cultureon 02-02-2025 URC #1, 2 Below infectio n level. 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, [address] Abdomen/Pelvis without Conto n 02-01-2025 Abdomen/Pelvis without Cont [facility] [address] [place], [place] [address] Abdomen/Pelvis without Cont MR#: [id number] Acct: [id number] Name: LANDON CASE Rep #: [id number] : 1945 F 79 From: William Chan MD PCP: Dr. Kasey Nicole MD Status: REG ER Study: Abdomen/Pelvis without Cont Date of Exam: 01/05 02/28 Exam# [id number] Ordering Dr: Azul Gilmore PROCEDURE: ABDOMEN/PELVIS WITHOUT CONT 02/01/2025 REASON FOR EXAM: FLANK PAIN TECHNIQUE: Procedure Code: CTABDPEL Modality: CT Procedure: ABDOMEN/PELVIS WITHOUT CONT Noncontrast technique limits evaluation of the abdominal and pelvic viscera. Coronal and Sagittal reconstruction series were provided. One or more dose reduction techniques were used (e.g., Automated exposure control, adjustment of the mA and/or kV according to patient size, use of iterative reconstruction technique). RADIATION DOSE SUMMARY: CTDlvol: 20.3 mGy DLP: 1053 mGycm FINDINGS: Calcified benign splenic granulomas are present. Small hiatal hernia. Gallbladder surgically absent. No noncontrast evidence of liver mass. No pancreatic contour deformity. No hydronephrosis. Negative for renal calculi. Negative for ureteral dilatation. 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 There is sigmoid diverticulosis but no diverticulitis. Negative for adenopathy or aneurysm. CT/Abdomen/Pelvis without Cont IMPRESSION: No acute abnormality [facility] CC: Dr. Kasey Nicole MD; BRI Juan Office System Analyst: Signed Normal [facility] Absolute lymphocyte countOrd ered By: Azul Gilmore on 02-01-2025 Lymphocytes Auto (Unsp spec) [#/Vol] 1.85 10*3/uL 0.83-4.51 [facility] Absolute neutrophil countOrd ered By: Azul Gilmore on 02-01-2025 Neutrophils (Bld) [#/Vol] 7.6 10*3/uL 2.0-7.7 [facility] Anion gap in Serum or Plasma Ordered By: Azul Gilmore on 02-01-2025 Anion gap [Moles/Vol] 12 mmol/L 5-15 [facility] Automated lymphocyte count a s percentage of total leukocytesOrdered By: Azul Gilmore on 02-01-2025 Lymphocytes/100 WBC Auto (Unsp spec) 18.3 % Low 19-41 [facility] BUN/creatinine ratioOrdered By: Azul Gilmore on 02-01-2025 Urea nitrogen/Creatinine [Mass ratio] 24.7 mg/mg High 10-20 [facility] Basic Metabolic Profile (BMP )on 02-01-2025 BUN/CRE 24.7 RATIO High 10-20 [facility] Comment on above: Performed By: #### L 503.6150, L500.4050, L100.0100, L501.9520 #### [facility] [address] [place], [address] Calcium [Mass/Vol] 9.7 mg/dL Normal 7.6-11.0 [facility] Comment on above: Performed By: #### L 503.6150, L500.4050, L100.0100, L501.9520 #### [facility] [address] [place], [address] Chloride [Moles/Vol] 105 mmol/L Normal 98-108 [facility] Comment on above: Performed By: #### L 503.6150, L500.4050, L100.0100, L501.9520 #### [facility] [address] [place], [address] CO2 [Moles/Vol] 25.1 mmol/L Normal 21.0-32.0 [facility] Comment on above: Performed By: #### L 503.6150, L500.4050, L100.0100, L501.9520 #### [facility] [address] [place], [address] Creatinine [Mass/Vol] 0.90 mg/dL Normal 0.70-1.20 [facility] Comment on above: Performed By: #### L 503.6150, L500.4050, L100.0100, L501.9520 #### [facility] [address] [place], [address] ECRCL 63.93 ml/min Normal 50-250 [facility] Comment on above: Performed By: #### L 503.6150, L500.4050, L100.0100, L501.9520 #### [facility] [address] [place], [address] GAP 12 Normal 5-15 [facility] Comment on above: Performed By: #### L 503.6150, L500.4050, L100.0100, L501.9520 #### [facility] [address] [place], [address] GFR/1.73 sq M.predicted among non-blacks MDRD (S/P/Bld) [Vol rate/Area] 66 mL/min/{1.73_m2} Normal >60 [facility] Comment on above: Result Comment: mL/m in/1.73m2 CKD-EPI Creatinine Equation (2020) Performed By: #### L 503.6150, L500.4050, L100.0100, L501.9520 #### [facility] [address] [place], [address] Glucose [Mass/Vol] 110 mg/dL High 70-99 [facility] Comment on above: Performed By: #### L 503.6150, L500.4050, L100.0100, L501.9520 #### [facility] [address] [place], [address] Potassium [Moles/Vol] 4.3 mmol/L Normal 3.3-5.1 [facility] Comment on above: Performed By: #### L 503.6150, L500.4050, L100.0100, L501.9520 #### [facility] [address] [place], [address] Sodium [Moles/Vol] 142 mmol/L Normal 133-145 [facility] Comment on above: Performed By: #### L 503.6150, L500.4050, L100.0100, L501.9520 #### [facility] [address] [place], [address] Urea nitrogen [Mass/Vol] 22 mg/dL High 4-19 [facility] Comment on above: Performed By: #### L 503.6150, L500.4050, L100.0100, L501.9520 #### [facility] [address] [place], [address] Basophil percentageOrdered B y: Azul Gilmore on 02-01-2025 Basophils/100 WBC (Bld) 0.2 % 0-1 [facility] Bilirubin Test strip Ql (U)O rdered By: Azul Gilmore on 02-01-2025 Bilirubin Ql (U) 6 mg/dL High Negative [facility] Comment on above: COLOR OF URINE MAY A FFECT DIPSTICK RESULTS. CBC W/Diff, Automatedon 01-05 Absolute Lymph 1.85 X10 3/uL Normal 0.83-4.51 [facility] Comment on above: Performed By: #### L 503.6150, L500.4050, L100.0100, L501.9520 #### [facility] [address] [place], [address] Absolute Neut 7.6 X10 3/uL Normal 2.0-7.7 [facility] Comment on above: Performed By: #### L 503.6150, L500.4050, L100.0100, L501.9520 #### [facility] [address] [place], [address] Basophils/100 WBC (Bld) 0.2 % Normal 0-1 [facility] Comment on above: Performed By: #### L 503.6150, L500.4050, L100.0100, L501.9520 #### [facility] [address] [place], [address] Eosinophils/100 WBC (Bld) 0.0 % Normal 0-5 [facility] Comment on above: Performed By: #### L 503.6150, L500.4050, L100.0100, L501.9520 #### [facility] [address] [place], [address] Erythrocyte distribution width (RBC) [Ratio] 14.6 % Normal 11.6-14.6 [facility] Comment on above: Performed By: #### L 503.6150, L500.4050, L100.0100, L501.9520 #### [facility] [address] [place], [address] Hematocrit (Bld) [Volume fraction] 46.3 % Normal 37-47 [facility] Comment on above: Performed By: #### L 503.6150, L500.4050, L100.0100, L501.9520 #### [facility] [address] [place], [address] Hemoglobin (Bld) [Mass/Vol] 15.8 g/dL High 12.0-15.0 [facility] Comment on above: Performed By: #### L 503.6150, L500.4050, L100.0100, L501.9520 #### [facility] [address] [place], [address] IG% 0.500 Normal 0.0-0.9 [facility] Comment on above: Result Comment: IG% - Immature Granulocytes (promyelocytes, myelocytes and metamyelocytes) > 1% indicates that a LEFT SHIFT is Present. Performed By: #### L 503.6150, L500.4050, L100.0100, L501.9520 #### [facility] [address] [place], [address] Lymphocytes/100 WBC (Bld) 18.3 % Low 19-41 [facility] Comment on above: Performed By: #### L 503.6150, L500.4050, L100.0100, L501.9520 #### [facility] [address] [place], [address] MCH (RBC) [Entitic mass] 32.4 pg High 27.0-32.0 [facility] Comment on above: Performed By: #### L 503.6150, L500.4050, L100.0100, L501.9520 #### [facility] [address] [place], [address] MCHC (RBC) [Mass/Vol] 34.1 g/dL Normal 32-36 [facility] Comment on above: Performed By: #### L 503.6150, L500.4050, L100.0100, L501.9520 #### [facility] [address] [place], [address] MCV (RBC) [Entitic vol] 94.9 fL Normal 81-99 [facility] Comment on above: Performed By: #### L 503.6150, L500.4050, L100.0100, L501.9520 #### [facility] [address] [place], [address] Monocytes/100 WBC (Bld) 6.4 % Normal 0-10 [facility] Comment on above: Performed By: #### L 503.6150, L500.4050, L100.0100, L501.9520 #### [facility] [address] [place], [address] Neutrophils/100 WBC (Bld) 74.6 % High 47-70 [facility] Comment on above: Performed By: #### L 503.6150, L500.4050, L100.0100, L501.9520 #### [facility] [address] [place], [address] Nucleated RBC (Bld) [#/Vol] 0 10*3/uL Normal 0-5 [facility] Comment on above: Performed By: #### L 503.6150, L500.4050, L100.0100, L501.9520 #### [facility] [address] [place], [address] Platelet mean volume (Bld) [Entitic vol] 9.9 fL Normal 6.2-12.0 [facility] Comment on above: Performed By: #### L 503.6150, L500.4050, L100.0100, L501.9520 #### [facility] [address] [place], [address] Platelets (Bld) [#/Vol] 278 10*3/uL Normal 150-450 [facility] Comment on above: Performed By: #### L 503.6150, L500.4050, L100.0100, L501.9520 #### [facility] [address] [place], [address] RBC (Bld) [#/Vol] 4.88 10*6/uL Normal 4.2-5.4 [facility] Comment on above: Performed By: #### L 503.6150, L500.4050, L100.0100, L501.9520 #### [facility] [address] [place], [address] RDW SD 51.1 fl High 35.1-43.9 [facility] Comment on above: Performed By: #### L 503.6150, L500.4050, L100.0100, L501.9520 #### [facility] [address] [place], [address] WBC (Bld) [#/Vol] 10.1 10*3/uL Normal 4.4-11.0 [facility] Comment on above: Performed By: #### L 503.6150, L500.4050, L100.0100, L501.9520 #### [facility] [address] [place], [address] CNPNon 02-01-2025 CNPN Telephone (OBGYWM) -- LANDON CASE ([id number]) 1945 F Date Time Provider Department 02/01/25 ISATU MAST OBGY During your visit today, we recorded the following information about you: Michell Sheets, MIMI 02/01/2025 2:29 PM Signed Pt called stating she is scheduled for Hysteroscopy [facility], for PMB on 02/08/25 with DM. Pt calls stating she went to urgent care 01/24/25 and was placed on Keflex for 5 days for a UTI, finished 01/29/25. States initially felt better; However, yesterday, began with lower abdominal pain and lower back pain. Describes as cramping. States it had became more uncomfortable so [facility] and gave another urine sample today and another urine culture was collected. Pt has not taken anything for pain, but was given Pyridium. Advised Pt she can take 1,000mg of Tylenol [id number] as needed along with using a heating pad and/or take a hot shower for comfort. Pt asking if there is anything else she can do as she is so uncomfortable with the urinary urgency/frequency. Please advise in DM absence. MIMI Eaton Lindsey, RN 02/01/2025 2:42 PM Signed Patient called back and states pain is worsening and she thinks she may actually have a kidney stone because she has had one in the past. Patient wanted to notify the office that she is planning on going to [facility] ER for the pain. MIMI Barboza Rebecca L, MD 02/01/2025 9:31 PM Signed noted. Thanks. Shaunna Ruelas MD Allergies As of Date: 02/01/2025 Noted Allergy Reaction ATORVASTATIN 03/21/2019 17 - Myalgia CIPROFLOXACIN 08/03/2023 9 - Itching GABAPENTIN 09/16/2009 1 - Mental Status Change Comments: Patient states was running into the yip. MORPHINE 06/02/2010 14 - Other: See Comments Comments: dizzy- tachycardia PENICILLIN G 06/21/2005 4 - Hives SULFA (SULFONAMIDE ANTIBIOTICS) 06/21/2005 4 - Hives NITROFURANTOIN 06/08/2023 2 - Rash Date Reviewed: 01/30/2025 Reviewed by: Viri Bradford MA - Fully Assessed Reason for Visit: Urinary Urgency [2827] Prescriptions as of 02/05/2025 - ondansetron (ZOFRAN) 4 mg tablet Take 1 tablet by mouth every 8 hours as needed for nausea/vomiting. - CREON 3,000-9,500- 15,000 unit delayed release capsule Take 1 capsule by mouth once daily. - propranolol 20 mg tablet Take 40 mg by mouth one time only. 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 Carbon dioxide, total [Moles /volume] in Central venous bloodOrdered By: Azul Gilmore on 02-01-2025 CO2 [Moles/Vol] 25.1 mmol/L 21.0-32.0 [facility] Chloride assayOrdered By: Mary Gilmore on 02-01-2025 Chloride [Moles/Vol] 105 mmol/L 98-108 [facility] Emergency Department Summary on 02-01-2025 Emergency Department Summary [facility] Medical Records Department [address] [place] [id number] Emergency Department Summary 02/01/25 MR#: [id number] Acct: [id number] Name: LANDON CASE Rep #: [id number] : 1945 79 From: Lobo Elkins MD PCP: Dr. Kasey Nicole MD Status:DEP ER Location: ED HPI History of Present Illness Chief Complaint: Flank Pain Narrative Narrative: 79-year-old female with past medical history of hyperlipidemia, remote kidney stone, tachycardia presents with 2 days of pressure in her bilateral lower abdomen and low back. She has slight burning with urination. She went to urgent care today and was given Azo and was sent here for evaluation. She denies fever, chills, nausea or vomiting. 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 to 40 mg #90 tabs Instructions: Dizziness nitrofurantoin 100 mg PO BID 7 days #14 caps 01/05 02/28 Unknown Rx monohydrate/macrocrystals 100 mg capsule (Macrobid) phenazopyridine 200 mg tablet 200 mg PO TID PRN pain 3 days #9 0 02/01/25 Unknown Rx (Pyridium) tabs Allergy/AdvReac Type Severity Reaction Status Date / Time nitrofurantoin (From Allergy Mild Rash Verified 02/01/25 15:31 Macrobid) ciprofloxacin (From Cipro) Allergy Itching Verified 02/01/25 15:31 Penicillins (PCN) Allergy Hives Verified 02/01/25 15:31 Sulfa (Sulfonamide Allergy Hives Verified 02/01/25 15:31 Antibiotics) atorvastatin (From Lipitor) AdvReac Severe Myalgias Verified 02/01/25 15:31 pravastatin (From Pravachol) AdvReac Intermediate Myalgias Verified 02/01/25 15:31 Family History Father CAD (coronary artery disease) Myocardial infarction Brother CAD (coronary artery disease) Colon cancer Myocardial infarction Mother No problems noted. Surgical History History of knee replacement History of hip replacement H/O laminectomy FH: cholecystectomy Social History Smoking Status: Never smoker alcohol intake: never caffeine: Yes Type: other what type of physical activity do you participate in: none ROS ROS ED ROS Narrative Constitutional: Negative for fever, chills, malaise. GI: Positive for abdominal pain. No nausea, vomiting. : Positive for dysuria. No hematuria. EXAM Physical Exam Narrative Exam Narrative: CONST: Patient sitting in no acute distress. EYES: Normal inspection. NECK: Normal inspection. RESP: No respiratory distress, CTAB. CVS: Regular rate and rhythm, no murmur, no gallop. ABD: Soft with suprapubic tenderness, no guarding or rebound, nondistended. Back: Normal inspection, no CVA tenderness. SKIN: Color normal, no rash, warm, dry, intact. EXTREMITIES: Normal appearance, no pedal edema. NEURO: Alert and answering questions appropriately. PSYCH: Normal affect. Const Vital Signs: 02/01/25 15:32 02/01/25 19:00 Temperature 98.4 F Temperature Source Oral Pulse Rate 92 58 L Respiratory Rate 16 16 Blood Pressure 133/107 H 130/70 H Blood Pressure Mean 115 90 Pulse Ox 95 100 Oxygen Delivery Method Room Air Room Air Physical Exam Const Vital Signs: 02/01/25 15:32 02/01/25 19:00 Temperature 98.4 F Temperature Source Oral Pulse Rate 92 58 L Respiratory Rate 16 16 Blood Pressure 133/107 H 130/70 H Blood Pressure Mean 115 90 Pulse Ox 95 100 Oxygen Delivery Method Room Air Room Air MDM MDM MDM Narrative Medical decision making narrative: Differential includes but not limited to UTI, kidney stone 79-year-old female has lower abdominal pain and low back pain with dysuria. She appears well and nontoxic. Vital stable. Abdomen soft suprapubic tenderness without peritoneal signs. No flank tenderness. CBC and BMP are unremarkable. UA is consistent with UTI and was sent for culture. Patient has multiple allergies to antibiotics to treat UTIs. She was on Keflex about a week ago so I do not want to repeat this in ca (more content not included)... Normal [facility] Eosinophil percentageOrdered By: Azul Gilmore on 02-01-2025 Eosinophils/100 WBC (Bld) 0.0 % 0-5 [facility] Erythrocyte distribution wid th ratioOrdered By: Azul Gilmore on 02-01-2025 Erythrocyte distribution width (RBC) [Ratio] 14.6 % 11.6-14.6 [facility] Erythrocyte distribution wid th standard deviationOrdered By: Azul Gilmore on 02-01-2025 Erythrocyte distribution width (RBC) [Ratio] 51.1 fl High 35.1-43.9 [facility] Glomerular filtration rate ( GFR) estimation/1.73 sq m using serum, plasma, or whole bOrdered By: Azul Gilmore on 02-01-2025 GFR/1.73 sq M.predicted among non-blacks MDRD (S/P/Bld) [Vol rate/Area] 66 mL/min/{1.73_m2} >60 [facility] Comment on above: mL/min/1.73m2 CKD-EP I Creatinine Equation (2020) Hematocrit Auto (Bld) [Volum e fraction]Ordered By: Azul Gilmore on 02-01-2025 Hematocrit (Bld) [Volume fraction] 46.3 % 37-47 [facility] Hemoglobin measurementOrdere d By: Azul Gilmore on 02-01-2025 Hemoglobin (Bld) [Mass/Vol] 15.8 g/dL High 12.0-15.0 [facility] Immature granulocytes/100 WB C Auto (Bld)Ordered By: Auzl Gilmore on 02-01-2025 Immature granulocytes/100 WBC (Bld) 0.500 % 0.0-0.9 [facility] Comment on above: IG% - Immature Granu locytes (promyelocytes, myelocytes and metamyelocytes) > 1% indicates that a LEFT SHIFT is Present. Laboratory - Chemistry and C hemistry - challengeOrdered By: Robson Bucio on 02-01-2025 Bilirubin Ql (U) Negative [facility] Glucose Ql (U) Negative [facility] pH (U) 6.0 [pH] [facility] Specific gravity (U) [Rel density] 1.020 [facility] Urobilinogen (U) [Mass/Vol] Negative [facility] - Hematology and Cell countsOrdered By: Robson Bucio on 02-01-2025 Hemoglobin Ql (U) Negative [facility] - Specimen inform ationOrdered By: Robson Bucio on 02-01-2025 Clarity (U) Clear [facility] Color (U) Dk Yellow [facility] - UrinalysisOrder ed By: Robson Bucio on 02-01-2025 Nitrite Ql (U) Negative [facility] Protein Ql (U) Trace [facility] MCV (mean corpuscular volume ) determinationOrdered By: Azul Gilmore on 02-01-2025 MCV (RBC) [Entitic vol] 94.9 fL 81-99 [facility] Mean corpuscular hemoglobin (MCH) determinationOrdered By: Azul Gilmore on 02-01-2025 MCH (RBC) [Entitic mass] 32.4 pg High 27.0-32.0 [facility] Mean corpuscular hemoglobin concentration (MCHC) determinationOrdered By: Azul Gilmore on 02-01-2025 MCHC (RBC) [Mass/Vol] 34.1 g/dL 32-36 [facility] Mean platelet volume determi nationOrdered By: Azul Gilmore on 02-01-2025 Platelet mean volume (Bld) [Entitic vol] 9.9 fL 6.2-12.0 [facility] Microscopic analysis of urin e for red blood cells (RBC)Ordered By: Azul Gilmore on 02-01-2025 Microscopic analysis of urine for red blood cells (RBC) 0-5 SEEN /hpf 0-5 [facility] Monocyte percentageOrdered B y: Azul Gilmore on 02-01-2025 Monocytes/100 WBC (Bld) 6.4 % 0-10 [facility] Mucus LM Ql (Urine sed)Order ed By: Azul Gilmore on 02-01-2025 Mucus Ql (Urine sed) 0 SEEN /hpf [facility] Neutrophil percentageOrdered By: Azul Gilmore on 02-01-2025 Neutrophils/100 WBC (Bld) 74.6 % High 47-70 [facility] Nitrite Test strip Ql (U)Ord ered By: Azul Gilmore on 02-01-2025 Nitrite Ql (U) Positive High Negative [facility] No Panel InformationOrdered By: Robson Bucio on 02-01-2025 Urine Leukocytes Positive [facility] Urine Non-Hemolyzed Blood Small [facility] Nucleated red blood cell per centageOrdered By: Azul Gilmore on 02-01-2025 Nucleated RBC/100 WBC (Bld) [Ratio] 0 % 0-5 [facility] Platelet countOrdered By: Mary Gilmore on 02-01-2025 Platelets (Bld) [#/Vol] 278 10*3/uL 150-450 [facility] Potassium measurement (mass/ volume)Ordered By: Azul Gilmore on 02-01-2025 Potassium (Unsp spec) [Mass/Vol] 4.3 mmol/L 3.3-5.1 [facility] Protein Test strip Ql (U)Ord ered By: Azul Gilmore on 02-01-2025 Protein Ql (U) 30 mg/dl High Negative [facility] RBC Auto (Bld) [#/Vol]Ordere d By: Azul Gilmore on 02-01-2025 RBC (Bld) [#/Vol] 4.88 10*6/uL 4.2-5.4 [facility] Serum creatinine measurement (mass/volume)Ordered By: Azul Gilmore on 02-01-2025 Creatinine [Mass/Vol] 0.90 mg/dL 0.70-1.20 [facility] Serum glucose measurement (m ass/volume)Ordered By: Azul Gilmore on 02-01-2025 Glucose [Mass/Vol] 110 mg/dL High 70-99 [facility] Serum or plasma calcium devendra urement (mass/volume)Ordered By: Azul Gilmore on 02-01-2025 Calcium [Mass/Vol] 9.7 mg/dL 7.6-11.0 [facility] Serum or plasma urea nitroge n measurement (mass/volume)Ordered By: Azul Gilmore on 02-01-2025 Urea nitrogen [Mass/Vol] 22 mg/dL High 4-19 [facility] Sodium levelOrdered By: Azul Gilmore on 02-01-2025 Sodium [Moles/Vol] 142 mmol/L 133-145 [facility] Squamous epithelial cells de tection in urine sediment by light microscopyOrdered By: Azul Gilmore on 02-01-2025 Epithelial cells.squamous LM Ql (Urine sed) 0-5 SEEN /hpf 5-10 [facility] Transitional cells detection in urine sediment by light microscopyOrdered By: Azul Gilmore on 02-01-2025 Transitional cells LM Ql (Urine sed) 0-5 SEEN /hpf 0-5 [facility] Urgent Care Visit Reporton 0 02-01-2025 Urgent Care Visit Report [facility] [address] , [address] [place] [address] OFFICE VISIT Date of Service: 02/01/25 MR#: [id number] Acct: [id number] Name: LANDON CASE Rep #: [id number] : 1945 Provider: BRI Lima Age/Sex: 79/F Location: [facility] Status: Signed Intake Vital Signs 03/26/24 10:28 02/01/25 11:29 Height 5 ft 7 in BP 126/78 H Blood Pressure Location Lt brachial Position Sitting Respiration 16 Pulse 67 Pulse Source NIBP Temp 97.9 F Temp Source Oral Pulse Oximetry (%) 97 Oxygen Delivery Method room air Intake Visit Reasons: CONCERN FOR UTI Chief Complaint: pubic pain, low back pain 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: No Is patient in pain?: Yes Allergies nitrofurantoin (From Macrobid) Allergy (Mild, Verified 02/01/25 11:33) Rash ciprofloxacin (From Cipro) Allergy (Verified 02/01/25 11:33) Itching Penicillins (PCN) Allergy (Verified 02/01/25 11:33) Hives Sulfa (Sulfonamide Antibiotics) Allergy (Verified 02/01/25 11:33) Hives atorvastatin (From Lipitor) Adverse Reaction (Severe, Verified 02/01/25 11:33) Myalgias pravastatin (From Pravachol) Adverse Reaction (Intermediate, Verified 02/01/25 11:33) Myalgias Is last menstrual period known: No Post menopausal: Yes Patient : No Have you fallen in the past year?: No Nurse's Note: low back pain, pubic pain x 24 hours. denies blood, unsure of dysuria, denies fever. seen at [facility] recently for UTI and given cephalexin without official result. 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 Social History Smoking Status: Never smoker alcohol intake: never caffeine: Yes Type: other what type of physical activity do you participate in: none HPI HPI Chief Complaint: pubic pain, low back pain Details: LANDON CASE, is a 79 F who presents to the office today for complaint of low back pain as well as pubic discomfort. 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 Patient was treated for a UTI at an outside clinic with Keflex however states that she has had no improvement in the pain and was told that the urine culture was contaminated. Patient denies hematuria or loss of bowel/bladder control. No fever, chills or sweats. No nausea, vomiting or diarrhea. No other associated symptoms or alleviating/aggravating factors. ROS Const Constitutional: Positive for other (ROS negative x6 except what was placed in HPI) Exam Const General: cooperative and healthy appearing Resp Effort Inspection: normal respiratory effort Auscultation: Bilateral: Clear to Auscultation Cardio Rate: regular rate Rhythm: regular rhythm GI Auscultation: normal bowel sounds General: No CVA tenderness Psych Appearance: grossly normal Mental Status: mental status grossly normal Results POC Urinalysis Dip (Clinic) Office Urine Color Dk Yellow Last Edit by Dhara Duval on 02/01/25 11:37 Office Urine Clarity Clear Last Edit by Dhara Duval on 02/01/25 11:37 Office Urine Glucose Negative Last Edit by Dhara Duval on 02/01/25 11:37 Office Urine Ketones Negative Last Edit by Dhara Duval on 02/01/25 11:37 Off Ur Spec [place] 1.020 Last Edit by Dhara Duval on 02/01/25 11:37 Office Urine pH 6.0 Last Edit by Dhara Duval on 02/01/25 11:37 Office Urine Bilirubin Negative Last Edit by Dhara Duval on 02/01/25 11:37 Office Urine Urobilinogen Negative Last Edit by Dhara Duval on 02/01/25 11:37 Office Urine Blood Negative Last Edit by Dhara Duval on 02/01/25 11:37 Office Urine Blood Hemolyzed Small Last Edit by Dhara Duval on 02/01/25 11:37 Office Urine Protein Trace Last Edit by Dhara Duval on 02/01/25 11:37 Office Urine Nitrate Negative Last Edit by Dhara Duval on 02/01/25 11:37 Off Ur Leukocytes Positive Last Edit by Dhara Duval on 02/01/25 11:37 Coding Level of Care Code (more content not included)... Normal [facility] Urinalysis, Completeon 02-01 BACTERIA 3+ /hpf Normal None Seen [facility] Comment on above: Order Comment: Order Date: 10/03/24 Order Info: [id number] - CBCD Performed By: #### L 503.6150, L500.4050, L100.0100, L501.9520 #### [facility] [address] [place], [address] EPI,SQUAMOUS 0-5 SEEN Normal 5-10 [facility] Comment on above: Order Comment: Order Date: 10/03/24 Order Info: [id number] - CBCD Performed By: #### L 503.6150, L500.4050, L100.0100, L501.9520 #### [facility] [address] [place], [address] EPI,TRANSITION 0-5 SEEN Normal 0-5 [facility] Comment on above: Order Comment: Order Date: 10/03/24 Order Info: [id number] - CBCD Performed By: #### L 503.6150, L500.4050, L100.0100, L501.9520 #### [facility] [address] [place], [address] RBC 0-5 SEEN Normal 0-5 [facility] Comment on above: Order Comment: Order Date: 10/03/24 Order Info: [id number] - CBCD Performed By: #### L 503.6150, L500.4050, L100.0100, L501.9520 #### [facility] [address] [place], [address] WBC 0-5 SEEN Normal 0-5 [facility] Comment on above: Order Comment: Order Date: 10/03/24 Order Info: [id number] - CBCD Performed By: #### L 503.6150, L500.4050, L100.0100, L501.9520 #### [facility] [address] [place], [address] Mucus Ql (Urine sed) 0 SEEN Normal [facility] Comment on above: Order Comment: Order Date: 10/03/24 Order Info: [id number] - CBCD Performed By: #### L 503.6150, L500.4050, L100.0100, L501.9520 #### [facility] [address] [place], [address] Urine clarityOrdered By: Marilyn Gilmore on 02-01-2025 Clarity (U) Sl. 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0 [facility] Urine sediment bacteria coun t by microscopy (number/high power field)Ordered By: Azul Gilmore on 02-01-2025 Bacteria LM.HPF (Urine sed) [#/Area] 3 /[HPF] None Seen [facility] Urine specific gravity measu rementOrdered By: Azul Gilmore on 02-01-2025 Specific gravity (U) [Rel density] 1.015 1.002-1.030 [facility] Urine urobilinogen measureme ntOrdered By: Azul Gilmore on 02-01-2025 Urobilinogen Ql (U) 8 mg/dl High Normal [facility] White blood cell (WBC) count Ordered By: Azul Gilmore on 02-01-2025 WBC (Bld) [#/Vol] 10.1 10*3/uL 4.4-11.0 [facility] White blood cell countOrdere d By: Azul Gilmore on 02-01-2025 White blood cell count 0-5 SEEN /hpf 0-5 [facility] CNOVon 01-30-2025 CNOV Office Visit (OBGYWM ) -- LANDON CASE ([id number]) 1945 F Date Time Provider Department 01/30/25 9:20 AM ISATU MAST OBGYWRomana During your visit today, we recorded the following information about you: Blood pressure Weight Height 118/72 99.8 kg 1.689 m Isatu Mast MD 01/30/2025 9:43 AM Signed Pre-Op History and Physical HPI: The patient is a 79 year old female presenting for discussion regarding PMB- had episdoe in OCTOBER 2023 for which work up was benign but again presented today for bleeding in jan 2025. pre-operative visit. She is scheduled for Hysteroscopy [facility], for PMB on 02/08/25. Procedure discussed along with risks, benefits and complications. Other alternatives discussed for management. Consent form signed? Yes. PAST MEDICAL HISTORY Diagnosis Date Abdominal pain, [...] TRANSORAL DIAGNOSTIC 10/07/2020 HYSTEROSCOPY 04/20/2012 Hysteroscopy and [facility] JOINT REPLACEMENT HX LAMINECTOMY W/O FFD / VERT SEG LUMBAR 1974 L4-5 PAST SURGICAL HISTORY OF 2013 part of nose tissue removed PAST SURGICAL HISTORY OF 1974 laminectomy SKIN BIOPSY HX TONSILLECTOMY HX Current Outpatient Medications Medication Sig Dispense Refill ondansetron (ZOFRAN) 4 mg tablet Take 1 tablet by mouth every 8 hours as needed for nausea/vomiting. 90 tablet 0 CREON 3,000-9,500- 15,000 unit delayed release capsule Take 1 capsule by mouth once daily. propranolol 20 mg tablet Take 40 mg by mouth one time only. cefdinir (OMNICEF) 300 mg capsule Take 300 mg by mouth two times a day. Take for 10 days- started on March 02, 2024 (Patient not taking: Reported on 12/08/2024) metroNIDAZOLE (FLAGYL) 500 mg tablet Take 500 mg by mouth three times a day. Take for 10 days- started on March 02, 2024 (Patient not taking: Reported on 12/08/2024) ibuprofen 200 mg ORAL tablet Take 200 mg by mouth every 6 hours as needed. (Patient not taking: Reported on 12/08/2024) ASPIRIN 81 MG TAB Take 81 mg by mouth once daily. (Patient not taking: Reported on 12/08/2024) 0 No current facility-administered medications for this visit. ALLERGIES: Atorvastatin, Ciprofloxacin, Gabapentin, Morphine, Penicillin G, Sulfa (Sulfonamide Antibiotics), and Nitrofurantoin PERSONAL HISTORY: SOCIAL HISTORY[1] FAMILY HISTORY: FAMILY HISTORY Problem Relation Age of Onset other (Other) Mother Archana Gemark's Heart Father Colon Cancer Brother REVIEW OF SYMPTOMS: Feeling dizzy with ear pain last few weeks- seeing ENT PHYSICAL EXAMINATION: VITALS: Blood pressure 118/72, height 168.9 cm (5' 6.5), weight 99.8 kg (220 lb). GENERAL: The patient is well nourished, well hydrated in no acute distress. , The patient is oriented to time, place, and person. NECK: full range of motion LUNGS: Clear to auscultation bilaterally. no wheezes, rhonchi or rales HEART: Regular rate and rhythm, Normal heart sounds, and No murmurs or gallops IMPRESSION: 79yo with PMB PLAN: Hysteroscopy [facility] Pt has been counseled on risks/benefits and alternatives of surgery including but not limited to anesthesia, bleeding, infection, uterine perforation with subsequent injury to pelvic structures including bowel, bladder, ureters and vessels. Pt wishes to proceed with surgery at this time. Pre and post op instructions reviewed I have reviewed and updated past medical and surgical history, medications and allergies Isatu Jaeger MD [1] Social History Tobacco Use Smoking status: Never Smokeless tobacco: Never Vaping Use Vaping status: Never Used Substance Use Topics Alcohol use: Not Currently Drug use: Never Referring Provider: CAREN KELLY [[id number]] Allergies As of Date: 01/30/2025 Noted Allerg (more content not included)... Normal [facility] HISTORY PHYSICALon HISTORY PHYSICAL HNO ID: [id number] Author: ISATU MAST MD Service: ? Author Type: Physician Type: H&P Filed: 01/30/2025 09:43 Note Text: Pre-Op History and Physical HPI: The patient is a 79 year old female presenting for discussion regarding PMB- had episdoe in OCTOBER 2023 for which work up was benign but again presented today for bleeding in jan 2025. pre-operative visit. She is scheduled for Hysteroscopy [facility], for PMB on 02/08/25. Procedure discussed along with risks, benefits and complications. Other alternatives discussed for management. Consent form signed? Yes. PAST MEDICAL HISTORY Diagnosis Date Abdominal pain, [...] 1974 laminectomy SKIN BIOPSY HX TONSILLECTOMY HX Current Outpatient Medications Medication Sig Dispense Refill ondansetron (ZOFRAN) 4 mg tablet Take 1 tablet by mouth every 8 hours as needed for nausea/vomiting. 90 tablet 0 CREON 3,000-9,500- 15,000 unit delayed release capsule Take 1 capsule by mouth once daily. propranolol 20 mg tablet Take 40 mg by mouth one time only. cefdinir (OMNICEF) 300 mg capsule Take 300 mg by mouth two times a day. Take for 10 days- started on March 02, 2024 (Patient not taking: Reported on 12/08/2024) metroNIDAZOLE (FLAGYL) 500 mg tablet Take 500 mg by mouth three times a day. Take for 10 days- started on March 02, 2024 (Patient not taking: Reported on 12/08/2024) ibuprofen 200 mg ORAL tablet Take 200 mg by mouth every 6 hours as needed. (Patient not taking: Reported on 12/08/2024) ASPIRIN 81 MG TAB Take 81 mg by mouth once daily. (Patient not taking: Reported on 12/08/2024) 0 No current facility-administered medications for this visit. ALLERGIES: Atorvastatin, Ciprofloxacin, Gabapentin, Morphine, Penicillin G, Sulfa (Sulfonamide Antibiotics), and Nitrofurantoin PERSONAL HISTORY: SOCIAL HISTORY[1] FAMILY HISTORY: FAMILY HISTORY Problem Relation Age of Onset other (Other) Mother Archana Madanhrlinda's Heart Father Colon Cancer Brother REVIEW OF SYMPTOMS: Feeling dizzy with ear pain last few weeks- seeing ENT PHYSICAL EXAMINATION: VITALS: Blood pressure 118/72, height 168.9 cm (5' 6.5), weight 99.8 kg (220 lb). GENERAL: The patient is well nourished, well hydrated in no acute distress. , The patient is oriented to time, place, and person. NECK: full range of motion LUNGS: Clear to auscultation bilaterally. no wheezes, rhonchi or rales HEART: Regular rate and rhythm, Normal heart sounds, and No murmurs or gallops IMPRESSION: 79yo with PMB PLAN: Hysteroscopy [facility] Pt has been counseled on risks/benefits and alternatives of surgery including but not limited to anesthesia, bleeding, infection, uterine perforation with subsequent injury to pelvic structures including bowel, bladder, ureters and vessels. Pt wishes to proceed with surgery at this time. Pre and post op instructions reviewed I have reviewed and updated past medical and surgical history, medications and allergies Isatu Jaeger MD [1] Social History Tobacco Use Smoking status: Never Smokeless tobacco: Never Vaping Use Vaping status: Never Used Substance Use Topics Alcohol use: Not Currently Drug use: Never Normal [facility] US Pelvison 01-25-2025 Indication PMB Impression The uterus is retroverted and measures 67 mm x 32 mm x 37 mm. The endometrium is thickened and fluid filled, and measures 4.1 mm. The right ovary measures 13 mm x 12 mm x 9 mm. The left ovary measures 14 mm x 11 mm x 10 mm. There is no free fluid visualized. Technique: Three dimensional imaging was created on a dedicated stand-alone 3D workstation with images created and archived, and supervised and reviewed by the interpreting physician utilizing images from a US Scan performed on 01/24/25 Duplex scan was performed using B-Mode/dickey scale imaging and Doppler spectral analysis and color flow. Recommendations Consider endometrial sampling. Menstrual History Contraception: menopausal Method Transabdominal and transvaginal ultrasound examination, 3D ultrasound examination, Color Doppler examination. View: Adequate visualization Uterus Uterus: Visualized Uterus position: retroverted Description of uterine malformations: normally shaped Myometrium: heterogeneous Endometrium: endometrial-myometrial junction: irregular, fluid filled Cervix details: normal Uterus length 67 mm Uterus width 37 mm Uterus height 32 mm Uterus Vol 41.5 cm Endometrial thickness, total 4.1 mm Fibroids: No fibroids identified Polyps: No polyps identified Right Ovary Rt ovary: Visualized Outline: smooth Rt ovary morphology: postmenopausal atrophic Rt ovary D1 13 mm Rt ovary D2 12 mm Rt ovary D3 9 mm Rt ovary Vol 0.7 cm Rt ovarian cyst(s): No cysts identified Left Ovary Lt ovary: Visualized Outline: smooth Lt ovary morphology: postmenopausal atrophic Lt ovary D1 14 mm Lt ovary D2 11 mm Lt ovary D3 10 mm Lt ovary Vol 0.9 cm Lt ovarian cyst(s): No cysts identified Cul de Sac Visualized. no free fluid visualized Procedure To characterize the endometrial fluid, three dimensional imaging was created on a dedicated stand-alone 3D workstation with images created and archived, and supervised and reviewed by the interpreting physician utilizing images from an ultrasound scan performed today. Performed By: Kandy Calhoun RDMS Read By: Joesph Brooks M.D. MATERNAL MEDICINE [facility] Bacteria Ur Culton 5 Bacteria identified Cx Nom (U) ORGANISM ID: 1 <10,000 CFU/ml Mixed microbiota No further workup. Mixed microbiota can be due to???urine???contamination with skin bacteria at time of collection or presence of a long-term urinary catheter. If a new culture is needed, please consider re-education of the patient on proper midstream collection technique or straight catheterization for???urine???collection. Normal [facility] Comment on above: Performed By: #### 6 30-4 ####[facility] LABCLIA [id number] [address] OF [facility] CNOVon 01-24-2025 CNOV Office Visit ([facility]) -- LANDON CASE ([id number]) 1945 F Date Time Provider Department 01/24/25 10:00 AM JOSE PHILLIPS During your visit today, we recorded the following information about you: Temperature Pulse Respiration Blood pressure 98.7 degrees 70/minute 18/minute 148/75 Weight 100.7 kg Jose Phillips APRN.PORCELAIN WAXER 01/24/2025 10:38 AM Signed [facility] Subjective Landon Misty Case is a 79 year old female. Patient presents with: UTI: Low back pain, frequency x last night HPI Patient presents today complaining of lower abdominal fullness and urinary frequency that started last evening. She does note a history of hematuria for which she is being evaluated. She states that she often has difficulty telling whether she has a urinary tract infection or it is just issues related to her kidneys. Patient otherwise denies any nausea vomiting or fever. Review of Systems As above Objective BP 148/75 Pulse 70 Temp 37.1 ?C (98.7 ?F) Resp 18 Wt 100.7 kg (222 lb 0.1 oz) SpO2 96% BMI 35.26 kg/m? Physical Exam Vitals and nursing note reviewed. Constitutional: General: She is not in acute distress. Appearance: Normal appearance. She is not ill-appearing. HENT: Head: Normocephalic. Mouth/Throat: Mouth: Mucous membranes are moist. Cardiovascular: Rate and Rhythm: Normal rate and regular rhythm. Pulmonary: Effort: Pulmonary effort is normal. Breath sounds: Normal breath sounds. Abdominal: Palpations: Abdomen is soft. Tenderness: There is no abdominal tenderness. Musculoskeletal: General: Normal range of motion. Cervical back: Normal range of motion. Skin: General: Skin is warm and dry. Neurological: General: No focal deficit present. Mental Status: She is alert. Psychiatric: Mood and Affect: Mood normal. Behavior: Behavior normal. {ASSESSMENT/PLAN: 1. Urinary frequency - ICD9: 788.41, ICD10: R35.0 acute - UA positive for lyric esterase and hematuria - Send urine for culture - Discussed initiating antibiotics versus awaiting culture and patient prefers to initiate antibiotics. Begin treatment with Keflex for 5 days -Discussed with patient that if urine culture is negative she may discontinue the antibiotics if they are not improving symptoms. -My concern for pyelonephritis is minimal as patient has no flank or abdominal tenderness - Patient education for prevention given - UA DIP, URINE (POC) - BACTERIAL CULTURE, URINE - CEPHALEXIN 500 MG CAPSULE Jose Phillips APRN.CNP History and Record Review External record(s) reviewed: prior labs/imaging. Disposition The patient was discharged. Procedures Referring Provider: CAREN KELLY [[id number]] Allergies As of Date: 01/24/2025 Noted Allergy Reaction ATORVASTATIN 03/21/2019 17 - Myalgia CIPROFLOXACIN 08/03/2023 9 - Itching GABAPENTIN 09/16/2009 1 - Mental Status Change Comments: Patient states was running into the yip. MORPHINE 06/02/2010 14 - Other: See Comments Comments: dizzy- tachycardia PENICILLIN G 06/21/2005 4 - Hives SULFA (SULFONAMIDE ANTIBIOTICS) 06/21/2005 4 - Hives NITROFURANTOIN 06/08/2023 2 - Rash Date Reviewed: 01/24/2025 Reviewed by: Chelo Beckman MA - Fully Assessed Reason for Visit: UTI [116] Cmt: Low back pain, frequency x last night Primary Visit Diagnosis:Urinary frequency [R35.0] Order(s):UA DIP, URINE (POC) [5416051] Order #: [id number]. #:[id number] 6-LAB BACTERIAL CULTURE, URINE [SQURCUL] Order #: [id number]. #:[id number] cephALEXin (KEFLEX) 500 mg capsuleTake 1 capsule by mouth two times a day for 5 days.Disp: 10 capsuleRfl: 0 Prescriptions as of 01/24/2025 - cephALEXin (KEFLEX) 500 mg capsule Take 1 capsule by mouth two times a day for 5 days. - cefdinir (OMNICEF) 300 mg capsule Take 300 mg by mouth two times a day. Take for 10 days- started on March 02, 2024 - metroNIDAZOLE (FLAGYL) 500 mg tablet Take 500 mg by mouth three times a day. Take for 10 days- started on March 02, 2024 - ondansetron (ZOFRAN) 4 mg tablet Take 1 tablet by mouth every 8 hours as needed for nausea/vomiting. - CREON 3,000-9,500- 15,000 unit delayed release capsule Take 1 capsule by mouth once daily. - propranolol 20 mg tablet Take 40 mg by mouth one time only. - ibuprofen 200 mg ORAL tablet Take 200 mg by mouth every 6 hours as needed. - ASPIRIN 81 MG TAB Take 81 mg by mouth once daily. 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 Normal [facility] UA DIP, URINE (POC)on 2024 BILIRUBIN UA (POCT) Negative Negative Jose D [facility] CLARITY UA (POCT) Clear [facility] COLOR UA (POCT) Yellow [facility] GLUCOSE UA (POCT) Negative Negative mg/dL [facility] Hemoglobin Ql (U) Moderate Abnormal Negative [facility] Interpretation and review of laboratory results Abnormal [facility] KETONE UA (POCT) Negative Negative mg/dL [facility] LEUKOCYTES UA (POCT) Small Abnormal Negative [facility] NITRITE UA (POCT) Negative Negative [facility] PH UA (POCT) 5.5 4.5 - 8.0 [facility] Protein Ql (U) Negative Negative mg/dL [facility] SPECIFIC GRAVITY UA (POCT) 1.015 1.005 - 1.030 [facility] UROBILINOGEN UA (POCT) 0.2 Shawna l E.U./dL [facility] Location:[facility], [address] [place] [address], [place], [place], [id number] [place] [address] POINT OF CARE [facility] US Pelvison 01-24-2025 Radiology Study observation (narrative) [facility] CNOVon 01-15-2025 CNOV Office Visit (OBGYWM ) -- LANDON CASE ([id number]) 1945 F Date Time Provider Department 01/15/25 3:30 PM CAREN KELLY OBGYWRomana During your visit today, we recorded the following information about you: Blood pressure Weight 120/72 100.2 kg Caren Kelly [employer] OFFICERLAYNE 01/15/2025 3:47 PM Signed Speeder Worker offered: Patient declines. Obstetrics and Gynecology [place] BREWERY TECHNICIAN Visit Subjective Recording using [employer] software for draft documentation of the visit was discussed with the patient/authorized sales development representative; all questions welcomed and answered. Patient/authorized sales development representative agreed to proceed CHIEF COMPLAINT: Postmenopausal bleeding HPI: The patient is a 79-year-old female, postmenopausal, presenting with increased vaginal bleeding. The patient reports an increase in vaginal bleeding since Tuesday, initially presenting as brown spotting, which she considered normal. However, she noted red blood at the end of Tuesday, with the bleeding progressively increasing. She has spotting in 10/2023 for which she was evaluated by Dr. Jaeger with ultrasound and endometrial biopsy. She is not sexually active and denies a history of hysterectomy. HISTORY: OB History Gravida2 Para2 Term2 Preterm0 AB0 Living2 SAB0 IAB0 Ectopic0 Multiple0 Live Births2 Patient Scheduler History LMP: Postmenopausal Age at Menarche: Age at First : Age at Menopause: Patient Scheduler History Comments: Sexual Activity: Not Currently; No partner data on record Contraception: No contraception data on record PAST MEDICAL HISTORY Diagnosis Date Abdominal pain, [...] TRANSORAL DIAGNOSTIC 10/07/2020 HYSTEROSCOPY 04/20/2012 Hysteroscopy and [facility] JOINT REPLACEMENT HX LAMINECTOMY W/O FFD 1/2 VERT SEG LUMBAR 1974 L4-5 PAST SURGICAL HISTORY OF 2013 part of nose tissue removed PAST SURGICAL HISTORY OF 1974 laminectomy SKIN BIOPSY HX TONSILLECTOMY HX FAMILY HISTORY Problem Relation Age of Onset other (Other) Mother Archanajamal Badillo's Heart Father Colon Cancer Brother SOCIAL HISTORY[1] Current Outpatient Medications Medication Sig ondansetron (ZOFRAN) 4 mg tablet Take 1 tablet by mouth every 8 hours as needed for nausea/vomiting. CREON 3,000-9,500- 15,000 unit delayed release capsule Take 1 capsule by mouth once daily. propranolol 20 mg tablet Take 40 mg by mouth one time only. cefdinir (OMNICEF) 300 mg capsule Take 300 mg by mouth two times a day. Take for 10 days- started on March 02, 2024 (Patient not taking: Reported on 12/08/2024) metroNIDAZOLE (FLAGYL) 500 mg tablet Take 500 mg by mouth three times a day. Take for 10 days- started on March 02, 2024 (Patient not taking: Reported on 12/08/2024) ibuprofen 200 mg ORAL tablet Take 200 mg by mouth every 6 hours as needed. (Patient not taking: Reported on 12/08/2024) ASPIRIN 81 MG TAB Take 81 mg by mouth once daily. (Patient not taking: Reported on 12/08/2024) No current facility-administered medications for this visit. ALLERGIES Allergen Reactions Atorvastatin Myalgia Ciprofloxacin Itching Gabapentin Mental Status Change Patient states was running into the yip. Morphine Other: See Comments dizzy- tachycardia Penicillin G Hives Sulfa (Sulfonamide * Hives Nitrofurantoin Rash REVIEW OF SYSTEMS: Genitourinary: (+) vaginal bleeding Objective SENSITIVE EXAM: The sensitive examination was discussed with the Patient or Patient's Authorized Linotype Worker. As applicable, any other physician, advance practice provider, medical student, or other health professional student that will be observing or involved in the sensitive examination for educational or training purposes was discussed with the Patient or Authorized Repre (more content not included)... Normal [facility] Anion gap in Serum or Plasma Ordered By: Lavell Bajwa on 01-10-2025 Anion gap [Moles/Vol] 14 mmol/L 5-15 [facility] BUN/creatinine ratioOrdered By: Lavell Bajwa on 01-10-2025 Urea nitrogen/Creatinine [Mass ratio] 20.7 mg/mg High 10-20 [facility] Basic Metabolic Profile (BMP )on 01-10-2025 BUN/CRE 20.7 RATIO High 10- [facility] Comment on above: Order Comment: Order Date: 01/10/25 Order Info: 0667- - BMP Performed By: #### L 500.2500, L100.0500 #### [facility] [address] [place], [address] Calcium [Mass/Vol] 10.1 mg/dL Normal 7.6-11.0 [facility] Comment on above: Order Comment: Order Date: 01/10/25 Order Info: 0667- - BMP Performed By: #### L 500.2500, L100.0500 #### [facility] [address] [place], [address] Chloride [Moles/Vol] 103 mmol/L Normal 98-108 [facility] Comment on above: Order Comment: Order Date: 01/10/25 Order Info: [id number]- - BMP Performed By: #### L 500.2500, L100.0500 #### [facility] [address] [place], [address] CO2 [Moles/Vol] 24.8 mmol/L Normal 21.0-32.0 [facility] Comment on above: Order Comment: Order Date: 01/10/25 Order Info: 0667- - BMP Performed By: #### L 500.2500, L100.0500 #### [facility] [address] [place], [address] Creatinine [Mass/Vol] 0.82 mg/dL Normal 0.70-1.20 [facility] Comment on above: Order Comment: Order Date: 01/10/25 Order Info: 0667- - BMP Performed By: #### L 500.2500, L100.0500 #### [facility] [address] [place], [address] GAP 14 Normal 5-15 [facility] Comment on above: Order Comment: Order Date: 01/10/25 Order Info: 0667- - BMP Performed By: #### L 500.2500, L100.0500 #### [facility] [address] [place], [address] GFR/1.73 sq M.predicted among non-blacks MDRD (S/P/Bld) [Vol rate/Area] 73 mL/min/{1.73_m2} Normal >60 [facility] Comment on above: Order Comment: Order Date: 01/10/25 Order Info: 0667- - BMP Result Comment: mL/m in/1.73m2 CKD-EPI Creatinine Equation (2020) Performed By: #### L 500.2500, L100.0500 #### [facility] [address] [place], [address] Glucose [Mass/Vol] 99 mg/dL Normal 70-99 [facility] Comment on above: Order Comment: Order Date: 01/10/25 Order Info: 0667- - BMP Performed By: #### L 500.2500, L100.0500 #### [facility] [address] [place], [address] Potassium [Moles/Vol] 4.3 mmol/L Normal 3.3-5.1 [facility] Comment on above: Order Comment: Order Date: 01/10/25 Order Info: 0667-1 - BMP Performed By: #### L 500.2500, L100.0500 #### [facility] [address] [place], [address] Sodium [Moles/Vol] 142 mmol/L Normal 133-145 [facility] Comment on above: Order Comment: Order Date: 01/10/25 Order Info: 0667-1 - BMP Performed By: #### L 500.2500, L100.0500 #### [facility] [address] [place], [address] Urea nitrogen [Mass/Vol] 17 mg/dL Normal 4-19 [facility] Comment on above: Order Comment: Order Date: 01/10/25 Order Info: 0667-1 - BMP Performed By: #### L 500.2500, L100.0500 #### [facility] [address] [place], [address] CBC-Complete Blood Cnt No Di ffon 01-10-2025 Erythrocyte distribution width (RBC) [Ratio] 14.1 % Normal 11.6-14.6 [facility] Comment on above: Order Comment: Order Date: 01/10/25 Order Info: [id number] - CBC Performed By: #### L 500.2500, L100.0500 #### [facility] [address] [place], [address] Hematocrit (Bld) [Volume fraction] 46.2 % Normal 37-47 [facility] Comment on above: Order Comment: Order Date: 01/10/25 Order Info: [id number] - CBC Performed By: #### L 500.2500, L100.0500 #### [facility] [address] [place], [address] Hemoglobin (Bld) [Mass/Vol] 15.4 g/dL High 12.0-15.0 [facility] Comment on above: Order Comment: Order Date: 01/10/25 Order Info: [id number] - CBC Performed By: #### L 500.2500, L100.0500 #### [facility] [address] [place], [address] MCH (RBC) [Entitic mass] 31.9 pg Normal 27.0-32.0 [facility] Comment on above: Order Comment: Order Date: 01/10/25 Order Info: [id number] - CBC Performed By: #### L 500.2500, L100.0500 #### [facility] [address] [place], [address] MCHC (RBC) [Mass/Vol] 33.3 g/dL Normal 32-36 [facility] Comment on above: Order Comment: Order Date: 01/10/25 Order Info: [id number] - CBC Performed By: #### L 500.2500, L100.0500 #### [facility] [address] [place], [address] MCV (RBC) [Entitic vol] 95.7 fL Normal 81-99 [facility] Comment on above: Order Comment: Order Date: 01/10/25 Order Info: [id number] - CBC Performed By: #### L 500.2500, L100.0500 #### [facility] [address] [place], [address] Platelet mean volume (Bld) [Entitic vol] 11.4 fL Normal 6.2-12.0 [facility] Comment on above: Order Comment: Order Date: 01/10/25 Order Info: [id number] - CBC Performed By: #### L 500.2500, L100.0500 #### [facility] [address] [place], [address] Platelets (Bld) [#/Vol] 231 10*3/uL Normal 150-450 [facility] Comment on above: Order Comment: Order Date: 01/10/25 Order Info: [id number] - CBC Performed By: #### L 500.2500, L100.0500 #### [facility] [address] [place], [address] RBC (Bld) [#/Vol] 4.83 10*6/uL Normal 4.2-5.4 [facility] Comment on above: Order Comment: Order Date: 01/10/25 Order Info: [id number] - CBC Performed By: #### L 500.2500, L100.0500 #### [facility] [address] [place], [address] RDW SD 49.6 fl High 35.1-43.9 [facility] Comment on above: Order Comment: Order Date: 01/10/25 Order Info: [id number] - CBC Performed By: #### L 500.2500, L100.0500 #### [facility] [address] [place], [address] WBC (Bld) [#/Vol] 8.0 10*3/uL Normal 4.4-11.0 [facility] Comment on above: Order Comment: Order Date: 01/10/25 Order Info: [id number] - CBC Performed By: #### L 500.2500, L100.0500 #### [facility] [address] [place], [address] Carbon dioxide, total [Moles /volume] in Central venous bloodOrdered By: Lavell Bajwa on 01-10-2025 CO2 [Moles/Vol] 24.8 mmol/L 21.0-32.0 [facility] Chloride assayOrdered By: Tuan Bajwa on 01-10-2025 Chloride [Moles/Vol] 103 mmol/L 98-108 [facility] Erythrocyte distribution wid th ratioOrdered By: Lavell Bajwa on 01-10-2025 Erythrocyte distribution width (RBC) [Ratio] 14.1 % 11.6-14.6 [facility] Erythrocyte distribution wid th standard deviationOrdered By: Lavell Bajwa on 01-10-2025 Erythrocyte distribution width (RBC) [Ratio] 49.6 fl High 35.1-43.9 [facility] Glomerular filtration rate ( GFR) estimation/1.73 sq m using serum, plasma, or whole bOrdered By: Lavell Bajwa on 01-10-2025 GFR/1.73 sq M.predicted among non-blacks MDRD (S/P/Bld) [Vol rate/Area] 73 mL/min/{1.73_m2} >60 [facility] Comment on above: mL/min/1.73m2 CKD-EP I Creatinine Equation (2020) Hematocrit Auto (Bld) [Volum e fraction]Ordered By: Lavell Bajwa on 01-10-2025 Hematocrit (Bld) [Volume fraction] 46.2 % 37-47 [facility] Hemoglobin measurementOrdere d By: Lavell Bajwa on 01-10-2025 Hemoglobin (Bld) [Mass/Vol] 15.4 g/dL High 12.0-15.0 [facility] MCV (mean corpuscular volume ) determinationOrdered By: Lavell Bajwa on 01-10-2025 MCV (RBC) [Entitic vol] 95.7 fL 81-99 [facility] Mean corpuscular hemoglobin (MCH) determinationOrdered By: Lavell Bajwa on 01-10-2025 MCH (RBC) [Entitic mass] 31.9 pg 27.0-32.0 [facility] Mean corpuscular hemoglobin concentration (MCHC) determinationOrdered By: Lavell Bajwa on 01-10-2025 MCHC (RBC) [Mass/Vol] 33.3 g/dL 32-36 [facility] Mean platelet volume determi nationOrdered By: Lavell Bajwa on 01-10-2025 Platelet mean volume (Bld) [Entitic vol] 11.4 fL 6.2-12.0 [facility] Platelet countOrdered By: Tuan Bajwa on 01-10-2025 Platelets (Bld) [#/Vol] 231 10*3/uL 150-450 [facility] Potassium measurement (mass/ volume)Ordered By: Lavell Bajwa on 01-10-2025 Potassium (Unsp spec) [Mass/Vol] 4.3 mmol/L 3.3-5.1 [facility] RBC Auto (Bld) [#/Vol]Ordere d By: Lavell Bajwa on 01-10-2025 RBC (Bld) [#/Vol] 4.83 10*6/uL 4.2-5.4 [facility] Serum creatinine measurement (mass/volume)Ordered By: Lavell Bajwa on 01-10-2025 Creatinine [Mass/Vol] 0.82 mg/dL 0.70-1.20 [facility] Serum glucose measurement (m ass/volume)Ordered By: Lavell Bajwa on 01-10-2025 Glucose [Mass/Vol] 99 mg/dL 70-99 [facility] Serum or plasma calcium devendra urement (mass/volume)Ordered By: Lavell Marieke on 01-10-2025 Calcium [Mass/Vol] 10.1 mg/dL 7.6-11.0 [facility] Serum or plasma urea nitroge n measurement (mass/volume)Ordered By: Lavell Marieke on 01-10-2025 Urea nitrogen [Mass/Vol] 17 mg/dL 4-19 [facility] Sodium levelOrdered By: Marshall Bajwa on 01-10-2025 Sodium [Moles/Vol] 142 mmol/L 133-145 [facility] White blood cell (WBC) count Ordered By: Lavell Marieke on 01-10-2025 WBC (Bld) [#/Vol] 8.0 10*3/uL 4.4-11.0 [facility] CNOVon 12-08-2024 [facility] Office Visit ([facility] ) -- CASELINDALANDON A ([id number]) 1945 F Date Time Provider Department 12/08/24 8:15 AM FELIX DENISE [facility] During your visit today, we recorded the following information about you: Temperature Pulse Respiration Blood pressure 97.9 degrees 59/minute 20/minute 122/63 Weight 102 kg Felix Denise MD 12/08/2024 8:42 AM Signed [facility] Subjective Landonfabiana Case is a 79 year old female. Patient presents with: Dizziness: Headache pressure in back of head, lightheaded, nauseated, bilat ear pressure x 10 days Patient presents with concerns for feeling lightheaded, weak, and headache. She reports she always feels dizzy/lightheaded and has had extensive workup including tilt table test and medication changes without identified cause for her nonvertiginous lightheaded feeling. This dizziness has been worse the last 10 days and severe yesterday. During this episode the lightheadedness has been associated with all over head pressure, dyspnea on exertion, nausea, blurred vision, rhinorrhea, and nose burning. She is easily fatigued with exertion - significantly reduced distance of ambulation yesterday. She has baseline palpitations from mitral valve prolapse, left foot drop, and bilateral foot numbness. Denies fever, chills, sore throat, cough, chest pain, vomiting, diarrhea, head injury, or focal sinus pressure. She gets weekly allergy desensitization shots. She has taken Tylenol, Rowena, and Flonase. Dizziness Associated symptoms include dizziness. Review of Systems Neurological: Positive for dizziness. Objective BP 122/63 Pulse (!) 59 Temp 36.6 ?C (97.9 ?F) Resp 20 Wt 102 kg (224 lb 13.9 oz) SpO2 98% BMI 35.71 kg/m? Physical Exam Constitutional: General: She is not in acute distress. Appearance: She is not ill-appearing, toxic-appearing or diaphoretic. HENT: Right Ear: Tympanic membrane and ear canal normal. Left Ear: Tympanic membrane and ear canal normal. Nose: No congestion or rhinorrhea. Mouth/Throat: Mouth: Mucous membranes are moist. Pharynx: No posterior oropharyngeal erythema. Eyes: Extraocular Movements: Extraocular movements intact. Conjunctiva/sclera: Conjunctivae normal. Pupils: Pupils are equal, round, and reactive to light. Cardiovascular: Rate and Rhythm: Normal rate and regular rhythm. Heart sounds: No murmur heard. Pulmonary: Effort: No respiratory distress. Breath sounds: No wheezing, rhonchi or rales. Musculoskeletal: Cervical back: Neck supple. Right lower leg: Edema (1+) present. Left lower leg: Edema (2+) present. Lymphadenopathy: Cervical: No cervical adenopathy. Neurological: Mental Status: She is alert. Cranial Nerves: No cranial nerve deficit. Motor: Weakness present. Gait: Gait abnormal (Ambulates with a cane cautiously without swaying). Deep Tendon Reflexes: Reflex Scores: Patellar reflexes are 3+ on the right side and 1+ on the left side. Psychiatric: Mood and Affect: Mood normal. Thought Content: Thought content normal. Judgment: Judgment normal. {ASSESSMENT/PLAN: 1. Light headed - ICD9: 780.4, ICD10: R42 (primary diagnosis) 2. Headache, unspecified headache type - ICD9: 784.0, ICD10: R51.9 3. CEBALLOS (dyspnea on exertion) - ICD9: 786.09, ICD10: R06.09 Patient with exacerbation of baseline lightheadedness. Evaluation for intracranial lesion or cardiopulmonary issue is beyond the capacity in the urgent care. She will proceed to the [facility] emergency room for further evaluation. Patient describes she refuses EMS transport. Felix Denise MD Differential Diagnoses - rule out serious neurologic or cardiopulmonary source of symptoms - Sinusitis is less likely for the following reason(s): HANDP not suggestive - otitis media is less likely for the following reason(s): no evidence on exam Disposition The patient was other (comment) (self transport to [facility] ED). Procedures Allergies As of Date: 12/08/2024 Noted Allergy Reaction ATORVASTATIN 03/21/2019 17 - Myalgia CIPROFLOXACIN 08/03/2023 9 - Itching GABAPENTIN 09/16/2009 1 - Mental Status Change Comments: Patient states was running into the yip. MORPHINE 06/02/2010 14 - Other: See Comments Comments: dizzy- tachycardia PENICILLIN G 06/21/2005 4 - Hives SULFA (SULFONAMIDE ANTIBIOTICS) 06/21/2005 4 - Hives NITROFURANTOIN 06/08/2023 2 - Rash Date Reviewed: 12/08/2024 Reviewed by: Kamille Bhardwaj LPN - Fully Assessed Reason for Visit: Dizziness [36] Cmt: Headache pressure in back of head, lightheaded, nauseated, bilat ear pressure x 10 days Primary Visit Diagnosis:Light headed [R42] Other Visit Diagnoses:Headache, unspecified headache type [R51.9] CEBALLOS (dyspnea on exertion) [R06.09] Prescriptions as of 12/08/2024 - cefdinir (OMNICEF) 300 mg capsule Take 300 mg by mouth two times a (more content not included)... Normal [facility] Urgent Care Visit Reporton 0 11-03-2024 Urgent Care Visit Report [facility] [address], [address] [place] [address] OFFICE VISIT Date of Service: 11/03/24 MR#: [id number] Acct: [id number] Name: LANDON CASE Rep #: [id number] : 1945 Provider: KELLIE Jacobo Age/Sex: 79/F Location: [facility] Status: Signed Intake Vital Signs 03/26/24 10:28 11/03/24 08:07 Height 5 ft 7 in Weight: 215 lb BMI 33.6 BP 132/68 H 120/68 Blood Pressure Location Lt brachial Lt brachial Position Sitting Sitting Respiration 16 16 Pulse 72 64 Pulse Source Monitor NIBP Temp 98.7 F 98.2 F Temp Source Oral Oral Pulse Oximetry (%) 100 96 Oxygen Delivery Method room air room air Intake Visit Reasons: CONCERN FOR SINUS INFECTION Chief Complaint: MIMI JAY, dizzana paula 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: No Is patient in pain?: No Allergies nitrofurantoin (From Macrobid) Allergy (Mild, Verified 11/03/24 08:09) Rash ciprofloxacin (From Cipro) Allergy (Verified 11/03/24 08:09) Itching Penicillins (PCN) Allergy (Verified 11/03/24 08:09) Hives Sulfa (Sulfonamide Antibiotics) Allergy (Verified 11/03/24 08:09) Hives atorvastatin (From Lipitor) Adverse Reaction (Severe, Verified 11/03/24 08:09) Myalgias pravastatin (From Pravachol) Adverse Reaction (Intermediate, Verified 11/03/24 08:09) Myalgias Medications ???Medication ???Instructions ???Recorded ???Confirmed ???Type xooire-bepdtavc-qpxqydb 3 cap PO TID #320 caps 09/14/23 Rx 3,000-9,500-15,000 unit capsule, delayed rel (Creon) omeprazole 20 mg capsule,delayed 20 mg PO QDAY PRN 06/18/24 5 History release propranolol 10 mg tablet 10 mg PO .COMPLEX #30 tabs 5 11/03/24 Rx Is last menstrual period known: No Post menopausal: Yes Patient : No Have you fallen in the past year?: No Nurse's Note: MIMI JAY, ears plugged. was dizzy yesterday but has resolved. denies cough, congestion, face pain, drainage, fever. 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 -sx started 3 days ago -sx headache and ear pain. No cough. + runny nose. No fever or chills. Admits to having allergies -has chronic lightheadedness- this is not new- none today- only drinks about 16 ounces water per day -tried so far Tylenol- no allergy meds in past 2 days, no allergy nasal sprays or saline nasal sprays ROS Const Constitutional: Positive for other (ROS negative x6 except what was placed in HPI) Exam Const General: cooperative, comfortable and no acute distress Orientation: alert, awake and oriented x3 [facility] Head: normal to inspection and normocephalic Ears: hearing grossly normal bilaterally, external ears normal and TM's normal bilaterally Nose: external nose normal and other (+ clear drainage- pale boggy turbinates ) Face and sinus: normal facial exam, sinuses nontender and face symmetric Mouth: oral mucosae normal, lip normal, tongue normal, oropharynx normal and moist mucous membranes Throat: posterior oropharynx normal, tonsils normal, uvula midline and postnasal drainage Neck Neck: normal visual inspection, full ROM and no lymphadenopathy Resp Effort Inspection: normal respiratory effort, able to speak in complete sentences and symmetric chest movement Auscultation: Bilateral: Clear to Auscultation, Left: Clear to Auscultation and Right: Clear to Auscultation Cardio Rate: regular rate Rhythm: regular rhythm Heart Sounds: S1 normal and S2 normal GI Auscultation: normal bowel sounds Palpation: soft Skin General: no rashes or lesions noted and turgor normal Neuro General: patient alert, patient awake and patient oriented x3 Cognition: normal cognition Speech: speech normal Psych Appearance: grossly normal Me (more content not included)... Normal [facility] Absolute lymphocyte countOrd ered By: Kasey Nicole on 10-03-2024 Lymphocytes Auto (Unsp spec) [#/Vol] 1.95 10*3/uL 0.83-4.51 [facility] Absolute neutrophil countOrd ered By: Kasey Nicole on 10-03-2024 Neutrophils (Bld) [#/Vol] 2.5 10*3/uL 2.0-7.7 [facility] Anion gap in Serum or Plasma Ordered By: Kasey Nicole on 10-03-2024 Anion gap [Moles/Vol] 12 mmol/L 5-15 [facility] Automated lymphocyte count a s percentage of total leukocytesOrdered By: Kasey Nicole on 10-03-2024 Lymphocytes/100 WBC Auto (Unsp spec) 39.2 % - [facility] BUN/creatinine ratioOrdered By: Kasey Nicole on 10-03-2024 Urea nitrogen/Creatinine [Mass ratio] 22.6 mg/mg High 10-20 [facility] Basophil percentageOrdered B y: Kasey Nicole on 10-03-2024 Basophils/100 WBC (Bld) 0.6 % 0-1 [facility] Bilirubin, totalOrdered By: Kasey Nicole on 10-03-2024 Bilirubin [Mass/Vol] 0.41 mg/dL 0.00-1.30 [facility] CBC W/Diff, Automatedon 09-06 Absolute Lymph 1.95 X10 3/uL Normal 0.83-4.51 [facility] Comment on above: Order Comment: Order Date: 10/03/24 Order Info: 0184-1 - CBCD Performed By: #### L 503.5395, L500.4050, L100.0100, L501.9520 #### [facility] [address] [place], [address] Absolute Neut 2.5 X10 3/uL Normal 2.0-7.7 [facility] Comment on above: Order Comment: Order Date: 10/03/24 Order Info: 0184-1 - CBCD Performed By: #### L 503.6150, L500.4050, L100.0100, L501.9520 #### [facility] [address] [place], [address] Basophils/100 WBC (Bld) 0.6 % Normal 0-1 [facility] Comment on above: Order Comment: Order Date: 10/03/24 Order Info: 0184-1 - CBCD Performed By: #### L 503.6150, L500.4050, L100.0100, L501.9520 #### [facility] [address] [place], [address] Eosinophils/100 WBC (Bld) 1.6 % Normal 0-5 [facility] Comment on above: Order Comment: Order Date: 10/03/24 Order Info: 0184- - CBCD Performed By: #### L 503.6150, L500.4050, L100.0100, L501.9520 #### [facility] [address] [place], [address] Erythrocyte distribution width (RBC) [Ratio] 14.0 % Normal 11.6-14.6 [facility] Comment on above: Order Comment: Order Date: 10/03/24 Order Info: 0184-1 - CBCD Performed By: #### L 503.6150, L500.4050, L100.0100, L501.9520 #### [facility] [address] [place], [address] Hematocrit (Bld) [Volume fraction] 43.9 % Normal 37-47 [facility] Comment on above: Order Comment: Order Date: 10/03/24 Order Info: 0184-1 - CBCD Performed By: #### L 503.6150, L500.4050, L100.0100, L501.9520 #### [facility] [address] [place], [address] Hemoglobin (Bld) [Mass/Vol] 14.8 g/dL Normal 12.0-15.0 [facility] Comment on above: Order Comment: Order Date: 10/03/24 Order Info: 0184- - CBCD Performed By: #### L 503.6150, L500.4050, L100.0100, L501.9520 #### [facility] [address] [place], [address] IG% 0.200 Normal 0.0-0.9 [facility] Comment on above: Order Comment: Order Date: 10/03/24 Order Info: 018- - CBCD Result Comment: IG% - Immature Granulocytes (promyelocytes, myelocytes and metamyelocytes) > 1% indicates that a LEFT SHIFT is Present. Performed By: #### L 503.6150, L500.4050, L100.0100, L501.9520 #### [facility] [address] [place], [address] Lymphocytes/100 WBC (Bld) 39.2 % Normal 19-41 [facility] Comment on above: Order Comment: Order Date: 10/03/24 Order Info: 0184- - CBCD Performed By: #### L 503.6150, L500.4050, L100.0100, L501.9520 #### [facility] [address] [place], [address] MCH (RBC) [Entitic mass] 31.6 pg Normal 27.0-32.0 [facility] [facility] Comment on above: Order Comment: Order Date: 10/03/24 Order Info: 0184- - CBCD Performed By: #### L 503.6150, L500.4050, L100.0100, L501.9520 #### [facility] [address] [place], [address] MCHC (RBC) [Mass/Vol] 33.7 g/dL Normal 32-36 [facility] Comment on above: Order Comment: Order Date: 10/03/24 Order Info: 0184-1 - CBCD Performed By: #### L 503.6150, L500.4050, L100.0100, [id number] #### [facility] [address] [place], [address] MCV (RBC) [Entitic vol] 93.8 fL Normal 81-99 [facility] Comment on above: Order Comment: Order Date: 10/03/24 Order Info: 0184-1 - CBCD Performed By: #### L 503.6150, L500.4050, L100.0100, [id number] #### [facility] [address] [place], [address] Monocytes/100 WBC (Bld) 7.2 % Normal 0-10 [facility] Comment on above: Order Comment: Order Date: 10/03/24 Order Info: 0184-1 - CBCD Performed By: #### L 503.6150, L500.4050, L100.0100, [id number] #### [facility] [address] [place], [address] Neutrophils/100 WBC (Bld) 51.2 % Normal 47-70 [facility] Comment on above: Order Comment: Order Date: 10/03/24 Order Info: 0184-1 - CBCD Performed By: #### L 503.6150, L500.4050, L100.0100, [id number] #### [facility] [address] [place], [address] Nucleated RBC (Bld) [#/Vol] 0 10*3/uL Normal 0-5 [facility] Comment on above: Order Comment: Order Date: 10/03/24 Order Info: 0184-1 - CBCD Performed By: #### L 503.6150, L500.4050, L100.0100, L501.9520 #### [facility] [address] [place], [address] Platelet mean volume (Bld) [Entitic vol] 11.0 fL Normal 6.2-12.0 [facility] Comment on above: Order Comment: Order Date: 10/03/24 Order Info: 0184-1 - CBCD Performed By: #### L 503.6150, L500.4050, L100.0100, L501.9520 #### [facility] [address] [place], [address] Platelets (Bld) [#/Vol] 245 10*3/uL Normal 150-450 [facility] Comment on above: Order Comment: Order Date: 10/03/24 Order Info: 0184- - CBCD Performed By: #### L 503.6150, L500.4050, L100.0100, L501.9520 #### [facility] [address] [place], [address] RBC (Bld) [#/Vol] 4.68 10*6/uL Normal 4.2-5.4 [facility] Comment on above: Order Comment: Order Date: 10/03/24 Order Info: 0184-1 - CBCD Performed By: #### L 503.6150, L500.4050, L100.0100, L501.9520 #### [facility] [address] [place], [address] RDW SD 47.9 fl High 35.1-43.9 [facility] Comment on above: Order Comment: Order Date: 10/03/24 Order Info: 0184-1 - CBCD Performed By: #### L 503.6150, L500.4050, L100.0100, L501.9520 #### [facility] [address] [place], [address] WBC (Bld) [#/Vol] 5.0 10*3/uL Normal 4.4-11.0 [facility] Comment on above: Order Comment: Order Date: 10/03/24 Order Info: 0184-1 - CBCD Performed By: #### L 503.6150, L500.4050, L100.0100, L501.9520 #### [facility] [address] [place], [address] Carbon dioxide, total [Moles /volume] in Central venous bloodOrdered By: Kasey Nicole on 10-03-2024 CO2 [Moles/Vol] 24.5 mmol/L 21.0-32.0 [facility] Chloride assayOrdered By: Tuan Nicole on 10-03-2024 Chloride [Moles/Vol] 105 mmol/L 98-108 [facility] Comprehensive Metabolic Prof ilon 10-03-2024 Albumin [Mass/Vol] 4.0 g/dL Normal 3.4-4.8 [facility] Comment on above: Order Comment: Order Date: 10/03/24 Order Info: 0786-1 - CMP Order Info: 3016-3 - TSH Order Info: 2498-4 - FE Performed By: #### L 503.6150, L500.4050, L100.0100, L501.9520 #### [facility] [address] [place], [address] Albumin/Globulin [Mass ratio] 1.2 {ratio} Normal 0.9-2.4 [facility] Comment on above: Order Comment: Order Date: 10/03/24 Order Info: 0786-1 - CMP Order Info: 3016-3 - TSH Order Info: 2498-4 - FE Performed By: #### L 503.6150, L500.4050, L100.0100, L501.9520 #### [facility] [address] [place], [address] ALK PHOS 101 U/L Normal 35-104 [facility] Comment on above: Order Comment: Order Date: 10/03/24 Order Info: 0786-1 - CMP Order Info: 3015-08 - TSH Order Info: 2494 - FE Performed By: #### L 503.6150, L500.4050, L100.0100, L501.9520 #### [facility] [address] [place], [address] ALT [Catalytic activity/Vol] 22 U/L Normal <=34 [facility] Comment on above: Order Comment: Order Date: 10/03/24 Order Info: 0786-1 - CMP Order Info: 3015-08 - TSH Order Info: 2497-09 - FE Performed By: #### L 503.6150, L500.4050, L100.0100, L501.9520 #### [facility] [address] [place], [address] AST [Catalytic activity/Vol] 29 U/L Normal <=31 [facility] Comment on above: Order Comment: Order Date: 10/03/24 Order Info: 0786- - CMP Order Info: 3015-08 - TSH Order Info: 2497-09 - FE Performed By: #### L 503.6150, L500.4050, L100.0100, L501.9520 #### [facility] [address] [place], [address] Bilirubin [Mass/Vol] 0.41 mg/dL Normal 0.00-1.30 [facility] Comment on above: Order Comment: Order Date: 10/03/24 Order Info: 0786-1 - CMP Order Info: 3015-08 - TSH Order Info: 2497-09 - FE Performed By: #### L 503.6150, L500.4050, L100.0100, L501.9520 #### [facility] [address] [place], [address] BUN/CRE 22.6 RATIO High 10-20 [facility] Comment on above: Order Comment: Order Date: 10/03/24 Order Info: 0786-1 - CMP Order Info: 3015-08 - TSH Order Info: 4 - FE Performed By: #### L 503.6150, L500.4050, L100.0100, L501.9520 #### [facility] [address] [place], [address] Calcium [Mass/Vol] 9.6 mg/dL Normal 7.6-11.0 [facility] Comment on above: Order Comment: Order Date: 10/03/24 Order Info: 071 - CMP Order Info: 3015-08 - TSH Order Info: 2497-09 - FE Performed By: #### L 503.6150, L500.4050, L100.0100, L501.9520 #### [facility] [address] [place], [address] Chloride [Moles/Vol] 105 mmol/L Normal 98-108 [facility] Comment on above: Order Comment: Order Date: 10/03/24 Order Info: 0786- - CMP Order Info: 3015-08 - TSH Order Info: 2497-09 - FE Performed By: #### L 503.6150, L500.4050, L100.0100, L501.9520 #### [facility] [address] [place], [address] CO2 [Moles/Vol] 24.5 mmol/L Normal 21.0-32.0 [facility] Comment on above: Order Comment: Order Date: 10/03/24 Order Info: 0786-1 - CMP Order Info: 3015-08 - TSH Order Info: 2497-09 - FE Performed By: #### L 503.6150, L500.4050, L100.0100, L501.9520 #### [facility] [address] [place], [address] Creatinine [Mass/Vol] 0.78 mg/dL Normal 0.70-1.20 [facility] Comment on above: Order Comment: Order Date: 10/03/24 Order Info: 785-1 - CMP Order Info: 3015-08 - TSH Order Info: 2494 - FE Performed By: #### L 503.6150, L500.4050, L100.0100, L501.9520 #### [facility] [address] [place], [address] GAP 12 Normal 5-15 [facility] Comment on above: Order Comment: Order Date: 10/03/24 Order Info: 785-1 - CMP Order Info: 3 - TSH Order Info: 2497-09 - FE Performed By: #### L 503.6150, L500.4050, L100.0100, L501.9520 #### [facility] [address] [place], [address] GFR/1.73 sq M.predicted among non-blacks MDRD (S/P/Bld) [Vol rate/Area] 79 mL/min/{1.73_m2} Normal >60 [facility] Comment on above: Order Comment: Order Date: 10/03/24 Order Info: 785-06 - CMP Order Info: 3 - TSH Order Info: 24901-07 - FE Result Comment: mL/m in/1.73m2 CKD-EPI Creatinine Equation (2020) Performed By: #### L 503.6150, L500.4050, L100.0100, L501.9520 #### [facility] [address] [place], [address] Globulin (S) [Mass/Vol] 3.2 g/dL Normal 2.2-4.2 [facility] Comment on above: Order Comment: Order Date: 10/03/24 Order Info: 785-1 - CMP Order Info: 3 - TSH Order Info: 2494 - FE Performed By: #### L 503.6150, L500.4050, L100.0100, L501.9520 #### [facility] [address] [place], [address] Glucose [Mass/Vol] 99 mg/dL Normal 70-99 [facility] Comment on above: Order Comment: Order Date: 10/03/24 Order Info: 07-1 - CMP Order Info: 3015-08 - TSH Order Info: 4 - FE Performed By: #### L 503.6150, L500.4050, L100.0100, L501.9520 #### [facility] [address] [place], [address] Potassium [Moles/Vol] 4.3 mmol/L Normal 3.3-5.1 [facility] Comment on above: Order Comment: Order Date: 10/03/24 Order Info: 785-06 - CMP Order Info: 3015-08 TSH Order Info: 2494 - FE Performed By: #### L 503.6150, L500.4050, L100.0100, L501.9520 #### [facility] [address] [place], [address] Sodium [Moles/Vol] 141 mmol/L Normal 133-145 [facility] Comment on above: Order Comment: Order Date: 10/03/24 Order Info: 0786 - CMP Order Info: 3015-08 TSH Order Info: 2494 - FE Performed By: #### L 503.6150, L500.4050, L100.0100, L501.9520 #### [facility] [address] [place], [address] T PROT 7.2 g/dL Normal 5.9-8.4 [facility] Comment on above: Order Comment: Order Date: 10/03/24 Order Info: 0786-1 - CMP Order Info: 3015-08 - TSH Order Info: 2494 - FE Performed By: #### L 503.6150, L500.4050, L100.0100, L501.9520 #### [facility] [address] [place], [place], [address] Urea nitrogen [Mass/Vol] 18 mg/dL Normal 4-19 [facility] Comment on above: Order Comment: Order Date: 10/03/24 Order Info: 0786-1 - CMP Order Info: 3016-3 - TSH Order Info: 2498-4 - FE Performed By: #### L 503.6150, L500.4050, L100.0100, L501.9520 #### [facility] [address] [place], [address] Eosinophil percentageOrdered By: Kasey Nicole on 10-03-2024 Eosinophils/100 WBC (Bld) 1.6 % 0-5 [facility] Erythrocyte distribution wid th ratioOrdered By: Kasey Nicole on 10-03-2024 Erythrocyte distribution width (RBC) [Ratio] 14.0 % 11.6-14.6 [facility] Erythrocyte distribution wid th standard deviationOrdered By: Kasey Nicole on 10-03-2024 Erythrocyte distribution width (RBC) [Ratio] 47.9 fl High 35.1-43.9 [facility] Glomerular filtration rate ( GFR) estimation/1.73 sq m using serum, plasma, or whole bOrdered By: Kasey Nicole on 10-03-2024 GFR/1.73 sq M.predicted among non-blacks MDRD (S/P/Bld) [Vol rate/Area] 79 mL/min/{1.73_m2} >60 [facility] Comment on above: mL/min/1.73m2 CKD-EP I Creatinine Equation (2020) Hematocrit Auto (Bld) [Volum e fraction]Ordered By: Kasey Nicole on 10-03-2024 Hematocrit (Bld) [Volume fraction] 43.9 % 37-47 [facility] Hemoglobin measurementOrdere d By: Kasey Nicole on 10-03-2024 Hemoglobin (Bld) [Mass/Vol] 14.8 g/dL 12.0-15.0 [facility] Immature granulocytes/100 WB C Auto (Bld)Ordered By: Kasey Nicole on 10-03-2024 Immature granulocytes/100 WBC (Bld) 0.200 % 0.0-0.9 [facility] Comment on above: IG% - Immature Granu locytes (promyelocytes, myelocytes and metamyelocytes) > 1% indicates that a LEFT SHIFT is Present. Ironon 10-03-2024 Iron [Mass/Vol] 106 ug/dL Normal 50-170 [facility] Comment on above: Order Comment: Order Date: 10/03/24 Order Info: 0786-1 - CMP Order Info: 3016-3 - TSH Order Info: 2498-4 - FE Performed By: #### L 503.6150, L500.4050, L100.0100, L501.9520 #### [facility] [address] [place], [address] Iron measurement (mass/mass) Ordered By: Kasey Nicole on 10-03-2024 Iron (Unsp spec) [Mass/Mass] 106 ug/dL 50-170 [facility] - Chemistry and C hemistry - challengeOrdered By: Kasey Nicole on 10-03-2024 AST [Catalytic activity/Vol] 29 U/L <32 [facility] MCV (mean corpuscular volume ) determinationOrdered By: Kasey Nicole on 10-03-2024 MCV (RBC) [Entitic vol] 93.8 fL 81-99 [facility] Mean corpuscular hemoglobin (MCH) determinationOrdered By: Kasey Nicole on 10-03-2024 MCH (RBC) [Entitic mass] 31.6 pg 27.0-32.0 [facility] Mean corpuscular hemoglobin concentration (MCHC) determinationOrdered By: Kasey Nicole on 10-03-2024 MCHC (RBC) [Mass/Vol] 33.7 g/dL 32-36 [facility] Mean platelet volume determi nationOrdered By: Kasey Nicole on 10-03-2024 Platelet mean volume (Bld) [Entitic vol] 11.0 fL 6.2-12.0 [facility] Monocyte percentageOrdered B y: Kasey Nicole on 10-03-2024 Monocytes/100 WBC (Bld) 7.2 % 0-10 [facility] Neutrophil percentageOrdered By: Kasey Nicole on 10-03-2024 Neutrophils/100 WBC (Bld) 51.2 % 47-70 [facility] Nucleated red blood cell per centageOrdered By: Kasey Nicole on 10-03-2024 Nucleated RBC/100 WBC (Bld) [Ratio] 0 % 0-5 [facility] Platelet countOrdered By: Tuan Nicole on 10-03-2024 Platelets (Bld) [#/Vol] 245 10*3/uL 150-450 [facility] Potassium measurement (mass/ volume)Ordered By: Kasey Nicole on 10-03-2024 Potassium (Unsp spec) [Mass/Vol] 4.3 mmol/L 3.3-5.1 [facility] RBC Auto (Bld) [#/Vol]Ordere d By: Kasey Nicole on 10-03-2024 RBC (Bld) [#/Vol] 4.68 10*6/uL 4.2-5.4 [facility] Serum creatinine measurement (mass/volume)Ordered By: Kasey Nicole on 10-03-2024 Creatinine [Mass/Vol] 0.78 mg/dL 0.70-1.20 [facility] Serum globulin measurementOr dered By: Kasey Nicole on 10-03-2024 Globulin (S) [Mass/Vol] 3.2 g/dL 2.2-4.2 [facility] Serum glucose measurement (m ass/volume)Ordered By: Kasey Nicole on 10-03-2024 Glucose [Mass/Vol] 99 mg/dL 70-99 [facility] Serum or plasma alanine johnson otransferase (ALT) measurementOrdered By: Kasey Nicole on 10-03-2024 ALT [Catalytic activity/Vol] 22 U/L <35 [facility] Serum or plasma albumin devendra urement (mass/volume)Ordered By: Kasey Nicole on 10-03-2024 Albumin [Mass/Vol] 4.0 g/dL 3.4-4.8 [facility] Serum or plasma albumin/glob ulin mass ratioOrdered By: Kasey Nicole on 10-03-2024 Albumin/Globulin [Mass ratio] 1.2 {ratio} 0.9-2.4 [facility] Serum or plasma alkaline allison sphatase measurementOrdered By: Kasey Nicole on 10-03-2024 ALP [Catalytic activity/Vol] 101 U/L 35-104 [facility] Serum or plasma calcium devendra urement (mass/volume)Ordered By: Kasey Nicole on 10-03-2024 Calcium [Mass/Vol] 9.6 mg/dL 7.6-11.0 [facility] Serum or plasma urea nitroge n measurement (mass/volume)Ordered By: Kasey Nicole on 10-03-2024 Urea nitrogen [Mass/Vol] 18 mg/dL 4-19 [facility] Sodium levelOrdered By: Tina Nicole on 10-03-2024 Sodium [Moles/Vol] 141 mmol/L 133-145 [facility] TSH DL <= 0.005 mIU/L QnOrde red By: Kasey Nicole on 10-03-2024 TSH Qn 1.140 uIU/mL 0.300-4.200 [facility] Thyroid Stim Hormone (TSH)on 10-03-2024 TSH 1.140 uIU/mL Normal 0.300-4.200 [facility] Comment on above: Order Comment: Order Date: 10/03/24 Order Info: 0786-1 - CMP Order Info: 3016-3 - TSH Order Info: 2498-4 - FE Performed By: #### L 503.6150, L500.4050, L100.0100, L501.9520 #### [facility] [address] [place], [place], [address] Total proteinOrdered By: Susan Nicole on 10-03-2024 Protein [Mass/Vol] 7.2 g/dL 5.9-8.4 [facility] Vitamin B12on 10-03-2024 Cobalamin (Vitamin B12) [Mass/Vol] 540 pg/mL Normal 180-914 [facility] Comment on above: Order Comment: Order Date: 10/03/24 Order Info: 0184-1 - CBCD Performed By: #### L 503.6150, L500.4050, L100.0100, L501.9520 #### [facility] [address] [place], [address] Vitamin B12 ser/plasOrdered By: Kasey Nicole on 10-03-2024 Cobalamin (Vitamin B12) [Mass/Vol] 540 pg/mL 180-914 [facility] Vitamin D,25 Hydroxyon 10-03 Vitamin D 25-OH 37.1 ng/mL Normal 30-100 [facility] Comment on above: Order Comment: Order Date: 10/03/24 Order Info: 0184-1 - CBCD Result Comment: Xiomara min D Status Deficiency: <20 ng/mL (50nmol/L) Insufficiency: 20-30 ng/mL (50-75 nmol/L) Sufficiency: 30-100 ng/mL (75-250 nmol/L) Toxicity: >100 ng/mL (>250 nmol/L) Performed By: #### L 503.6150, L500.4050, L100.0100, L501.9520 #### [facility] [address] [place], [address] White blood cell (WBC) count Ordered By: Kasey Nicole on 10-03-2024 WBC (Bld) [#/Vol] 5.0 10*3/uL 4.4-11.0 [facility] Gastroenterology Visit Repor ton 06-18-2024 Gastroenterology Visit Report [facility] [address] [place] [address] OFFICE VISIT Date of Service: 06/18/24 MR#: [id number] Acct: [id number] Name: LANDON CASE Misty Rep #: [id number] : 1945 Provider: Harsh Andres DO Age/Sex: 79/F [place] [facility] [place]: Signed Intake Vital Signs 11/08/23 07:57 03/26/24 10:28 Height 5 ft 7 in 5 ft 7 in Intake Visit Reasons: 6 M FU Chief Complaint: SORE THROAT EAR PAIN Allergies nitrofurantoin (From Macrobid) Allergy (Mild, Verified 03/26/24 10:29) Rash ciprofloxacin (From Cipro) Allergy (Verified 03/26/24 10:29) Itching Penicillins (PCN) Allergy (Verified 03/26/24 10:29) Hives Sulfa (Sulfonamide Antibiotics) Allergy (Verified 03/26/24 10:29) Hives atorvastatin (From Lipitor) Adverse Reaction (Severe, Verified 03/26/24 10:29) Myalgias pravastatin (From Pravachol) Adverse Reaction (Intermediate, Verified 03/26/24 10:29) Myalgias Medications ???Medication ???Instructions ???Recorded ???Confirmed ???Type ypgsva-qmyopkwy-gvexwey 3 cap PO TID #320 caps 09/14/23 06/18/24 Rx 3,000-9,500-15,000 unit capsule, delayed rel (Creon) propranolol 40 mg tablet 20 mg PO DAILY 02/03/24 06/18/24 History omeprazole 20 mg capsule,delayed 20 mg PO QDAY PRN 06/18/24 06/18/24 History release Have you fallen in the past year?: No PFSH Medical History Dizziness Earache, right (Unknown) RUQ abdominal pain Irritable bowel syndrome (IBS) Seasonal allergies Nonrheumatic mitral (valve) prolapse Pure hypercholesterolemia Lightheadedness Chest pain Palpitations detention use of drug Surgical History History of knee replacement History of hip replacement H/O laminectomy FH: cholecystectomy Family History Father CAD (coronary artery disease) Myocardial infarction Brother CAD (coronary artery disease) Colon cancer Myocardial infarction Mother No problems noted. Social History Smoking Status: Never smoker alcohol intake: never caffeine: Yes Type: other what type of physical activity do you participate in: none HPI HPI Chief Complaint: SORE THROAT EAR PAIN Details: LANDON CASE, is a 79 F who presents to the office today for follow up. EGD and colonoscopy 06.19.15 noting sigmoid and descending colon diverticula. ? US RUQ 09.15.20 for RUQ pain noting fatty infiltration of liver. ? CT abd/pel 05.01.21 for RUQ pain noting diffuse hepatic steatosis; 1.4cm mass on L kidney. Upon review in office it is noted that there is chronic pancreatitis. *BGI established 12.21.21 reflux and abdominal discomfort started following cholecystectomy in 1992 with progressive worsening since early 2020. Current symptoms include RUQ pain, bloating and belching with a trigger to include dairy. ? Biochemical workup LDH, ESR, celiac, GAME, CLAIRE comp, ANCA, JASON without pertinent abnormalities CRP H4.24 Stool testing calprotectin, ova/parasites, lactoferrin, giardia, pancreatic elastase not performed. ? US RUQ 12.30.21 hepatic measurement 12.9cm with mildly fatty infiltration. Cholecystectomy. OV 03.16.22 Her has recently passed and because of this she is having a lot of stomach upset. RUQ discomfort continues to be an issue. ? Biochemical workup ESR, amylase, lipase, CA19-9 without pertinent abnormality. CRP H53.90? Stool testing lactoferrin, elastase, ova/parasite, giardia, fecal fat, calprotectin from encouraged, though not performed. Creon start 03.19.22 ? US RUQ ordered 03.16.22 not performed. OV 12.14.22 reports she is doing well at this time without active symptoms that required addressing at this time; would not like any further testing at this time either. Notes that increased stress is a contributing factor with her symptoms. ? Biochemical ESR, LDH, CPK, CRP, amylase, lipase, aldolase, CA19-9, TSH, cortisol, IgG subclasses, GAME, JASON, ANCA, celiac without pertinent abnormality. Contact, 12.22.22 with results. OV 06.15.23 feels she is doing very well at this time; She does have some right sided abdominal pain, but only with pressure in the area. Continues with Creon. Abdomen/Pelvis CT 06.27.23 1. Stable small left renal lesion unchanged since prior examinations. 2. No focal acute inflammatory process (more content not included)... Normal [facility] 12 Lead EKG performed by [facility] on 03-26-2024 12 Lead EKG performed by [facility] [address] [place] [address] 12 Lead EKG performed by [facility] 03/26/24 0744 MR#: [id number] Acct: [id number] Name: LANDON CASE Rep #: [id number] : 1945 78 From: Nellie Jay Attending Dr: BRI Hodges Status: DEP AMB Ordering Dr: Nellie Hendersno Date: 03/07 06/29 Location: [facility] [place] Sex: F C Admitted: [facility]/12 Lead EKG performed by [facility] ECG Report Interpretation Sinus Rhythm - Nonspecific T-abnormality. ABNORMAL Electronically signed on 03/29/2024 at 08:42 by [employer] Version [id number] 03/29/24 0847 Date Nellie GREGORY CC: Dr. Kasey Nicole MD Date Dictated: 03/26/24743 Date Transcribed: 03/26/24743 Office System Analyst: KALEB Signed Normal [facility] Cardiology Visit Reporton Cardiology Visit Report [facility] [address] [place] [address] OFFICE VISIT Date of Service: 03/26/24 MR#: [id number] Acct: [id number] Name: LANDON CASE Rep #: [id number] : 1945 Provider: BRI Longoria Age/Sex: 78/F Location: [facility] Status: Signed HPI HPI History of Present Illness Details: Landon Case is a 78-year-old white female with a history of palpitations, MVP, and hyperlipidemia (statin intolerant). Pt is concerned about lightheadedness/dizziness. The room does not spin. She just feels lightheaded and it is all the time. She has discussed this with her primary care doctor and has been to several other physicians for this. She also feels fatigued. She is nauseated. She is seeing Dr. Andres for this. She does feel her heart races at times. She had a 14-day event monitor this was negative. She did not have any arrhythmias that correlated with any of her symptoms. Predominant rhythm was sinus rhythm with rare PACs and rare PVCs. Intake Vital Signs 01/03/24 08:11 03/09/24 16:03 03/26/24 09:19 03/26/24 09:21 Height 5 ft 7 in 5 ft 7 in 5 ft 7 in 5 ft 7 in Weight: 216 lb BMI 33.8 BP 110/75 Blood Pressure Location Rt brachial Position Sitting Respiration 18 Pulse 66 Pulse Source Monitor Pulse Oximetry (%) 95 Intake Visit Reasons: S/P tilt table study, rick Deleon 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: No Is patient in pain?: No Allergies nitrofurantoin (From Macrobid) Allergy (Mild, Verified 03/26/24 10:29) Rash ciprofloxacin (From Cipro) Allergy (Verified 03/26/24 10:29) Itching Penicillins (PCN) Allergy (Verified 03/26/24 10:29) Hives Sulfa (Sulfonamide Antibiotics) Allergy (Verified 03/26/24 10:29) Hives atorvastatin (From Lipitor) Adverse Reaction (Severe, Verified 03/26/24 10:29) Myalgias pravastatin (From Pravachol) Adverse Reaction (Intermediate, Verified 03/26/24 10:29) Myalgias Medications ???Medication ???Instructions ???Recorded ???Confirmed ???Type vqgwcf-czfmlzwt-rtkaaov 3 cap PO TID #320 caps 09/14/23 03/26/24 Rx 3,000-9,500-15,000 unit capsule, delayed rel (Creon) propranolol 40 mg tablet 20 mg PO DAILY 02/03/24 03/26/24 History azithromycin 250 mg tablet 250 mg PO .COMPLEX #12 tabs 03/26/24 03/26/24 Rx Have you fallen in the past year?: No PFSH Medical History Dizziness Earache, right (Unknown) RUQ abdominal pain Irritable bowel syndrome (IBS) Seasonal allergies Nonrheumatic mitral (valve) prolapse Pure hypercholesterolemia Lightheadedness Chest pain 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 Social History Smoking Status: Never smoker alcohol intake: never caffeine: Yes Type: other what type of physical activity do you participate in: none ROS Const Const: Positive for fatigue, weakness and body ache; Negative for headache(s) Eyes Eyes: Negative for transient loss of vision or change in vision ENT ENT: Positive for dizziness (continous); Negative for headache(s) or hearing loss Cardio Chest Pain: No Palpitations: Yes (feels fast, monitor was negative) Edema: None (uses compression stockings) Muscle aches with walking: None Resp Respiratory: Negative for SOB with activity, SOB at rest or SOB orthopnea SOB lying down GI GI: Positive for nausea; Negative vomiting or heartburn Neuro Neuro: Positive for dizziness (continous) and weakness; Negative for headache(s) Endo Endo: Positive for fatigue Cardiology Exam Const Appearance: cooperative and comfortable Nutritional Appearance: overweight Head Head: normal to inspection Eyes General: appearance normal, both eyes and all related structures Neck Neck: normal visual inspection and no JVD Carotids: Negative bruit Chest Chest inspection: normal inspection of the chest Auscultation: Bilateral: Clear to Auscultation Cardio Palpation: other (Distant heart tones) Rate: regular rate Rhythm: regular rhythm Heart sounds: S1 normal and S2 normal; Negative rub, gallop or murmur GI GI: normal to inspection and bowel sounds present Neuro General: patient alert and patient oriented x3 Skin Skin: no rashes or lesions noted Extremities Lower Extremity Edema: None: Bilateral Psych Psychological: normal affect Beasley (more content not included)... Normal [facility] Urgent Care Visit Reporton 1 Urgent Care Visit Report [facility] [address], [address] [place] [address] OFFICE VISIT Date of Service: 03/26/24 MR#: [id number] Acct: [id number] Name: LANDON CASE Rep #: [id number] : 1945 Provider: BRI Segovia Age/Sex: 78/F Location: [facility] Status: Signed Intake Vital Signs 03/26/24 09:21 03/26/24 10:28 Height 5 ft 7 in 5 ft 7 in Weight: 215 lb BMI 33.6 BP 132/68 H Blood Pressure Location Lt brachial Position Sitting Respiration 16 Pulse 72 Pulse Source Monitor Temp 98.7 F Temp Source Oral Pulse Oximetry (%) 100 Oxygen Delivery Method room air Intake Visit Reasons: SORE THROAT, EAR PAIN Chief Complaint: SORE THROAT EAR PAIN 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: No Accompanied by: Self Is patient in pain?: Yes Allergies nitrofurantoin (From Macrobid) Allergy (Mild, Verified 03/26/24 10:29) Rash ciprofloxacin (From Cipro) Allergy (Verified 03/26/24 10:29) Itching Penicillins (PCN) Allergy (Verified 03/26/24 10:29) Hives Sulfa (Sulfonamide Antibiotics) Allergy (Verified 03/26/24 10:29) Hives atorvastatin (From Lipitor) Adverse Reaction (Severe, Verified 03/26/24 10:29) Myalgias pravastatin (From Pravachol) Adverse Reaction (Intermediate, Verified 03/26/24 10:29) Myalgias Medications ???Medication ???Instructions ???Recorded ???Confirmed ???Type tbhvgr-vxrbocbd-ymuergk 3 cap PO TID #320 caps 09/14/23 03/26/24 Rx 3,000-9,500-15,000 unit capsule, delayed rel (Creon) propranolol 40 mg tablet 20 mg PO DAILY 02/03/24 03/26/24 History azithromycin 250 mg tablet 250 mg PO .COMPLEX #12 tabs 03/26/24 03/26/24 Rx Have you fallen in the past year?: No PFSH Medical History Dizziness Earache, right (Unknown) RUQ abdominal pain Irritable bowel syndrome (IBS) Seasonal allergies Nonrheumatic mitral (valve) prolapse Pure hypercholesterolemia Lightheadedness Chest pain 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 Social History Smoking Status: Never smoker alcohol intake: never caffeine: Yes Type: other what type of physical activity do you participate in: none HPI HPI Chief Complaint: SORE THROAT EAR PAIN Details: LANDON CASE, is a 78 F who presents to the office today for [facility] evaluation at the [facility] for approximately 2-week history of progressively worsening facial pressure/congestion with purulent postnasal drip, nausea, and bilateral ear pressure. No complaints of fever, chills, myalgias, fatigue, runny nose, or vomiting/diarrhea. No complaints of chest pain/shortness of breath/dyspnea on exertion. Declining POC screening upon offering. No close contacts with similar complaints. No other associated symptoms and no other alleviating/aggravating factors. ROS Const Constitutional: No other (as above) Exam Const General: cooperative, healthy appearing and no acute distress Nutritional Appearance: average body habitus Orientation: alert, awake and oriented x3 HENMT Head: normal to inspection Ears: hearing grossly normal bilaterally, external ears normal, TM's normal bilaterally and EAC's normal Nose: external nose normal, nares normal, septum normal and no nasal discharge Face and sinus: normal facial exam, bilateral maxillary sinuses tender (with bilateral maxillary fullness to palpation) and face symmetric Mouth: oral mucosae normal, lip normal, tongue normal and oropharynx normal Throat: posterior oropharynx normal, tonsils normal, uvula midline and postnasal drainage (Purulent) Eyes General: appearance normal, both eyes and all related structures Neck Neck: normal visual inspection, full ROM, no meningeal signs, supple and lymphadenopathy (Bilateral anterior cervical lymph node swelling/tender to palpation) Neck mass: No Thyroid: thyroid normal Chest Chest palpation inspection: normal inspection of the chest Resp Effort Inspection: normal respiratory effort and able to speak in complete sentences Auscultation: Bilateral: Clear to Auscultation Cardio Palpation: normal PMI Rate: regular rate Rhythm: regular rhythm Heart Sounds: S1 normal, S2 normal, no gallops, no murmurs and no rubs Pulses: radial pulses present GI Inspection: normal to inspection Skin General: no rashes or lesions noted Neuro General: pat (more content not included)... Normal [facility] Gastroenterology Visit Repor ton 03-20-2024 Gastroenterology Visit Report [facility] [address] [place] [address] OFFICE VISIT Date of Service: 03/20/24 MR#: [id number] Acct: [id number] Name: LANDON CASE Rep #: [id number] : 1945 Provider: BRI Dawson Age/Sex: 78/F Location: [facility] Status: Signed Intake Vital Signs 03/09/24 16:03 Height 5 ft 7 in Intake Visit Reasons: Feeling unwell Chief Complaint: f/u Allergies nitrofurantoin (From Macrobid) Allergy (Mild, Verified 03/16/24 11:58) Rash ciprofloxacin (From Cipro) Allergy (Verified 03/16/24 11:58) Itching Penicillins (PCN) Allergy (Verified 03/16/24 11:58) Hives Sulfa (Sulfonamide Antibiotics) Allergy (Verified 03/16/24 11:58) Hives atorvastatin (From Lipitor) Adverse Reaction (Severe, Verified 03/16/24 11:58) Myalgias pravastatin (From Pravachol) Adverse Reaction (Intermediate, Verified 03/16/24 11:58) Myalgias Medications ???Medication ???Instructions ???Recorded ???Confirmed ???Type cdcvzz-hepbijyv-jhcgimt 3 cap PO TID #320 caps 09/14/23 03/20/24 Rx 3,000-9,500-15,000 unit capsule, delayed rel (Creon) omeprazole 20 mg capsule,delayed 20 mg PO BID PRN 01/03/24 03/20/24 History release propranolol 40 mg tablet 20 mg PO DAILY 02/03/24 03/20/24 History hydrocodone-acetaminophen 5-325mg 1 tab PO Q6H PRN PRN Pain 3 days 03/09/24 03/20/24 Rx 5mg-325mg #8 TABLETS dicyclomine 10 mg capsule 10 mg PO BID PRN abdominal pain 03/20/24 03/20/24 Rx #30 caps Have you fallen in the past year?: No PFSH Medical History (Updated 03/20/24 @ 08:37 by BRI Dawson) Dizziness Earache, right (Unknown) RUQ abdominal pain Irritable bowel syndrome (IBS) Seasonal allergies Nonrheumatic mitral (valve) prolapse Pure hypercholesterolemia Lightheadedness Chest pain 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 Social History Smoking Status: Never smoker alcohol intake: never caffeine: Yes Type: other what type of physical activity do you participate in: none HPI HPI Chief Complaint: f/u Details: LANDON CASE, is a 78 F who presents to the office today for f/u. Prior workup: EGD and colonoscopy 06.19.15 noting sigmoid and descending colon diverticula. ? US RUQ 09.15.20 for RUQ pain noting fatty infiltration of liver. ? CT abd/pel 05.01.21 for RUQ pain noting diffuse hepatic steatosis; 1.4cm mass on L kidney. Upon review in office it is noted that there is chronic pancreatitis. *BGI established 12.21.21 reflux and abdominal discomfort started following cholecystectomy in 1992 with progressive worsening since early 2020. Current symptoms include RUQ pain, bloating and belching with a trigger to include dairy. ? Biochemical workup LDH, ESR, celiac, GAME, CLAIRE comp, ANCA, JASON without pertinent abnormalities CRP H4.24 Stool testing calprotectin, ova/parasites, lactoferrin, giardia, pancreatic elastase not performed. ? US RUQ 12.30.21 hepatic measurement 12.9cm with mildly fatty infiltration. Cholecystectomy. OV 03.16.22 Her has recently passed and because of this she is having a lot of stomach upset. RUQ discomfort continues to be an issue. ? Biochemical workup ESR, amylase, lipase, CA19-9 without pertinent abnormality. CRP H53.90? Stool testing lactoferrin, elastase, ova/parasite, giardia, fecal fat, calprotectin from encouraged, though not performed. Creon start 03.19.22 ? US RUQ ordered 03.16.22 not performed. OV 12.14.22 reports she is doing well at this time without active symptoms that required addressing at this time; would not like any further testing at this time either. Notes that increased stress is a contributing factor with her symptoms. ? Biochemical ESR, LDH, CPK, CRP, amylase, lipase, aldolase, CA19-9, TSH, cortisol, IgG subclasses, GAME, JASON, ANCA, celiac without pertinent abnormality. Contact, 12.22.22 with results. OV 06.15.23 feels she is doing very well at this time; She does have some right sided abdominal pain, but only with pressure in the are (more content not included)... Normal [facility] Urgent Care Visit Reporton 1 Urgent Care Visit Report [facility] [address], [address] [place] [address] OFFICE VISIT Date of Service: 03/16/24 MR#: [id number] Acct: [id number] Name: LANDON CASE Rep #: [id number] : 1945 Provider: BRI Lima Age/Sex: 78/F Location: [facility] Status: Signed Intake Vital Signs 03/09/24 16:03 03/16/24 11:57 Height 5 ft 7 in BP 118/80 Blood Pressure Location Lt brachial Position Sitting Respiration 14 Pulse 94 Pulse Source Monitor Temp 98.6 F Temp Source Temporal Pulse Oximetry (%) 98 Oxygen Delivery Method room air Intake Visit Reasons: Nausea Chief Complaint: Cough with nausea Allergies nitrofurantoin (From Macrobid) Allergy (Mild, Verified 03/16/24 11:58) Rash ciprofloxacin (From Cipro) Allergy (Verified 03/16/24 11:58) Itching Penicillins (PCN) Allergy (Verified 03/16/24 11:58) Hives Sulfa (Sulfonamide Antibiotics) Allergy (Verified 03/16/24 11:58) Hives atorvastatin (From Lipitor) Adverse Reaction (Severe, Verified 03/16/24 11:58) Myalgias pravastatin (From Pravachol) Adverse Reaction (Intermediate, Verified 03/16/24 11:58) Myalgias Have you fallen in the past year?: No PFSH Medical History (Updated 03/16/24 @ 15:50 by Robson GREGORY, PA) Dizziness Earache, right (Unknown) RUQ abdominal pain Irritable bowel syndrome (IBS) Seasonal allergies Nonrheumatic mitral (valve) prolapse Pure hypercholesterolemia Lightheadedness Chest pain Palpitations detention use of drug Surgical History History of knee replacement History of hip replacement H/O laminectomy FH: cholecystectomy Family History Father CAD (coronary artery disease) Myocardial infarction Brother CAD (coronary artery disease) Colon cancer Myocardial infarction Mother No problems noted. Social History Smoking Status: Never smoker alcohol intake: never caffeine: Yes Type: other what type of physical activity do you participate in: none HPI HPI Chief Complaint: Cough with nausea Details: LANDON CASE, is a 78 F who presents to the office today for complaint of cough, congestion and nasal congestion. Patient states that she has had nausea along with the coughing spells. She denies fever, chills, sweats. No hemoptysis, shortness of breath or difficulty breathing. No hematochezia or hematemesis. No other associated symptoms or alleviating/aggravating factors. ROS Const Constitutional: No other (as above) Exam Const General: cooperative and well developed HENMT Head: normal to inspection and atraumatic Ears: hearing grossly normal bilaterally Nose: nasal discharge clear Face and sinus: normal facial exam Mouth: oral mucosae normal Throat: abnormal tonsil bilaterally hypertrophy 1+ Resp Effort Inspection: normal respiratory effort and no audible wheezes Auscultation: Bilateral: Clear to Auscultation Cardio Rate: regular rate Rhythm: regular rhythm Neuro General: patient alert Psych Appearance: grossly normal Mental Status: mental status grossly normal Results POC SARS AG POC SARS AG Negative Last Edit by Estee Owusu on 03/16/24 12:06 Coding Level of Care Code Off vis,new,level 3 Diagnoses Acute upper respiratory infection J06.9 Nausea R11.0 Assessment and Plan Assessment and Plan (1) Acute upper respiratory infection: Status: Acute Plan: Patient tested negative for COVID in the office today. Promethazine as prescribed today. Encouraged to get plenty of rest, drink lots of clear liquids, and use Tylenol or Ibuprofen (unless contraindicated) for fever and comfort. Patient also educated on other symptomatic management techniques. To be seen in 7-10 days if no improvement; sooner if worsening of symptoms. Patient advised of potential red flags and when appropriate to report to the ED. Patient verbalized understanding and agreement with all the above. (2) Nausea: Status: Acute Orders: Orders POC Rapid SARS Antigen Today Medications: New promethazine 25 mg PO Q4-6H PRN 20 tabs 0RF nausea and vomiting Clinical Quality Measures Falls Risk Screening/Assistive Devices Have you fallen in the past year?: No 03/16/24 1551 Date Robson Cruz Signature: Date (if applicable) CC: Normal [facility] Abdomen/Pelvis W IV Cont ONL Yon 03-09-2024 Abdomen/Pelvis W IV Cont ONLY [facility] Services [address] [place] [address] Abdomen/Pelvis W IV Cont ONLY MR#: [id number] Acct: [id number] Name: LANDON CASE Rep #: [id number] : 1945 F 78 From: Roby Bergman PCP: Dr. Kasey Nicole MD Status: REG ER Study: Abdomen/Pelvis W IV Cont ONLY Date of Exam: Exam# [id number] Ordering Dr: David Zheng TRIMMING OPERATOR-C [id number] STUDY: CT ABDOMEN AND PELVIS WITH CONTRAST REASON FOR EXAM: Female, 78 years old. hx of diverticulitis RADIATION DOSAGE (If Supplied By Facility): CTDIvol = ( 18.34 ) mGy, DLP = ( 1393.27 ) mGycm TECHNIQUE: IV 100mL Isovue-300 was administered. Transaxial images were obtained from the dome of the diaphragm to the symphysis pubis. Multiplanar coronal and sagittal images were reformatted. The protocol utilizes one or more of the following dose reduction techniques: automated exposure control, adjustment of mA and/or kV according to patient size,and/or use of iterative reconstruction technique. COMPARISON: Prior study dated: 02/26/2024 FINDINGS: The visualized lung bases are essentially unremarkable. The visualized portions of the heart are within normal limits. There is decreased attenuation of the liver consistent with steatosis. There are surgical clips in the gallbladder fossa consistent with a prior cholecystectomy. There are multiple benign calcified granulomata of the spleen. Normal pancreas. Normal bilateral adrenal glands. Moderate size hiatal hernia. Normal in caliber small bowel loops. Fecal retention. Diverticulosis of the sigmoid and descending colon. Previously noted acute diverticulitis has essentially resolved. The appendix is visualized and appears normal. There is mild atherosclerotic calcification of the abdominal aorta with elongation and tortuosity, but without a demonstrated aneurysm. No retroperitoneal adenopathy. Multiple small bilateral renal low-density lesion/cysts likely simple and no further follow-up exam is needed. No evidence of hydronephrosis. Normal urinary bladder. Significant artifacts and pelvic region from left hip arthroplasty. These result and ovaries are better evaluated by ultrasound. Normal abdominal wall. Degenerative changes of the spine. CT/Abdomen/Pelvis W IV Cont ONLY IMPRESSION: 1. Diverticulosis without evidence of acute diverticulitis at this time. 2. Hepatic steatosis. 3. No focal acute inflammatory process Electronically Signed: Roby Alford MD at 19:31 EDT , CC: KELLIE Zheng; Dr. Kasey Nicole MD Office System Analyst: Signed Normal [facility] CBC W/Diff, Automatedon 10-0 -2023 Absolute Lymph 2.12 X10 3/uL Normal 0.83-4.51 [facility] Comment on above: Performed By: #### L 500.4050, L100.0100, L503.6005, L501.2450 #### [facility] [address] [place], [address] Absolute Neut 4.4 X10 3/uL Normal 2.0-7.7 [facility] Comment on above: Performed By: #### L 500.4050, L100.0100, L503.6005, L501.2450 #### [facility] [address] [place], [address] Basophils/100 WBC (Bld) 0.6 % Normal 0-1 [facility] Comment on above: Performed By: #### L 500.4050, L100.0100, L503.6005, L501.2450 #### [facility] [address] [place], [address] Eosinophils/100 WBC (Bld) 1.0 % Normal 0-5 [facility] Comment on above: Performed By: #### L 500.4050, L100.0100, L503.6005, L501.2450 #### [facility] [address] [place], [address] Erythrocyte distribution width (RBC) [Ratio] 13.4 % Normal 11.6-14.6 [facility] Comment on above: Performed By: #### L 500.4050, L100.0100, L503.6005, L501.2450 #### [facility] [address] [place], [address] Hematocrit (Bld) [Volume fraction] 43.3 % Normal 37-47 [facility] Comment on above: Performed By: #### L 500.4050, L100.0100, L503.6005, L501.2450 #### [facility] [address] [place], [address] Hemoglobin (Bld) [Mass/Vol] 14.1 g/dL Normal 12.0-15.0 [facility] Comment on above: Performed By: #### L 500.4050, L100.0100, L503.6005, L501.2450 #### [facility] [address] [place], [address] IG% 0.100 Normal 0.0-0.9 [facility] Comment on above: Result Comment: IG% - Immature Granulocytes (promyelocytes, myelocytes and metamyelocytes) > 1% indicates that a LEFT SHIFT is Present. Performed By: #### L 500.4050, L100.0100, L503.6005, L501.2450 #### [facility] [address] [place], [address] Lymphocytes/100 WBC (Bld) 29.9 % Normal 19-41 [facility] Comment on above: Performed By: #### L 500.4050, L100.0100, L503.6005, L501.2450 #### [facility] [address] [place], [address] MCH (RBC) [Entitic mass] 31.3 pg Normal 27.0-32.0 [facility] Comment on above: Performed By: #### L 500.4050, L100.0100, L503.6005, L501.2450 #### [facility] [address] [place], [address] MCHC (RBC) [Mass/Vol] 32.6 g/dL Normal 32-36 [facility] Comment on above: Performed By: #### L 500.4050, L100.0100, L503.6005, L501.2450 #### [facility] [address] [place], [address] MCV (RBC) [Entitic vol] 96.0 fL Normal 81-99 [facility] Comment on above: Performed By: #### L 500.4050, L100.0100, L503.6005, L501.2450 #### [facility] [address] [place], [address] Monocytes/100 WBC (Bld) 6.8 % Normal 0-10 [facility] Comment on above: Performed By: #### L 500.4050, L100.0100, L503.6005, L501.2450 #### [facility] [address] [place], [address] Neutrophils/100 WBC (Bld) 61.6 % Normal 47-70 [facility] Comment on above: Performed By: #### L 500.4050, L100.0100, L503.6005, L501.2450 #### [facility] [address] [place], [address] Nucleated RBC (Bld) [#/Vol] 0 10*3/uL Normal 0-5 [facility] Comment on above: Performed By: #### L 500.4050, L100.0100, L503.6005, L501.2450 #### [facility] [address] [place], [address] Platelet mean volume (Bld) [Entitic vol] 10.4 fL Normal 6.2-12.0 [facility] Comment on above: Performed By: #### L 500.4050, L100.0100, L503.6005, L501.2450 #### [facility] [address] [place], [address] Platelets (Bld) [#/Vol] 273 10*3/uL Normal 150-450 [facility] Comment on above: Performed By: #### L 500.4050, L100.0100, L503.6005, L501.2450 #### [facility] [address] [place], [address] RBC (Bld) [#/Vol] 4.51 10*6/uL Normal 4.2-5.4 [facility] Comment on above: Performed By: #### L 500.4050, L100.0100, L503.6005, L501.2450 #### [facility] [address] [place], [address] RDW SD 47.6 fl High 35.1-43.9 [facility] Comment on above: Performed By: #### L 500.4050, L100.0100, L503.6005, L501.2450 #### [facility] [address] [place], [address] WBC (Bld) [#/Vol] 7.1 10*3/uL Normal 4.4-11.0 [facility] Comment on above: Performed By: #### L 500.4050, L100.0100, L503.6005, L501.2450 #### [facility] [address] [place], [address] Comprehensive Metabolic Prof ilon 03-09-2024 Albumin [Mass/Vol] 3.3 g/dL Normal 3.2-5.0 [facility] Comment on above: Performed By: #### L 500.4050, L100.0100, L503.6005, L501.2450 #### [facility] [address] [place], [address] Albumin/Globulin [Mass ratio] 1.0 {ratio} Normal 0.9-2.4 [facility] Comment on above: Performed By: #### L 500.4050, L100.0100, L503.6005, L501.2450 #### [facility] [address] [place], [address] ALK P 81 U/L Normal 45-117 [facility] Comment on above: Performed By: #### L 500.4050, L100.0100, L503.6005, L501.2450 #### [facility] [address] [place], [address] ALT [Catalytic activity/Vol] 36 U/L Normal 13-56 [facility] Comment on above: Performed By: #### L 500.4050, L100.0100, L503.6005, L501.2450 #### [facility] [address] [place], [address] AST [Catalytic activity/Vol] 30 U/L Normal 15-37 [facility] Comment on above: Performed By: #### L 500.4050, L100.0100, L503.6005, L501.2450 #### [facility] [address] [place], [address] Bilirubin [Mass/Vol] 0.50 mg/dL Normal 0.20-1.00 [facility] Comment on above: Result Comment: For patients on eltrombopag therapy, use of Dimension [place] TBIL is not recommended. Performed By: #### L 500.4050, L100.0100, L503.6005, L501.2450 #### [facility] [address] [place], [address] BUN/CRE 14.0 RATIO Normal 10-20 [facility] Comment on above: Performed By: #### L 500.4050, L100.0100, L503.6005, L501.2450 #### [facility] [address] [place], [address] CA,Total 9.3 mg/dL Normal 8.5-10.1 [facility] Comment on above: Performed By: #### L 500.4050, L100.0100, L503.6005, L501.2450 #### [facility] [address] [place], [address] Chloride [Moles/Vol] 108 mmol/L High 98-107 [facility] Comment on above: Performed By: #### L 500.4050, L100.0100, L503.6005, L501.2450 #### [facility] [address] [place], [address] CO2 [Moles/Vol] 29.0 mmol/L Normal 21.0-32.0 [facility] Comment on above: Performed By: #### L 500.4050, L100.0100, L503.6005, L501.2450 #### [facility] [address] [place], [address] Creatinine [Mass/Vol] 0.86 mg/dL Normal 0.55-1.02 [facility] Comment on above: Result Comment: The validity of the calculated GFR GFRAA in patients over 70 years has not been determined. Clinical correlation is essential. Performed By: #### L 500.4050, L100.0100, L503.6005, L501.2450 #### [facility] [address] [place], [address] ECRCL 68.26 ml/min Normal [facility] Comment on above: Performed By: #### L 500.4050, L100.0100, L503.6005, L501.2450 #### [facility] [address] [place], [address] EST GFR - AA 83 mL/min Normal >60 [facility] Comment on above: Result Comment: Afri can [place] GFR Calc Performed By: #### L 500.4050, L100.0100, L503.6005, L501.2450 #### [facility] [address] [place], [address] GAP 4 Low 5-15 [facility] Comment on above: Performed By: #### L 500.4050, L100.0100, L503.6005, L501.2450 #### [facility] [address] [place], [address] GFR/1.73 sq M.predicted among non-blacks MDRD (S/P/Bld) [Vol rate/Area] 69 mL/min/{1.73_m2} Normal >60 [facility] Comment on above: Result Comment: Non- GFR Calc Performed By: #### L 500.4050, L100.0100, L503.6005, L501.2450 #### [facility] [address] [place], [address] Globulin (S) [Mass/Vol] 3.4 g/dL Normal 2.2-4.2 [facility] Comment on above: Performed By: #### L 500.4050, L100.0100, L503.6005, L501.2450 #### [facility] [address] [place], [address] Glucose [Mass/Vol] 99 mg/dL Normal 74-106 [facility] Comment on above: Performed By: #### L 500.4050, L100.0100, L503.6005, L501.2450 #### [facility] [address] [place], [address] Potassium [Moles/Vol] 3.7 mmol/L Normal 3.5-5.1 [facility] Comment on above: Performed By: #### L 500.4050, L100.0100, L503.6005, L501.2450 #### [facility] [address] [place], [address] Sodium [Moles/Vol] 140 mmol/L Normal 136-145 [facility] Comment on above: Performed By: #### L 500.4050, L100.0100, L503.6005, L501.2450 #### [facility] [address] [place], [address] T PROT 6.7 g/dL Normal 6.4-8.2 [facility] Comment on above: Performed By: #### L 500.4050, L100.0100, L503.6005, L501.2450 #### [facility] [address] [place], [address] Urea nitrogen [Mass/Vol] 12 mg/dL Normal 7-18 [facility] Comment on above: Performed By: #### L 500.4050, L100.0100, L503.6005, L501.2450 #### [facility] [address] [place], [address] Emergency Department Summary on 03-09-2024 Emergency Department Summary [facility] Medical Records Department [address] [place] [address] Emergency Department Summary 03/09/24 MR#: [id number] Acct: [id number] Name: LANDON CASE Rep #: [id number] : 1945 78 From: David ABREUC PCP: Dr. Kasey Nicole MD Status:DEP ER Location: ED HPI History of Present Illness Chief Complaint: Abd Pain Narrative Narrative: Patient is a 78-year-old female with history of tachycardia, diverticulitis who is also being worked up for dizziness for 1 year. Patient was seen here on February 26, 2024, patient was diagnosed with acute diverticulitis. Patient was placed on cefdinir, Flagyl, this is secondary to her allergies. Patient states that she was nauseous the entire time, she never had any pain that was relieved from her abdomen. Pay states the pain is actually getting worse so she is here for reevaluation. Patient denies any fever or chills. Patient dates yesterday she was given a prescription for Zofran, she is also complaining of full body itching and hives, she is concerned about the antibiotics he is on. She is aware that she has multiple allergies. [facility] Medical History (Updated 03/09/24 @ 20:12 by David Zheng, SOLA-C) Dizziness Earache, right (Unknown) RUQ abdominal pain Irritable bowel syndrome (IBS) Seasonal allergies Nonrheumatic mitral (valve) prolapse Pure hypercholesterolemia Lightheadedness Chest pain Palpitations detention use of drug Home Medications ???Medication ???Instructions ???Recorded ???Last Taken ???Type uiracn-gxpilzrd-owqjata 3 cap PO TID #320 caps 09/14/23 Unknown Rx 3,000-9,500-15,000 unit capsule, delayed rel (Creon) omeprazole 20 mg capsule,delayed 20 mg PO BID PRN 01/03/24 Unknown History release amitriptyline 10 mg tablet 10 mg PO QHS #30 tabs 01/05/24 Unknown Rx hyoscyamine sulfate 0.125 mg tablet 0.125 mg PO BID-QID PRN dyspepsia 01/05/24 Unknown Rx #120 tabs propranolol 40 mg tablet 20 mg PO DAILY 02/03/24 Unknown History metronidazole 500 mg tablet 500 mg PO BID #30 tabs 03/01/24 Unknown Rx moxifloxacin 400 mg tablet 400 mg PO QDAY 14 days #14 tabs 03/01/24 Unknown Rx hydrocodone-acetaminophen 5-325mg 1 tab PO Q6H PRN PRN Pain 3 days 03/09/24 Unknown Rx 5mg-325mg #8 TABLETS Allergy/AdvReac Type Severity Reaction Status Date / Time nitrofurantoin (From Allergy Mild Rash Verified 03/09/24 16:06 Macrobid) ciprofloxacin (From Cipro) Allergy Itching Verified 03/09/24 16:06 Penicillins (PCN) Allergy Hives Verified 03/09/24 16:06 Sulfa (Sulfonamide Allergy Hives Verified 03/09/24 16:06 Antibiotics) atorvastatin (From Lipitor) AdvReac Severe Myalgias Verified 03/09/24 16:06 pravastatin (From Pravachol) AdvReac Intermediate Myalgias Verified 03/09/24 16:06 Family History Father CAD (coronary artery disease) Myocardial infarction Brother CAD (coronary artery disease) Colon cancer Myocardial infarction Mother No problems noted. Surgical History History of knee replacement History of hip replacement H/O laminectomy FH: cholecystectomy Social History Smoking Status: Never smoker alcohol intake: never caffeine: Yes Type: other what type of physical activity do you participate in: none ROS ROS ED ROS Narrative Constitutional: Negative for fever, chills, weight loss, weakness Eyes: Negative for vision loss, vision change, double vision ENT: Negative for any sore throat, ear pain, congestion Cardiovascular: Negative for any chest pain, tightness, palpitations Respiratory: Negative for any cough, sputum production, hemoptysis, dyspnea, dyspnea on exertion, orthopnea Gastrointestinal: Negative for any vomiting, diarrhea, constipation, blood in stool, blood in vomit. Positive for abdominal pain, nausea : Negative for any urinary frequency, dysuria, retention, blood in urine Muscle skeletal: Negative for any neck pain, back pain Neurological: Negative for any headache, syncope, dizziness Skin: Negative for any abrasions, lacerations. Positive for rash, hives Psychiatric: Negative for any depression, anxiety, stress, suicidal ideation, homicidal ideation Hematologic: Negative for any excessive bruising, easy bleeding EXAM Physical Exam Narrative Exam Narrative: Vital signs reviewed. Patient alert and orient x 4, patient is in no obvious distress. HEET: Head normocephalic atraumatic, TMs clear bilaterally. Posterior pharynx is clear, moist mucous membranes. Nares clear bilaterally. Neck: Supple with no lymphadenopathy or tenderness. No signs of meningismus. Cardiac: Regular rate and rhythm no murmurs gallops or rubs, equ (more content not included)... Normal [facility] Lactic Acidon 03-09-2024 Lactate [Moles/Vol] 1.1 mmol/L Normal 0.4-1.9 [facility] Comment on above: Order Comment: Y Performed By: #### L 500.4050, L100.0100, L503.6005, L501.2450 #### [facility] [address] [place], [address] Lipaseon 03-09-2024 Lipase [Catalytic activity/Vol] 21 U/L Normal 13-75 [facility] Comment on above: Result Comment: Judith garcia note: LIPASE revised reference range effective 22. New Lipase methodology. Expected to produce lower values than the previous assay method. NEW Reference Range: 13 - 75 U/L Performed By: #### L 500.2500, L100.0500 #### [facility] [address] [place], [address] Urinalysis, Completeon 03-09 EPI,SQUAMOUS 0-5 SEEN Normal 5-10 [facility] Comment on above: Order Comment: CLEAN CATCH Performed By: #### L 400.0001 #### [facility] [address] [place], [address] BACTERIA 0 SEEN Normal None Seen [facility] Comment on above: Order Comment: CLEAN CATCH Performed By: #### L 400.0001 #### [facility] [address] [place], [address] Mucus Ql (Urine sed) 0 SEEN Normal [facility] Comment on above: Order Comment: CLEAN CATCH Performed By: #### L 400.0001 #### [facility] [address] [place], [address] RBC 0 SEEN Normal 0-5 [facility] Comment on above: Order Comment: CLEAN CATCH Performed By: #### L 400.0001 #### [facility] [address] [place], [address] WBC 0 SEEN Normal 0-5 [facility] Comment on above: Order Comment: CLEAN CATCH Performed By: #### L 400.0001 #### [facility] [address] [place], [address] Bacteria Ur Culton 4 Bacteria identified Cx Nom (U) ORGANISM ID: 1 <10,000 CFU/ml Mixed microbiota Insignificant colony count. No further workup. Normal [facility] Comment on above: Performed By: #### 6 30-4 ####[facility] [id number] [place] [address] [place] CNOVon 03-08-2024 CNOV Office Visit (OBGYWM ) -- LANDON CASE ([id number]) 1945 F Date Time Provider Department 03/08/24 11:00 AM PIPE PATEL During your visit today, we recorded the following information about you: Pulse Respiration Blood pressure Weight 98/minute 14/minute 114/78 101.2 kg Pipe Patel APRN.CNP 03/08/2024 11:44 AM Signed Speeder Worker offered: Patient declines. Landon Caes is a 78 year old female who presents for problem visit: lower abdominal/groin pressure. Denies vaginal itching, discharge, or odor. HPI: Landon has been having nausea for about a year, but nausea worsening over the last few months. She is also experiencing worsening dizziness. She's had a tilt test in the past to evaluate for this. She is currently being treated for diverticulitis with Flagyl and Cefdinir. (Went to ER on 02/25 for this) She thinks that these medications are making nausea and dizziness worse. CT in ER showed mass in lower uterine segment and upper cervix Had pelvic ultrasound in October 2023 that showed thickened endometrium, a fibroid in the lower uterine segment, and some fluid within the endometrial canal. Biopsy 11/04/23 was benign. Denies fever or chills. Dr andres Flagyl and cefdinir OB History T2 L2 SAB0 IAB0 Ectopic0 Multiple0 Live Births2 Patient Scheduler History LMP: Postmenopausal Age at Menarche: Age at First : Age at Menopause: Patient Scheduler History Comments: Sexual Activity: Not Currently; No partner data on record Contraception: No contraception data on record PAST MEDICAL HISTORY Diagnosis Date Abdominal pain, [...] DANDC JOINT REPLACEMENT HX LAMINECTOMY W/O FFD 06/07 VERT SEG LUMBAR 1974 L4-5 PAST SURGICAL HISTORY OF 2013 part of nose tissue removed PAST SURGICAL HISTORY OF 1974 laminectomy SKIN BIOPSY HX TONSILLECTOMY HX FAMILY HISTORY Problem Relation Age of Onset other (Other) Mother Archana Gehrlinda's Heart Father Colon Cancer Brother Social History Tobacco Use Smoking status: Never Smokeless tobacco: Never Substance Use Topics Alcohol use: No Drug use: No Current Outpatient Medications Medication Sig miSOPROStol (CYTOTEC) 200 mcg tablet Take two tablets PO night before procedure and two tablets morning of procedure (Patient not taking: Reported on 11/19/2023) CREON 3,000-9,500- 15,000 unit delayed release capsule phenazopyridine (PYRIDIUM) 200 mg tablet Take 1 tablet by mouth three times daily as needed. (Patient not taking: Reported on 10/31/2022) sucralfate (CARAFATE) 1 gram tablet Take 1 tablet by mouth four times daily. Dissolve tablet in water (medicine cup) then swallow (Patient not taking: Reported on 08/03/2021) polyethylene glycol 3350 (MIRALAX, GLYCOLAX) 17 gram/dose powder Use as directed for Miralax / Gatorade Bowel Prep Kit (Patient not taking: Reported on 10/31/2022) Gatorade Sports Drink Use as directed for Miralax / Gatorade Bowel Prep Kit (Patient not taking: Reported on 10/31/2022) Bisacodyl (DULCOLAX) 5 mg tab Use as directed for Miralax / Gatorade Bowel Prep Kit (Patient not taking: Reported on 11/19/2023) dicyclomine (BENTYL) 20 mg tablet Take 1 tablet by mouth twice daily as needed. (Patient not taking: Reported on 10/31/2022) omeprazole (PRILOSEC) 40 mg capsule Take 1 capsule by mouth once daily. predniSONE (DELTASONE) 20 mg tablet Take 2 with lunch daily. (Patient not taking: Reported on 09/15/2020) colestipol (COLESTID) 1 gram tablet Take 1 tablet by mouth twice daily. (Patient not taking: Reported on 09/15/2020) clotrimazole-betamethasone (LOTRISONE) cream Apply 1 application to affected area twice daily. (Patient not (more content not included)... Normal [facility] UA DIP, URINE (POC)on 2023 BILIRUBIN UA (POCT) Negative Negative [facility] CLARITY UA (POCT) Clear [facility] COLOR UA (POCT) Yellow [facility] GLUCOSE UA (POCT) Negative Negative mg/dL [facility] Hemoglobin Ql (U) Negative Negative [facility] Interpretation and review of laboratory results Abnormal [facility] KETONE UA (POCT) Trace Negative mg/dL [facility] LEUKOCYTES UA (POCT) Moderate Abnormal Negative [facility] NITRITE UA (POCT) Negative Negative [facility] PH UA (POCT) 5.5 4.5 - 8.0 [facility] Protein Ql (U) Negative Negative mg/dL [facility] SPECIFIC GRAVITY UA (POCT) >=1.030 1.005 - 1.030 [facility] UROBILINOGEN UA (POCT) 0.2 Shawna l E.U./dL [facility] Location:[facility], [address], [place], [address] [facility] POINT OF CARE [facility] Elaine 03-07-2024 MARGIE Telephone (OBGYWM) -- LANDON CASE ([id number]) 1945 F Date Time Provider Department 03/07/24 ISATU MAST OBSHIRA During your visit today, we recorded the following information about you: Kamla Nunez, RN 03/07/2024 3:53 PM Signed Patient went to [facility] ER for diverticulitis on 02/26/24. On the pelvic CT scan it showed the below finding (copied from Care Everywhere). Patient asking if she needs to do any further imaging now or if it is likely the same fibroid that the last u/s in October showed. Aware provider back in the office tomorrow. Please advise. CT/Abdomen/Pelvis W IV Cont ONLY IMPRESSION: 1. Acute diverticulitis of the sigmoid colon. No evidence of drainable abscess or free air. 2. Hepatic steatosis. 3. Mass in the lower uterine segment and upper cervix could be due to fibroid. Correlation with nonemergent pelvic ultrasound is recommended. MIMI Salazar Deidre, MD 03/08/2024 8:22 AM Signed No- I spoke to Dr. Nicole regarding this. Nothing further. She had a pelvic us and EMB with endosee. See needs to notify office if has any further PMB. Negin Reynoso RN 03/08/2024 9:18 AM Signed Left message to call office. MIMI Barboza Trisha, RN 03/08/2024 9:24 AM Signed Patient notified. However, she is now c/o pelvic pressure in vagina and radiating into lower back too. States she is not having any other urinary symptoms. Scheduled appointment today. Kamla Nunez RN Allergies As of Date: 03/07/2024 Noted Allergy Reaction GABAPENTIN 09/16/2009 1 - Mental Status Change Comments: Patient states was running into the yip. MORPHINE 06/02/2010 14 - Other: See Comments Comments: dizzy- tachycardia PENICILLIN G 06/21/2005 4 - Hives SULFA (SULFONAMIDE ANTIBIOTICS) 06/21/2005 4 - Hives Date Reviewed: 02/26/2024 Reviewed by: Char Agrawal LPN - Fully Assessed Reason for Visit: Patient Question [8220] Cmt: Prescriptions as of 03/08/2024 - miSOPROStol (CYTOTEC) 200 mcg tablet Take two tablets PO night before procedure and two tablets morning of procedure - CREON 3,000-9,500- 15,000 unit delayed release capsule - phenazopyridine (PYRIDIUM) 200 mg tablet Take 1 tablet by mouth three times daily as needed. - sucralfate (CARAFATE) 1 gram tablet Take 1 tablet by mouth four times daily. Dissolve tablet in water (medicine cup) then swallow - polyethylene glycol 3350 (MIRALAX, GLYCOLAX) 17 gram/dose powder Use as directed for Miralax / Gatorade Bowel Prep Kit - Gatorade Sports Drink Use as directed for Miralax / Gatorade Bowel Prep Kit - Bisacodyl (DULCOLAX) 5 mg tab Use as directed for Miralax / Gatorade Bowel Prep Kit - dicyclomine (BENTYL) 20 mg tablet Take 1 tablet by mouth twice daily as needed. - omeprazole (PRILOSEC) 40 mg capsule Take 1 capsule by mouth once daily. - predniSONE (DELTASONE) 20 mg tablet Take 2 with lunch daily. - colestipol (COLESTID) 1 gram tablet Take 1 tablet by mouth twice daily. - clotrimazole-betamethasone (LOTRISONE) cream Apply 1 application to affected area twice daily. - CALCIUM CARBONATE/VITAMIN D3 (CALCIUM 600 + D ORAL) Take 1 tablet by mouth once daily. - Cholecalciferol, Vitamin D3, (VITAMIN D-3) 5,000 unit tab Take 5,000 Units by mouth twice daily. Takes a total of 10,000 units a day - propranolol 20 mg tablet Take 40 mg by mouth one time only. - ibuprofen 200 mg ORAL tablet Take 200 mg by mouth every 6 hours as needed. - ASPIRIN 81 MG TAB Take one (1) tablet daily . 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 Tilt Tableon 02-27-2024 Tilt Table [facility] [place] [address] 02/27/24 1728 MR#: [id number] Acct: [id number] Name: LANDON CASE Rep #: [id number] : 1945 78 From: Last Hull MD Attending Dr: Dr. Kasey Nicole MD Status: REG CLI Ordering Dr: Date: 02/27/24 Location: [facility] Sex: F C Admitted: Staff Staff: Kim Lane and Karyn Aguilar Summary Pre Test Resting HR: 78 Pre Test Resting BP: 110/74 Minimum Test HR: 78 Maximum Test HR: 97 Minimum Test BP: 85/58 Maximum Test BP: 110/83 Reason for Test Termination: Reached Maximum Test Time Physician Tilt Table Report Patient's Physicians Primary Care Physician: Kasey Nicole Customer Care Manager: Last Hull Indications/Diagnosis: Syncope Procedure Comments: Patient was brought to the noninvasive lab in the postabsorptive nonsedated state. Informed consent was obtained. Initial heart rate and EKG was obtained demonstrating a heart rate of 72 bpm blood pressure is 151/75 mmHg. The patient was then put in the 70 degree head upright tilt position. The initial vitals recorded a heart rate of 78 bpm and a blood pressure 110/74 mmHg. The patient then stayed in this 70 degree head upright tilt position for the next 30 minutes. The heart rate vacillated between 78 and 96 bpm. The blood pressure stayed stable for almost 10 minutes and then dropped briefly to 85/58 with a mild increase in heart rate to 92 bpm. Mild lightheadedness was noted. After the patient completed the test he was put back in the recumbent position was less lightheaded blood pressure was 119/72 mmHg and heart rate in the 70s to 80s. Summary: The above is suggestive of likely orthostatic changes with 70 degree head upright tilt testing. 02/27/24 1732 Date Last Hull MD CC: Dr. Kasey Nicole MD Date Dictated: 02/27/241727 Date Transcribed: 02/27/241727 Office System Analyst: CO Signed Normal [facility] 12 Lead EKGon 02-26-2024 12 Lead EKG [facility] [address] [place] [address] 12 Lead EKG 02/26/24919 MR#: [id number] Acct: [id number] Name: LANDON CASE Rep #: [id number] : 1945 78 From: Hugo Mcgraw MD Attending Dr: Status: DEP ER Ordering Dr: Noe Oreilly DO Date: 02/26/24 Location: ED Sex: F C Admitted: Test Reason : ABD/FLANK PAIN Blood Pressure : / mmHG Vent. Rate : 069 BPM Atrial Rate : 069 BPM P-R Int : 156 ms QRS Dur : 084 ms QT Int : 384 ms P-R-T Axes : 038 010 010 degrees QTc Int : 411 ms Normal sinus rhythm MINOR Nonspecific T wave abnormality Abnormal ECG Confirmed by Hugo Mcgraw ([id number]), features editor JEREMÍAS VALVERDE ([id number]) on 02/28/2024 9:28:08 AM Referred By: Confirmed By:Hugo Mcgraw 02/28/24927 Date Hugo Mcgraw MD CC: Dr. Kasey Nicole MD; Dr. Noe Oreilly DO Signed [facility] Abdomen/Pelvis W IV Cont ONL Yon 02-26-2024 Abdomen/Pelvis W IV Cont ONLY [facility] Imaging Services [address] [place] [id number] Abdomen/Pelvis W IV Cont ONLY MR#: [id number] Acct: [id number] Name: LANDON CASE Rep #: [id number] : 1945 F 78 From: Roby WALKER: Dr. Kasey Nicole MD Status: REG ER Study: Abdomen/Pelvis W IV Cont ONLY Date of Exam: Exam# [id number] Ordering Dr: Noe Oreilly DO [id number] STUDY: CT ABDOMEN AND PELVIS WITH CONTRAST REASON FOR EXAM: Female, 78 years old. LLQ pain RADIATION DOSAGE (If Supplied By Facility): CTDIvol = ( 19.4 ) mGy, DLP = ( 1438.94 ) mGycm TECHNIQUE: IV 100mL Isovue-370 was administered. Transaxial images were obtained from the dome of the diaphragm to the symphysis pubis. Multiplanar coronal and sagittal images were reformatted. The protocol utilizes one or more of the following dose reduction techniques: automated exposure control, adjustment of mA and/or kV according to patient size,and/or use of iterative reconstruction technique. COMPARISON: Prior study dated: 06/27/2023 FINDINGS: The visualized lung bases are essentially unremarkable. The visualized portions of the heart are within normal limits. There is decreased attenuation of the liver consistent with steatosis. There are surgical clips in the gallbladder fossa consistent with a prior cholecystectomy. There are multiple benign calcified granulomata of the spleen. Normal pancreas. Normal bilateral adrenal glands. 9 mm simple cyst in the left kidney for which no further follow-up exam is needed. Another small hyperdense nodule in the lower pole of the left kidney measuring about 9 mm unchanged. Small to moderate size hiatal hernia. Normal in caliber small bowel loops. Focal thickening and inflammatory changes of the distal descending and proximal sigmoid colon consistent with acute diverticulitis. No evidence of drainable abscess or free air. The appendix is visualized and appears normal. Tortuosity of the thoracic aorta without evidence of aneurysm. No retroperitoneal adenopathy. Normal urinary bladder. Mass in the lower uterine segment and cervical region could be due to uterine fibroid. Correlation with pelvic ultrasound is recommended. Very small umbilical hernia containing fat. Normal osseous structures. CT/Abdomen/Pelvis W IV Cont ONLY IMPRESSION: 1. Acute diverticulitis of the sigmoid colon. No evidence of drainable abscess or free air. 2. Hepatic steatosis. 3. Mass in the lower uterine segment and upper cervix could be due to fibroid. Correlation with nonemergent pelvic ultrasound is recommended. Electronically Signed: Roby Alford MD at 11:23 EDT , CC: Dr. Kasey Nicole MD; Dr. Noe Oreilly DO Office System Analyst: Signed Normal [facility] CBC W/Diff, Automatedon 02-05 Absolute Lymph 1.59 X10 3/uL Normal 0.83-4.51 [facility] Comment on above: Performed By: #### L 500.2500, L100.0500 #### [facility] [address] [place], [address] Absolute Neut 6.0 X10 3/uL Normal 2.0-7.7 [facility] Comment on above: Performed By: #### L 500.2500, L100.0500 #### [facility] [address] [place], [address] Basophils/100 WBC (Bld) 0.1 % Normal 0-1 [facility] Comment on above: Performed By: #### L 500.2500, L100.0500 #### [facility] [address] [place], [address] Eosinophils/100 WBC (Bld) 0.5 % Normal 0-5 [facility] Comment on above: Performed By: #### L 500.2500, L100.0500 #### [facility] [address] [place], [address] Erythrocyte distribution width (RBC) [Ratio] 13.1 % Normal 11.6-14.6 [facility] Comment on above: Performed By: #### L 500.2500, L100.0500 #### [facility] [address] [place], [address] Hematocrit (Bld) [Volume fraction] 43.3 % Normal 37-47 [facility] Comment on above: Performed By: #### L 500.2500, L100.0500 #### [facility] [address] [place], [address] Hemoglobin (Bld) [Mass/Vol] 14.3 g/dL Normal 12.0-15.0 [facility] Comment on above: Performed By: #### L 500.2500, L100.0500 #### [facility] [address] [place], [address] IG% 0.200 Normal 0.0-0.9 [facility] Comment on above: Result Comment: IG% - Immature Granulocytes (promyelocytes, myelocytes and metamyelocytes) > 1% indicates that a LEFT SHIFT is Present. Performed By: #### L 500.2500, L100.0500 #### [facility] [address] [place], [address] Lymphocytes/100 WBC (Bld) 19.2 % Normal 19-41 [facility] Comment on above: Performed By: #### L 500.2500, L100.0500 #### [facility] [address] [place], [address] MCH (RBC) [Entitic mass] 31.9 pg Normal 27.0-32.0 [facility] Comment on above: Performed By: #### L 500.2500, L100.0500 #### [facility] [address] [place], [address] MCHC (RBC) [Mass/Vol] 33.0 g/dL Normal 32-36 [facility] Comment on above: Performed By: #### L 500.2500, L100.0500 #### [facility] [address] [place], [address] MCV (RBC) [Entitic vol] 96.7 fL Normal 81-99 [facility] Comment on above: Performed By: #### L 500.2500, L100.0500 #### [facility] [address] [place], [address] Monocytes/100 WBC (Bld) 6.9 % Normal 0-10 [facility] Comment on above: Performed By: #### L 500.2500, L100.0500 #### [facility] [address] [place], [address] Neutrophils/100 WBC (Bld) 73.1 % High 47-70 [facility] Comment on above: Performed By: #### L 500.2500, L100.0500 #### [facility] [address] [place], [address] Nucleated RBC (Bld) [#/Vol] 0 10*3/uL Normal 0-5 [facility] Comment on above: Performed By: #### L 500.2500, L100.0500 #### [facility] [address] [place], [address] Platelet mean volume (Bld) [Entitic vol] 9.8 fL Normal 6.2-12.0 [facility] Comment on above: Performed By: #### L 500.2500, L100.0500 #### [facility] [address] [place], [address] Platelets (Bld) [#/Vol] 256 10*3/uL Normal 150-450 [facility] Comment on above: Performed By: #### L 500.2500, L100.0500 #### [facility] [address] [place], [address] RBC (Bld) [#/Vol] 4.48 10*6/uL Normal 4.2-5.4 [facility] Comment on above: Performed By: #### L 500.2500, L100.0500 #### [facility] [address] [place], [address] RDW SD 47.2 fl High 35.1-43.9 [facility] Comment on above: Performed By: #### L 500.2500, L100.0500 #### [facility] [address] [place], [address] WBC (Bld) [#/Vol] 8.3 10*3/uL Normal 4.4-11.0 [facility] Comment on above: Performed By: #### L 500.2500, L100.0500 #### [facility] [address] [place], [address] CNOVon 02-26-2024 CNOV Office Visit ([facility] ) -- LANDON CASE ([id number]) 1945 F Date Time Provider Department 02/26/24 8:15 AM KIRSTEN ROJAS [facility] During your visit today, we recorded the following information about you: Temperature Pulse Respiration Blood pressure 98.8 degrees 82/minute 18/minute 122/78 Weight 101.9 kg Kirsten Rojas PA 02/26/2024 8:29 AM Signed This note was created using NoteWriter. Subjective Landon Case is a 78 year old female. HPI 78-year-old female presents for abdominal pain. Patient states she has been having abdominal pain for about 2 days after eating beans soup. She states that she feels like it is gas pain. She has pain over the lower abdomen, mainly on the left lower side. She states pain is constant. She has tried simethicone without improvement. She has also taken Tylenol without improvement. She has no vomiting or diarrhea. No blood in the stool. No history of diverticulitis, but does have a history of IBS. No history of surgery on the abdomen. No fevers. No other complaint. PAST MEDICAL HISTORY Diagnosis Date Abdominal pain, [...] 40 mg by mouth one time only. miSOPROStol (CYTOTEC) 200 mcg tablet Take two tablets PO night before procedure and two tablets morning of procedure (Patient not taking: Reported on 11/19/2023) phenazopyridine (PYRIDIUM) 200 mg tablet Take 1 tablet by mouth three times daily as needed. (Patient not taking: Reported on 10/31/2022) sucralfate (CARAFATE) 1 gram tablet Take 1 tablet by mouth four times daily. Dissolve tablet in water (medicine cup) then swallow (Patient not taking: Reported on 08/03/2021) polyethylene glycol 3350 (MIRALAX, GLYCOLAX) 17 gram/dose powder Use as directed for Miralax / Gatorade Bowel Prep Kit (Patient not taking: Reported on 10/31/2022) Gatorade Sports Drink Use as directed for Miralax / Gatorade Bowel Prep Kit (Patient not taking: Reported on 10/31/2022) Bisacodyl (DULCOLAX) 5 mg tab Use as directed for Miralax / Gatorade Bowel Prep Kit (Patient not taking: Reported on 11/19/2023) dicyclomine (BENTYL) 20 mg tablet Take 1 tablet by mouth twice daily as needed. (Patient not taking: Reported on 10/31/2022) predniSONE (DELTASONE) 20 mg tablet Take 2 with lunch daily. (Patient not taking: Reported on 09/15/2020) colestipol (COLESTID) 1 gram tablet Take 1 tablet by mouth twice daily. (Patient not taking: Reported on 09/15/2020) clotrimazole-betamethasone (LOTRISONE) cream Apply 1 application to affected area twice daily. (Patient not taking: Reported on 09/15/2020) CALCIUM CARBONATE/VITAMIN D3 (CALCIUM 600 + D ORAL) Take 1 tablet by mouth once daily. (Patient not taking: Reported on 09/15/2020) Cholecalciferol, Vitamin D3, (VITAMIN D-3) 5,000 unit tab Take 5,000 Units by mouth twice daily. Takes a total of 10,000 units a day (Patient not taking: Reported on 09/15/2020) ibuprofen 200 mg ORAL tablet Take 200 mg by mouth every 6 hours as needed. (Patient not taking: Reported on 11/19/2023) ASPIRIN 81 MG TAB Take one (1) tablet daily . (Patient not taking: Reported on 02/20/2023) FAMILY HISTORY Problem Relation Age of Onset other (Other) Mother (more content not included)... Normal [facility] Prof ilon 02-26-2024 Albumin [Mass/Vol] 3.2 g/dL Normal 3.2-5.0 [facility] Comment on above: Performed By: #### L 500.2500, L100.0500 #### [facility] [address] [place], [address] Albumin/Globulin [Mass ratio] 0.9 {ratio} Normal 0.9-2.4 [facility] Comment on above: Performed By: #### L 500.2500, L100.0500 #### [facility] [address] [place], [address] ALK P 94 U/L Normal 45-117 [facility] Comment on above: Performed By: #### L 500.2500, L100.0500 #### [facility] [address] [place], [address] ALT [Catalytic activity/Vol] 21 U/L Normal 13-56 [facility] Comment on above: Performed By: #### L 500.2500, L100.0500 #### [facility] [address] [place], [address] AST [Catalytic activity/Vol] 18 U/L Normal 15-37 [facility] Comment on above: Performed By: #### L 500.2500, L100.0500 #### [facility] [address] [place], [address] Bilirubin [Mass/Vol] 0.70 mg/dL Normal 0.20-1.00 [facility] Comment on above: Result Comment: For patients on eltrombopag therapy, use of Dimension [place] TBIL is not recommended. Performed By: #### L 500.2500, L100.0500 #### [facility] [address] [place], [address] BUN/CRE 15.6 RATIO Normal 10-20 [facility] Comment on above: Performed By: #### L 500.2500, L100.0500 #### [facility] [address] [place], [address] CA,Total 9.2 mg/dL Normal 8.5-10.1 [facility] Comment on above: Performed By: #### L 500.2500, L100.0500 #### [facility] [address] [place], [address] Chloride [Moles/Vol] 107 mmol/L Normal 98-107 [facility] Comment on above: Performed By: #### L 500.2500, L100.0500 #### [facility] [address] [place], [address] CO2 [Moles/Vol] 29.0 mmol/L Normal 21.0-32.0 [facility] Comment on above: Performed By: #### L 500.2500, L100.0500 #### [facility] [address] [place], [address] Creatinine [Mass/Vol] 0.84 mg/dL Normal 0.55-1.02 [facility] Comment on above: Result Comment: The validity of the calculated GFR GFRAA in patients over 70 years has not been determined. Clinical correlation is essential. Performed By: #### L 500.2500, L100.0500 #### [facility] [address] [place], [address] ECRCL 69.73 ml/min Normal [facility] Comment on above: Performed By: #### L 500.2500, L100.0500 #### [facility] [address] [place], [address] EST GFR - AA 85 mL/min Normal >60 [facility] Comment on above: Result Comment: Afri can [place] GFR Calc Performed By: #### L 500.2500, L100.0500 #### [facility] [address] [place], [address] GAP 5 Normal 5-15 [facility] Comment on above: Performed By: #### L 500.2500, L100.0500 #### [facility] [address] [place], [address] GFR/1.73 sq M.predicted among non-blacks MDRD (S/P/Bld) [Vol rate/Area] 70 mL/min/{1.73_m2} Normal >60 [facility] Comment on above: Result Comment: Non- GFR Calc Performed By: #### L 500.2500, L100.0500 #### [facility] [address] [place], [address] Globulin (S) [Mass/Vol] 3.6 g/dL Normal 2.2-4.2 [facility] Comment on above: Performed By: #### L 500.2500, L100.0500 #### [facility] [address] [place], [address] Glucose [Mass/Vol] 112 mg/dL High 74-106 [facility] Comment on above: Result Comment: Fast ing Glucose result from 100 to 125 mg/dL suggests IMPAIRED HOMEOSTASIS per A.D.A. criteria. Performed By: #### L 500.2500, L100.0500 #### [facility] [address] [place], [address] Potassium [Moles/Vol] 3.8 mmol/L Normal 3.5-5.1 [facility] Comment on above: Performed By: #### L 500.2500, L100.0500 #### [facility] [address] [place], [address] Sodium [Moles/Vol] 141 mmol/L Normal 136-145 [facility] Comment on above: Performed By: #### L 500.2500, L100.0500 #### [facility] [address] [place], [address] T PROT 6.8 g/dL Normal 6.4-8.2 [facility] Comment on above: Performed By: #### L 500.2500, L100.0500 #### [facility] [address] [place], [address] Urea nitrogen [Mass/Vol] 13 mg/dL Normal 7-18 [facility] Comment on above: Performed By: #### L 500.2500, L100.0500 #### [facility] [address] [place], [address] Emergency Department Summary on 02-26-2024 Emergency Department Summary [facility] Medical Records Department [address] [place] [address] Emergency Department Summary 02/26/24 MR#: [id number] Acct: [id number] Name: LANDON CASE Rep #: [id number] : 1945 78 From: Noe Oreilly DO PCP: Dr. Kasey Nicole MD Status:REG ER Location: ED HPI History of Present Illness Chief Complaint: Flank Pain Narrative Narrative: Patient is a 78-year-old female past medical history of IBS, hypercholesterolemia, foot drop who presents to the emerged part with a chief complaint of abdominal pain. Patient states that on Tuesday she had eaten at a restaurant and shortly after this developed some abdominal discomfort. States that she believed that this was secondary to what she ate however noted that throughout the weekend things were not getting better therefore she went to urgent care today and they advised her to come to the emergency department further evaluation management. Patient denies any recent sick contacts. [facility] Medical History Dizziness Earache, right RUQ abdominal pain Irritable bowel syndrome (IBS) Seasonal allergies Nonrheumatic mitral (valve) prolapse Pure hypercholesterolemia Lightheadedness Chest pain Palpitations detention use of drug Home Medications ???Medication ???Instructions ???Recorded ???Last Taken ???Type xsvjoj-rqiulbcg-aezmisq 3 cap PO TID #320 caps 09/14/23 Unknown Rx 3,000-9,500-15,000 unit capsule, delayed rel (Creon) omeprazole 20 mg capsule,delayed 20 mg PO BID PRN 01/03/24 Unknown History release amitriptyline 10 mg tablet 10 mg PO QHS #30 tabs 01/05/24 Unknown Rx hyoscyamine sulfate 0.125 mg tablet 0.125 mg PO BID-QID PRN dyspepsia 01/05/24 Unknown Rx #120 tabs propranolol 40 mg tablet 20 mg PO DAILY 02/03/24 Unknown History Allergy/AdvReac Type Severity Reaction Status Date / Time nitrofurantoin (From Allergy Mild Rash Verified 02/26/24 08:34 Macrobid) ciprofloxacin (From Cipro) Allergy Itching Verified 02/26/24 08:34 Penicillins (PCN) Allergy Hives Verified 02/26/24 08:34 Sulfa (Sulfonamide Allergy Hives Verified 02/26/24 08:34 Antibiotics) atorvastatin (From Lipitor) AdvReac Severe Myalgias Verified 02/26/24 08:34 pravastatin (From Pravachol) AdvReac Intermediate Myalgias Verified 02/26/24 08:34 Family History Father CAD (coronary artery disease) Myocardial infarction Brother CAD (coronary artery disease) Colon cancer Myocardial infarction Mother No problems noted. Surgical History History of knee replacement History of hip replacement H/O laminectomy FH: cholecystectomy Social History Smoking Status: Never smoker alcohol intake: never caffeine: Yes Type: other what type of physical activity do you participate in: none ROS ROS ED ROS Narrative Constitutional: Denies fevers, chills, headaches Eyes: Denies double vision blurry vision change in vision Cardiovascular: Denies chest pain Respiratory: Denies shortness of breath cough Abdomen: Complains of abdominal pain as noted above as well as some nausea denies vomiting diarrhea states that her stools been normal color denies any black stools or blood in her stool : Denies any urinary symptoms Neurological: Denies numbness, weakness or tingling Musculoskeletal: Denies back pain Skin: Denies rashes or lesions EXAM Physical Exam Narrative Exam Narrative: General: Patient was lying in bed rest comfortably did not appear to be in acute distress Head: Atraumatic, normocephalic Eyes: PERRL bilateral, EOMI bilateral, no conjunctival injection noted Neck: Soft, supple, trach midline Cardiovascular: Regular rate and rhythm no murmurs gallops rubs noted Respiratory: Clear to auscultation bilaterally no rales rhonchi or wheeze noted Abdomen: Soft, nondistended, tenderness palpation noted in the left lower quadrant no rebound or guarding on exam, bowel sounds present x 4 Extremities: +5/5 strength noted in the bilateral upper and lower extremities, no pedal edema on exam Neurological: Patient was following commands knew that she was at [facility] years 2023 Skin: Warm, dry, intact Const Vital Signs: 02/26/24 08:34 02/26/24 12:31 Temperature 97.9 F 97.8 F Temperature Source Oral Pulse Rate 85 81 Respiratory Rate 14 16 Blood Pressure 166/73 H 152/70 H Blood Pressure Mean 104 97 Pulse Ox 93 99 Oxygen Delivery Method Room Air MDM MDM MDM Narrative Medical decision making narrative: Patient is a 78-year-old female who presented to the emerged part with a chief complaint of (more content not included)... Normal [facility] Lipaseon 02-26-2024 Lipase [Catalytic activity/Vol] 21 U/L Normal 13-75 [facility] Comment on above: Result Comment: Judith garcia note: LIPASE revised reference range effective 22. New Lipase methodology. Expected to produce lower values than the previous assay method. NEW Reference Range: 13 - 75 U/L Performed By: #### L 500.2500, L100.0500 #### [facility] [address] [place], [address] Urinalysis, Completeon 02-25 BACTERIA RARE Normal None Seen [facility] Comment on above: Order Comment: Order Date: 01/10/25 Order Info: 0667-1 - BMP Performed By: #### L 500.2500, L100.0500 #### [facility] [address] [place], [address] EPI,SQUAMOUS 0-5 SEEN Normal 5-10 [facility] Comment on above: Order Comment: Order Date: 01/10/25 Order Info: [id number] - BMP Performed By: #### L 500.2500, L100.0500 #### [facility] [address] [place], [address] RBC 0-5 SEEN Normal 0-5 [facility] Comment on above: Order Comment: Order Date: 01/10/25 Order Info: 0667- - BMP Performed By: #### L 500.2500, L100.0500 #### [facility] [address] [place], [address] WBC 0-5 SEEN Normal 0-5 [facility] Comment on above: Order Comment: Order Date: 01/10/25 Order Info: [id number]- - BMP Performed By: #### L 500.2500, L100.0500 #### [facility] [address] [place], [address] Mucus Ql (Urine sed) 0 SEEN Normal [facility] Comment on above: Order Comment: Order Date: 01/10/25 Order Info: 0667- - BMP Performed By: #### L 500.2500, L100.0500 #### [facility] [address] [place], [address] Carbohydrate AG 19-9on 02-21 CA 19-9 13 U/mL Normal 0-35 [facility] Comment on above: Result Comment: [employer] [employer] Electrochemiluminescence Immunoassay (ECLIA) Values obtained with different assay methods or kits cannot be used interchangeably. Results cannot be interpreted as absolute evidence of the presence or absence of malignant disease. Performed at: [address] [id number] Profiling Machine Operator: Perfecto Agarwal PhD, Phone: [phone] Performed By: #### L 500.2500, L100.0500 #### [facility] [address] [place], [address] Basic Metabolic Profile (BMP )on 02-21-2024 BUN/CRE 22.4 RATIO High 10-20 [facility] Comment on above: Performed By: #### L 500.2500, L100.0500 #### [facility] [address] [place], [address] CA,Total 9.9 mg/dL Normal 8.5-10.1 [facility] Comment on above: Performed By: #### L 500.2500, L100.0500 #### [facility] [address] [place], [address] Chloride [Moles/Vol] 107 mmol/L Normal 98-107 [facility] Comment on above: Performed By: #### L 500.2500, L100.0500 #### [facility] [address] [place], [address] CO2 [Moles/Vol] 27.0 mmol/L Normal 21.0-32.0 [facility] Comment on above: Performed By: #### L 500.2500, L100.0500 #### [facility] [address] [place], [address] Creatinine [Mass/Vol] 0.80 mg/dL Normal 0.55-1.02 [facility] Comment on above: Result Comment: The validity of the calculated GFR GFRAA in patients over 70 years has not been determined. Clinical correlation is essential. Performed By: #### L 500.2500, L100.0500 #### [facility] [address] [place], [address] EST GFR - AA 89 mL/min Normal >60 [facility] Comment on above: Result Comment: Afri can [place] GFR Calc Performed By: #### L 500.2500, L100.0500 #### [facility] [address] [place], [address] GAP 8 Normal 5-15 [facility] Comment on above: Performed By: #### L 500.2500, L100.0500 #### [facility] [address] [place], [address] GFR/1.73 sq M.predicted among non-blacks MDRD (S/P/Bld) [Vol rate/Area] 74 mL/min/{1.73_m2} Normal >60 [facility] Comment on above: Result Comment: Non- GFR Calc Performed By: #### L 500.2500, L100.0500 #### [facility] [address] [place], [address] Glucose [Mass/Vol] 107 mg/dL High 74-106 [facility] Comment on above: Result Comment: Fast ing Glucose result from 100 to 125 mg/dL suggests IMPAIRED HOMEOSTASIS per A.D.A. criteria. Performed By: #### L 500.2500, L100.0500 #### [facility] [address] [place], [address] Potassium [Moles/Vol] 4.0 mmol/L Normal 3.5-5.1 [facility] Comment on above: Performed By: #### L 500.2500, L100.0500 #### [facility] [address] [place], [address] Sodium [Moles/Vol] 142 mmol/L Normal 136-145 [facility] Comment on above: Performed By: #### L 500.2500, L100.0500 #### [facility] [address] [place], [address] Urea nitrogen [Mass/Vol] 18 mg/dL Normal 7-18 [facility] Comment on above: Performed By: #### L 500.2500, L100.0500 #### [facility] Laboratory [address] [place], [address] CBC-Complete Blood Cnt No Di ffon 02-21-2024 Erythrocyte distribution width (RBC) [Ratio] 13.2 % Normal 11.6-14.6 [facility] Comment on above: Performed By: #### L 500.2500, L100.0500 #### [facility] [address] [place], [address] Hematocrit (Bld) [Volume fraction] 45.8 % Normal 37-47 [facility] Comment on above: Performed By: #### L 500.2500, L100.0500 #### [facility] [address] [place], [address] Hemoglobin (Bld) [Mass/Vol] 14.8 g/dL Normal 12.0-15.0 [facility] Comment on above: Performed By: #### L 500.2500, L100.0500 #### [facility] [address] [place], [address] MCH (RBC) [Entitic mass] 31.4 pg Normal 27.0-32.0 [facility] Comment on above: Performed By: #### L 500.2500, L100.0500 #### [facility] [address] [place], [address] MCHC (RBC) [Mass/Vol] 32.3 g/dL Normal 32-36 [facility] Comment on above: Performed By: #### L 500.2500, L100.0500 #### [facility] [address] [place], [address] MCV (RBC) [Entitic vol] 97.0 fL Normal 81-99 [facility] Comment on above: Performed By: #### L 500.2500, L100.0500 #### [facility] [address] [place], [address] Platelet mean volume (Bld) [Entitic vol] 10.1 fL Normal 6.2-12.0 [facility] Comment on above: Performed By: #### L 500.2500, L100.0500 #### [facility] [address] [place], [address] Platelets (Bld) [#/Vol] 295 10*3/uL Normal 150-450 [facility] Comment on above: Performed By: #### L 500.2500, L100.0500 #### [facility] [address] [place], [address] RBC (Bld) [#/Vol] 4.72 10*6/uL Normal 4.2-5.4 [facility] Comment on above: Performed By: #### L 500.2500, L100.0500 #### [facility] [address] [place], [address] RDW SD 47.8 fl High 35.1-43.9 [facility] Comment on above: Performed By: #### L 500.2500, L100.0500 #### [facility] [address] [place], [address] WBC (Bld) [#/Vol] 5.3 10*3/uL Normal 4.4-11.0 [facility] Comment on above: Performed By: #### L 500.2500, L100.0500 #### [facility] [address] [place], [address] CRPon 02-21-2024 C-REACTIVE PROT 7.67 mg/L High 0.0-3.0 [facility] Comment on above: Result Comment: C-Re active Protein (CRP) provides useful information for the diagnosis, therapy and monitoring of inflammatory processes and associated diseases. For the evaluation of Relative Risk for Cardiovascular Disease, a High Sensitivity CRP (HSCRP) should be ordered. Performed By: #### L 500.2500, L100.0500 #### [facility] [address] [place], [address] Erythrocyte Sed Rateon 02-20 SED RATE 29 mm/hr Normal 0-30 [facility] Comment on above: Performed By: #### L 500.2500, L100.0500 #### [facility] [address] [place], [address] Lipid Profileon 02-21-2024 Cholesterol [Mass/Vol] 260 mg/dL High 200 [facility] Comment on above: Order Comment: Order Date: 10/03/24 Order Info: [id number] - CBCD Result Comment: <200 mg/dL Desirable 200-240 mg/dL Borderline >240 mg/dL High Risk Performed By: #### L 503.6150, L500.4050, L100.0100, L501.9520 #### [facility] [address] [place], [address] Cholesterol in HDL [Mass/Vol] 68 mg/dL Normal [facility] Comment on above: Order Comment: Order Date: 10/03/24 Order Info: [id number]- - CBCD Result Comment: The drugs N-Acetylcysteine and Metamizole may falsely depress this assay. Reference Range HDL <40 mg/dL Low HDL Cholesterol HDL >or= 60 mg/dL High HDL Cholesterol Performed By: #### L 503.6150, L500.4050, L100.0100, L501.9520 #### [facility] [address] [place], [address] Cholesterol in LDL [Mass/Vol] 171 mg/dL High 0-130 [facility] Comment on above: Order Comment: Order Date: 10/03/24 Order Info: [id number] - CBCD Performed By: #### L 503.6150, L500.4050, L100.0100, L501.9520 #### [facility] [address] [place], [address] Cholesterol in VLDL [Mass/Vol] 21 mg/dL Normal 5-40 [facility] Comment on above: Order Comment: Order Date: 10/03/24 Order Info: [id number] - CBCD Performed By: #### L 503.6150, L500.4050, L100.0100, L501.9520 #### [facility] [address] [place], [place], [address] Triglyceride [Mass/Vol] 106 mg/dL Normal [facility] Comment on above: Order Comment: Order Date: 10/03/24 Order Info: [id number] - CBCD Result Comment: The drugs N-Acetylcysteine and Metamizole may falsely depress this assay. Serum Triglycerides Reference Interval Normal <150 mg/dL Borderline high 150 - 199 mg/dL High 200 - 499 mg/dL Very High > or = 500 mg/dL Performed By: #### L 503.6150, L500.4050, L100.0100, L501.9553 #### [facility] [address] [place], [place], [address] Basophil percentageon 2023 Basophil percentage < 1.0 mg/dL 0.55-1.02 [facility] No Panel Informationon 09-04 Bedside Estimated GFR (eGFR) > 60.0000 mL/min >60 [facility] Alternaria alternata IgE ser umon 07-21-2023 A. alternata IgE Qn (S) <0.10 kU/L Class 0 [facility] No Panel Informationon 07-21 Cat Hair Allergen <0.10 kU/L Class 0 [facility] Comment on above: Levels of Specific I gE Class Description of Class ----- < 0.10 0 Negative 0.10 - 0.31 0/I Equivocal/Low 0.32 - 0.55 I Low 0.56 - 1.40 II Moderate 1.41 - 3.90 III High 3.91 - 19.00 IV Very High 19.01 - 100.00 V Very High >100.00 Very High Common Ragweed (Short) Allergen 0.17 kU/L Class 0/I [facility] Velez's Quarter Allergen (RAST) 0.14 kU/L Class 0/I [facility] Maple (Stirum) Allergen IgE Ab 0.15 kU/L Class 0/I [facility] Miscellaneous Test See comment [facility] Comment on above: TEST RESULTS LIMITSC lass Description: Levels of Specific IgE Class Description of Class ----- < 0.10 0 Negative 0.10 - 0.31 0/I Equivocal/Low 0.32 - 0.55 I Low 0.56 - 1.40 II Moderate 1.41 - 3.90 III High 3.91 - 19.00 IV Very High19.01 - 100.00 V Very High >100.00 Very [id number] Egg White 0.11 Abnormal kU/L Class 0/[id number] Milk 1.31 Abnormal kU/L Class [id number] Codfish <0.10 kU/L Class [id number] Wheat 0.23 Abnormal kU/L Class 0/[id number] Peanut 0.20 Abnormal kU/L Class 0/[id number] Soybean 0.36 Abnormal kU/L Class I TESTING PERFORMED AT [facility]. ORIGINAL REPORT ON FILE IN LAB CONTAINS ADDITIONAL TEST SITE INFORMATION. [place]dez Tree Allergen 0.13 kU/L Class 0/I [facility] Serum Bermuda grass IgE anti body assay (units/volume)on 07-21-2023 Bermuda grass IgE Qn (S) 0.16 kU/L Class 0/I [facility] Serum Cladosporium herbarum IgE antibody assay (units/volume)on 07-21-2023 C. herbarum IgE Qn (S) 0.48 kU/L Class I [facility] Serum Dermatophagoides farin ae specific IgE antibody assay (units/volume)on 07-21-2023 [place]ian house dust mite IgE Qn (S) <0.10 kU/L Class 0 [facility] Serum Macedonian plantain IgE a ntibody assay (units/volume)on 07-21-2023 Macedonian plantain IgE Qn (S) Not Reportable [facility] Serum house dust mi te IgE antibody assay (units/volume)on 07-21-2023 house dust mite IgE Qn (S) <0.10 kU/L Class 0 [facility] Serum [place] blue grass Ig E antibody assay (units/volume)on 07-21-2023 [place] blue grass IgE Qn (S) 0.14 kU/L Class 0/I [facility] Serum Periplaneta americana IgE antibody assay (units/volume)on 07-21-2023 [place] Cockroach IgE Qn (S) <0.10 [facility] Serum dog epithelium IgE ant ibody assay (units/volume)on 07-21-2023 Dog epithelium IgE Qn (S) <0.10 kU/L Class 0 [facility] Absolute lymphocyte countOrd ered By: Dimitri Nicole on 07-12-2023 Lymphocytes Auto (Unsp spec) [#/Vol] 1.84 10*3/uL 0.83-4.51 [facility] Automated lymphocyte count a s percentage of total leukocytesOrdered By: Dimitri Nicole on 07-12-2023 Lymphocytes/100 WBC Auto (Unsp spec) 32.5 % 19-41 [facility] Basophil percentageOrdered B y: Dimitri Nicole on 07-12-2023 Basophils/100 WBC (Bld) 0.5 % 0-1 [facility] Bilirubin [Mass/Vol] 0.40 mg/dL 0.20-1.00 [facility] Comment on above: For patients on eltr ombopag therapy, use of Dimension [place] TBIL is not recommended. Chloride [Moles/Vol] 104 mmol/L 98-107 [facility] Eosinophils/100 WBC (Bld) 1.4 % 0-5 [facility] Glucose [Mass/Vol] 92 mg/dL 74-106 [facility] Hemoglobin (Bld) [Mass/Vol] 15.3 g/dL 12.0-15.0 [facility] Monocytes/100 WBC (Bld) 8.1 % 0-10 [facility] Neutrophils (Bld) [#/Vol] 3.2 10*3/uL 2.0-7.7 [facility] Neutrophils/100 WBC (Bld) 57.3 % 47-70 [facility] Potassium [Moles/Vol] 3.9 mmol/L 3.5-5.1 [facility] Protein [Mass/Vol] 7.5 g/dL 6.4-8.2 [facility] Sodium [Moles/Vol] 136 mmol/L 136-145 [facility] WBC (Bld) [#/Vol] 5.7 10*3/uL 4.4-11.0 [facility] Culture, urineOrdered By: Rut Johnson on 07-12-2023 Bacteria identified Cx Nom (U) GPC Poss Enterococcus sp [facility] Bacteria identified Cx Nom (U) Positive [facility] Bacteria identified Cx Nom (U) GPC Poss Enterococcus sp [facility] Bacteria identified Cx Nom (U) Positive [facility] Determination of erythrocyte mean corpuscular volume (MCV)Ordered By: Dimitri Nicole on 07-12-2023 MCV (RBC) [Entitic vol] 95.0 fL 81-99 [facility] Erythrocyte distribution wid th ratioOrdered By: Dimitri Nicole on 07-12-2023 Erythrocyte distribution width (RBC) [Ratio] 13.9 % 11.6-14.6 [facility] Erythrocyte distribution wid th standard deviationOrdered By: Dimitri Nicole on 07-12-2023 Erythrocyte distribution width (RBC) [Entitic vol] 48.8 fL 35.1-43.9 [facility] Erythrocyte sedimentation ra teOrdered By: Dimitri Nicole on 07-12-2023 ESR (Bld) [Velocity] 9 mm/h 0-30 [facility] Hematocrit Auto (Bld) [Volum e fraction]Ordered By: Dmiitri Nicole on 07-12-2023 Hematocrit (Bld) [Volume fraction] 47.9 % 37-47 [facility] Immature granulocytes/100 WB C Auto (Bld)Ordered By: Dimitri Nicole on 07-12-2023 Immature granulocytes/100 WBC (Bld) 0.200 % 0.0-0.9 [facility] Comment on above: IG% - Immature Granu locytes (promyelocytes, myelocytes and metamyelocytes) > 1% indicates that a LEFT SHIFT is Present. Laboratory - Chemistry and C hemistry - challengeOrdered By: Dimitri Nicole on 07-12-2023 Albumin/Globulin [Mass ratio] 0.9 {ratio} 0.9-2.4 [facility] ALP [Catalytic activity/Vol] 106 U/L 45-117 [facility] ALT [Catalytic activity/Vol] 28 U/L 13-56 [facility] CO2 [Moles/Vol] 27.0 mmol/L 21.0-32.0 [facility] Globulin (S) [Mass/Vol] 3.9 g/dL 2.2-4.2 [facility] Urea nitrogen/Creatinine [Mass ratio] 22.8 mg/mg 10-20 [facility] Laboratory - Hematology and Cell countsOrdered By: Dimitri Nicole on 07-12-2023 MCH (RBC) [Entitic mass] 30.4 pg 27.0-32.0 [facility] MCHC (RBC) [Mass/Vol] 31.9 g/dL 32-36 [facility] Nucleated RBC/100 WBC (Bld) [Ratio] 0 % 0-5 [facility] Platelet mean volume (Bld) [Entitic vol] 10.7 fL 6.2-12.0 [facility] Platelets (Bld) [#/Vol] 260 10*3/uL 150-450 [facility] No Panel InformationOrdered By: Dimitri Nicole on 07-12-2023 Estimated GFR (MDRD) Amer 104 mL/min >60 [facility] Comment on above: GFR Calc Estimated GFR (MDRD) Non-Af Amer 86 mL/min >60 [facility] Comment on above: Non- GFR Calc RBC Auto (Bld) [#/Vol]Ordere d By: Dimitri Nicole on 07-12-2023 RBC (Bld) [#/Vol] 5.04 10*6/uL 4.2-5.4 [facility] Serum or plasma calcium devendra urement (mass/volume)Ordered By: Dimitri Nicole on 07-12-2023 Calcium [Mass/Vol] 9.4 mg/dL 8.5-10.1 [facility] Serum or plasma creatinine m easurement (mass/volume)Ordered By: Dimitri Nicole on 07-12-2023 Creatinine [Mass/Vol] 0.70 mg/dL 0.55-1.02 [facility] Comment on above: The validity of the calculated GFR & GFRAA in patients over 70 years has not been determined. Clinical correlation is essential. Serum or plasma thyroid stim ulating hormone (TSH) measurement (units/volume)Ordered By: Dimitri Nicole on 07-12-2023 TSH Qn 0.93 uIU/mL 0.358-3.74 [facility] Serum or plasma urea nitroge n measurement (mass/volume)Ordered By: Dimitri Nicole on 07-12-2023 Urea nitrogen [Mass/Vol] 16 mg/dL 7-18 [facility] Thin prep Papanicolaou smear with manual screeningOrdered By: Dimitri Nicole on 07-12-2023 Thin prep Papanicolaou smear with manual screening 3.6 g/dL 3.2-5.0 [facility] Thin prep Papanicolaou smear with manual screening 22 U/L 15-37 [facility] Thin prep Papanicolaou smear with manual screening 5 5-15 [facility] Basophil percentageOrdered B y: Jean Suárez on 06-27-2023 Basophil percentage < 1.0 mg/dL 0.55-1.02 [facility] No Panel InformationOrdered By: Jean Suárez on 06-27-2023 Bedside Estimated GFR (eGFR) > 60.0000 mL/min >60 [facility] Culture, urineOrdered By: St ryan Ram on 06-08-2023 Bacteria identified Cx Nom (U) Mixed Gram Pos & Gram Neg Org [facility] Bacteria identified Cx Nom (U) Mixed Gram Pos & Gram Neg Org [facility] Laboratory - Chemistry and C hemistry - challengeon 06-08-2023 Bilirubin Ql (U) Negative [facility] Glucose Ql (U) Negative [facility] Ketones Ql (U) Trace (5) [facility] pH (U) 7.0 [pH] [facility] Specific gravity (U) [Rel density] 1.015 [facility] Laboratory - Hematology and Cell countson 06-08-2023 Hemoglobin Ql (U) Trace [facility] Laboratory - Specimen inform ationon 06-08-2023 Clarity (U) Clear [facility] Color (U) Yellow [facility] Laboratory - Urinalysison Nitrite Ql (U) Negative [facility] Protein Ql (U) Trace [facility] No Panel Informationon 06-08 Urine Leukocytes Positive [facility] Urine Non-Hemolyzed Blood [facility] Basophil percentageOrdered B y: Robson Bucio on 06-02-2023 Basophil percentage 10-25 SEEN /hpf 0-5 [facility] Bilirubin Test strip Ql (U)O rdered By: Robson Bucio on 06-02-2023 Bilirubin Ql (U) Negative Negative [facility] Culture, urineOrdered By: Leelee Bucio on 06-02-2023 Bacteria identified Cx Nom (U) Culture exhibits no growth. [facility] Bacteria identified Cx Nom (U) Culture exhibits no growth. [facility] Ketones Test strip Ql (U)Ord ered By: Robson Bucio on 06-02-2023 Ketones Ql (U) Negative Negative [facility] Laboratory - Chemistry and C hemistry - challengeon 06-02-2023 Bilirubin Ql (U) Negative [facility] Glucose Ql (U) Negative [facility] Ketones Ql (U) Negative [facility] pH (U) 6.5 [pH] [facility] Specific gravity (U) [Rel density] 1.005 [facility] Urobilinogen (U) [Mass/Vol] Negative [facility] Laboratory - Hematology and Cell countson 06-02-2023 Hemoglobin Ql (U) Trace [facility] Laboratory - Specimen inform ationon 06-02-2023 Clarity (U) Hazy [facility] Color (U) STRAW [facility] Laboratory - Urinalysison Nitrite Ql (U) Negative [facility] Protein Ql (U) Negative [facility] Mucus LM Ql (Urine sed)Order ed By: Robson Bucio on 06-02-2023 Mucus Ql (Urine sed) 0 SEEN /hpf [facility] Nitrite Test strip Ql (U)Ord ered By: Robson Bucio on 06-02-2023 Nitrite Ql (U) Negative Negative [facility] No Panel Informationon 06-02 Urine Leukocytes Positive [facility] Urine Non-Hemolyzed Blood Non-Hemolyzed [facility] Protein Test strip Ql (U)Ord ered By: Robson Bucio on 06-02-2023 Protein Ql (U) Negative Negative [facility] Squamous epithelial cells de tection in urine sediment by light microscopyOrdered By: Robson Bucio on 06-02-2023 Epithelial cells.squamous LM Ql (Urine sed) 10-25 SEEN /hpf 5-10 [facility] Urine blood detectionOrdered By: Robson Bucio on 06-02-2023 RBC Ql (U) Negative Negative [facility] RBC Ql (U) 0 SEEN /hpf 0-5 [facility] Urine clarityOrdered By: Ruben Bucio on 06-02-2023 Clarity (U) Sl. Cloudy Clear [facility] Urine color determinationOrd ered By: Robson Bucio on 06-02-2023 Color (U) Yellow Yellow [facility] Urine glucose detectionOrder ed By: Robson Bucio on 06-02-2023 Glucose Ql (U) Normal mg/dl Normal [facility] Urine leukocyte esterase det ection by dipstickOrdered By: Robson Bucio on 06-02-2023 Leukocyte esterase Test strip Ql (U) 100 /ul Negative [facility] Urine pHOrdered By: Robson pyle on 06-02-2023 pH (U) 7.0 [pH] 5.0 - 8.0 [facility] Urine sediment bacteria coun t by microscopy (number/high power field)Ordered By: Robson Bucio on 06-02-2023 Bacteria LM.HPF (Urine sed) [#/Area] 1 /[HPF] None Seen [facility] Urine specific gravity measu rementOrdered By: Robson Bucio on 06-02-2023 Specific gravity (U) [Rel density] 1.010 1.002-1.030 [facility] Urobilinogen Auto test strip Ql (U)Ordered By: Robson Bucio on 06-02-2023 Urobilinogen Ql (U) Normal mg/dl Normal [facility] Basophil percentageOrdered B y: Lei Ram on 05-16-2023 Basophil percentage 0-5 SEEN /hpf 0-5 [facility] Bilirubin Test strip Ql (U)O rdered By: Lei Ram on 05-16-2023 Bilirubin Ql (U) Negative Negative [facility] Culture, urineOrdered By: St ryan Ram on 05-16-2023 Bacteria identified Cx Nom (U) Culture exhibits no growth. [facility] Bacteria identified Cx Nom (U) Culture exhibits no growth. [facility] Ketones Test strip Ql (U)Ord ered By: Lei Ram on 05-16-2023 Ketones Ql (U) Negative Negative [facility] Laboratory - Chemistry and C hemistry - challengeon 05-16-2023 Bilirubin Ql (U) Negative [facility] Glucose Ql (U) Negative [facility] Ketones Ql (U) Negative [facility] pH (U) 6.5 [pH] [facility] Specific gravity (U) [Rel density] 1.010 [facility] Urobilinogen (U) [Mass/Vol] Negative [facility] Laboratory - Hematology and Cell countson 05-16-2023 Hemoglobin Ql (U) Moderate [facility] Laboratory - Specimen inform ationon 05-16-2023 Clarity (U) Turbid [facility] Color (U) YELLOW [facility] Laboratory - Urinalysison Nitrite Ql (U) Negative [facility] Protein Ql (U) Negative [facility] Mucus LM Ql (Urine sed)Order ed By: Lei Ram on 05-16-2023 Mucus Ql (Urine sed) 0 SEEN /hpf [facility] Nitrite Test strip Ql (U)Ord ered By: Lei Ram on 05-16-2023 Nitrite Ql (U) Negative Negative [facility] No Panel Informationon 05-16 Urine Leukocytes Positive [facility] Urine Non-Hemolyzed Blood Non-Hemolyzed [facility] Protein Test strip Ql (U)Ord ered By: Lei Ram on 05-16-2023 Protein Ql (U) Negative Negative [facility] Squamous epithelial cells de tection in urine sediment by light microscopyOrdered By: Lei Ram on 05-16-2023 Epithelial cells.squamous LM Ql (Urine sed) 0-5 SEEN /hpf 5-10 [facility] Urine blood detectionOrdered By: Lei Ram on 05-16-2023 RBC Ql (U) 10 /ul Negative [facility] RBC Ql (U) 0 SEEN /hpf 0-5 [facility] Urine clarityOrdered By: Sebas Ram on 05-16-2023 Clarity (U) Clear Clear [facility] Urine color determinationOrd ered By: Lei Ram on 05-16-2023 Color (U) Yellow Yellow [facility] Urine glucose detectionOrder ed By: Lei Ram on 05-16-2023 Glucose Ql (U) Normal mg/dl Normal [facility] Urine leukocyte esterase det ection by dipstickOrdered By: Lei Ram on 05-16-2023 Leukocyte esterase Test strip Ql (U) 25 /ul Negative [facility] Urine pHOrdered By: Lei callejas on 05-16-2023 pH (U) 7.0 [pH] 5.0 - 8.0 [facility] Urine sediment bacteria coun t by microscopy (number/high power field)Ordered By: Lei Ram on 05-16-2023 Bacteria LM.HPF (Urine sed) [#/Area] 0 /[HPF] None Seen [facility] Urine specific gravity measu rementOrdered By: Lei Ram on 05-16-2023 Specific gravity (U) [Rel density] 1.010 1.002-1.030 [facility] Urobilinogen Auto test strip Ql (U)Ordered By: Lei Ram on 05-16-2023 Urobilinogen Ql (U) Normal mg/dl Normal [facility] CT SINUSES WITHOUT CONTRASTo n 04-19-2023 CT SINUSES WITHOUT CONTRAST EXAMINATION: CT SINUSES WITHOUT CONTRAST HISTORY: Chronic sinusitis COMPARISON: None. TECHNIQUE: Contiguous axial CT images of the sinuses obtained without contrast. Coronal and sagittal reconstructions performed. Dose reduction techniques were achieved by using automated exposure control and/or adjustment of mA and/or kV according to patient size and/or use of iterative reconstruction technique. FINDINGS: There is minimal mucosal thickening of the bilateral ethmoid air cells and left sphenoid sinus. There is hypoplasia of the left sphenoid sinus. Otherwise, the paranasal sinuses are well-aerated without mucosal thickening or air-fluid level There is mild rightward bony nasal septal deviation. There are no acute fracture, destructive lesion or sclerosis of bony structures. The mastoid air cells are well aerated. There is no proptosis. The extraocular muscles are intact. IMPRESSION: No evidence of acute sinusitis. Minimal chronic sinusitis of the bilateral ethmoid air cells and left sphenoid sinus. Normal [facility] Culture, urineOrdered By: Dr Diya Nicole on 11-13-2022 Bacteria identified Cx Nom (U) Proteus mirabilis [facility] Absolute lymphocyte counton 04-19-2022 Lymphocytes Auto (Unsp spec) [#/Vol] 2.63 10*3/uL 0.83-4.51 [facility] Work Phone: [phone] Basophil percentageon 2021 Basophils/100 WBC (Bld) 0.3 % 0-1 [facility] Work Phone: [phone] Bilirubin [Mass/Vol] 0.40 mg/dL 0.20-1.00 [facility] Work Phone: [phone] Comment on above: For patients on eltr ombopag therapy, use of Dimension [place] TBIL is not recommended. Chloride [Moles/Vol] 105 mmol/L 98-107 [facility] Work Phone: Eosinophils/100 WBC (Bld) 0.8 % 0-5 [facility] Work Phone: Glucose [Mass/Vol] 99 mg/dL 74-106 [facility] Work Phone: Neutrophils (Bld) [#/Vol] 4.3 10*3/uL 2.0-7.7 [facility] Work Phone: Neutrophils/100 WBC (Bld) 56.7 % 47-70 [facility] Work Phone: [phone] Potassium [Moles/Vol] 4.1 mmol/L 3.5-5.1 [facility] Work Phone: Protein [Mass/Vol] 7.0 g/dL 6.4-8.2 [facility] Work Phone: Sodium [Moles/Vol] 140 mmol/L 136-145 [facility] Work Phone: WBC (Bld) [#/Vol] 7.6 10*3/uL 4.4-11.0 [facility] Work Phone: Blood erythrocytes count (nu mber/volume)on 04-19-2022 RBC (Bld) [#/Vol] 4.74 10*6/uL 4.2-5.4 [facility] Blood hemoglobin measurement (mass/volume)on 04-19-2022 Hemoglobin (Bld) [Mass/Vol] 15.0 g/dL 12.0-15.0 [facility] Work Phone: Blood lymphocytes/100 leukoc yteson 04-19-2022 Lymphocytes/100 WBC (Bld) 34.6 % 19-41 [facility] Work Phone: Blood monocytes/100 leukocyt eson 04-19-2022 Monocytes/100 WBC (Bld) 7.5 % 0-10 [facility] Work Phone: Blood platelet mean volumeon 04-19-2022 Platelet mean volume (Bld) [Entitic vol] 11.2 fL 6.2-12.0 [facility] Work Phone: Determination of erythrocyte mean corpuscular volume (MCV)on 04-19-2022 MCV (RBC) [Entitic vol] 96.0 fL 81-99 [facility] Work Phone: Hematocrit Auto (Bld) [Volum e fraction]on 04-19-2022 Hematocrit (Bld) [Volume fraction] 45.5 % 37-47 [facility] Work Phone: [phone] Laboratory - Chemistry and C hemistry - challengeon 04-19-2022 ALP [Catalytic activity/Vol] 91 U/L 45-117 [facility] Work Phone: [phone] ALT [Catalytic activity/Vol] 31 U/L 13-56 [facility] Work Phone: CO2 [Moles/Vol] 27.0 mmol/L 21.0-32.0 [facility] Work Phone: [phone] Cobalamin (Vitamin B12) [Mass/Vol] 504 pg/mL 211-911 [facility] Work Phone: [phone] Globulin (S) [Mass/Vol] 3.6 g/dL 2.2-4.2 [facility] Work Phone: [phone] Urea nitrogen/Creatinine [Mass ratio] 17.9 mg/mg 10-20 [facility] Work Phone: [phone] Laboratory - Hematology and Cell countson 04-19-2022 Erythrocyte distribution width (RBC) [Entitic vol] 52.9 fL 35.1-43.9 [facility] Work Phone: [phone] Erythrocyte distribution width (RBC) [Ratio] 14.8 % 11.6-14.6 [facility] Work Phone: [phone] Immature granulocytes/100 WBC (Bld) 0.100 % 0.0-0.9 [facility] Work Phone: Comment on above: IG% - Immature Granu locytes (promyelocytes, myelocytes and metamyelocytes) > 1% indicates that a LEFT SHIFT is Present. MCH (RBC) [Entitic mass] 31.6 pg 27.0-32.0 [facility] Work Phone: [phone] Nucleated RBC/100 WBC (Bld) [Ratio] 0 % 0-5 [facility] Work Phone: [phone] MCHC Auto (RBC) [Mass/Vol]on 04-19-2022 MCHC (RBC) [Mass/Vol] 33.0 g/dL 32-36 [facility] Work Phone: [phone] No Panel Informationon 04-19 Estimated GFR (MDRD) Amer 92 mL/min >60 [facility] Work Phone: Comment on above: GFR Calc Estimated GFR (MDRD) Non-Af Amer 76 mL/min >60 [facility] Work Phone: Comment on above: Non- GFR Calc Thyroid Stimulating Hormone (TSH) 0.95 uIU/mL 0.358-3.74 [facility] Work Phone: Vitamin D 25-Hydroxy 29.9 ng/mL [facility] Work Phone: Comment on above: Vitamin D 25(OH) Sta tus Range Deficiency <20 ng/mL (50nmol/L) Insufficiency 20 - 30 ng/mL (50 - 75 nmol/L) Sufficiency 30 - 100 ng/mL (75 - 250 nmol/L) Toxicity >100 ng/mL (>250 nmol/L) Platelets bldon 04-19-2022 Platelets (Bld) [#/Vol] 263 10*3/uL 150-450 [facility] Work Phone: Serum or plasma C reactive p rotein measurement (mass/volume)on 04-19-2022 CRP [Mass/Vol] 4.77 mg/L 0.0-3.0 [facility] Work Phone: Comment on above: C-Reactive Protein ( CRP) provides useful information for thediagnosis, therapy and monitoring of inflammatory processesand associated diseases. For the evaluation of Relative Riskfor Cardiovascular Disease, a High Sensitivity CRP (HSCRP)should be ordered. Serum or plasma albumin devendra urement (mass/volume)on 04-19-2022 Albumin [Mass/Vol] 3.4 g/dL 3.2-5.0 [facility] Work Phone: Serum or plasma albumin/glob ulin mass ratioon 04-19-2022 Albumin/Globulin [Mass ratio] 0.9 {ratio} 0.9-2.4 [facility] Work Phone: Serum or plasma calcium devendra urement (mass/volume)on 04-19-2022 Calcium [Mass/Vol] 9.3 mg/dL 8.5-10.1 [facility] Work Phone: Serum or plasma creatinine m easurement (mass/volume)on 04-19-2022 Creatinine [Mass/Vol] 0.78 mg/dL 0.55-1.02 [facility] Work Phone: Comment on above: The validity of the calculated GFR & GFRAA in patients over 70 years has not been determined. Clinical correlation is essential. Serum or plasma urea nitroge n measurement (mass/volume)on 04-19-2022 Urea nitrogen [Mass/Vol] 14 mg/dL 7-18 [facility] Work Phone: Thin prep Papanicolaou smear with manual screeningon 04-19-2022 Thin prep Papanicolaou smear with manual screening 21 U/L 15-37 [facility] Work Phone: Thin prep Papanicolaou smear with manual screening 8 5-15 [facility] Work Phone: Basophil percentageon 2021 Basophil percentage < 0.9 mg/dL 0.55-1.02 [facility] Work Phone: No Panel Informationon 04-13 Bedside Estimated GFR (eGFR) > 60.0000 mL/min >60 [facility] Work Phone: Basophil percentageon 2021 Amylase [Catalytic activity/Vol] 40 U/L 25-115 [facility] Work Phone: Erythrocyte sedimentation ra courtney 03-16-2022 ESR (Bld) [Velocity] 24 mm/h 0-30 [facility] Work Phone: Laboratory - Chemistry and C hemistry - challengeon 03-16-2022 Lipase [Catalytic activity/Vol] 103 U/L 73-393 [facility] Work Phone: No Panel Informationon 03-16 CA 19-9 Antigen 11 U/mL 0-35 [facility] Work Phone: Comment on above: [facility] El ectrochemiluminescence Immunoassay(ECLIA)Values obtained with different assay methods or kits cannotbe used interchangeably. Results cannot be interpreted asabsolute evidence of the presence or absence of malignantdisease.Performed at: [address], [place], [place] [id number] Director: Perfecto Agarwal PhD, Phone: [phone] CA 19-9 Antigen Serial Monitoring See comment [facility] Work Phone: Comment on above: Scanned image report available in EMR Serum or plasma C reactive p rotein measurement (mass/volume)on 03-16-2022 CRP [Mass/Vol] 53.90 mg/L 0.0-3.0 [facility] Work Phone: Comment on above: C-Reactive Protein ( CRP) provides useful information for thediagnosis, therapy and monitoring of inflammatory processesand associated diseases. For the evaluation of Relative Riskfor Cardiovascular Disease, a High Sensitivity CRP (HSCRP)should be ordered. UA DIP, URINE (POC)on 2021 BILIRUBIN UA (POCT) Moderate Abnormal Negative [facility] CLARITY UA (POCT) Clear [facility] COLOR UA (POCT) Yellow [facility] GLUCOSE UA (POCT) Negative Negative mg/dL [facility] HEMOGLOBIN/BLOOD UA (POCT) Negative Negative [facility] KETONE UA (POCT) Trace Negative mg/dL [facility] LEUKOCYTES UA (POCT) Trace Abnormal Negative [facility] NITRITE UA (POCT) Negative Negative [facility] PH UA (POCT) 5.5 4.5 - 8.0 [facility] Protein Ql (U) 30 mg/dL Abnormal Negative mg/dL [facility] SPECIFIC GRAVITY UA (POCT) >=1.030 1.005 - 1.030 [facility] UROBILINOGEN UA (POCT) 1.0 E.U./dL Shawna l E.U./dL [facility] Albumin Elph [Mass/Vol]on Albumin [Mass/Vol] 3.5 g/dL 2.9-4.4 [facility] Work Phone: Atypical perinuclear antineu trophil cytoplasmic antibodies measurementon 12-21-2021 Neutrophil cytoplasmic Ab.perinuclear.atypical IF (S) [Titer] <1:20 titer Neg:<1:20 [facility] Work Phone: Comment on above: The atypical pANCA p attern has been observed in asignificant percentage of patients with ulcerative colitis,primary sclerosing cholangitis and autoimmune hepatitis. Basophil percentageon 2021 Basophil percentage < 0.2 AI 0.0-0.9 [facility] Work Phone: Erythrocyte sedimentation ra courtney 12-21-2021 ESR (Bld) [Velocity] 23 mm/h 0-30 [facility]: Interpretation of serum or p lasma protein pattern by immunofixation (narrative resulton 12-21-2021 Protein Fractions Immunofixation Nolberto [Interp] See comment [facility] Work Phone: Comment on above: NOT OBSERVED No Panel Informationon 12-21 Addendum Document Comment . [facility] Work Phone: Comment on above: Protein electrophore sis scan will follow via computer,mail, or sign language translator delivery. Centromere B Antibody <0.2 AI 0.0-0.9 [facility] Work Phone: Endomysial IgA Antibody Negative Negative [facility] Work Phone: Immunoglobulin E 83 IU/mL 6-495 [facility] Work Phone: Comment on above: Performed at: [facility] [place] [address] [id number] Director: Perfecto Agarwal PhD, Phone: [phone] at: [facility] [address] [id number] Director: Pallavi Becerra MD, Phone: [phone] [employer] Antibody <0.2 AI 0.0-0.9 [facility] Work Phone: Serum DNA double strand anti body assay (units/volume)on 12-21-2021 DNA double strand Ab Qn (S) 2 [IU]/mL 0-9 [facility] Work Phone: Comment on above: Negative <5 Equivoca l 5 - 9 Positive >9 Serum Candie-1 antibody assay (u nits/volume)on 12-21-2021 Candie-1 extractable nuclear Ab Qn (S) <0.2 AI 0.0-0.9 [facility] Work Phone: Serum Scl-70 extractable nuc lear antibody assay (units/volume)on 12-21-2021 SCL-70 extractable nuclear Ab Qn (S) <0.2 AI 0.0-0.9 [facility] Work Phone: Serum Foster extractable nucl ear antibody detectionon 12-21-2021 Foster extractable nuclear Ab Ql (S) <0.2 AI 0.0-0.9 [facility] Work Phone: [phone] Serum [id number] measu rement by electrophoresison 12-21-2021 Alpha 1 globulin Elph [Mass/Vol] 0.2 g/dL 0.0-0.4 [facility] Work Phone: Alpha 1 globulin Elph [Mass/Vol] 0.7 g/dL 0.4-1.0 [facility] Work Phone: Serum classic neutrophil cyt oplasmic antibody assay (units/volume)on 12-21-2021 Neutrophil cytoplasmic Ab.classic Qn (S) <1:20 titer Neg:<1:20 [facility] Work Phone: Serum globulin measurement ( mass/volume)on 12-21-2021 Globulin (S) [Mass/Vol] 3.2 g/dL 2.2-3.9 [facility] Work Phone: Serum or plasma C reactive p rotein measurement (mass/volume)on 12-21-2021 CRP [Mass/Vol] 4.24 mg/L 0.0-3.0 [facility] Work Phone: Comment on above: C-Reactive Protein ( CRP) provides useful information for thediagnosis, therapy and monitoring of inflammatory processesand associated diseases. For the evaluation of Relative Riskfor Cardiovascular Disease, a High Sensitivity CRP (HSCRP)should be ordered. Serum or plasma IgA measurem ent (mass/volume)on 12-21-2021 IgA [Mass/Vol] 177 mg/dL 64-422 [facility] Work Phone: Serum or plasma IgG measurem ent (mass/volume)on 12-21-2021 IgG [Mass/Vol] 1047 mg/dL [phone] [facility] Work Phone: Serum or plasma IgM measurem ent (mass/volume)on 12-21-2021 IgM [Mass/Vol] 164 mg/dL 26-217 [facility] Work Phone: Serum or plasma beta globuli n measurement by electrophoresis (mass/volume)on 12-21-2021 Beta globulin Elph [Mass/Vol] 1.1 g/dL 0.7-1.3 [facility] Work Phone: Serum or plasma gamma globul in measurement by electrophoresis (mass/volume)on 12-21-2021 Gamma globulin Elph [Mass/Vol] 1.2 g/dL 0.4-1.8 [facility] Work Phone: Serum or plasma gastrin devendra urement (mass/volume)on 12-21-2021 Gastrin [Mass/Vol] 16 pg/mL 0-115 [facility] Work Phone: Comment on above: Siemens Immulite 200 0 Immunochemiluminometric assay (ICMA)Values obtained with different assay methods or kits cannotbe used interchangeably. Results cannot be interpreted asabsolute evidence of the presence or absence of malignantdisease. Serum or plasma immunoelectr ophoresis interpretation (nominal result)on 12-21-2021 Interpretation IEP [Interp] Comment . [facility] Work Phone: Comment on above: No monoclonality det ected. Serum perinuclear neutrophil cytoplasmic antibody titer by immunofluorescenceon 12-21-2021 Neutrophil cytoplasmic Ab.perinuclear IF (S) [Titer] <1:20 titer Neg:<1:20 [facility] Work Phone: Comment on above: The presence of posi tive fluorescence exhibiting P-ANCA orC-ANCA patterns alone is not specific for the diagnosis ofWegener's Granulomatosis (WG) or microscopic polyangiitis.Decisions about treatment should not be based solely onANCA IFA results. The International ANCA Group Consensusrecommends follow up testing of positive sera with both DC-3 and MPO-ANCA enzyme immunoassays. As many as 5% serumsamples are positive only by EIA. Ref. AM J Clin [id number];111:507-513. Serum tissue transglutaminas e IgA antibody assay (units/volume)on 12-21-2021 tTG IgA Qn (S) <2 U/mL 0-3 [facility] Work Phone: Comment on above: Negative 0 - 3 Weak Positive 4 - 10 Positive >10 Tissue Transglutaminase (tTG) has been identified as the endomysial antigen. Studies have demonstr- ated that endomysial IgA antibodies have over 99% specificity for gluten sensitive enteropathy. Thin prep Papanicolaou smear with manual screeningon 12-21-2021 Thin prep Papanicolaou smear with manual screening 200 U/L 84-246 [facility] Work Phone: Thin prep Papanicolaou smear with manual screening 1.1 0.7-1.7 [facility] Work Phone: Total protein bloodon 2021 Protein [Mass/Vol] 6.7 g/dL 6.0-8.5 [facility] Work Phone: ANA MARISELA W JESUS RTon 022 [facility] US BREAST LTD RTon 2 [facility] CORONAVIRUS PCR - [facility] 05-15-2021 SARS-CoV-2 (COVID-19) RNA ORIANA+probe Ql (Unsp spec) Negative Normal NORMAL: NEGATIVE [facility] Comment on above: Performed By: #### [id number] #### [facility],[address] [place] [address] SEND TO IC? YES Normal [facility] Comment on above: Result Comment: RESU LTS FAXED TO INFECTION CONTROL. SARS-CoV-2 THIS TEST IS BEING USED UNDER THE FDA EUA PROCEDURE. THIS ASSAY HAS BEEN VALIDATED IN THE [facility] FOR USE WITH NASOPHARYNGEAL SPECIMENS IN [facility]. INTERPRETIVE DATA LABORATORY TEST RESULTS SHOULD ALWAYS BE CONSIDERED IN THE CONTEXT OF CLINICAL OBSERVATIONS AND EPIDEMIOLOGICAL DATA IN MAKING FINAL DIAGNOSIS AND PATIENT MANAGEMENT DECISIONS. PATIENT MANAGEMENT SHOULD FOLLOW CURRENT CDC GUIDELINES. A POSITIVE TEST RESULT FOR COVID-19 INDICATES THAT RNA FROM SARS-CoV-2 WAS DETECTED, AND THE PATIENT IS INFECTED WITH THE VIRUS AND PRESUMED TO BE CONTAGIOUS. A NEGATIVE TEST RESULT FOR THIS TEST MEANS THAT SARS-CoV-2 RNA WAS NOT PRESENT IN THE SPECIMEN ABOVE THE LIMIT OF DETECTION. HOWEVER, A NEGATVIE RESULT DOES NOT RULE OUT COVID-19 AND SHOULD NOT BE USED THE SOLE BASIS FOR TREATMENT OR PATIENT MANAGEMENT DECISIONS. A NEGATIVE RESULT DOES NOT EXCLUDE THE POSSIBILITY OF COVID-19. WHEN DIAGNOSTIC TESTING IS NEGATIVE, THE POSSIBLILTY OF A FALSE NEGATIVE RESULT SHOULD BE CONSIDERED IN THE CONTEXT OF A PATIENT'S RECENT EXPOSURES AND THE PRESENCE OF CLINICAL SIGNS AND SYMPTOMS CONSISTENT WITH COVID-19. THE POSSIBILITY OF A FALSE NEGATIVE RESULT SHOULD ESPECIALLY BE CONSIDERED IF THE PATIENT'S RECENT EXPOSURES OR CLINICAL PRESENTATION INDICATE THAT COVID-19 IS LIKELY, AND DIAGNOSTIC TESTS FOR OTHER CAUSES OF ILLNESS (e.g., OTHER RESPIRATORY ILLNESS) ARE NEGATIVE. IF COVID-19 IS STILL SUSPECTED BASED ON EXPOSURE HISTORY TOGETHER WITH OTHER CLINICAL FINDINGS, RE-TESTED SHOULD BE CONSIDERED BY HEALTHCARE PROVIDERS IN CONSULTATION WITH PUBLIC HEALTH AUTHORITIES. Performed By: #### [id number] #### [facility],[address] [place] [address] EMERGENCY REPORTon 1 EMERGENCY REPORT [facility] EMERGENCY ROOM REPORT NAME ACCOUNT SEX AGE ADMIT DISCHARGE PT MED. RECORD# NUMBER DATE DATE TYPE MARIANNA [id number] F 75 10/30/20 10/30/20 3 LANDON Jay [id number] ROOM: ER DATE OF : 1945 DICTATING PHYSICIAN: Tequila Busch HISTORY OF PRESENT ILLNESS: She has been having right-sided chest wall pain and right-sided abdominal pain going on for several months. She had it for years, and it was tolerable but now it has become persistent and bothersome. She has been to numerous specialists. She has had MRIs, pelvic ultrasound, colonoscopy, abdominal ultrasound and CT examinations, and they have not been able to find anything. She describes it right where her gallbladder used to be and kind of in the lower ribs on the right going into the back area. She also often times has frequency of urination but has never had a urinary tract infection. She said each specialist said they do not know what is wrong with her. She denies any headache, earache, sore throat, cough, or shortness of breath. This is exactly the same in character, quality, frequency and duration as her previous episodes. When the pain comes on, she gets nauseated but no vomiting, diarrhea, weight loss, weight gain, blood in her stool or vomiting of blood. She has had both upper and lower GI scopes as well. PAST MEDICAL HISTORY: Mitral valve prolapse. PAST SURGICAL HISTORY: Gallbladder, laminectomy, hip and knee. MEDICATIONS: See nurse's note. FAMILY HISTORY: Noncontributory. SOCIAL HISTORY: Negative for alcohol, tobacco or illicit drug abuse. REVIEW OF SYSTEMS: As stated above. PHYSICAL EXAMINATION: Blood pressure is 144/88, pulse 70, respiratory rate 18, temperature 96.8, and oxygen saturation 98% on room air. General: She is awake, alert and nontoxic. She is frustrated that no one has been able to figure this out. Her is with her. Head is normocephalic, atraumatic. Pupils are equal and reactive to light bilaterally. Mucous membranes are moist. Heart rate and rhythm are regular without murmur, gallop or rub. Lungs are clear to auscultation bilaterally without wheezes, rales or rhonchi. She describes the pain as going across the lower ribs into the back area. She is not short of breath. Her lungs clear to auscultation bilaterally. Abdomen is soft. No tenderness, guarding, rebound, or rigidity. No rash. No pulsatile abdominal masses or hernia. No reproducible back or flank tenderness. Good femoral Page 1 of 2 [facility] Emergency Room Report A LANDON CASE : 1945 pulses and peripheral pulses distally. Neurovascularly intact. EMERGENCY DEPARTMENT COURSE AND TREATMENT: I talked to her for a great deal of time. I said there are some things that cannot show up on a CT scan or MRI like adhesions. We talked about the fact that it is radicular on one side across from the front to the back of her ribs, and we talked about treating her for shingles. Up to 10% of shingles patients will not develop a rash and if treated can resolve so we are going to go ahead and try that, acyclovir and prednisone. She is going to follow up with her family doctor to refer her to an abdominal specialist at the [facility]. If they are unable to find anything, I told her the next step would be to see pain management for a possible nerve block or something of that nature if this is belly related. She is going to go back to her family doctor to get a referral, but we are going to start her on acyclovir and prednisone in hopes that could be part of the problem. DIAGNOSIS: Recurrent chest wall pain and abdominal pain. Dictated By: Tequila Busch DO 10/30/20 08:02 JOB #: [id number] Transcribed By: elias 10/30/20 16:19 Electronically signed by: E-Sign: TEQUILA BUSCH MD 11/02/20 09:37 Page 2 of 2 [facility] CASE Emergency Room Report A Normal [facility] 10-06-2020 CNPN Telephone (AKURFL) -- LANDON CASE ([id number]) 1945 F Date Time Provider Department 10/06/20 JEANETTE DICKERSON During your visit today, we recorded the following information about you: Mallory Curry COORD 10/06/2020 4:08 PM Signed Received referral to urology. Tried calling home and work twice, home phone has no vm and work phone rings busy. Could not reach pt to schedule. Mallory Curry COORD Allergies As of Date: 10/06/2020 Noted Allergy Reaction GABAPENTIN 09/16/2009 1 - Mental Status Change Comments: Patient states was running into the yip. MORPHINE 06/02/2010 14 - Other: See Comments Comments: dizzy- tachycardia PENICILLIN G 06/21/2005 4 - Hives SULFA (SULFONAMIDE ANTIBIOTICS) 06/21/2005 4 - Hives Date Reviewed: 09/15/2020 Reviewed by: Lashawn Ruelas LPN - Fully Assessed Reason for Visit: Referral Request [124] Prescriptions as of 10/06/2020 Sig: POLYETHYLENE GLYCOL 3350 17 G* Use as directed for Miralax /* GATORADE SPORTS DRINK Use as directed for Miralax /* BISACODYL 5 MG TABLET Use as directed for Miralax /* DICYCLOMINE 20 MG TABLET Take 1 tablet by mouth twice * OMEPRAZOLE 40 MG CAPSULE,DUSTIN* Take 1 capsule by mouth once * PREDNISONE 20 MG TABLET Take 2 with lunch daily. Patient not taking: Reported on 09/15/2020 COLESTIPOL 1 GRAM TABLET Take 1 tablet by mouth twice * Patient not taking: Reported on 09/15/2020 CLOTRIMAZOLE-BETAMETHASONE 1 * Apply 1 application to affect* Patient not taking: Reported on 09/15/2020 CALCIUM 600 + D ORAL Take 1 tablet by mouth once d* Patient not taking: Reported on 09/15/2020 CHOLECALCIFEROL (VITAMIN D3) * Take 5,000 Units by mouth twi* Patient not taking: Reported on 09/15/2020 PROPRANOLOL 20 MG TABLET Take 40 mg by mouth one time * * IBUPROFEN 200 MG TABLET Take 200 mg by mouth every 6 * * ASPIRIN 81 MG TABLET Take one (1) tablet daily . 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 Vital Signs Date Time Vital Sign Value Performing Clinician Facility 02-03-2025 10:33-0400 Body height 170.[address] Kasey Nicole MD Work Phone: [phone])891-152056 [place] [address] 02-03-2025 10:33-0400 Body mass index (BMI) [Ratio] 34.7 kg/m2 Dr. Kasey Nicole MD Work Phone: [phone] [place] [address] 02-03-2025 10:33-0400 Body temperature 97.9 [degF] Dr. Kasey Nicole MD Work Phone: 3([phone])[phone] [address] 02-03-2025 10:33-0400 Body weight 100.[address] Kasey Nicole MD Work Phone: [phone])[phone] [place] [address] 02-03-2025 10:33-0400 Diastolic blood pressure 82 mm[Hg] Dr. Kasey Nicole MD Work Phone: 8(332)[phone] [place] [address] 02-03-2025 10:33-0400 Heart rate 70 /min Dr. Kasey Nicole MD Work Phone: [phone] [place] [address] 02-03-2025 10:33-0400 SaO2% (BldA) [Mass fraction] 96 % Dr. Kasey Nicole MD Work Phone: [phone] [place] [address] 02-03-2025 10:33-0400 Systolic blood pressure 132 mm[Hg] Dr. Kasey Nicole MD Work Phone: 0(767)[phone] [place] [address] 02-01-2025 19:45-0400 Body temperature 98.6 [degF] Dr. Kasey Nicole MD Work Phone: [phone])[phone] [place] [address] 02-01-2025 19:45-0400 Diastolic blood pressure 70 mm[Hg] Dr. Kasey Nicole MD Work Phone: 9([phone] [address] 02-01-2025 19:45-0400 Heart rate 58 /min Dr. Kasey Nicole MD Work Phone: [phone])[phone] [place] [address] 02-01-2025 19:45-0400 Respiratory rate 16 /min Dr. Kasey Nicole MD Work Phone: [facility] 02-01-2025 19:45-0400 SaO2% (BldA) [Mass fraction] 100 % Dr. Kasey Nicole MD Work Phone: [facility] 02-01-2025 19:45-0400 Systolic blood pressure 130 mm[Hg] Dr. Kasey Nicole MD Work Phone: 1(244)880-418156 [place] [address] 02-01-2025 15:32-0400 Body height 170.[address] Kasey Nicole MD Work Phone: 8(882)090-177261 [place] [address] 02-01-2025 15:32-0400 Body mass index (BMI) [Ratio] 34.9 kg/m2 Dr. Kasey Nicole MD Work Phone: 7(009)317-526561 [place] [address] 02-01-2025 15:32-0400 Body weight 101.[address] Kasey Nicole MD Work Phone: 6(021)420-133261 [place] [address] 02-01-2025 11:29-0400 Body temperature 97.9 [degF] Dr. Kasey Nicole MD Work Phone: 9(342)385-443861 [place] [address] 02-01-2025 11:29-0400 Diastolic blood pressure 78 mm[Hg] Dr. Kasey Nicole MD Work Phone: 0(366)730-406661 [place] [address] 02-01-2025 11:29-0400 Heart rate 67 /min Dr. Kasey Nicole MD Work Phone: 0(396)743-771456 [place] [address] 02-01-2025 11:29-0400 Respiratory rate 16 /min Dr. Kasey Nicole MD Work Phone: 7(901)504-834961 [place] [address] 02-01-2025 11:29-0400 SaO2% (BldA) [Mass fraction] 97 % Dr. Kasey Nicole MD Work Phone: 7(500)698-874756 [place] [address] 02-01-2025 11:29-0400 Systolic blood pressure 126 mm[Hg] Dr. Kasey Nicole MD Work Phone: 2(675)181-508468 [address] 01-30-2025 08:52-0400 Body height 168.9 cm Isatu Jaeger MD Work Phone: [facility] 01-30-2025 08:52-0400 Body mass index (BMI) [Ratio] 34.98 kg/m2 Isatu Jaeger MD Work Phone: [facility] 01-30-2025 08:52-0400 Body weight 99.79 kg Isatu Jaeger MD Work Phone: [facility] 01-30-2025 08:52-0400 Diastolic blood pressure 72 mm[Hg] Isatu Jaeger MD Work Phone: [facility] 01-30-2025 08:52-0400 Systolic blood pressure 118 mm[Hg] Isatu Jaeger MD Work Phone: [facility] 01-24-2025 10:18-0400 Body mass index (BMI) [Ratio] 35.26 kg/m2 Jose Moomaw [employer]ER[employer] OFFICER.[employer]AIN WAXER Work Phone: [facility] 01-24-2025 10:18-0400 Body temperature 98.71 [degF] Jose Moomaw FISHERIES OFFICER.[employer]CELAIN WAXER Work Phone: [facility] 01-24-2025 10:18-0400 Body weight 100.7 kg Jose Moomaw FISHERIES OFFICER.[employer]CELAIN W[employer]ER Work Phone: [facility] 01-24-2025 10:18-0400 Diastolic blood pressure 75 mm[Hg] Jose Moomaw FISHERIES OFFICER.PORCELAIN WAXER Work Phone: [facility] 01-24-2025 10:18-0400 Heart rate 70 /min Jose Moomaw FISHERIES OFFICER.PORCELAIN WAXER Work Phone: [facility] 01-24-2025 10:18-0400 Respiratory rate 18 /min Jose Moomaw FISHERIES OFFICER.PORCELAIN WAXER Work Phone: [facility] 01-24-2025 10:18-0400 SaO2% (BldA) [Mass fraction] 96 % Jose Villaw FISHERIES OFFICER.PORCELAIN WAXER Work Phone: [facility] 01-24-2025 10:18-0400 Systolic blood pressure 148 mm[Hg] Jose Rastaomaw FISHERIES OFFICER.PORCELAIN WAXER Work Phone: [facility] 01-15-2025 15:09-0400 Body mass index (BMI) [Ratio] 35.1 kg/m2 Caren Kelly FISHERIES OFFICER.CNM Work Phone: [facility] 01-15-2025 15:09-0400 Body weight 100.25 kg Caren Kelly FISHERIES OFFICER.CNM Work Phone: [facility] 01-15-2025 15:09-0400 Diastolic blood pressure 72 mm[Hg] Caren Kelly FISHERIES OFFICER.CNM Work Phone: [facility] 01-15-2025 15:09-0400 Systolic blood pressure 120 mm[Hg] Caren Kelly FISHERIES OFFICER.CNM Work Phone: [facility] 12-08-2024 08:15-0400 Body mass index (BMI) [Ratio] 35.71 kg/m2 Felix Denise MD Work Phone: [facility] 12-08-2024 08:15-0400 Body temperature 97.9 [degF] Felix Denise MD Work Phone: [facility] 12-08-2024 08:15-0400 Body weight 102 kg Felix Denise MD Work Phone: [facility] 12-08-2024 08:15-0400 Diastolic blood pressure 63 mm[Hg] Felix Denise MD Work Phone: [facility] 12-08-2024 08:15-0400 Heart rate 59 /min Felix Denise MD Work Phone: [facility] 12-08-2024 08:15-0400 Respiratory rate 20 /min Felix Denise MD Work Phone: [facility] 12-08-2024 08:15-0400 SaO2% (BldA) [Mass fraction] 98 % Felix Denise MD Work Phone: [facility] 12-08-2024 08:15-0400 Systolic blood pressure 122 mm[Hg] Felix Denise MD Work Phone: [facility] 11-03-2024 08:07-0400 Body temperature 98.2 [degF] Dr. Kasey Nicole MD Work Phone: [facility] 11-03-2024 08:07-0400 Diastolic blood pressure 68 mm[Hg] Dr. Kasey Nicole MD Work Phone: [facility] 11-03-2024 08:07-0400 Heart rate 64 /min Dr. Kasey Nicole MD Work Phone: [facility] 11-03-2024 08:07-0400 Respiratory rate 16 /min Dr. Kasey Nicole MD Work Phone: [facility] 11-03-2024 08:07-0400 SaO2% (BldA) [Mass fraction] 96 % Dr. Kasey Nicole MD Work Phone: [facility] 11-03-2024 08:07-0400 Systolic blood pressure 120 mm[Hg] Dr. Kasey Nicole MD Work Phone: [facility] 03-08-2024 11:13-0400 Body mass index (BMI) [Ratio] 35.42 kg/m2 Pipe Patel APRN.PORCELAIN WAXER Work Phone: [facility] 03-08-2024 11:13-0400 Body weight 101.15 kg Pipe Patel APRN.PORCELAIN WAXER Work Phone: [facility] 03-08-2024 11:13-0400 Diastolic blood pressure 78 mm[Hg] Piep Patel APRN.PORCELAIN WAXER Work Phone: [facility] 03-08-2024 11:13-0400 Heart rate 98 /min Pipe Patel APRN.PORCELAIN WAXER Work Phone: [facility] 03-08-2024 11:13-0400 Respiratory rate 14 /min Pipe Jaycarolynn MOORE.PORCELAIN WAXER Work Phone: [facility] 03-08-2024 11:13-0400 SaO2% (BldA) [Mass fraction] 97 % Pipe Jaycarolynn MOORE.PORCELAIN WAXER Work Phone: [facility] 03-08-2024 11:13-0400 Systolic blood pressure 114 mm[Hg] Pipe Jaycarolynn MOORE.PORCELAIN WAXER Work Phone: [facility] 02-26-2024 08:17-0400 Body mass index (BMI) [Ratio] 35.68 kg/m2 Krislyn Aberegg PA Work Phone: [facility] 02-26-2024 08:17-0400 Body temperature 98.8 [degF] Krislyn Aberegg PA Work Phone: [facility] 02-26-2024 08:17-0400 Body weight 101.9 kg Krislyn Aberegg PA Work Phone: [facility] 02-26-2024 08:17-0400 Diastolic blood pressure 78 mm[Hg] Krislyn Aberegg PA Work Phone: [facility] 02-26-2024 08:17-0400 Heart rate 82 /min Krislyn Aberegg PA Work Phone: [facility] 02-26-2024 08:17-0400 Respiratory rate 18 /min Krislyn Aberegg PA Work Phone: [facility] 02-26-2024 08:17-0400 SaO2% (BldA) [Mass fraction] 96 % Krislyn Aberegg PA Work Phone: [facility] 02-26-2024 08:17-0400 Systolic blood pressure 122 mm[Hg] Krislyn Aberegg PA Work Phone: [facility] 12-13-2023 07:02-0400 Diastolic blood pressure 65 mm[Hg] Jennifer GREGORY-C Work Phone: [facility] Comment on above: Standing 12-13-2023 07:02-0400 Heart rate 79 /min Jennifer Kemper PA-C Work Phone: [facility] 12-13-2023 07:02-0400 Systolic blood pressure 105 mm[Hg] Jennifer Kemper PA-C Work Phone: [facility] Comment on above: Standing 12-13-2023 06:59-0400 Body mass index (BMI) [Ratio] 35.91 kg/m2 Jennifer Kemper PA-C Work Phone: [facility] 12-13-2023 06:59-0400 Body weight 102.57 kg Jennifer Kemper PA-C Work Phone: [facility] 12-13-2023 06:59-0400 Respiratory rate 18 /min Jennifer Kemper PA-C Work Phone: [facility] 12-13-2023 06:59-0400 SaO2% (BldA) [Mass fraction] 100 % Jennifer Kemper PA-C Work Phone: [facility] 11-19-2023 08:25-0400 Body mass index (BMI) [Ratio] 36.03 kg/m2 Adeline Juarez APRN.PORCELAIN WAXER Work Phone: [facility] 11-19-2023 08:25-0400 Body temperature 97.39 [degF] Adeline Juarez APRN.PORCELAIN WAXER Work Phone: [facility] 11-19-2023 08:25-0400 Body weight 102.9 kg Adeline Juarez APRN.PORCELAIN WAXER Work Phone: [facility] 11-19-2023 08:25-0400 Diastolic blood pressure 78 mm[Hg] Adeline Juarez APRN.PORCELAIN WAXER Work Phone: [facility] 11-19-2023 08:25-0400 Heart rate 65 /min Adeline Juarez APRN.PORCELAIN WAXER Work Phone: [facility] 11-19-2023 08:25-0400 Respiratory rate 20 /min Adeline Juarez APRN.CNP Work Phone: [facility] 11-19-2023 08:25-0400 SaO2% (BldA) [Mass fraction] 95 % Adeline Juarez FISHERIES OFFICER.PORCELAIN WAXER Work Phone: [facility] 11-19-2023 08:25-0400 Systolic blood pressure 114 mm[Hg] Adeline Juarez FISHERIES OFFICER.PORCELAIN WAXER Work Phone: [facility] 11-04-2023 09:08-0400 Body mass index (BMI) [Ratio] 35.58 kg/m2 Isatu Jaeger MD Work Phone: [facility] 11-04-2023 09:08-0400 Body weight 101.61 kg Isatu Jaeger MD Work Phone: [facility] 11-04-2023 09:08-0400 Diastolic blood pressure 74 mm[Hg] Isatu Jaeger MD Work Phone: [facility] 11-04-2023 09:08-0400 Heart rate 66 /min Isatu Jaeger MD Work Phone: [facility] 11-04-2023 09:08-0400 SaO2% (BldA) [Mass fraction] 96 % Isatu Jaeger MD Work Phone: [facility] 11-04-2023 09:08-0400 Systolic blood pressure 124 mm[Hg] Isatu Jaeger MD Work Phone: [facility] 10-20-2023 14:10-0400 Body mass index (BMI) [Ratio] 35.42 kg/m2 Isatu Jaeger MD Work Phone: [facility] 10-20-2023 14:10-0400 Body weight 101.15 kg Isatu Jaeger MD Work Phone: [facility] 10-20-2023 14:10-0400 Diastolic blood pressure 86 mm[Hg] Isatu Jaeger MD Work Phone: [facility] 10-20-2023 14:10-0400 Systolic blood pressure 138 mm[Hg] Isatu Jaeger MD Work Phone: [facility] 08-03-2023 13:13-0500 Body height 170.[address] Kasey Nicole Work Phone: [facility] 08-03-2023 13:13-0500 Body mass index (BMI) [Ratio] 34.9 kg/m2 Dr. Kasey Nicole Work Phone: [facility] 08-03-2023 13:13-0500 Body weight 101.[address] Kasey Nciole Work Phone: [facility] 08-03-2023 13:13-0500 Diastolic blood pressure 83 mm[Hg] Dr. Kasey Nicole Work Phone: [facility] 08-03-2023 13:13-0500 Heart rate 78 /min Dr. Kasey Nicole Work Phone: [facility] 08-03-2023 13:13-0500 Respiratory rate 18 /min Dr. Kasey Nicole Work Phone: [facility] 08-03-2023 13:13-0500 Systolic blood pressure 129 mm[Hg] Dr. Kasey Nicole Work Phone: [facility] 06-08-2023 10:31-0500 Body temperature 97.6 [degF] Dr. Dimitri Nicole Work Phone: [facility] 06-08-2023 10:31-0500 Diastolic blood pressure 74 mm[Hg] Dr. Dimitri Nicole Work Phone: [facility] 06-08-2023 10:31-0500 Heart rate 86 /min Dr. Dimitri Nicole Work Phone: [facility] 06-08-2023 10:31-0500 Respiratory rate 15 /min Dr. Dimitri Nicole Work Phone: [facility] 06-08-2023 10:31-0500 SaO2% (BldA) [Mass fraction] 100 % Dr. Dimitri iNcole Work Phone: [facility] 06-08-2023 10:31-0500 Systolic blood pressure 126 mm[Hg] Dr. Dimitri Nicole Work Phone: [facility] 06-02-2023 09:09-0500 Body temperature 98 [degF] Dr. Dimitri Nicole Work Phone: [facility] 06-02-2023 09:09-0500 Diastolic blood pressure 74 mm[Hg] Dr. Dimitri Nicole Work Phone: [facility] 06-02-2023 09:09-0500 Heart rate 73 /min Dr. Dimitri Nicole Work Phone: [facility] 06-02-2023 09:09-0500 Respiratory rate 12 /min Dr. Dimitri Nicole Work Phone: [facility] 06-02-2023 09:09-0500 SaO2% (BldA) [Mass fraction] 98 % Dr. Dimitri Nicole Work Phone: [facility] 06-02-2023 09:09-0500 Systolic blood pressure 122 mm[Hg] Dr. Dimitri Nicole Work Phone: [facility] 05-21-2023 08:07-0500 Body temperature 98.9 [degF] Dr. Dimitri Nicole Work Phone: [facility] 05-21-2023 08:07-0500 Diastolic blood pressure 71 mm[Hg] Dr. Dimitri Nicole Work Phone: [facility] 05-21-2023 08:07-0500 Heart rate 69 /min Dr. Dimitri Nicole Work Phone: [facility] 05-21-2023 08:07-0500 Respiratory rate 17 /min Dr. Dimitri Nicole Work Phone: [facility] 05-21-2023 08:07-0500 SaO2% (BldA) [Mass fraction] 100 % Dr. Dimitri Nicole Work Phone: [facility] 05-21-2023 08:07-0500 Systolic blood pressure 128 mm[Hg] Dr. Dimitri Nicole Work Phone: [facility] 05-16-2023 09:17-0500 Body height 170.[address] Dimitri Nicole Work Phone: [facility] 05-16-2023 09:17-0500 Body mass index (BMI) [Ratio] 35.2 kg/m2 Dr. Dimitri Nicole Work Phone: [facility] 05-16-2023 09:17-0500 Body temperature 98.2 [degF] Dr. Dimitri Nicole Work Phone: [facility] 05-16-2023 09:17-0500 Body weight 102.[address] Dimitri Nicole Work Phone: [facility] 05-16-2023 09:17-0500 Diastolic blood pressure 84 mm[Hg] Dr. Dimitri Nicole Work Phone: [facility] 05-16-2023 09:17-0500 Heart rate 96 /min Dr. Dimitri Nicole Work Phone: [facility] 05-16-2023 09:17-0500 Respiratory rate 14 /min Dr. Dimitri Nicole Work Phone: [facility] 05-16-2023 09:17-0500 SaO2% (BldA) [Mass fraction] 96 % Dr. Dimitri Nicole Work Phone: [facility] 05-16-2023 09:17-0500 Systolic blood pressure 137 mm[Hg] Dr. Dimitri Nicole Work Phone: [facility] 02-20-2023 08:18-0400 Body temperature 98.2 [degF] Deb Duval APRN.PORCELAIN WAXER Work Phone: [facility] 02-20-2023 08:18-0400 Body weight 96.16 kg Deb Duval APRN.PORCELAIN WAXER Work Phone: [facility] 02-20-2023 08:18-0400 Diastolic blood pressure 82 mm[Hg] Deb Duval APRN.PORCELAIN WAXER Work Phone: [facility] 02-20-2023 08:18-0400 Heart rate 72 /min Deb Duval APRN.PORCELAIN WAXER Work Phone: [facility] 02-20-2023 08:18-0400 Respiratory rate 16 /min Deb Duval APRN.PORCELAIN WAXER Work Phone: [facility] 02-20-2023 08:18-0400 SaO2% (BldA) [Mass fraction] 97 % Deb Duval APRN.PORCELAIN WAXER Work Phone: [facility] 02-20-2023 08:18-0400 Systolic blood pressure 132 mm[Hg] Deb Duval APRN.PORCELAIN WAXER Work Phone: [facility] 10-31-2022 12:48-0400 Body temperature 98.29 [degF] Krislyn Aberegg PA Work Phone: [facility] 10-31-2022 12:48-0400 Body weight 96.62 kg Krislyn Aberegg PA Work Phone: [facility] 10-31-2022 12:48-0400 Diastolic blood pressure 64 mm[Hg] Krislyn Aberegg PA Work Phone: [facility] 10-31-2022 12:48-0400 Heart rate 80 /min Krislyn Aberegg PA Work Phone: [facility] 10-31-2022 12:48-0400 Respiratory rate 16 /min Krislyn Aberegg PA Work Phone: [facility] 10-31-2022 12:48-0400 SaO2% (BldA) [Mass fraction] 96 % Kirsten Rojas PA Work Phone: [facility] 10-31-2022 12:48-0400 Systolic blood pressure 102 mm[Hg] Kirsten Rojas PA Work Phone: [facility] 03-13-2022 08:57-0400 Body temperature 98.2 [degF] Caren Jose FISHERIES OFFICER.[employer]ELAIN WAXER Work Phone: [facility] 03-13-2022 08:57-0400 Body weight 99.52 kg Caren Jose FISHERIES OFFICER.PORCELAIN WAXER Work Phone: [facility] 03-13-2022 08:57-0400 Diastolic blood pressure 72 mm[Hg] Caren Jose FISHERIES OFFICER.PORCELAIN WAXER Work Phone: [facility] 03-13-2022 08:57-0400 Heart rate 71 /min Caren Jose FISHERIES OFFICER.PORCELAIN WAXER Work Phone: [facility] 03-13-2022 08:57-0400 Respiratory rate 18 /min Caren Jose FISHERIES OFFICER.PORCELAIN WAXER Work Phone: [facility] 03-13-2022 08:57-0400 SaO2% (BldA) [Mass fraction] 97 % Caren Jose FISHERIES OFFICER.PORCELAIN WAXER Work Phone: [facility] 03-13-2022 08:57-0400 Systolic blood pressure 110 mm[Hg] Caren Jose FISHERIES OFFICER.PORCELAIN WAXER Work Phone: [facility] 12-21-2021 10:04-0400 Body height 170.[address] Dimitri Nicole Work Phone: [facility] Work Phone: 12-21-2021 10:04-0400 Body mass index (BMI) [Ratio] 35.3 kg/m2 Dr. Dimitri Nicole Work Phone: [facility] Work Phone: 07-18-2022 10:04-0400 Body temperature 97.6 [degF] Dr. Dimitri Nicole Work Phone: [facility] Work Phone: 12-21-2021 10:04-0400 Body weight 102.[address] Dimitri Nicole Work Phone: [facility] Work Phone: 12-21-2021 10:04-0400 Diastolic blood pressure 82 mm[Hg] Dr. Dimitri Nicole Work Phone: [facility] Work Phone: 12-21-2021 10:04-0400 Heart rate 67 /min Dr. Dimitri Nicole Work Phone: [facility] Work Phone: 12-21-2021 10:04-0400 Respiratory rate 14 /min Dr. Dimitri Nicole Work Phone: [facility] Work Phone: 12-21-2021 10:04-0400 SaO2% (BldA) [Mass fraction] 97 % Dr. Dimitri Nicole Work Phone: [facility] Work Phone: 12-21-2021 10:04-0400 Systolic blood pressure 127 mm[Hg] Dr. Dimitri Nicole Work Phone: [facility] Work Phone: Encounters Encounter Date Encounter Type Care Provider Facility Start: 02-03-2025 End: 02-03-2025 Patient encounter procedure Imer HOPKINS [facility] Work Phone: Start: 02-03-2025 End: 02-03-[address] Kasey Nicole MD Work Phone: [facility] Start: 02-01-2025 End: 02-01-2025 Emergency department patient visit Dr. Kasey Nicole MD Work Phone: -Emergency Department Work Phone: Start: 02-01-2025 End: 02-05-2025 Telephone encounter Isatu Jaeger MD Work Phone: OB/Gynecology Comment on above: Urinary Urgency Start: 02-01-2025 End: 02-01-2025 Patient encounter procedure Robson GREGORY -[facility] Work Phone: Start: 02-01-2025 End: 02-01-2025 ambulatory Robson GREGORY Facility:[facility] Start: 02-01-2025 End: 02-01-2025 Patient encounter procedure Robson GREGORY [facility] Work Phone: Start: 02-01-2025 End: 02-01-[address] Kasey Nicole MD Work Phone: [facility] Start: 01-30-2025 End: 01-30-2025 Patient encounter procedure Isatu Jaeger MD Work Phone: OB/Gynecology Comment on above: PMB (postmenopausal bleeding) (Primary Dx); Pre-op exam Start: 01-30-2025 End: 01-30-2025 Preprocedural examination done Isatu Jaeger MD Work Phone: [facility] Start: 01-30-2025 End: 01-30-2025 ambulatory ISATU JAEGER Facility:[facility] Start: 01-30-2025 Encounter for other preprocedural examination ISATU JAEGER [facility] Start: 01-24-2025 End: 01-25-2025 Follow-up encounter Jose Phillips APRN.PORCELAIN WAXER Work Phone: [facility] Comment on above: Results Start: 01-24-2025 End: 01-24-2025 Patient encounter procedure Jose Phillips APRN.PORCELAIN WAXER Work Phone: [facility] Comment on above: Urinary frequency (P rimary Dx) Start: 01-24-2025 End: 01-24-2025 ambulatory [employer] Work Phone: OB/Gynecology Start: 01-15-2025 End: 01-15-2025 Patient encounter procedure Caren Kelly CNM Work Phone: OB/Gynecology Comment on above: Postmenopausal bleed ing (Primary Dx) Start: 01-15-2025 End: 01-15-2025 ambulatory CAREN KELLY Facility:[facility] Start: 01-10-2025 End: 01-10-[address] Kasey Nicole MD Work Phone: -[facility] Start: 01-10-2025 End: 01-10-[address] Lavell Bajwa MD -[facility] [place] Work Phone: Start: 01-10-2025 End: 01-10-2025 [facility] Start: 12-08-2024 End: 12-08-2024 Office outpatient visit 25 minutes Felix Denise MD Work Phone: [facility] Comment on above: Light headed (Primar y Dx); Headache, unspecified headache type; CEBALLOS (dyspnea on exertion) Start: 12-08-2024 End: 12-08-2024 ambulatory KASEY NICOLE Facility:[facility] Start: 11-03-2024 End: 11-03-2024 Patient encounter procedure Jen ABREUC -[facility] Work Phone: Start: 11-03-2024 End: 11-03-[address] Kasey Nicole MD Work Phone: [facility] Work Phone: Start: 10-03-2024 End: 10-03-[address] Kasey Nicole MD Work Phone: [facility] Work Phone: Start: 10-03-2024 End: 10-03-[address] [facility] Start: 10-03-2024 End: 10-03-2024 ambulatory Kasey Nicole Facility:[facility] Start: 08-01-2024 ambulatory Kasey Nicole Faci lity:[facility] Start: 06-18-2024 End: 06-18-2024 Patient encounter procedure Harsh Andres DO [facility] Work Phone: Start: 06-18-2024 End: 06-18-2024 ambulatory Kasey Nicole Facility:[facility] Start: 03-26-2024 End: 03-26-2024 ambulatory Kasey Nicole Facility:[facility] Start: 03-26-2024 End: 03-26-2024 ambulatory Kasey Nicole Facility:[facility] Start: 03-20-2024 End: 03-20-2024 ambulatory Bandarlauren Nicole Facility:[facility] Start: 03-16-2024 End: 03-16-2024 ambulatory Robson GREGORY Facility:[facility] Start: 03-09-2024 End: 03-09-2024 [facility] Facility:[facility] Start: 03-08-2024 End: 03-08-2024 ambulatory PIPE PATEL Facility:[facility] Start: 03-08-2024 End: 03-08-2024 Patient encounter procedure Pipe Patel APRN.CNP Work Phone: OB/Gynecology Comment on above: Nausea (Primary Dx); Pelvic pressure in female Start: 03-07-2024 End: 03-08-2024 Telephone encounter Isatu Jaeger MD Work Phone: OB/Gynecology Comment on above: Patient Question (/) Start: 02-27-2024 ambulatory Kasey Aguilloni lity:[facility] Start: 02-26-2024 End: 02-26-2024 Emergency department patient visit Kasey Nicole Facility:[facility] Start: 02-26-2024 End: 02-26-2024 ambulatory KASEY INCOLE Facility:[facility] Start: 02-26-2024 End: 02-26-2024 Patient encounter procedure Kirsten GREGORY Work Phone: [facility] Comment on above: LLQ abdominal pain ( Primary Dx) Start: 02-21-2024 ambulatory Kasey Nicole Faci lity:[facility] Start: 02-21-2024 End: 02-21-2024 ambulatory Bandarlauren Nicole Facility:[facility] Start: 12-19-2023 Telephone encounter Jennifer santos PA-C Work Phone: Neurology Comment on above: Results Start: 12-14-2023 Telephone encounter Jennifer Jose GREGORY-C Work Phone: Neurology Comment on above: Orders Start: 12-13-2023 End: 12-13-2023 Patient encounter procedure Jennifer GREGORY-Maxwell Work Phone: Neurology Comment on above: Neuropathy (Primary Dx); Positional lightheadedness; Malaise and fatigue; Low vitamin D level Start: 11-19-2023 End: 11-19-2023 Patient encounter procedure Adeline Juarez APRN.CNP Work Phone: [facility] Comment on above: Bacterial sinusitis (Primary Dx) Start: 11-04-2023 End: 11-04-2023 Patient encounter procedure Isatu Jaeger MD Work Phone: OB/Gynecology Comment on above: Postmenopausal bleed ing (Primary Dx); Thickened endometrium; Fluid in endometrial cavity Start: 10-28-2023 Orders Only Isatu Jaeger MD Work Phone: OB/Gynecology Comment on above: PMB (postmenopausal bleeding) (Primary Dx); Thickened endometrium Results Start: 10-25-2023 Telephone encounter Isatu Jaeger MD Work Phone: OB/Gynecology Comment on above: Pelvic Pain Start: 10-24-2023 End: 10-24-2023 Subsequent hospital visit by physician [facility] Work Phone: Radiology Comment on above: PMB (postmenopausal bleeding) [N95.0] Start: 10-20-2023 End: 10-20-2023 Patient encounter procedure Isatu Jaeger MD Work Phone: OB/Gynecology Comment on above: PMB (postmenopausal bleeding) (Primary Dx); Encounter for screening mammogram for malignant neoplasm of breast Start: 09-05-2023 End: 09-05-[address] Kasey Nicole Work Phone: [facility] Work Phone: Start: 09-05-2023 End: 09-05-[address] Kasey Nicole Work Phone: [facility] Work Phone: Start: 08-03-2023 End: 08-03-[address] Kasey Nicole Work Phone: [facility] Work Phone: Start: 07-21-2023 End: 07-21-[address] Dimitri Nicole Work Phone: [facility] Work Phone: Start: 07-21-2023 End: 07-21-[address] Dimitri Nicole Work Phone: [facility] Work Phone: Start: 07-12-2023 End: 07-12-[address] Dimitri Nicole Work Phone: [facility] Start: 06-27-2023 End: 06-27-[address] Dimitri Nicole Work Phone: [facility] Work Phone: Start: 06-27-2023 End: 06-27-[address] Dimitri Nicole Work Phone: [facility] Work Phone: Start: 06-15-2023 End: 06-15-[address] Dimitri Nicole Work Phone: [facility] Gastroenter[facility] Work Phone: Start: 06-08-2023 End: 06-08-[address] Dimitri Nicole Work Phone: [facility] Work Phone: Start: 06-08-2023 End: 06-08-[address] [facility] Work Phone: Start: 06-08-2023 Non-patient / Non-visit Dr. Tuan Nicole Work Phone: [facility] Start: 06-08-2023 End: 06-08-[address] Dimitri Nicole Work Phone: [facility] Work Phone: Start: 06-02-2023 End: 06-02-[address] Dimitri Nicole Work Phone: [facility] Work Phone: Start: 06-02-2023 End: 06-02-[address] Dimitri Nicole Work Phone: [facility], Spec[facility] Work Phone: Start: 06-02-2023 End: 06-02-[address] Dimitri Nicole Work Phone: [facility] Work Phone: Start: 05-21-2023 End: 05-21-[address] Dimitri Nicole Work Phone: [facility] Work Phone: Start: 05-16-2023 End: 05-16-[address] Dimitri Nicole Work Phone: [facility] Work Phone: Start: 05-16-2023 End: 05-16-[address] Dimitri Nicole Work Phone: [facility], Spec[facility] Work Phone: Start: 05-16-2023 End: 05-16-[address] Dimitri Nicole Work Phone: [facility] Work Phone: Start: 04-19-2023 End: 04-19-2023 ambulatory [id number] KASEY LAGUERRE DO Facility:[facility] Start: 03-07-2023 Non-patient / Non-visit Dr. Tuan Nicole Work Phone: [facility] Work Phone: Start: 03-03-2023 Non-patient / Non-visit Dr. Tuan Nicole Work Phone: [facility] Start: 03-03-2023 End: 03-03-[address] Dimitri Nicole Work Phone: [facility] Work Phone: Start: 02-20-2023 End: 02-20-2023 Patient encounter procedure Deb Duval APRN.CNP Work Phone: [facility] Comment on above: URI, acute (Primary Dx) Start: 11-11-2022 End: 11-11-2022 ambulatory [facility] Work Phone: Start: 11-11-2022 End: 11-11-2022 Patient encounter procedure [facility] Start: 10-31-2022 End: 10-31-2022 Patient encounter procedure Kirsten GREGORY Work Phone: [facility] Comment on above: Acute frontal sinusi tis, recurrence not specified (Primary Dx) Start: 04-19-2022 End: 04-19-[address] Dimitri Nicole Work Phone: [facility] Work Phone: Start: 04-19-2022 End: 04-19-[address] Dimitri Nicole Work Phone: [facility] Start: 04-13-2022 End: 04-13-[address] Dimitri Nicole Work Phone: [facility] Work Phone: Start: 04-13-2022 End: 04-13-[address] Dimitri Niocle Work Phone: [facility]-Cat Scan, [facility] Start: 03-16-2022 End: 03-16-[address] Dimitri Nicole Work Phone: [facility] Work Phone: Start: 03-16-2022 End: 03-16-[address] Dimitri Nicole Work Phone: [facility] Gastroenterology Start: 03-15-2022 Telephone encounter Lakisha Freed APRN.PORCELAIN WAXER Work Phone: [facility] Comment on above: Results Start: 03-13-2022 End: 03-13-2022 Patient encounter procedure Caren Jose APRN.PORCELAIN WAXER Work Phone: [facility] Comment on above: Dysuria (Primary Dx) Start: 12-30-2021 End: 12-30-[address] Dimitri Nicole Work Phone: [facility]-Ultrasound, [facility] Start: 12-21-2021 End: 12-21-[address] Dimitri Nicole Work Phone: [facility] Start: 12-21-2021 End: 12-21-[address] Dimitri Nicole Work Phone: [facility] Gastroenterology Start: 09-23-2021 End: 09-23-2021 Subsequent hospital visit by physician [facility] Work Phone: Radiology Comment on above: Abnormal mammogram [ R92.8] Start: 05-15-2021 End: 05-15-2021 ambulatory [facility] Start: 10-30-2020 End: 10-30-2020 Emergency department patient visit TEQUILA DAVIS [facility] Procedures Date Procedure Procedure Detail Performing Clinician Start: 02-01-2025 Urnls dip stick/tabl et reagent auto microscopy Dr. Kasey Nicole MD Work Phone: Start: 02-01-[address] Kasey Nicole MD Work Phone: Start: 02-01-2025 CT of abdomen and pe lvis without contrast Dr. Kasey Nicole MD Work Phone: Start: 02-01-[address] Danny Nicole MD Work Phone: Start: 01-24-2025 Urnls dip stick/tabl et rgnt auto w/o microscopy Jose Phillips [employer] OFFICER.[employer] Work Phone: Start: 01-24-2025 Us pelvic nonobstetr ic real-time image complete Caren Kelly [employer] OFFICER.CNM Work Phone: Start: 10-03-2024 Vitamin D, 25-hydrox y measurement Dr. Kasey Nicole MD Work Phone: Comment on above: Vitamin D StatusDefi ciency: <20 ng/mL (50nmol/L)Insufficiency: 20-30 ng/mL (50-75 nmol/L)Sufficiency: 30-100 ng/mL (75-250 nmol/L)Toxicity: >100 ng/mL (>250 nmol/L) Start: 03-08-2024 Urnls dip stick/tabl et rgnt auto w/o microscopy Pipe Patel FISHERIES OFFICER.[employer]AIN [employer]ER Work Phone: Start: 09-05-2023 MRI of brain with contrast Dr. Kasey Nicole Work Phone: Start: 07-12-[address] Danny Nicole Work Phone: Start: 06-27-2023 Computed tomography of abdomen and pelvis with contrast Dr. Dimitri Nicole Work Phone: Start: 06-08-[address] Danny Nicole Work Phone: Start: 06-02-[address] Danny Nicole Work Phone: Start: 05-16-[address] Danny Nicole Work Phone: Start: 04-13-2022 Computed tomography of abdomen and pelvis with contrast Dr. Dimitri Nicole Work Phone: Start: 03-13-2022 Urnls dip stick/tabl et rgnt auto w/o microscopy Caren Jose [employer] OFFICER.[employer]AIN [employer]ER Work Phone: Start: 12-30-[address] Dimitri Nicole Work Phone: Start: 09-23-2021 Us breast uni real t amina with image limited Isatu Jaeger MD Work Phone: Start: 09-23-2021 ANA DIAG W JESUS RT Rianna Jaeger MD Work Phone: Start: 08-21-2021 Mammography Us 1 Work Phone: Start: 10-07-2020 Colonoscopy Us 1 Work Phone: Bacteria identified in Urine by Culture Urine culture Plan of Treatment Date Care Activity Detail Author Start: 12-12-2026 Diabetes Screening Diabetes Screenin g [facility] Start: 10-07-2025 Colonoscopy COLONOSCOPY [facility] Start: 10-07-2025 COLORECTAL CANCER SCREENING COLORECTAL CANCER SCREENING [facility] Start: 02-08-2025 ambulatory Ambulatory Facility:[facility] Start: 02-04-2025 Influenza vaccination Influenza Vacc ine (#1) [facility] Start: 02-01-2025 [facility] Start: 02-01-2025 [facility] Start: 02-01-2025 CT Abdomen and Pelvi s WO [facility] Start: 02-01-2025 CT of abdomen and pe lvis without contrast Abdomen/Pelvis without Cont [facility] Start: 02-01-2025 Bacteria identified in Urine by Culture Urine Culture [facility] Start: 02-01-2025 [facility] Start: 01-30-2025 End: 01-30-2025 Patient encounter procedure 01/30/2025 9:20 AM EDT Office Visit OB/Gynecology [address] [place] [address] Isatu Mast MD [address] [place] [address] Pre Op OB/Gynecology Comment on above: Pre Op Start: 01-24-2025 End: 01-24-2025 ambulatory 01/24/2025 9:30 AM EDT Procedure OB/Gynecology [address] [place] [address] [employer], [employer] [address] [place] [address] Postmenopausal bleeding [N95.0 OB/Gynecology Comment on above: Postmenopausal bleed ing [N95.0 Start: 01-15-2025 End: 01-15-2026 US Pelvis PELVIC US [facility] Anc Imaging Routine Postmenopausal bleeding Expected: 01/15/2025, Expires: 01/15/2026 [facility] Work Phone: Comment on above: Expected: 01/15/2025 , Expires: 01/15/2026 Start: 06-06-2024 Advance Directive Discussion Advance Directive Discussion [facility] Start: 06-06-2024 Medicare Advantage A nnual Wellness Visit Medicare Advantage Annual Wellness Visit [facility] Start: 03-21-2024 End: 03-21-2024 Patient encounter procedure 03/21/2024 11:30 AM EDT Office Visit Neurology [address] [place] [address] Jennifer Ray PA-C [address] [place] [address] 3 month follow up Neurology Comment on above: 3 month follow up Start: 03-08-2024 End: 03-08-2025 US Pelvis PELVIC US [facility] Anc Imaging Routine Nausea Expected: 03/08/2024, Expires: 03/08/2025 [facility] Work Phone: Comment on above: Expected: 03/08/2024 , Expires: 03/08/2025 Start: 02-05-2024 Covid-19 Vaccine () Covid-19 Vaccine () [facility] Start: 02-05-2024 Influenza vaccination C [facility] Start: 12-27-2023 End: 03-27-2024 25-hydroxyvitamin D3 [Mass/volume] in Serum or Plasma VITAMIN D 25 HYDROXY Lab Routine Positional lightheadedness Malaise and fatigue Low vitamin D level Expected: 12/27/2023, Expires: 03/27/2024 [facility] Comment on above: Expected: 12/27/2023 , Expires: 03/27/2024 Start: 12-13-2023 End: 03-13-2024 C reactive protein [Mass/volume] in Serum or Plasma [facility] Comment on above: Expected: 12/13/2023 , Expires: 03/13/2024 Start: 12-13-2023 End: 03-13-2024 CBC panel - Blood by Automated count [facility] Comment on above: Expected: 12/13/2023 , Expires: 03/13/2024 Start: 12-13-2023 End: 03-13-2024 Cobalamin (Vitamin B12) [Mass/volume] in Serum or Plasma [facility] Comment on above: Expected: 12/13/2023 , Expires: 03/13/2024 Start: 12-13-2023 End: 03-13-2024 Comprehensive metabolic 2000 panel - Serum or Plasma [facility] Comment on above: Expected: 12/13/2023 , Expires: 03/13/2024 Start: 12-13-2023 End: 03-13-2024 Erythrocyte sedimentation rate [facility] Comment on above: Expected: 12/13/2023 , Expires: 03/13/2024 Start: 12-13-2023 End: 03-13-2024 Hemoglobin A1c in Blood [facility] Comment on above: Expected: 12/13/2023 , Expires: 03/13/2024 Start: 12-13-2023 End: 03-13-2024 Methylmalonate [Moles/volume] in Serum or Plasma [facility] Work Phone: Comment on above: Expected: 12/13/2023 , Expires: 03/13/2024 Start: 12-13-2023 End: 03-13-2024 PROT ELECT SERUM WITH JASON AND INTERP [facility] Comment on above: Expected: 12/13/2023 , Expires: 03/13/2024 Start: 12-13-2023 End: 03-13-2024 Pyridoxine [Mass/volume] in Serum or Plasma [facility] Comment on above: Expected: 12/13/2023 , Expires: 03/13/2024 Start: 12-13-2023 End: 03-13-2024 Thyrotropin [Units/volume] in Serum or Plasma [facility] Comment on above: Expected: 12/13/2023 , Expires: 03/13/2024 Start: 12-13-2023 End: 12-13-2023 Patient encounter procedure 12/13/2023 7:00 AM EDT Office Visit Neurology [address] [place] [address] Jennifer Ray PA-C [address] [place] [address] Dizziness, blurry vision Neurology Comment on above: Dizziness, blurry vi katy Start: 12-07-2023 End: 12-07-2023 Patient encounter procedure 12/07/2023 1:40 PM EDT Office Visit OB/Gynecology [address] [place] [address] Isatu Mast MD [address] [place] [address] [facility] OB/Gynecology Comment on above: [facility] Start: 11-04-2023 End: 11-04-2023 Patient encounter procedure 11/04/2023 9:30 AM EDT Office Visit OB/Gynecology [address] [place] [address] Isatu Mast MD [address] [place] [address] [facility] OB/Gynecology Comment on above: [facility] Start: 11-03-2023 End: 11-03-2023 Patient encounter procedure Mammogram Comment on above: ANA SCREENING W JESUS US FEMALE PELVIS TRA NSVAG Start: 10-24-2023 DIABETES SCREEN DIABETES SCREEN [facility] Start: 10-24-2023 Diabetes Screening Diabetes Screenin g [facility] Start: 10-20-2023 End: 10-19-2024 US Pelvis PELVIC US [facility] Anc Imaging Routine PMB (postmenopausal bleeding) Expected: 10/20/2023, Expires: 10/19/2024 [facility] Work Phone: Comment on above: Expected: 10/20/2023 , Expires: 10/19/2024 Start: 07-21-2023 Procedure [facility] Start: 07-21-2023 [facility] Start: 06-06-2023 Advance Directive Discussion Advance Directive Discussion [facility] Start: 06-06-2023 Behavioral Health Screening Behavioral Health Screening [facility] Start: 02-20-2023 End: 03-06-2023 COVID & INFLUENZA A/B & RSV NAAT, ROUTINE COVID & INFLUENZA A/B & RSV NAAT, ROUTINE Microbiology Routine URI, acute Expected: 02/20/2023, Expires: 03/06/2023 [facility] Work Phone: Comment on above: Expected: 02/20/2023 , Expires: 03/06/2023 Start: 02-04-2023 Covid-19 Vaccine () Covid-19 Vaccine () [facility] Start: 02-04-2023 Influenza vaccination Influenza Vacc ine (#1) [facility] Start: 08-21-2022 Mammography MAMMOGRAM [facility] Start: 06-06-2022 ADVANCE DIRECTIVE DISCUSSION ADVANCE DIRECTIVE DISCUSSION [facility] Start: 06-06-2022 DEPRESSION ASSESSMENT DEPRESSION ASS ESSMENT [facility] Start: 2022 RSV Vaccine (1 - 1-d ose 75+ series) RSV Vaccine (1 - 1-dose 75+ series) [facility] Start: 03-16-2022 Cancer antigen 19-9 measurement [facility] Work Phone: Start: 12-21-2021 Celiac disease screen [facility] Work Phone: Start: 12-21-2021 Gastrin [Mass/volume ] in Serum or Plasma [facility] Work Phone: Start: 12-21-2021 IgE [Units/volume] i n Serum or Plasma [facility] Work Phone: Start: 12-21-2021 Serum immunofixation [facility] Work Phone: Start: 12-21-2021 [facility] Work Phone: Start: 06-06-2021 ADVANCE DIRECTIVE DISCUSSION ADVANCE DIRECTIVE DISCUSSION [facility] Start: 06-06-2021 DEPRESSION ASSESSMENT DEPRESSION ASS ESSMENT [facility] Start: 01-15-2021 COVID-19 VACCINE (3 - Booster for Pfizer series) COVID-19 VACCINE (3 - Booster for Pfizer series) [facility] Start: 10-10-2020 COVID-19 VACCINE (3 - Booster for Pfizer series) COVID-19 VACCINE (3 - Booster for Pfizer series) [facility] Start: 10-10-2020 Covid-19 Vaccine (3 - Pfizer series) Covid-19 Vaccine (3 - Pfizer series) [facility] Start: 01-04-2013 Shingrix Vaccine (2 of 3) Gay grix Vaccine (2 of 3) [facility] Start: 2012 Pneumococcal Vaccine : 65+ (1 - PCV) Pneumococcal Vaccine: 65+ (1 - PCV) [facility] Start: 2012 PNEUMOCOCCAL: 65+ (1 - PCV) PNEUMOCOCCAL: 65+ (1 - PCV) [facility] Start: 2012 PNEUMOVAX AGE 65 AND OVER WITH 5YR LOOKBACK (#1) PNEUMOVAX AGE 65 AND OVER WITH 5YR LOOKBACK (#1) [facility] Start: 2007 RSV Vaccine (1 - 1-d ose 60+ series) RSV Vaccine (1 - 1-dose 60+ series) [facility] Start: 1997 SHINGRIX VACCINE (1 of 2) GAY GRIX VACCINE (1 of 2) [facility] Start: 1992 COLOGUARD (FIT-DNA) COLOGUARD (FIT-D NA) [facility] Start: [address] COLONOGRAPHY [facility] Start: 1992 FECAL OCCULT BLOOD FECAL OCCULT BLOO D [facility] Start: 1992 Lipid 1996 panel - S faiza or Plasma Lipid Screening [facility] Start: 1992 LIPID SCREEN LIPID SCREEN [facility] Start: 1992 SIGMOIDOSCOPY SIGMOIDOSCOPY [facility] Start: 1966 Urine microalbumin profile [facility] Start: 1965 Anxiety Screening Anxiety Screening [facility] Start: 1965 Depression Screening Depression Scre ening [facility] Start: 1965 HEPATITIS C SCREENING HEPATITIS C [facility] Start: 1965 Hepatitis C screening Hepatitis C [facility] Start: 1959 Adult depression screening assessment [facility] 25-hydroxyvitamin D3 [Mass/volume] in Serum or Plasma VITAMIN D 25 HYDROXY Lab Routine Positional lightheadedness Malaise and fatigue Low vitamin D level 12/13/2023 8:02 AM EDT [facility] Albumin [Moles/volum e] in Serum or Plasma [facility] Work Phone: Albumin/Globulin ratio [facility] Work Phone: Alternaria alternata IgE Ab [Units/volume] in Serum [facility] [place] Cockroach I gE Ab [Units/volume] in Serum [facility] [place] house dust mite IgE Ab [Units/volume] in Serum [facility] Antibody to lupus La protein measurement [facility] Work Phone: Antibody to SS-A measurement [facility] Work Phone: Bacteria identified in Urine by Culture URINE CULTURE Microbiology Routine Dysuria Ordered: 03/13/2022 [facility] Work Phone: Comment on above: Ordered: 03/13/2022 Bacteria identified in Urine by Culture URINE CULTURE Microbiology Routine Pelvic pressure in female 03/08/2024 12:55 PM EDT [facility] Bacteria identified in Urine by Culture BACTERIAL CULTURE, URINE Microbiology Routine Urinary frequency 01/24/2025 10:[address] [facility] Work Phone: Bacteria identified in Urine by Culture BACTERIAL CULTURE, URINE Microbiology Routine Urinary tract infection symptoms Ordered: 01/25/2025 [facility] Work Phone: Comment on above: Ordered: 01/25/2025 Bermuda grass IgE Ab [Units/volume] in Serum [facility] Box elder [facility] Cat dander [facility] Centromere protein B Ab [Units/volume] in Serum [facility] Work Phone: Chromatin Ab [Units/volume] in Serum or Plasma [facility] Work Phone: Cladosporium herbaru m IgE Ab [Units/volume] in Serum [facility] Common Ragweed IgE A b [Units/volume] in Serum [facility] End: 11-18-2024 DBT Breast - bilateral screening ANA SCREENING W JESUS Radiology Routine Encounter for screening mammogram for malignant neoplasm of breast 1 Occurrences starting 10/20/2023 until 11/18/2024 [facility] Comment on above: 1 Occurrences starti ng 10/20/2023 until 11/18/2024 DNA double strand Ab [Units/volume] in Serum [facility] Work Phone: Dog epithelium IgE A b [Units/volume] in Serum [facility] Elastase, pancreatic (el-1), fecal; quantitative [facility] Work Phone: Electrophoresis: [id number] [facility] Work Phone: Electrophoresis: marcio ma globulin [facility] Work Phone: End: 12-12-2024 EMG(NEURO/NI) EMG(NEURO/NI) EMG Routine Neuropathy Positional lightheadedness 1 Occurrences starting 12/13/2023 until 12/12/2024 [facility] Comment on above: 1 Occurrences starti ng 12/13/2023 until 12/12/2024 Endometrial bx w/wo endocervix bx w/o dilat spx ENDOMETRIAL BIOPSY Procedures Routine Postmenopausal bleeding Thickened endometrium Fluid in endometrial cavity Ordered: 11/04/2023 [facility] Work Phone: Comment on above: Ordered: 11/04/2023 house dust mite IgE Ab [Units/volume] in Serum [facility] Fat [Presence] in Stool [facility] Work Phone: Gastrin [Mass/volume ] in Serum or Plasma [facility] Work Phone: Giardia lamblia Ag [Presence] in Stool by Immunoassay [facility] Work Phone: Globulin measurement [facility] Work Phone: Goosefoot IgE Ab [Units/volume] in Serum [facility] IgA [Mass/volume] in Serum or Plasma [facility] Work Phone: IgE [Units/volume] i n Serum or Plasma [facility] Work Phone: IgG [Mass/volume] in Serum or Plasma [facility] Work Phone: IgM [Mass/volume] in Serum or Plasma [facility] Work Phone: Candie-1 extractable nuc lear Ab [Units/volume] in Serum [facility] Work Phone: [place] blue grass IgE Ab [Units/volume] in Serum [facility] Lactoferrin [Presenc e] in Stool by Immunoassay [facility] Work Phone: Measurement of immunoglobulin A in serum specimen [facility] Work Phone: Microscopic observat ion [Identifier] in Vaginal fluid by Gram stain BACT/RAMAKRISHNA VAG GRAM STAIN Microbiology Routine PMB (postmenopausal bleeding) 10/20/2023 2:39 PM EDT [facility] Neutrophil cytoplasm ic Ab.classic [Units/volume] in Serum [facility] Work Phone: OFFICE HYSTEROSCOPY OFFICE HYSTE ROSCOPY Procedures Routine PMB (postmenopausal bleeding) Thickened endometrium Ordered: 10/28/2023 [facility] Work Phone: Comment on above: Ordered: 10/28/2023 Ova and parasites identified in Unspecified specimen by Light microscopy [facility] Work Phone: P-ANCA measurement [facility] Work Phone: Patient Education Urinary Tract Infections in Women [facility] Work Phone: Plantain (Macedonian) RAST [facility] Protein electrophore sis panel - Serum or Plasma [facility] Work Phone: Protein measurement [facility] Work Phone: ROUTINE FLU A/B + RSV ROUTINE FL U A/B + RSV Lab Routine URI, acute Ordered: 02/20/2023 [facility] Work Phone: Comment on above: Ordered: 02/20/2023 SARS-CoV-2 (COVID-19 ) RNA [Presence] in Respiratory specimen by ORIANA with probe detection COVID NAAT, UPPER RESPIRATORY, ROUTINE Microbiology Routine URI, acute Ordered: 02/20/2023 [facility] Work Phone: Comment on above: Ordered: 02/20/2023 SCL-70 extractable nuclear Ab [Units/volume] in Serum by Immunoassay [facility] Work Phone: Serum protein electrophoresis [facility] Work Phone: Foster extractable nu clear Ab [Presence] in Serum [facility] Work Phone: SURGICAL PATHOLOGY SURGICAL PATH OLOGY Lab Routine Postmenopausal bleeding Thickened endometrium Fluid in endometrial cavity 11/04/2023 9:59 AM EDT [facility] Tissue transglutamin ase IgA Ab [Units/volume] in Serum [facility] Work Phone: Tree pollen [facility] Urine culture [facility] End: 11-18-2024 US Pelvis transvaginal US FEMALE PELVIS TRANSVAG Radiology Routine PMB (postmenopausal bleeding) 1 Occurrences starting 10/20/2023 until 11/18/2024 [facility] Comment on above: 1 Occurrences starti ng 10/20/2023 until 11/18/2024 US Pelvis transvaginal US FEMALE PELVIS TRANSVAG Radiology Routine PMB (postmenopausal bleeding) 10/24/2023 3:[address] [facility] Work Phone: Immunizations Immunization Date Immunization Notes Care Provider Barak wilkinsonmadi 03-29-2024 influenza virus vaccine, unspecified formulation Felix Denise MD Work Phone: [facility] 03-02-2022 influenza virus vaccine, unspecified formulation Deb Duval APRN.PORCELAIN WAXER Work Phone: [facility] 08-15-2020 COVID-19 vaccine, ag e 12+ yr (PFIZER-BIONTECH - PURPLE TOP) Us 1 Work Phone: [facility] Work Phone: 07-25-2020 COVID-19 vaccine, ag e 12+ yr (PFIZER-BIONTECH - PURPLE TOP) Us 1 Work Phone: [facility] Work Phone: Payers Date Payer Category Payer Self-pay [id number] 2023 Medicare (Managed Care) MARIO FREED [id number] 2022 Medicaid MEDICAID [facility] MEDICAID [id number] 2022-Present [phone] [address] [place] [address] Medicaid [id number] 2013 Medicare HUMANA MEDICARE HUMANA MEDICARE PPO [id number] 2013-Present [phone] [facility] [address] [place] [address] PPO [id number] 2013 Medicare [id number] 1959 Medicaid [id number] 1959 Medicare [id number] 1945 Unknown [id number] 2.16.840.1.969257.3.579.2. 651 1945 Unknown [id number] 2.16.840.1.083886.3.579.2. 651 1945 Unknown [id number] 2.16.840.1.525654.3.579.2. 419 Unknown [id number] 2.16.840.1.412911.3.579.2. 462 Unknown [id number] 2.16.840.1.808583.3.579.2. 462 Unknown [id number] 2.16.840.1.965060.3.579.2. 462 Unknown [id number] 2.16.840.1.012133.3.579.2. 462 Unknown [id number] 2.16.840.1.353442.3.579.2. 462 Unknown [id number] 2.16.840.1.224969.3.579.2. 462 Unknown [id number] 2.16.840.1.206828.3.579.2. 462 Unknown [id number] 2.16.840.1.755068.3.579.2. 462 Unknown [id number] 2.16.840.1.229029.3.579.2. 462 Unknown [id number] 2.16.840.1.694016.3.579.2. 462 Unknown [id number] 2.16.840.1.739908.3.579.2. 462 Unknown [id number] 2.16.840.1.376568.3.579.2. 462 Unknown [id number] 2.16.840.1.677214.3.579.2. 462 Unknown [id number] 2.16.840.1.195530.3.579.2. 462 Unknown [id number] 2.16.840.1.520550.3.579.2. 462 Unknown [id number] 2.16.840.1.528285.3.579.2. 462 Unknown [id number] 2.16.840.1.082179.3.579.2. 462 Unknown [id number] 2.16.840.1.973033.3.579.2. 462 Unknown [id number] 2.16.840.1.555137.3.579.2. 462 Unknown [id number] 2.16.840.1.728222.3.579.2. 462 Social History Date Type Detail Facility Start: 03-07-2012 End: 02-05-2025 Tobacco smoking status NHIS Never smoked tobacco [facility] Start: 08-03-2021 End: 02-26-2024 Alcohol intake Current non-drinker of alcohol (finding) [facility] Start: 1945 Sex Assigned At Not on file [facility] Start: 08-22-2021 End: 03-13-2022 Exposure to SARS-CoV-2 (event) Not sure [facility] Start: 12-21-2021 End: 05-16-2023 Tobacco smoking status NHIS Unknown if ever smoked [facility] Start: 10-13-2020 Homeless [facility] Start: 1945 Sex Assigned At Female [facility] Start: 03-07-2012 Tobacco use and exposure Smokeless tobacco non-user [facility] Work Phone: Start: 02-20-2023 End: 11-04-2023 History of Social function [facility] Start: 02-20-2023 End: 11-04-2023 Tobacco use panel [facility] Work Phone: Start: 05-07-2012 National Score (1-10 0), lower number is lower risk Not on file [facility] Start: 03-08-2024 End: 01-30-2025 Alcoholic beverage intake Ex-drinker (finding) [facility] Functional Status Date Assessment Result Facility 11-13-2014 Are you deaf, or do you have serious difficulty hearing No 11/13/2014 8:51 AM Negin Scales, MIMI No [facility] 11-13-2014 Are you blind, or do you have serious difficulty seeing, even when wearing glasses No 11/13/2014 8:51 AM Negin Scales, MIMI No [facility] 11-13-2014 Do you have serious difficulty walking or climbing stairs Yes 11/13/2014 8:51 AM Negin Scales RN Yes [facility] 11-13-2014 Do you have difficul ty dressing or bathing No 11/13/2014 8:51 AM Negin Scales, MIMI No [facility] 11-13-2014 Because of a physica l, mental, or emotional condition, do you have difficulty doing errands alone such as visiting a physician's office or shopping No 11/13/2014 8:51 AM Negin Scales RN No [facility] Mental Status Date Assessment Result Facility 11-13-2014 Because of a physica l, mental, or emotional condition, do you have serious difficulty concentrating, remembering, or making decisions No 11/13/2014 8:51 AM Negin Scales, MIMI No [facility] Clinical Notes 02-16-2012 to 02-03-2025 Note Date & Type Note Facility 02-03-2025 Progress note [facility] 02-03-2025 Progress note Note Date/Time February 03, 2025 11:07am [facility] [address] , [address] [place] [address] OFFICE VISIT Date of Service: 02/03/25 MR#: [id number] Acct: [id number] Name: LANDON CASE Rep #: [id number] : 1945 Provider: KELLIE Zarate Age/Sex: 79/F Location: [facility] Status: Signed Intake Vital Signs 02/01/25 15:32 02/03/25 10:33 Height 5 ft 7 in 5 ft 7 in Weight: 222 lb BMI 34.7 BP 132/82 H Blood Pressure Location Lt brachial Position Standing Pulse 70 Pulse Source Monitor Temp 97.9 F Temp Source Oral Pulse Oximetry (%) 96 Oxygen Delivery Method room air Intake Visit Reasons: CONCERN FOR UTI Chief Complaint: UTI Accompanied by: Self Allergies nitrofurantoin (From Macrobid) Allergy (Mild, Verified 02/03/25 10:32) Rash ciprofloxacin (From Cipro) Allergy (Verified 02/03/25 10:32) Itching Penicillins (PCN) Allergy (Verified 02/03/25 10:32) Hives Sulfa (Sulfonamide Antibiotics) Allergy (Verified 02/03/25 10:32) Hives atorvastatin (From Lipitor) Adverse Reaction (Severe, Verified 02/03/25 10:32) Myalgias pravastatin (From Pravachol) Adverse Reaction (Intermediate, Verified 02/03/25 10:32) Myalgias Medications ?Medication ?Instructions ?Recorded ?Confirmed ?Type [id number] 3 cap PO TID #320 caps 09/1302/03/25 Rx 3,000-9,500-15,000 unit capsule, delayed rel (Creon) omeprazole 20 mg capsule,delayed 20 mg PO QDAY PRN 02/03/25 History release propranolol 40 mg tablet 40 mg PO DAILY dose increase d back 11/29/24 02/03/25 Rx Held on 01/09/25. to 40 mg #90 tabs Instructions: Dizziness phenazopyridine 200 mg tablet 200 mg PO TID PRN pain 3 days #9 02/01/25 02/03/25 Rx (Pyridium) tabs cefdinir 300 mg capsule 300 mg PO BID 7 days #14 cap s 02/03/25 02/03/25 Rx Have you fallen in the past year?: No Nurse's Note: Re eval from Tuesday. Went to ER and was given Macrobid for UTI and now having reaction. [facility] Medical History Dizziness Earache, right (Unknown) RUQ abdominal pain Irritable bowel syndrome (IBS) Seasonal allergies Nonrheumatic mitral (valve) prolapse Pure hypercholesterolemia Lightheadedness Chest pain Palpitations detention use of drug Surgical History History of knee replacement History of hip replacement H/O laminectomy FH: cholecystectomy Family History Father CAD (coronary artery disease) Myocardial infarction Brother CAD (coronary artery disease) Colon cancer Myocardial infarction Mother No problems noted. Social History Smoking Status: Never smoker alcohol intake: never caffeine: Yes Type: other what type of physical activity do you participate in: none HPI HPI Chief Complaint: UTI Details: LANDON CASE, is a 79 F who presents to the office today for concerns regarding reaction to Macrobid that she received for recent UTI. She expresses concerns regarding headache. ROS Const Constitutional: Positive for headache(s); No body ache, chills, fatigue, fever(s) (no fever greater than 99.9 F), malaise,night sweats or other (rigors) ENT ENT: Positive for headache(s) Resp Respiratory: No shortness of breath Cardio Cardiology: No chest pain at rest or chest pain with exertion Gastro GI: No abdominal pain Genitourinary-Female: Positive for burning urination, urinary frequency, urinaryurgency and suprapubic fullness; No painful urination, blood in urine or side pain Neuro Neurology: Positive for headache(s) Endo Endocrine: No fatigue Exam Const General: cooperative, healthy appearing, comfortable and no acute distress Orientation: alert, awake and oriented x3 Chest Chest palpation & inspection: normal inspection of the chest Resp Effort & Inspection: normal respiratory effort Auscultation: Bilateral: Clear to Auscultation Cardio Rhythm: other (Normal) Heart Sounds: S1 normal, S2 normal and no murmurs GI Inspection: normal to inspection and non-distended Auscultation: normal bowel sounds Palpation: soft and nontender General: No CVA tenderness Skin General: no rashes or lesions noted Coding Level of Care Code Off vis,est,level 3 Diagnoses Dysuria R30.0 Assessment and Plan Assessment and Plan (1) Dysuria: Status: Acute Plan: Will stop Macrobid due to headache. Since she was on Keflex prior to presentation on 02/01/2025, will not add this. With her allergy list will add Cefdinir. Urine culture 1 was below infection level. Urine culture 2 is still pending. She was encouraged to follow with PCP or if needed consider urology evaluation. Encouraged to get plenty of rest, drink lots of clear liquids, and use Tylenol or Ibuprofen (unless contraindicated) for fever and comfort. Patientalso educated on other symptomatic management techniques. To be seen in 7-10 days if no improvement; sooner if worsening of symptoms.? Patient advised of potential red flags and when appropriate to report to the ED.? Patient verbalized understanding and agreement with all the above. Medications: New cefdinir 300 mg PO BID 7 days 14 caps 0RF Discontinued nitrofurantoin monohyd/m-cryst 100 mg (Macrobid) must administer with a meal/food Discontinued Reason: Order Changed 100 mg PO BID 7 days 14 caps 0RF Clinical Quality Measures Falls Risk Screening/Assistive Devices Have you fallen in the past year?: No 02/03/25 1107 <Electronically signed by Imer ABREUC> Date _ Imer Zarate NP TRIMMING OPERATOR-C Cosigner Signature: Date (if applicable) CC: Dr. Kasey Nicole MD ~ [employer] Work Phone: 1(812) 360-887808-29-2025 Telephone encounter Note* Telephone Encounter - Shaunna Ruelas MD - 02/01/2025 9:31 PM EDT noted. Thanks. Shaunna Ruelas MD [facility] Work Phone: 1(329) 950-801108-29-2025 Miscellaneous Notes* Telephone Encounter - Shaunna Ruelas MD - 02/01/2025 9:31 PM EDT noted. Thanks. Shaunna Ruelas MD * Telephone Encounter - Negin Reynoso RN - 02/01/2025 2:40 PM EDT Patient called back and states pain is worsening and she thinks she may actually have a kidney stone because she has had one in the past. Patient wanted to notify the office that she is planning on going to [facility] ER for the pain. Negin Reynoso RN * Telephone Encounter - Michell Sheets RN - 02/01/2025 2:15 PM EDT Pt called stating she is scheduled for Hysteroscopy D&C, for PMB on 02/08/25 with DM. Pt calls stating she went to urgent care 01/24/25 and was placed on Keflex for 5 days for a UTI, finished 01/29/25. States initially felt better; However, yesterday, began with lower abdominal pain andlower back pain. Describes as cramping. States it had became more uncomfortable so [facility] and gave another urine sample today and another urine culture was collected. Pt hasnot taken anything for pain, but was given Pyridium. Advised Pt she can take 1,000mg of Tylenol [id number] as needed along with using a heating pad and/or take a hot shower for comfort. Pt asking if there is anything else she can do as she is so uncomfortable with the urinary urgency/frequency. Please advise in DM absence. Michell Sheets RN documented in [facility] Radiology Diagnostic study note [facility] [address] [place] [address] Abdomen/Pelvis without Cont MR#: [id number] Acct: [id number] Name: LANDON CASE Rep #: [id number] : 1945 F 79 From: Ryan Chan MD PCP: Dr. Kasey Nicole MD Status: REG ER Study:Abdomen/Pelvis without Cont Date of Exa m: 02/01/25 Exam# [id number] Ordering Dr: Azul Walter PROCEDURE: ABDOMEN/PELVIS WITHOUT CONT 02/01/2025 REASON FOR EXAM: FLANK PAIN TECHNIQUE: Procedure Code: CTABDPEL Modality: CT Procedure: ABDOMEN/PELVIS WITHOUT CONT Noncontrast technique limits evaluation of the abdominal and pelvic viscera. Coronal and Sagittal reconstruction series were provided. One or more dose reduction techniques were used (e.g., Automated exposure control, adjustment of the mA and/or kV according to patient size, use of iterative reconstruction technique). RADIATION DOSE SUMMARY: CTDlvol: 20.3 mGy DLP: 1053 mGycm FINDINGS: Calcified benign splenic granulomas are present. Small hiatal hernia. Gallbladder surgically absent. No noncontrast evidence of liver mass. No pancreatic contour deformity. No hydronephrosis. Negative for renal calculi. Negative for ureteral dilatation. 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 There is sigmoid diverticulosis butno diverticulitis. Negative for adenopathy or aneurysm. CT/Abdomen/Pelvis without Cont IMPRESSION: No acute abnormality Reading [facility] CC: Dr. Kasey Nicole MD; BRI Juan ~ Office System Analyst: Signed [facility]08-29-2025 Telephone encounter Note* Telephone Encounter - Negin Reynoso RN - 02/01/2025 2:40 PM EDT Patient called back and states pain is worsening and she thinks she may actually have a kidney stone because she has had one in the past. Patient wanted to notify the office that she is planning on going to [facility] ER for the pain. Negin Reynoso RN [facility]08-29-2025 Telephone encounter Note* Telephone Encounter - Michell Sheets RN - 02/01/2025 2:15 PM EDT Pt called stating she is scheduled for Hysteroscopy D&C, for PMB on 02/08/25 with DM. Pt calls stating she went to urgent care 01/24/25 and was placed on Keflex for 5 days for a UTI, finished 01/29/25. States initially felt better; However, yesterday, began with lower abdominal pain andlower back pain. Describes as cramping. States it had became more uncomfortable so [facility] and gave another urine sample today and another urine culture was collected. Pt hasnot taken anything for pain, but was given Pyridium. Advised Pt she can take 1,000mg of Tylenol [id number] as needed along with using a heating pad and/or take a hot shower for comfort. Pt asking if there is anything else she can do as she is so uncomfortable with the urinary urgency/frequency. Please advise in DM absence. Michell Sheets RN [facility]08-27-2025 History and physical note* Isatu Mast MD - 01/30/2025 8:54 AM EDT Pre-Op History and Physical HPI: The patient is a 79 year old female presenting for discussion regarding PMB- had episdoe in OCTOBER 2023 for which work up was benign but again presented today for bleeding in jan 2025. pre-operative visit. She is scheduled for Hysteroscopy D&C, for PMB on 02/08/25. Procedure discussed along with risks, benefits and complications. Other alternatives discussed for management. Consent form signed? Yes. PAST MEDICAL HISTORY Diagnosis Date Abdominal pain, [...] 1974 laminectomy SKIN BIOPSY HX TONSILLECTOMY HX Current Outpatient Medications Medication Sig Dispense Refill ondansetron (ZOFRAN) 4 mg tablet Take 1 tablet by mouth every 8 hours as needed for nausea/vomiting. 90 tablet 0 CREON 3,000-9,500- 15,000 unit delayed release capsule Take 1 capsule by mouth once daily. propranolol 20 mg tablet Take 40 mg by mouth one time only. cefdinir (OMNICEF) 300 mg capsule Take 300 mg by mouth two times a day. Take for 10 days- started on March 02, 2024 (Patient not taking: Reported on 12/08/2024) metroNIDAZOLE (FLAGYL) 500 mg tablet Take 500 mg by mouth three times a day. Take for 10 days- started on March 02, 2024 (Patient not taking: Reported on 12/08/2024) ibuprofen 200 mg ORAL tablet Take 200 mg by mouth every 6 hours as needed. (Patient not taking: Reported on 12/08/2024) ASPIRIN 81 MG TAB Take 81 mg by mouth once daily. (Patient not taking: Reported on 12/08/2024) 0 No current facility-administered medications for this visit. ALLERGIES: Atorvastatin, Ciprofloxacin, Gabapentin, Morphine, Penicillin G, Sulfa (Sulfonamide Antibiotics), and Nitrofurantoin PERSONAL HISTORY: SOCIAL HISTORY[1] FAMILY HISTORY: FAMILY HISTORY Problem Relation Age of Onset other (Other) Mother Archana Badillo's Heart Father Colon Cancer Brother REVIEW OF SYMPTOMS: Feeling dizzy with ear pain last few weeks- seeing ENT PHYSICAL EXAMINATION: VITALS: Blood pressure 118/72, height 168.9 cm (5' 6.5), weight 99.8 kg (220 lb). GENERAL: The patient is well nourished, well hydrated in no acute distress. , The patient is oriented to time, place, and person. NECK: full range of motion LUNGS: Clear to auscultation bilaterally. no wheezes, rhonchi or rales HEART: Regular rate and rhythm, Normal heart sounds, and No murmurs or gallops IMPRESSION: 79yo with PMB PLAN: Hysteroscopy D&C Pt has been counseled on risks/benefits and alternatives of surgery including but not limited to anesthesia, bleeding, infection, uterine perforation with subsequent injury to pelvic structures including bowel, bladder, ureters and vessels. Pt wishes to proceed with surgery at this time. Pre and post op instructions reviewed I have reviewed and updated past medical and surgical history, medications and allergies Isatu Jaeger MD [1] Social History Tobacco Use Smoking status: Never Smokeless tobacco: Never Vaping Use Vaping status: Never Used Substance Use Topics Alcohol use: Not Currently Drug use: Never [facility]08-27-2025 History and physical note* Isatu Mast MD - 01/30/2025 8:54 AM EDT Pre-Op History and Physical HPI: The patient is a 79 year old female presenting for discussion regarding PMB- had episdoe in OCTOBER 2023 for which work up was benign but again presented today for bleeding in jan 2025. pre-operative visit. She is scheduled for Hysteroscopy D&C, for PMB on 02/08/25. Procedure discussed along with risks, benefits and complications. Other alternatives discussed for management. Consent form signed? Yes. PAST MEDICAL HISTORY Diagnosis Date Abdominal pain, [...] 1974 laminectomy SKIN BIOPSY HX TONSILLECTOMY HX Current Outpatient Medications Medication Sig Dispense Refill ondansetron (ZOFRAN) 4 mg tablet Take 1 tablet by mouth every 8 hours as needed for nausea/vomiting. 90 tablet 0 CREON 3,000-9,500- 15,000 unit delayed release capsule Take 1 capsule by mouth once daily. propranolol 20 mg tablet Take 40 mg by mouth one time only. cefdinir (OMNICEF) 300 mg capsule Take 300 mg by mouth two times a day. Take for 10 days- started on March 02, 2024 (Patient not taking: Reported on 12/08/2024) metroNIDAZOLE (FLAGYL) 500 mg tablet Take 500 mg by mouth three times a day. Take for 10 days- started on March 02, 2024 (Patient not taking: Reported on 12/08/2024) ibuprofen 200 mg ORAL tablet Take 200 mg by mouth every 6 hours as needed. (Patient not taking: Reported on 12/08/2024) ASPIRIN 81 MG TAB Take 81 mg by mouth once daily. (Patient not taking: Reported on 12/08/2024) 0 No current facility-administered medications for this visit. ALLERGIES: Atorvastatin, Ciprofloxacin, Gabapentin, Morphine, Penicillin G, Sulfa (Sulfonamide Antibiotics), and Nitrofurantoin PERSONAL HISTORY: SOCIAL HISTORY[1] FAMILY HISTORY: FAMILY HISTORY Problem Relation Age of Onset other (Other) Mother Archana Aby's Heart Father Colon Cancer Brother REVIEW OF SYMPTOMS: Feeling dizzy with ear pain last few weeks- seeing ENT PHYSICAL EXAMINATION: VITALS: Blood pressure 118/72, height 168.9 cm (5' 6.5), weight 99.8 kg (220 lb). GENERAL: The patient is well nourished, well hydrated in no acute distress. , The patient is oriented to time, place, and person. NECK: full range of motion LUNGS: Clear to auscultation bilaterally. no wheezes, rhonchi or rales HEART: Regular rate and rhythm, Normal heart sounds, and No murmurs or gallops IMPRESSION: 79yo with PMB PLAN: Hysteroscopy D&C Pt has been counseled on risks/benefits and alternatives of surgery including but not limited to anesthesia, bleeding, infection, uterine perforation with subsequent injury to pelvic structures including bowel, bladder, ureters and vessels. Pt wishes to proceed with surgery at this time. Pre and post op instructions reviewed I have reviewed and updated past medical and surgical history, medications and allergies Isatu Jaeger MD [1] Social History Tobacco Use Smoking status: Never Smokeless tobacco: Never Vaping Use Vaping status: Never Used Substance Use Topics Alcohol use: Not Currently Drug use: Never documented in this encounterMet[facility]25 NoteHNO ID: [id number] Author: JOESPH BROOKS MD Service: ? Author Type: Physician Type: Progress Notes Filed: 01/25/2025 16:34 Note Text: The patient presents for requested ultrasound. Full report available in the Imaging tab in Epic. [facility]08-22-[facility]25 History of Present illness Narrative* Joesph Brooks MD - 01/25/2025 4:33 PM EDT The patient presents for requested ultrasound. Full report available in the Imaging tab in Epic. Joesph Brooks MD documented in [facility] Telephone encounter Note * Telephone Encounter - Ernestina Grace RN - 01/25/2025 4:11 PM EDT Patient notified of results and provider's instructions. Patient verbalizes understanding. Ernestina Grace RN [facility]08-22-2025 Miscellaneous Notes* Telephone Encounter - Ernestina Grace RN - 01/25/2025 4:11 PM EDT Patient notified of results and provider's instructions. Patient verbalizes understanding. Ernestina Grace RN * Telephone Encounter - Chelo Beckman MA - 01/25/2025 4:07 PM EDT Left VM instructing patient to return call to receive results. Chelo Beckman MA * Telephone Encounter - Chelo Beckman MA - 01/25/2025 4:06 PM EDT ----- Message from Caren Jose APRN.PORCELAIN WAXER sent at 01/25/2025 3:08 PM EDT ----- ----- Message ----- From: Rogerio, Telruben Oru Ib Sent: 01/24/2025 10:29 AM EDT To: [facility] Provider Pool * Telephone Encounter - Caren Jose APRN.CNP - 01/25/2025 3:05 PM EDT Urine culture with mixed microbes This can occur as a result of contamination at time of collection. IF patients sx are improving, can complete If not, should provide new specimen. Order placed (can just present as nurse visit to urgent care) Follow up with PCP to ensure blood has resolved. documented in this encounter[facility] Telephone encounter Note * Telephone Encounter - Chelo Beckman MA - 01/25/2025 4:07 PM EDT Left VM instructing patient to return call to receive results. Chelo Beckman MA [facility]08-22-2025 Telephone encounter Note* Telephone Encounter - Chelo Beckman MA - 01/25/2025 4:06 PM EDT ----- Message from Caren Jose APRN.CNP sent at 01/25/2025 3:08 PM EDT ----- ----- Message ----- From: Elza Beatty Oru Ib Sent: 01/24/2025 10:29 AM EDT To: [facility] Provider Gaetano [facility]08-22-2025 Telephone encounter Note* Telephone Encounter - Caren Jose APRN.CNP - 01/25/2025 3:05 PM EDT Urine culture with mixed microbes This can occur as a result of contamination at time of collection. IF patients sx are improving, can complete If not, should provide new specimen. Order placed (can just present as nurse visit to urgent care) Follow up with PCP to ensure blood has resolved. [facility]08-21-2025 NoteHNO ID: [id number] Author: JOSE PHILLIPS APRN.HAMMAD Service: ? Author Type: Nurse Practitioner Type: Progress Notes Filed: 01/24/2025 10:38 Note Text: URGENT CARE MARYSE Case is a 79 year old female. Patient presents with: UTI: Low back pain, frequency x last night HPI Patient presents today complaining of lower abdominal fullness and urinary frequency that started last evening. She does note a history of hematuria for which she is being evaluated. She states that she often has difficulty telling whether she has a urinary tract infection or it is just issues related to her kidneys. Patient otherwise denies any nausea vomiting or fever. Review of Systems As above Objective BP 148/75 Pulse 70 Temp 37.1 ?C (98.7 ?F) Resp 18 Wt 100.7 kg (222 lb 0.1 oz) SpO2 96% BMI 35.26 kg/m? Physical Exam Vitals and nursing note reviewed. Constitutional: General: She is not in acute distress. Appearance: Normal appearance. She is not ill-appearing. HENT: Head: Normocephalic. Mouth/Throat: Mouth: Mucous membranes are moist. Cardiovascular: Rate and Rhythm: Normal rate and regular rhythm. Pulmonary: Effort: Pulmonary effort is normal. Breath sounds: Normal breath sounds. Abdominal: Palpations: Abdomen is soft. Tenderness: There is no abdominal tenderness. Musculoskeletal: General: Normal range of motion. Cervical back: Normal range of motion. Skin: General: Skin is warm and dry. Neurological: General: No focal deficit present. Mental Status: She is alert. Psychiatric: Mood and Affect: Mood normal. Behavior: Behavior normal. {ASSESSMENT/PLAN: 1. Urinary frequency - ICD9: 788.41, ICD10: R35.0 acute - UA positive for lyric esterase and hematuria - Send urine for culture - Discussed initiating antibiotics versus awaiting culture and patient prefers to initiate antibiotics. Begin treatment with Keflex for 5 days -Discussed with patient that if urine culture is negative she may discontinue the antibiotics if they are not improving symptoms. -My concern for pyelonephritis is minimal as patient has no flank or abdominal tenderness - Patient education for prevention given - UA DIP, URINE (POC) - BACTERIAL CULTURE, URINE - CEPHALEXIN 500 MG CAPSULE Jose Phillips APRN.PORCELAIN WAXER History and Record Review External record(s) reviewed: prior labs/imaging. Disposition The patient was discharged. [facility] History of Present illness Narrative* Jose Phillips APRN.HAMMAD - 01/24/2025 10:33 AM EDT [facility] Misty Case is a 79 year old female. Patient presents with: UTI: Low back pain, frequency x last night HPI Patient presents today complaining of lower abdominal fullness and urinary frequency that started last evening. She does note a history of hematuria for which she is being evaluated. She states that she often has difficulty telling whether she has a urinary tract infection or it is just issues related to her kidneys. Patient otherwise denies any nausea vomiting or fever. Review of Systems As above Objective BP 148/75 Pulse 70 Temp 37.1 C (98.7 F) Resp 18 Wt 100.7 kg (222 lb 0.1 oz) SpO2 96% BMI 35.26 kg/m Physical Exam Vitals and nursing note reviewed. Constitutional: General: She is not in acute distress. Appearance: Normal appearance. She is not ill-appearing. HENT: Head: Normocephalic. Mouth/Throat: Mouth: Mucous membranes are moist. Cardiovascular: Rate and Rhythm: Normal rate and regular rhythm. Pulmonary: Effort: Pulmonary effort is normal. Breath sounds: Normal breath sounds. Abdominal: Palpations: Abdomen is soft. Tenderness: There is no abdominal tenderness. Musculoskeletal: General: Normal range of motion. Cervical back: Normal range of motion. Skin: General: Skin is warm and dry. Neurological: General: No focal deficit present. Mental Status: She is alert. Psychiatric: Mood and Affect: Mood normal. Behavior: Behavior normal. {ASSESSMENT/PLAN: 1. Urinary frequency - ICD9: 788.41, ICD10: R35.0 acute - UA positive for lyric esterase and hematuria - Send urine for culture - Discussed initiating antibiotics versus awaiting culture and patient prefers to initiate antibiotics. Begin treatment with Keflex for 5 days -Discussed with patient that if urine culture is negative she may discontinue the antibiotics if they are not improving symptoms. -My concern for pyelonephritis is minimal as patient has no flank or abdominal tenderness - Patient education for prevention given - UA DIP, URINE (POC) - BACTERIAL CULTURE, URINE - CEPHALEXIN 500 MG CAPSULE Jose Phillips APRN.CNP History and Record Review External record(s) reviewed: prior labs/imaging. Disposition The patient was discharged. Procedures documented in this encounterMet[facility]08-12-2025 NoteHNO ID: [id number] Author: CAREN KELLY APRN.CNM Service: ? Author Type: Floor Press Operator Type: Progress Notes Filed: 01/15/2025 15:47 Note Text: Speeder Worker offered: Patient declines. Obstetrics and Gynecology [place] BREWERY TECHNICIAN Visit Subjective Recording using GupShup software for draft documentation of the visit was discussed with the patient/authorized sales development representative; all questions welcomed and answered. Patient/authorized sales development representative agreed to proceed CHIEF COMPLAINT: Postmenopausal bleeding HPI: The patient is a 79-year-old female, postmenopausal, presenting with increased vaginal bleeding. The patient reports an increase in vaginal bleeding since Tuesday, initially presenting as brown spotting, which she considered normal. However, she noted red blood at the end of Tuesday, with the bleeding progressively increasing. She has spotting in 10/2023 for which she was evaluated by Dr. Jaeger with ultrasound and endometrial biopsy. She is not sexually active and denies a history of hysterectomy. HISTORY: OB History Gravida2 Para2 Term2 Preterm0 AB0 Living2 SAB0 IAB0 Ectopic0 Multiple0 Live Births2 Patient Scheduler History LMP: Postmenopausal Age at Menarche: Age at First : Age at Menopause: Patient Scheduler History Comments: Sexual Activity: Not Currently; No partner data on record Contraception: No contraception data on record PAST MEDICAL HISTORY Diagnosis Date Abdominal pain, [...] 1974 laminectomy SKIN BIOPSY HX TONSILLECTOMY HX FAMILY HISTORY Problem Relation Age of Onset other (Other) Mother Archana Gehrig's Heart Father Colon Cancer Brother SOCIAL HISTORY[1] Current Outpatient Medications Medication Sig ondansetron (ZOFRAN) 4 mg tablet Take 1 tablet by mouth every 8 hours as needed for nausea/vomiting. CREON 3,000-9,500- 15,000 unit delayed release capsule Take 1 capsule by mouth once daily. propranolol 20 mg tablet Take 40 mg by mouth one time only. cefdinir (OMNICEF) 300 mg capsule Take 300 mg by mouth two times a day. Take for 10 days- started on March 02, 2024 (Patient not taking: Reported on 12/08/2024) metroNIDAZOLE (FLAGYL) 500 mg tablet Take 500 mg by mouth three times a day. Take for 10 days- started on March 02, 2024 (Patient not taking: Reported on 12/08/2024) ibuprofen 200 mg ORAL tablet Take 200 mg by mouth every 6 hours as needed. (Patient not taking: Reported on 12/08/2024) ASPIRIN 81 MG TAB Take 81 mg by mouth once daily. (Patient not taking: Reported on 12/08/2024) No current facility-administered medications for this visit. ALLERGIES Allergen Reactions Atorvastatin Myalgia Ciprofloxacin Itching Gabapentin Mental Status Change Patient states was running into the yip. Morphine Other: See Comments dizzy- tachycardia Penicillin G Hives Sulfa (Sulfonamide * Hives Nitrofurantoin Rash REVIEW OF SYSTEMS: Genitourinary: (+) vaginal bleeding Objective SENSITIVE EXAM: The sensitive examination was discussed with the Patient or Patient's Authorized Linotype Worker. As applicable, any other physician, advance practice provider, medical student, or other health professional student that will be observing or involved in the sensitive examination for educational or training purposes was discussed with the Patient or Authorized Linotype Worker. The Patient or Authorized Linotype Worker has agreed to proceed with the sensitive examination. (Sensitive examination includes inspection and/or palpation of the breasts, pelvis, prostate and anorectal regions). PHYSICAL EX (more content not included)...[facility]08-12-2025 History of Present illness Narrative* Caren Kelly APRN.CNM - 01/15/2025 3:07 PM EDT Images from the original note were not included. Speeder Worker offered: Patient declines. Obstetrics and Gynecology [place] BREWERY TECHNICIAN Visit Subjective Recording using GupShup software for draft documentation of the visit was discussed with the patient/authorized sales development representative; all questions welcomed and answered. Patient/authorized sales development representative agreed to proceed CHIEF COMPLAINT: Postmenopausal bleeding HPI: The patient is a 79-year-old female, postmenopausal, presenting with increased vaginal bleeding. The patient reports an increase in vaginal bleeding since Tuesday, initially presenting as brown spotting, which she considered normal. However, she noted red blood at the end of Tuesday, with the bleeding progressively increasing. She has spotting in 10/2023 for which she was evaluated by Dr. Jaegerwith ultrasound and endometrial biopsy. She is not sexually active and denies a history of hysterectomy. HISTORY: OB History Gravida2 Para2 Term2 Preterm0 AB0 Living2 SAB0 IAB0 Ectopic0 Multiple0 Live Births2 Patient Scheduler History LMP: Postmenopausal Age at Menarche: Age at First : Age at Menopause: Patient Scheduler History Comments: Sexual Activity: Not Currently; No partner data on record Contraception: No contraception data on record PAST MEDICAL HISTORY Diagnosis Date Abdominal pain, [...] 1974 laminectomy SKIN BIOPSY HX TONSILLECTOMY HX FAMILY HISTORY Problem Relation Age of Onset other (Other) Mother Archana Gehrig's Heart Father Colon Cancer Brother SOCIAL HISTORY[1] Current Outpatient Medications Medication Sig ondansetron (ZOFRAN) 4 mg tablet Take 1 tablet by mouth every 8 hours as needed for nausea/vomiting. CREON 3,000-9,500- 15,000 unit delayed release capsule Take 1 capsule by mouth once daily. propranolol 20 mg tablet Take 40 mg by mouth one time only. cefdinir (OMNICEF) 300 mg capsule Take 300 mg by mouth two times a day. Take for 10 days- started on March 02, 2024 (Patient not taking: Reported on 12/08/2024) metroNIDAZOLE (FLAGYL) 500 mg tablet Take 500 mg by mouth three times a day. Take for 10 days- started on March 02, 2024 (Patient not taking: Reported on 12/08/2024) ibuprofen 200 mg ORAL tablet Take 200 mg by mouth every 6 hours as needed. (Patient not taking: Reported on 12/08/2024) ASPIRIN 81 MG TAB Take 81 mg by mouth once daily. (Patient not taking: Reported on 12/08/2024) No current facility-administered medications for this visit. ALLERGIES Allergen Reactions Atorvastatin Myalgia Ciprofloxacin Itching Gabapentin Mental Status Change Patient states was running into the yip. Morphine Other: See Comments dizzy- tachycardia Penicillin G Hives Sulfa (Sulfonamide * Hives Nitrofurantoin Rash REVIEW OF SYSTEMS: Genitourinary: (+) vaginal bleeding Objective SENSITIVE EXAM: The sensitive examination was discussed with the Patient or Patient's Authorized Linotype Worker. As applicable, any other physician, advance practice provider, medical student, or other health professional student that will be observing or involved in the sensitive examination for educational or training purposes was discussed with the Patient or Authorized Linotype Worker. The Patient or Authorized Linotype Worker has agreed to proceed with the sensitive examination. (Sensitive examination includes inspection and/or palpation of the breasts, pelvis, prostate and anorectal regions). PHYSICAL EXAM: BP 120/72 Wt 221 lb (100.2kg) GENERAL: Pleasant; in no apparent distress BREAST: soft, non-tender, symmetric, no dominant mass, normal nipple-areolar complex, no lymphadenopathy, no nipple discharge PULMONARY: normal inspiratory effort ABDOMEN: soft, non-tender, no masses : - PELVIC: external genitalia normal, normal Bartholin's glands, urethra, Vivian's glands, no vulvar lesions, no cervical lesions, good vaginal support, small amount of vaginal bleeding in vaginal vault, normal appearing perineal body and perianal region - BIMANUAL: uterus normal size, shape and consistency, no adnexal masses, non-tender - Patient consent for exam received NEURO: alert and oriented x3 EXTREMITIES: normal ASSESSMENT AND PLAN: 1. Postmenopausal bleeding (N95.0) - Discussed endometrial biopsy; patient expressed significant discomfort from previous procedure. -Consulted Dr. Jaeger regarding the possibility of performing a hysteroscopy D&C in the operating room to obtain a biopsy under anesthesia. Agreeable and to schedule preoperative visit. - Patient to schedule and complete the ultrasound. Caren Kelly APRN.GUERRERO [1] Social History Tobacco Use Smoking status: Never Smokeless tobacco: Never Vaping Use Vaping status: Never Used Substance Use Topics Alcohol use: Not Currently Drug use: Never documented in this encounterMet[facility]07-[facility]25 NoteHNO ID: [id number] Author: FELIX DENISE MD Service: ? Author Type: Physician Type: Progress Notes Filed: 12/08/2024 08:42 Note Text: [facility] Subjective Landon Case is a 79 year old female. Patient presents with: Dizziness: Headache pressure in back of head, lightheaded, nauseated, bilat ear pressure x 10 days Patient presents with concerns for feeling lightheaded, weak, and headache. She reports she always feels dizzy/lightheaded and has had extensive workup including tilt table test and medication changes without identified cause for her nonvertiginous lightheaded feeling. This dizziness has been worse the last 10 days and severe yesterday. During this episode the lightheadedness has been associated with all over head pressure, dyspnea on exertion, nausea, blurred vision, rhinorrhea, and nose burning. She is easily fatigued with exertion - significantly reduced distance of ambulation yesterday. She has baseline palpitations from mitral valve prolapse, left foot drop, and bilateral foot numbness. Denies fever, chills, sore throat, cough, chest pain, vomiting, diarrhea, head injury, or focal sinus pressure. She gets weekly allergy desensitization shots. She has taken Tylenol, Rowena, and Flonase. Dizziness Associated symptoms include dizziness. Review of Systems Neurological: Positive for dizziness. Objective BP 122/63 Pulse (!) 59 Temp 36.6 ?C (97.9 ?F) Resp 20 Wt 102 kg (224 lb 13.9 oz) SpO2 98% BMI 35.71 kg/m? Physical Exam Constitutional: General: She is not in acute distress. Appearance: She is not ill-appearing, toxic-appearing or diaphoretic. HENT: Right Ear: Tympanic membrane and ear canal normal. Left Ear: Tympanic membrane and ear canal normal. Nose: No congestion or rhinorrhea. Mouth/Throat: Mouth: Mucous membranes are moist. Pharynx: No posterior oropharyngeal erythema. Eyes: Extraocular Movements: Extraocular movements intact. Conjunctiva/sclera: Conjunctivae normal. Pupils: Pupils are equal, round, and reactive to light. Cardiovascular: Rate and Rhythm: Normal rate and regular rhythm. Heart sounds: No murmur heard. Pulmonary: Effort: No respiratory distress. Breath sounds: No wheezing, rhonchi or rales. Musculoskeletal: Cervical back: Neck supple. Right lower leg: Edema (1+) present. Left lower leg: Edema (2+) present. Lymphadenopathy: Cervical: No cervical adenopathy. Neurological: Mental Status: She is alert. Cranial Nerves: No cranial nerve deficit. Motor: Weakness present. Gait: Gait abnormal (Ambulates with a cane cautiously without swaying). Deep Tendon Reflexes: Reflex Scores: Patellar reflexes are 3+ on the right side and 1+ on the left side. Psychiatric: Mood and Affect: Mood normal. Thought Content: Thought content normal. Judgment: Judgment normal. {ASSESSMENT/PLAN: 1. Light headed - ICD9: 780.4, ICD10: R42 (primary diagnosis) 2. Headache, unspecified headache type - ICD9: 784.0, ICD10: R51.9 3. CEBALLOS (dyspnea on exertion) - ICD9: 786.09, ICD10: R06.09 Patient with exacerbation of baseline lightheadedness. Evaluation for intracranial lesion or cardiopulmonary issue is beyond the capacity in the urgent care. She will proceed to the [facility] emergency room for further evaluation. Patient describes she refuses EMS transport. Felix Denise MD Differential Diagnoses - rule out serious neurologic or cardiopulmonary source of symptoms - Sinusitis is less likely for the following reason(s): HANDP not suggestive - otitis media is less likely for the following reason(s): no evidence on exam Disposition The patient was other (comment) (self transport to [facility] ED). [facility] History of Present illness Narrative* Felix Denise MD - 12/08/2024 8:30 AM EDT [facility] Subjective Landonfabiana Case is a 79 year old female. Patient presents with: Dizziness: Headache pressure in back of head, lightheaded, nauseated, bilat ear pressure x 10 days Patient presents with concerns for feeling lightheaded, weak, and headache. She reports she always feels dizzy/lightheaded and has had extensive workup including tilt table test and medication changes without identified cause for her nonvertiginous lightheaded feeling. This dizziness has been worsethe last 10 days and severe yesterday. During this episode the lightheadedness has been associated with all over head pressure, dyspnea on exertion, nausea, blurred vision, rhinorrhea, and nose burning. She is easily fatigued with exertion - significantly reduced distance of ambulation yesterday. She has baseline palpitations from mitral valve prolapse, left foot drop, and bilateral foot numbness. Denies fever, chills, sore throat, cough, chest pain, vomiting, diarrhea, head injury, or focal sinus pressure. She gets weekly allergy desensitization shots. She has taken Tylenol, Rowena, and Flonase. Dizziness Associated symptoms include dizziness. Review of Systems Neurological: Positive for dizziness. Objective BP 122/63 Pulse (!) 59 Temp 36.6 C (97.9 F) Resp 20 Wt 102 kg (224 lb 13.9 oz) SpO2 98% BMI 35.71 kg/m Physical Exam Constitutional: General: She is not in acute distress. Appearance: She is not ill-appearing, toxic-appearing or diaphoretic. HENT: Right Ear: Tympanic membrane and ear canal normal. Left Ear: Tympanic membrane and ear canal normal. Nose: No congestion or rhinorrhea. Mouth/Throat: Mouth: Mucous membranes are moist. Pharynx: No posterior oropharyngeal erythema. Eyes: Extraocular Movements: Extraocular movements intact. Conjunctiva/sclera: Conjunctivae normal. Pupils: Pupils are equal, round, and reactive to light. Cardiovascular: Rate and Rhythm: Normal rate and regular rhythm. Heart sounds: No murmur heard. Pulmonary: Effort: No respiratory distress. Breath sounds: No wheezing, rhonchi or rales. Musculoskeletal: Cervical back: Neck supple. Right lower leg: Edema (1+) present. Left lower leg: Edema (2+) present. Lymphadenopathy: Cervical: No cervical adenopathy. Neurological: Mental Status: She is alert. Cranial Nerves: No cranial nerve deficit. Motor: Weakness present. Gait: Gait abnormal (Ambulates with a cane cautiously without swaying). Deep Tendon Reflexes: Reflex Scores: Patellar reflexes are 3+ on the right side and 1+ on the left side. Psychiatric: Mood and Affect: Mood normal. Thought Content: Thought content normal. Judgment: Judgment normal. {ASSESSMENT/PLAN: 1. Light headed - ICD9: 780.4, ICD10: R42 (primary diagnosis) 2. Headache, unspecified headache type - ICD9: 784.0, ICD10: R51.9 3. CEBALLOS (dyspnea on exertion) - ICD9: 786.09, ICD10: R06.09 Patient with exacerbation of baseline lightheadedness. Evaluation for intracranial lesion or cardiopulmonary issue is beyond the capacity in the urgent care. She will proceed to the [facility] emergency room for further evaluation. Patient describes she refuses EMS transport. Felix Denise MD Differential Diagnoses - rule out serious neurologic or cardiopulmonary source of symptoms - Sinusitis is less likely for the following reason(s): H&P not suggestive - otitis media is less likely for the following reason(s): no evidence on exam Disposition The patient was other (comment) (self transport to [facility] ED). Procedures documented in this encounterMet[facility] Evaluation note* Diagnosis Onset Date Resolution Status Admit Date Runny nose acute November 03, 2024 8:02am Seasonal allergies acute November 032024 8:02am Sinus congestion acute October 8:02am [facility] Work Phone: [phone] [phone] Evaluation note* Diagnosis Onset Date Resolution Status Admit Date Runny nose acute November 03, 2024 8:02am Seasonal allergies acute November 032024 8:02am Sinus congestion acute October 8:02am Dysuria acute February 01, 025 11:21am [facility] Work Phone: [phone] [phone] Evaluation note* Diagnosis Onset Date Resolution Status Admit Date Runny nose acute November 03, 2024 8:02am Seasonal allergies acute November 032024 8:02am Sinus congestion acute October 8:02am Dysuria acute February 01, 2 025 11:21am Dysuria acute February 03 2 025 9:47am [facility] Work Phone: 1(585) 856-279505-31-2025 Progress [facility] [address], [address] [place] [id number] OFFICE VISIT Date of Service: 11/03/24 MR#: [id number] Acct: [id number] Name: LANDON CASE Rep #: [id number] : 1945 Provider: KELLIE Meneses Age/Sex: 79/F Location: [facility] Status: Signed Intake Vital Signs 03/26/24 10:28 11/03/24 08:07 Height 5 ft 7 in Weight: 215 lb BMI 33.6 BP 132/68 H 120/68 Blood Pressure Location Lt brachial Lt brachial Position Sitting Sitting Respiration 16 16 Pulse 72 64 Pulse Source Monitor NIBP Temp 98.7 F 98.2 F Temp Source Oral Oral Pulse Oximetry (%) 100 96 Oxygen Delivery Method room air room air Intake Visit Reasons: CONCERN FOR SINUS INFECTION Chief Complaint: JAY, RN, dizzy 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: No Is patient in pain?: No Allergies nitrofurantoin (From Macrobid) Allergy (Mild, Verified 11/03/24 08:09) Rash ciprofloxacin (From Cipro) Allergy (Verified 11/03/24 08:09) Itching Penicillins (PCN) Allergy (Verified 11/03/24 08:09) Hives Sulfa (Sulfonamide Antibiotics) Allergy (Verified 11/03/24 08:09) Hives atorvastatin (From Lipitor) Adverse Reaction (Severe, Verified 11/03/24 08:09) Myalgias pravastatin (From Pravachol) Adverse Reaction (Intermediate, Verified 11/03/24 08:09) Myalgias Medications ?Medication ?Instructions ?Recorded ?Confirmed ?Type exltcb-[id number]-[id number] 3 cap PO TID #320 caps 09/1311/03/24 Rx 3,000-9,500-15,000 unit capsule, delayed rel (Creon) omeprazole 20 mg capsule,delayed 20 mg PO QDAY PRN 11/03/24 History release propranolol 10 mg tablet 10 mg PO .COMPLEX #30 tabs 0 07/27/24 11/03/24 Rx Is last menstrual period known: No Post menopausal: Yes Patient : No Have you fallen in the past year?: No Nurse's Note: MIMI JAY, ears plugged. was dizzy yesterday but has resolved. denies cough, congestion, face pain, drainage, fever. 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 Social History Smoking Status: Never smoker alcohol intake: never caffeine: Yes Type: other what type of physical activity do you participate in: none HPI HPI Chief Complaint: MIMI JAY, dizzy Details: LANDON CASE, is a 79 F who presents to the office today for sinus infection? -sx started 3 days ago -sx headache and ear pain. No cough. + runny nose. No fever or chills. Admits to having allergies -has chronic lightheadedness- this is not new- none today- only drinks about 16 ounces water per day -tried so far Tylenol- no allergy meds in past 2 days, no allergy nasal sprays or saline nasal sprays ROS Const Constitutional: Positive for other (ROS negative x6 except what was placed in HPI) Exam Const General: cooperative, comfortable and no acute distress Orientation: alert, awake and oriented x3 HENMT Head: normal to inspection and normocephalic Ears: hearing grossly normal bilaterally, external ears normal and TM's normal bilaterally Nose: external nose normal and other (+ clear drainage- pale boggy turbinates ) Face and sinus: normal facial exam, sinuses nontender and face symmetric Mouth: oral mucosae normal, lip normal, tongue normal, oropharynx normal and moist mucous membranes Throat: posterior oropharynx normal, tonsils normal, uvula midline and postnasaldrainage Neck Neck: normal visual inspection, full ROM and no lymphadenopathy Resp Effort & Inspection: normal respiratory effort, able to speak in complete sentences and symmetric chest movement Auscultation: Bilateral: Clear to Auscultation, Left: Clear to Auscultation and Right: Clear to Auscultation Cardio Rate: regular rate Rhythm: regular rhythm Heart Sounds: S1 normal and S2 normal GI Auscultation: normal bowel sounds Palpation: soft Skin General: no rashes or lesions noted and turgor normal Neuro General: patient alert, patient awake and patient oriented x3 Cognition: normal cognition Speech: speech normal Psych Appearance: grossly normal Mental Status: mental status grossly normal Attitude: cooperative Thought Process: normal Thought Content: normal Coding Level of Care Code Off vis,est,level 3 Diagnoses Seasonal allergies J30.2 Runny nose R09.89 Sinus congestion R09.81 Assessment and Plan Assessment and Plan (1) Seasonal allergies: Status: Acute Plan: Warm tea with honey, increase fluids, saline nasal spray 2 squirts each nostril every 2 hours as needed, Flonase nasal spray 1 squirt once a day, cetirizine (Zyrtec) one daily, cool mist humidifier, Tylenol and or ibuprofen as needed forfever or discomfort- as long as not contraindicated Please follow up with your Primary Care Physician for ongoing chronic problems. If symptoms change or worsen, please present to Emergency Room for further evaluation 1. See visit diagnoses, disposition, and orders. 2. Reviewed and updated medication list; Discussed probable diagnosis, test results if available inoffice today and management options with patient/guardian: agreed to the medical plan above 3. Education provided regarding visit today, see after visit summary. Instruction provided in the use of fluids, vaporizer, acetaminophen, and/or other OTC medication for symptom control. Explained use of antibiotics only for proven or strongly suspected bacterial infections. 4. Prevention and health maintenance with primary care provider. 5. Patient/guardian educated to proceed to ED with worsening of condition, changes, or failure to improve. (2) Runny nose: Status: Acute (3) Sinus congestion: Status: Acute Clinical Quality Measures Falls Risk Screening/Assistive Devices Have you fallen in the past year?: No 11/03/24 0822 felix TRIMMING OPERATORNavarro> Date _ Jen [place]amos HOPKINS Cosigner Signature: Date (if applicable) CC: ~ [facility]05-31-2025 Progress note Author Jen Donnell [facility] Note Date/Time November 03, 2024 8:22a [facility] [address], [address] [place] [address] OFFICE VISIT Date of Service: 11/03/24 MR#: [id number] Acct: [id number] Name: LNADON CASE Rep #: [id number] : 1945 Provider: KELLIE Meneses Age/Sex: 79/F Location: [facility] Status: Signed Intake Vital Signs 03/26/24 10:28 11/03/24 08:07 Height 5 ft 7 in Weight: 215 lb BMI 33.6 BP 132/68 H 120/68 Blood Pressure Location Lt brachial Lt brachial Position Sitting Sitting Respiration 16 16 Pulse 72 64 Pulse Source Monitor NIBP Temp 98.7 F 98.2 F Temp Source Oral Oral Pulse Oximetry (%) 100 96 Oxygen Delivery Method room air room air Intake Visit Reasons: CONCERN FOR SINUS INFECTION Chief Complaint: JAY, RN, dizzy 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: No Is patient in pain?: No Allergies nitrofurantoin (From Macrobid) Allergy (Mild, Verified 11/03/24 08:09) Rash ciprofloxacin (From Cipro) Allergy (Verified 11/03/24 08:09) Itching Penicillins (PCN) Allergy (Verified 11/03/24 08:09) Hives Sulfa (Sulfonamide Antibiotics) Allergy (Verified 11/03/24 08:09) Hives atorvastatin (From Lipitor) Adverse Reaction (Severe, Verified 11/03/24 08:09) Myalgias pravastatin (From Pravachol) Adverse Reaction (Intermediate, Verified 11/03/24 08:09) Myalgias Medications ?Medication ?Instructions ?Recorded ?Confirmed ?Type sgxcxx-matvegui-pyvgeua 3 cap PO TID #320 caps 09/1311/03/24 Rx 3,000-9,500-15,000 unit capsule, delayed rel (Creon) omeprazole 20 mg capsule,delayed 20 mg PO QDAY PRN 11/03/24 History release propranolol 10 mg tablet 10 mg PO .COMPLEX #30 tabs 0 07/27/24 11/03/24 Rx Is last menstrual period known: No Post menopausal: Yes Patient : No Have you fallen in the past year?: No Nurse's Note: MIMI JAY, ears plugged. was dizzy yesterday but has resolved. denies cough, congestion, face pain, drainage, fever. 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 Social History Smoking Status: Never smoker alcohol intake: never caffeine: Yes Type: other what type of physical activity do you participate in: none HPI HPI Chief Complaint: MIMI JAY, dizzy Details: LANDON CASE, is a 79 F who presents to the office today for sinus infection? -sx started 3 days ago -sx headache and ear pain. No cough. + runny nose. No fever or chills. Admits to having allergies -has chronic lightheadedness- this is not new- none today- only drinks about 16 ounces water per day -tried so far Tylenol- no allergy meds in past 2 days, no allergy nasal sprays or saline nasal sprays ROS Const Constitutional: Positive for other (ROS negative x6 except what was placed in HPI) Exam Const General: cooperative, comfortable and no acute distress Orientation: alert, awake and oriented x3 HENMT Head: normal to inspection and normocephalic Ears: hearing grossly normal bilaterally, external ears normal and TM's normal bilaterally Nose: external nose normal and other (+ clear drainage- pale boggy turbinates ) Face and sinus: normal facial exam, sinuses nontender and face symmetric Mouth: oral mucosae normal, lip normal, tongue normal, oropharynx normal and moist mucous membranes Throat: posterior oropharynx normal, tonsils normal, uvula midline and postnasaldrainage Neck Neck: normal visual inspection, full ROM and no lymphadenopathy Resp Effort & Inspection: normal respiratory effort, able to speak in complete sentences and symmetric chest movement Auscultation: Bilateral: Clear to Auscultation, Left: Clear to Auscultation and Right: Clear to Auscultation Cardio Rate: regular rate Rhythm: regular rhythm Heart Sounds: S1 normal and S2 normal GI Auscultation: normal bowel sounds Palpation: soft Skin General: no rashes or lesions noted and turgor normal Neuro General: patient alert, patient awake and patient oriented x3 Cognition: normal cognition Speech: speech normal Psych Appearance: grossly normal Mental Status: mental status grossly normal Attitude: cooperative Thought Process: normal Thought Content: normal Coding Level of Care Code Off vis,est,level 3 Diagnoses Seasonal allergies J30.2 Runny nose R09.89 Sinus congestion R09.81 Assessment and Plan Assessment and Plan (1) Seasonal allergies: Status: Acute Plan: Warm tea with honey, increase fluids, saline nasal spray 2 squirts each nostril every 2 hours as needed, Flonase nasal spray 1 squirt once a day, cetirizine (Zyrtec) one daily, cool mist humidifier, Tylenol and or ibuprofen as needed forfever or discomfort- as long as not contraindicated Please follow up with your Primary Care Physician for ongoing chronic problems. If symptoms change or worsen, please present to Emergency Room for further evaluation 1. See visit diagnoses, disposition, and orders. 2. Reviewed and updated medication list; Discussed probable diagnosis, test results if available in office today and management options with patient/guardian: agreed to the medical plan above 3. Education provided regarding visit today, see after visit summary. Instruction provided in the use of fluids, vaporizer, acetaminophen, and/or other OTC medication for symptom control. Explained use of antibiotics only for proven or strongly suspected bacterial infections. 4. Prevention and health maintenance with primary care provider. 5. Patient/guardian educated to proceed to ED with worsening of condition, changes, or failure to improve. (2) Runny nose: Status: Acute (3) Sinus congestion: Status: Acute Clinical Quality Measures Falls Risk Screening/Assistive Devices Have you fallen in the past year?: No 11/03/24 0822 <Electronically signed by Jen HOPKINS> Date _ Jen HOPKINS Cosigner Signature: Date (if applicable) CC: ~ [facility] Work Phone: 1(820) 957-397201-13-2025 Evaluation note* Diagnosis Onset Date Resolution Status Admit Date History of diverticulitis acute June 18, 2024 1:35pm Nausea acute June 18, 2024 1:35pm Chronic pancreatitis chronic Roge trevin 2024 1:35pm Irritable bowel syndrome (IBS) chron ic June 18, 2024 1:35pm RUQ abdominal pain chronic Januar y 2024 1:35pm Abdominal pain inactive June 182024 1:35pm [facility] Work Phone: 1(777) 689-590910-03-2024 Note* Addendum Note - Pipe Patel APRN.CNP - 03/08/2024 12:07 PM EDTAddended by: PIPE PATEL on: 03/08/2024 12:07 PM Modules accepted: Orders [facility]10-03-2024 Miscellaneous Notes* Addendum Note - Pipe Patel APRN.CNP - 03/08/2024 12:07 PM EDTAddended by: PIPE PATEL on: 03/08/2024 12:07 PM Modules accepted: Orders documented in this encounterMet[facility]10-[facility]-2024 NoteHNO ID: [id number] Author: PIPE PATEL APRN.CNP Service: ? Author Type: Nurse Practitioner Type: Progress Notes Filed: 03/08/2024 11:44 Note Text: Speeder Worker offered: Patient declines. Landon Case is a 78 year old female who presents for problem visit: lower abdominal/groin pressure. Denies vaginal itching, discharge, or odor. HPI: Landon has been having nausea for about a year, but nausea worsening over the last few months. She is also experiencing worsening dizziness. She's had a tilt test in the past to evaluate for this. She is currently being treated for diverticulitis with Flagyl and Cefdinir. (Went to ER on 02/25 for this) She thinks that these medications are making nausea and dizziness worse. CT in ER showed mass in lower uterine segment and upper cervix Had pelvic ultrasound in October 2023 that showed thickened endometrium, a fibroid in the lower uterine segment, and some fluid within the endometrial canal. Biopsy 11/04/23 was benign. Denies fever or chills. Dr andres Flagyl and cefdinir OB History T2 L2 SAB0 IAB0 Ectopic0 Multiple0 Live Births2 Patient Scheduler History LMP: Postmenopausal Age at Menarche: Age at First : Age at Menopause: Patient Scheduler History Comments: Sexual Activity: Not Currently; No partner data on record Contraception: No contraception data on record PAST MEDICAL HISTORY Diagnosis Date Abdominal pain, [...] DANDC JOINT REPLACEMENT HX LAMINECTOMY W/O FFD 06/07 VERT SEG LUMBAR 1974 L4-5 PAST SURGICAL HISTORY OF 2013 part of nose tissue removed PAST SURGICAL HISTORY OF 1974 laminectomy SKIN BIOPSY HX TONSILLECTOMY HX FAMILY HISTORY Problem Relation Age of Onset other (Other) Mother Archana Gehrig's Heart Father Colon Cancer Brother Social History Tobacco Use Smoking status: Never Smokeless tobacco: Never Substance Use Topics Alcohol use: No Drug use: No Current Outpatient Medications Medication Sig miSOPROStol (CYTOTEC) 200 mcg tablet Take two tablets PO night before procedure and two tablets morning of procedure (Patient not taking: Reported on 11/19/2023) CREON 3,000-9,500- 15,000 unit delayed release capsule phenazopyridine (PYRIDIUM) 200 mg tablet Take 1 tablet by mouth three times daily as needed. (Patient not taking: Reported on 10/31/2022) sucralfate (CARAFATE) 1 gram tablet Take 1 tablet by mouth four times daily. Dissolve tablet in water (medicine cup) then swallow (Patient not taking: Reported on 08/03/2021) polyethylene glycol 3350 (MIRALAX, GLYCOLAX) 17 gram/dose powder Use as directed for Miralax / Gatorade Bowel Prep Kit (Patient not taking: Reported on 10/31/2022) Gatorade Sports Drink Use as directed for Miralax / Gatorade Bowel Prep Kit (Patient not taking: Reported on 10/31/2022) Bisacodyl (DULCOLAX) 5 mg tab Use as directed for Miralax / Gatorade Bowel Prep Kit (Patient not taking: Reported on 11/19/2023) dicyclomine (BENTYL) 20 mg tablet Take 1 tablet by mouth twice daily as needed. (Patient not taking: Reported on 10/31/2022) omeprazole (PRILOSEC) 40 mg capsule Take 1 capsule by mouth once daily. predniSONE (DELTASONE) 20 mg tablet Take 2 with lunch daily. (Patient not taking: Reported on 09/15/2020) colestipol (COLESTID) 1 gram tablet Take 1 tablet by mouth twice daily. (Patient not taking: Reported on 09/15/2020) clotrimazole-betamethasone (LOTRISONE) cream Apply 1 application to affected area twice daily. (Patient not taking: Reported on 09/15/2020) CALCIUM CARBONATE/VITAMIN D3 (CALCIUM 600 + D ORAL) Take 1 tablet by mouth once daily. (Patient not taking: Reported on 09/15/2020) Cholecalciferol, Vitamin D3, (VITAMIN D-3) 5,000 unit tab Take 5,000 Units by mouth twice daily. T (more content not included)...[facility] 03-08-2024 History of Present illness Narrative* Pipe Ptael APRN.PORCELAIN WAXER - 03/08/2024 10:52 AM EDT Speeder Worker offered: Patient declines. Landon Case is a 78 year old female who presents for problem visit: lower abdominal/groin pressure. Denies vaginal itching, discharge, or odor. HPI: Landon has been having nausea for about a year, but nausea worsening over the last few months. She is also experiencing worsening dizziness. She's had a tilt test in the past to evaluate for this. She is currently being treated for diverticulitis with Flagyl and Cefdinir. (Went to ER on 02/25for this) She thinks that these medications are making nausea and dizziness worse. CT in ER showed mass in lower uterine segment and upper cervix Had pelvic ultrasound in October 2023 that showed thickened endometrium, a fibroid in the lower uterinesegment, and some fluid within the endometrial canal. Biopsy 11/04/23 was benign. Denies fever or chills. Dr sushila Vazquez and cefdinir OB History T2 L2 SAB0 IAB0 Ectopic0 Multiple0 Live Births2 Patient Scheduler History LMP: Postmenopausal Age at Menarche: Age at First : Age at Menopause: Patient Scheduler History Comments: Sexual Activity: Not Currently; No partner data on record Contraception: No contraception data on record PAST MEDICAL HISTORY Diagnosis Date Abdominal pain, [...] 1974 laminectomy SKIN BIOPSY HX TONSILLECTOMY HX FAMILY HISTORY Problem Relation Age of Onset other (Other) Mother Archana Gehrig's Heart Father Colon Cancer Brother Social History Tobacco Use Smoking status: Never Smokeless tobacco: Never Substance Use Topics Alcohol use: No Drug use: No Current Outpatient Medications Medication Sig miSOPROStol (CYTOTEC) 200 mcg tablet Take two tablets PO night before procedure and two tablets morning of procedure (Patient not taking: Reported on 11/19/2023) CREON 3,000-9,500- 15,000 unit delayed release capsule phenazopyridine (PYRIDIUM) 200 mg tablet Take 1 tablet by mouth three times daily as needed. (Patient not taking: Reported on 10/31/2022) sucralfate (CARAFATE) 1 gram tablet Take 1 tablet by mouth four times daily. Dissolve tablet in water (medicine cup) then swallow (Patient not taking: Reported on 08/03/2021) polyethylene glycol 3350 (MIRALAX, GLYCOLAX) 17 gram/dose powder Use as directed for Miralax / Gatorade Bowel Prep Kit (Patient not taking: Reported on 10/31/2022) Gatorade Sports Drink Use as directed for Miralax / Gatorade Bowel Prep Kit (Patient not taking: Reported on 10/31/2022) Bisacodyl (DULCOLAX) 5 mg tab Use as directed for Miralax / Gatorade Bowel Prep Kit (Patient not taking: Reported on 11/19/2023) dicyclomine (BENTYL) 20 mg tablet Take 1 tablet by mouth twice daily as needed. (Patient not taking: Reported on 10/31/2022) omeprazole (PRILOSEC) 40 mg capsule Take 1 capsule by mouth once daily. predniSONE (DELTASONE) 20 mg tablet Take 2 with lunch daily. (Patient not taking: Reported on 09/15/2020) colestipol (COLESTID) 1 gram tablet Take 1 tablet by mouth twice daily. (Patient not taking: Reported on 09/15/2020) clotrimazole-betamethasone (LOTRISONE) cream Apply 1 application to affected area twice daily. (Patient not taking: Reported on 09/15/2020) CALCIUM CARBONATE/VITAMIN D3 (CALCIUM 600 + D ORAL) Take 1 tablet by mouth once daily. (Patient nottaking: Reported on 09/15/2020) Cholecalciferol, Vitamin D3, (VITAMIN D-3) 5,000 unit tab Take 5,000 Units by mouth twice daily. Takes a total of 10,000 units a day (Patient not taking: Reported on 09/15/2020) propranolol 20 mg tablet Take 40 mg by mouth one time only. ibuprofen 200 mg ORAL tablet Take 200 mg by mouth every 6 hours as needed. (Patient not taking: Reported on 11/19/2023) ASPIRIN 81 MG TAB Take one (1) tablet daily . (Patient not taking: Reported on 02/20/2023) No current facility-administered medications for this visit. Allergies As of Date: 03/08/2024 Allergen Noted Reaction GABAPENTIN 09/16/2009 Mental Status Change MORPHINE 06/02/2010 Other: See Comments PENICILLIN G 06/21/2005 Hives SULFA (SULFONAMIDE ANTIBIOTICS) 06/21/2005 Hives Fully Assessed 02/26/2024 REVIEW OF SYSTEMS Bladder: No dysuria, gross hematuria, urinary frequency, urinary urgency, or incontinence. + pelvicpressure Allergies and current medication updated:Yes SENSITIVE EXAM: Sensitive exam not performed. EXAM: BP 114/78 Pulse 98 Resp 14 Wt 223 lb (101.2kg) SpO2 97% GENERAL: pleasant, female in no apparent distress HEENT: Normocephalic, atraumatic, mucus membranes moist, and no lesions CHEST: Normal inspiratory effort : + mild bilateral CVA tenderness NEURO: alert and oriented x3,exam grossly non-focal EXTREMITIES: normal ASSESSMENT AND PLAN: 1. Nausea - ICD9: 787.02, ICD10: R11.0 (primary diagnosis) - Rx for Zofran sent to help with nausea - Repeat ultrasound to visualize ovaries due to GI symptoms, likely related to diverticulitis and antibiotics 2. Pelvic pressure in female - ICD9: 625.8, ICD10: R10.2 - UA shows moderate amount of leukocytes - URINE CULTURE - Recommend pushing fluids - Mild bilateral CVA tenderness, to go to ER with worsening symptoms or fever/chills Pipe Patel APRN.CNP Medical Decision Making: Problems: Low: Acute, uncomplicated illness or injury Data: Unique test result(s) reviewed: 1 Unique test(s) ordered: 2 Risk: Low: Low risk from testing/treatment Moderate: Drug management Medical Decision Making Level: 4 - Moderate documented in this encounter[facility] Telephone encounter Note * Telephone Encounter - Kamla Nunez RN - 03/08/2024 9:24 AM EDT Patient notified. However, she is now c/o pelvic pressure in vagina and radiating into lower back too. States she is not having any other urinary symptoms. Scheduled appointment today. Kamla Nunez RN [facility]10-03-2024 Miscellaneous Notes* Telephone Encounter - Kamla Nunez RN - 03/08/2024 9:24 AM EDT Patient notified. However, she is now c/o pelvic pressure in vagina and radiating into lower back too. States she is not having any other urinary symptoms. Scheduled appointment today. Kamla Nunez RN * Telephone Encounter - Negin Reynoso RN - 03/08/2024 9:17 AM EDT Left message to call office. Negin Reynoso RN * Telephone Encounter - Isatu Mast MD - 03/08/2024 8:22 AM EDT No- I spoke to Dr. Nicole regarding this. Nothing further. She had a pelvic us and EMB with endosee. See needs to notify office if has any further PMB. * Telephone Encounter - Kamla Nunez RN - 03/07/2024 3:49 PM EDT Patient went to [facility] ER for diverticulitis on 02/26/24. On the pelvic CT scan it showed the below finding (copied from Care Everywhere). Patient asking if she needs to do any further imaging now or if it is likely the same fibroid that the last u/s in October showed. Aware provider back in the office tomorrow. Please advise. CT/Abdomen/Pelvis W IV Cont ONLY IMPRESSION: 1. Acute diverticulitis of the sigmoid colon. No evidence of drainable abscess or free air. 2. Hepatic steatosis. 3. Mass in the lower uterine segment and upper cervix could be due to fibroid. Correlation with nonemergent pelvic ultrasound is recommended. Kamla Nunez RN documented in this [facility] Telephone encounter Note * Telephone Encounter - Negin Reynoso RN - 03/08/2024 9:17 AM EDT Left message to call office. Negin Reynoso RN [facility] Telephone encounter Note* Telephone Encounter - Isatu Mast MD - 03/08/2024 8:22 AM EDT No- I spoke to Dr. Nicole regarding this. Nothing further. She had a pelvic us and EMB with endosee. See needs to notify office if has any further PMB. [facility]10-[facility] Telephone encounter Note* Telephone Encounter - Kamla Nunze RN - 03/07/2024 3:49 PM EDT Patient went to [facility] ER for diverticulitis on 02/26/24. On the pelvic CT scan it showed the below finding (copied from Care Everywhere). Patient asking if she needs to do any further imaging now or if it is likely the same fibroid that the last u/s in October showed. Aware provider back in the office tomorrow. Please advise. CT/Abdomen/Pelvis W IV Cont ONLY IMPRESSION: 1. Acute diverticulitis of the sigmoid colon. No evidence of drainable abscess or free air. 2. Hepatic steatosis. 3. Mass in the lower uterine segment and upper cervix could be due to fibroid. Correlation with nonemergent pelvic ultrasound is recommended. Kamla Nunez RN [facility]09-22-2024 NoteHNO ID: [id number] Author: KIRSTEN ROJAS PA Service: ? Author Type: Physician Television Station Manager Type: Progress Notes Filed: 02/26/2024 08:29 Note Text: This note was created using [employer]. Ly Case is a 78 year old female. HPI 78-year-old female presents for abdominal pain. Patient states she has been having abdominal pain for about 2 days after eating beans soup. She states that she feels like it is gas pain. She has pain over the lower abdomen, mainly on the left lower side. She states pain is constant. She has tried simethicone without improvement. She has also taken Tylenol without improvement. She has no vomiting or diarrhea. No blood in the stool. No history of diverticulitis, but does have a history of IBS. No history of surgery on the abdomen. No fevers. No other complaint. PAST MEDICAL HISTORY Diagnosis Date Abdominal pain, [...] TRANSORAL DIAGNOSTIC 10/07/2020 HYSTEROSCOPY 04/20/2012 Hysteroscopy and [facility] JOINT REPLACEMENT HX LAMINECTOMY W/O FFD 1/2 [...] 40 mg by mouth one time only. miSOPROStol (CYTOTEC) 200 mcg tablet Take two tablets PO night before procedure and two tablets morning of procedure (Patient not taking: Reported on 11/19/2023) phenazopyridine (PYRIDIUM) 200 mg tablet Take 1 tablet by mouth three times daily as needed. (Patient not taking: Reported on 10/31/2022) sucralfate (CARAFATE) 1 gram tablet Take 1 tablet by mouth four times daily. Dissolve tablet in water (medicine cup) then swallow (Patient not taking: Reported on 08/03/2021) polyethylene glycol 3350 (MIRALAX, GLYCOLAX) 17 gram/dose powder Use as directed for Miralax / Gatorade Bowel Prep Kit (Patient not taking: Reported on 10/31/2022) Gatorade Sports Drink Use as directed for Miralax / Gatorade Bowel Prep Kit (Patient not taking: Reported on 10/31/2022) Bisacodyl (DULCOLAX) 5 mg tab Use as directed for Miralax / Gatorade Bowel Prep Kit (Patient not taking: Reported on 11/19/2023) dicyclomine (BENTYL) 20 mg tablet Take 1 tablet by mouth twice daily as needed. (Patient not taking: Reported on 10/31/2022) predniSONE (DELTASONE) 20 mg tablet Take 2 with lunch daily. (Patient not taking: Reported on 09/15/2020) colestipol (COLESTID) 1 gram tablet Take 1 tablet by mouth twice daily. (Patient not taking: Reported on 09/15/2020) clotrimazole-betamethasone (LOTRISONE) cream Apply 1 application to affected area twice daily. (Patient not taking: Reported on 09/15/2020) CALCIUM CARBONATE/VITAMIN D3 (CALCIUM 600 + D ORAL) Take 1 tablet by mouth once daily. (Patient not taking: Reported on 09/15/2020) Cholecalciferol, Vitamin D3, (VITAMIN D-3) 5,000 unit tab Take 5,000 Units by mouth twice daily. Takes a total of 10,000 units a day (Patient not taking: Reported on 09/15/2020) ibuprofen 200 mg ORAL tablet Take 200 mg by mouth every 6 hours as needed. (Patient not taking: Reported on 11/19/2023) ASPIRIN 81 MG TAB Take one (1) tablet daily . (Patient not taking: Reported on 02/20/2023) FAMILY HISTORY Problem Relation Age of Onset other (Other) Mother Archana Badillo's Heart Father Colon Cancer Brother Social History Tobacco Use Smoking status: Never Smokeless tobacco: Never Substance Use Topics Alcohol use: No Drug use: No Review of Systems Constitutional: Negative for chills and fever. HENT: Negative for congestion, ear pain and (more content not included)... [facility]09-22-2024 History of Present illness Narrative* Kirsten Rojas PA - 02/26/2024 8:27 AM EDT This note was created using [employer]. Subjective Landon Case is a 78 year old female. HPI 78-year-old female presents for abdominal pain. Patient states she has been having abdominal pain for about 2 days after eating beans soup. She states that she feels like it is gas pain. She has pain over the lower abdomen, mainly on the left lower side. She states pain is constant. She has tried simethicone without improvement. She has also taken Tylenol without improvement. She has no vomiting or diarrhea. No blood in the stool. No history of diverticulitis, but does have a history of IBS. No history of surgery on the abdomen. No fevers. No other complaint. PAST MEDICAL HISTORY Diagnosis Date Abdominal pain, [...] 40 mg by mouth one time only. miSOPROStol (CYTOTEC) 200 mcg tablet Take two tablets PO night before procedure and two tablets morning of procedure (Patient not taking: Reported on 11/19/2023) phenazopyridine (PYRIDIUM) 200 mg tablet Take 1 tablet by mouth three times daily as needed. (Patient not taking: Reported on 10/31/2022) sucralfate (CARAFATE) 1 gram tablet Take 1 tablet by mouth four times daily. Dissolve tablet in water (medicine cup) then swallow (Patient not taking: Reported on 08/03/2021) polyethylene glycol 3350 (MIRALAX, GLYCOLAX) 17 gram/dose powder Use as directed for Miralax / Gatorade Bowel Prep Kit (Patient not taking: Reported on 10/31/2022) Gatorade Sports Drink Use as directed for Miralax / Gatorade Bowel Prep Kit (Patient not taking: Reported on 10/31/2022) Bisacodyl (DULCOLAX) 5 mg tab Use as directed for Miralax / Gatorade Bowel Prep Kit (Patient not taking: Reported on 11/19/2023) dicyclomine (BENTYL) 20 mg tablet Take 1 tablet by mouth twice daily as needed. (Patient not taking: Reported on 10/31/2022) predniSONE (DELTASONE) 20 mg tablet Take 2 with lunch daily. (Patient not taking: Reported on 09/15/2020) colestipol (COLESTID) 1 gram tablet Take 1 tablet by mouth twice daily. (Patient not taking: Reported on 09/15/2020) clotrimazole-betamethasone (LOTRISONE) cream Apply 1 application to affected area twice daily. (Patient not taking: Reported on 09/15/2020) CALCIUM CARBONATE/VITAMIN D3 (CALCIUM 600 + D ORAL) Take 1 tablet by mouth once daily. (Patient nottaking: Reported on 09/15/2020) Cholecalciferol, Vitamin D3, (VITAMIN D-3) 5,000 unit tab Take 5,000 Units by mouth twice daily. Takes a total of 10,000 units a day (Patient not taking: Reported on 09/15/2020) ibuprofen 200 mg ORAL tablet Take 200 mg by mouth every 6 hours as needed. (Patient not taking: Reported on 11/19/2023) ASPIRIN 81 MG TAB Take one (1) tablet daily . (Patient not taking: Reported on 02/20/2023) FAMILY HISTORY Problem Relation Age of Onset other (Other) Mother Archana Gehrlinda's Heart Father Colon Cancer Brother Social History Tobacco Use Smoking status: Never Smokeless tobacco: Never Substance Use Topics Alcohol use: No Drug use: No Review of Systems Constitutional: Negative for chills and fever. HENT: Negative for congestion, ear pain and sore throat. Respiratory: Negative for cough and shortness of breath. Cardiovascular: Negative for chest pain. Gastrointestinal: Positive for abdominal pain. Negative for blood in stool, diarrhea and vomiting. Objective BP 122/78 Pulse 82 Temp 37.1 C (98.8 F) (Tympanic) Resp 18 Wt 101.9 kg (224 lb 10.4 oz) SpO2 96% BMI 35.68 kg/m Physical Exam Vitals and nursing note reviewed. Constitutional: General: She is not in acute distress. Appearance: Normal appearance. She is not toxic-appearing. HENT: Nose: Nose normal. Mouth/Throat: Mouth: Mucous membranes are moist. Eyes: Conjunctiva/sclera: Conjunctivae normal. Cardiovascular: Rate and Rhythm: Normal rate and regular rhythm. Pulmonary: Effort: Pulmonary effort is normal. Breath sounds: Normal breath sounds. Abdominal: General: Abdomen is flat. Palpations: Abdomen is soft. Tenderness: There is abdominal tenderness (Left lower quadrant tenderness with some guarding). Skin: General: Skin is warm and dry. Neurological: Mental Status: She is alert. Assessment and Plan ASSESSMENT/PLAN: 1. LLQ abdominal pain - ICD9: 789.04, ICD10: R10.32 -Patient reports 8/10 abdominal pain with palpation. She does have some guarding. -At this time, I recommended evaluation in the emergency room. It is the weekend, we have no labs available at this time. Concern for diverticulitis. Patient will go to ER now. Diagnosis and treatment plan were discussed and questions were answered to the patient's satisfaction. Pt acknowledged understanding of concepts and follow up plan. Specific signs and symptoms that would indicate the need for higher level of care were discussed in detail warranting prompt ER evaluation. BRI Vega documented in this encounterMet[facility]08-[facility] Telephone encounter Note * Telephone Encounter - Caren Pacheco LPN - 01/05/2024 2:33 PM EDT TC to pt with results. Pt voiced understanding. Would like to cancel follow up with MQ as there wasnothing found indication why pt would have these symptoms. Advise pt that I can cancel appointment and to follow up if she needed. Caren Pacheco LPN [facility]08-01-2024 Miscellaneous Notes* Telephone Encounter - Caren Pacheco LPN - 01/05/2024 2:33 PM EDT TC to pt with results. Pt voiced understanding. Would like to cancel follow up with MQ as there wasnothing found indication why pt would have these symptoms. Advise pt that I can cancel appointment and to follow up if she needed. Caren Pacheco LPN * Telephone Encounter - Caren Pacheco LPN - 01/05/2024 2:30 PM EDT EMG consistent with patient's hx of foot drop, otherwise no abnormalities. * Telephone Encounter - Caren Pacheco LPN - 01/04/2024 4:07 PM EDT Please see attached EMG: Scan on 01/04/2024 12:55 PM by Provider, RAAD Gold: EMG [facility] 01/04/24 Caren Pacheco LPN * Telephone Encounter - Caren Pacheco LPN - 12/20/2023 10:17 AM EDT Patient's A1c was slightly elevated and her vitamin D was low. Would recommend reaching out to PCP regarding supplementation. Additionally, her hemoglobin was slightly elevated and may need a redraw,follow up with PCP. Jennifer Ray PA-C * Telephone Encounter - Zabrina Velazquez RN - 12/19/2023 9:07 AM EDT Patient calls to ask if provider has got a chance to review results of labs ordered at appointment on 12/13/2023. Patient reports she was told she would receive a call a couple days after her appointment and hasn't heard anything yet. Patient reports she is still not feeling well same as at appointment. Please review and advise, Zabrina Velazquez RN documented in this encounterMet[facility]08-[facility] Telephone encounter Note * Telephone Encounter - Caren Pacheco LPN - 01/05/2024 2:30 PM EDT EMG consistent with patient's hx of foot drop, otherwise no abnormalities. [facility]07-31-[facility] Telephone encounter Note* Telephone Encounter - Caren Pacheco LPN - 01/04/2024 4:07 PM EDT Please see attached EMG: Scan on 01/04/2024 12:55 PM by Provider, RAAD Gold: EMG [facility] 01/04/24 Caren Pacheco LPN [facility]07-16-2024 Telephone encounter Note* Telephone Encounter - Caren Pacheco LPN - 12/20/2023 10:17 AM EDT Patient's A1c was slightly elevated and her vitamin D was low. Would recommend reaching out to PCP regarding supplementation. Additionally, her hemoglobin was slightly elevated and may need a redraw,follow up with PCP. Jennifer Ray PA-C [facility]07-15-[facility] Telephone encounter Note* Telephone Encounter - Zabrina Velazquez RN - 12/19/2023 9:07 AM EDT Patient calls to ask if provider has got a chance to review results of labs ordered at appointment on 12/13/2023. Patient reports she was told she would receive a call a couple days after her appointment and hasn't heard anything yet. Patient reports she is still not feeling well same as at appointment. Please review and advisZabrina anguiano RN [facility]07-10-[facility] Telephone encounter Note* Telephone Encounter - Zabrina Velazquez RN - 12/14/2023 11:47 AM EDT Philip with [facility] calls to report that the diagnosis listed for the EMG ordered doesn't cover the testing. Reviewed OV notes and visit diagnosis. Malaise and Fatigue will be covered by insurance. Orders updated to reflect those diagnosis as well. Zabrina Velazquez RN [facility]07-10-2024 Miscellaneous Notes* Telephone Encounter - Zabrina Velazquez RN - 12/14/2023 11:47 AM EDT Philip with [facility] calls to report that the diagnosis listed for the EMG ordered doesn't cover the testing. Reviewed OV notes and visit diagnosis. Malaise and Fatigue will be covered by insurance. Orders updated to reflect those diagnosis as well. Zabrina Velazquez RN documented in this encounterMet[facility]07-09-2024 Instructions* Patient Instructions* Jennifer Ray PA-C - 12/13/2023 7:44 AM EDT Laboratory studies EMG of the right leg Increase water intake to 60 ounces a day, wear compression socks. Follow up in 2-3 months documented in this encounterMet[facility]07-09-2024 History of Present illness Narrative* Jennifer Ray PA-C - 12/13/2023 7:06 AM EDT Images from the original note were not included. [facility] Name: Landon Case Age: [age] year old Gender: female Primary Care Provider: Kasey Nicole MD Consult requested for dizziness by . Recommendations will be communicated via shared medical recordor US mail. Chief Complaint:New Patient Evaluation 12/13/2023 - General Neurology, Jennifer Ray PA-C ASSESSMENT ASSESSMENT/PLAN: 1. Neuropathy - ICD9: 355.9, ICD10: G62.9 (primary diagnosis) 2. Positional lightheadedness - ICD9: 780.4, ICD10: R42 3. Malaise and fatigue - ICD9: 780.79, ICD10: R53.81, R53.83 4. Low vitamin D level - ICD9: 790.6, ICD10: R79.89 Patient with a year and a half of chronic and constant lightheadedness, worsened with standing and prolonged periods of standing. Has had a few episodes of presyncope but no loss of consciousness or falls from this. 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 Patient denies any history of diabetes, does note chronic hypotension has never had lightheadedness like this before. Is on propranolol and this medication was adjusted with no benefit in her symptoms. Patient does have signs symptoms of neuropathy on exam. Orthostatics do show slight decrease in blood pressure when standing but now positive for orthostatic hypotension. At this time, concern for hypotension contributing to patient's symptoms. Discussed increasing water intake as patient does not drink much water throughout the day and patient is amenable, also discussed compression socks. Will order EMG of the right lower extremity as well as some basic blood work to look for common causes of neuropathy. Patient also reports significant fatigue over the last year and a half as well, does note that her did around the time her symptoms startedand is unsure if grief has anything to do with her symptoms. Encouraged her to follow-up with her primary care. Will also order some basic blood work for common causes of fatigue as well. Previous MRI of the brain negative for any intracranial source of patient's symptoms. Patient also saw ENT and eye doctor without any significant findings. Patient agreeable to treatment plan of care at this time, questions were answered. Patient to follow-up in 3 months should her symptoms persist. Jennifer Ray PA-C No diagnosis found. Chart, labs,and relevant images reviewed. HPI: Landon is a 78 year old year old female with history of who presents with dizziness. The dizziness is described as lightheadedness. Patient presents for evaluation of lightheadedness onset about a year and a half ago. Is unsure about any etiology for onset but does note that her around that time and is unsure if any grief has been contributing to her symptoms. Since that time she is been experiencing a constant sensation of lightheadedness with occasional episodes of presyncope when she stands up quickly. Has nothad any episodes of syncope, no falls from this. Notes that the sensation is there all the time, not worse at a certain time of day and is unsure if anything makes it better. Also has been experiencing some ear pain with this but did see ENT with normal exam. Occasionally her eyes will get blurry, did see an eye doctor and everything was normal, also had an MRI of the brain which was negative. Occasionally will get a pressure sensation in her head and feel nauseous. Does note that she has takenTylenol for the symptoms and it has improved but she continues to feel very fatigued, lightheaded all the time. Notes that she stagger occasionally when she walks but again no falls. Of note, does have chronic left foot drop due to low back injury many years ago, this is unchanged. Does report someswelling and color change in her feet with prolonged periods of standing. Denies any history of diabetes. Denies any sensitivity to light or sound, no migraine history. Is on propranolol but has been on this for 10 to 15 years. Does note that he did decrease her dosage recently through cardiology office with no improvement in her symptoms. Notes that she is on this medication for mitral valve. She does drink about 2 bottles of water a day and also drinks iced tea and milk. Takes a multivitamin with no other supplements, no history of chemotherapy or heavy metal exposure. No heavy alcohol use or diet restrictions, no history of bariatric surgery. Was given gabapentin at 1 point with no benefit to her symptoms. - Symptoms began: -constant -Ear pain? Some fullness - Ear Fullness? Yes -Presyncope? Yes -Hearing Loss? No -Provoked? Yes -Positional? Yes -Associated stroke symptoms? No -History of migraines? No -New Meds? - Dizziness exacerbated with standing up. - Dizziness is not exacerbated with bending over, closing eyes, and head movement. - Symptoms are associated with blurry vision, headache, and nausea. - Improved by nothing. Review of Systems ACTIVE PROBLEM LIST FAMILY HX GI MALIGNANCY Hemorrhage of Rectum and Anus Acute Gastritis Without Mention of Hemorrhage Hemorrhage of Gastrointestinal Tract, Unspecified Backache, Unspecified Other Acquired Deformity of Ankle and Foot(736.79) Osteopenia PAST MEDICAL HISTORY Diagnosis Date Abdominal pain, right upper quadrant Allergic rhinitis, cause unspecified Chest pain, unspecified Disorders of lipoid metabolism Diverticulosis of colon (without mention of hemorrhage) Esophagitis, unspecified Family history of malignant neoplasm of gastrointestinal tract Colon Cancer/Brother Hemorrhage of gastrointestinal tract, unspecified Hemorrhage of rectum and anus Irritable bowel syndrome Osteopenia Palpitations Skin cancer Temporomandibular joint disorders, unspecified Unspecified constipation Medications: Reviewed CREON 3,000-9,500- 15,000 unit delayed release capsule omeprazole (PRILOSEC) 40 mg capsule Take 1 capsule by mouth once daily. propranolol 20 mg tablet Take 40 mg by mouth one time only. miSOPROStol (CYTOTEC) 200 mcg tablet Take two tablets PO night before procedure and two tablets morning of procedure (Patient not taking: Reported on 11/19/2023) phenazopyridine (PYRIDIUM) 200 mg tablet Take 1 tablet by mouth three times daily as needed. (Patient not taking: Reported on 10/31/2022) sucralfate (CARAFATE) 1 gram tablet Take 1 tablet by mouth four times daily. Dissolve tablet in water (medicine cup) then swallow (Patient not taking: Reported on 08/03/2021) polyethylene glycol 3350 (MIRALAX, GLYCOLAX) 17 gram/dose powder Use as directed for Miralax / Gatorade Bowel Prep Kit (Patient not taking: Reported on 10/31/2022) Gatorade Sports Drink Use as directed for Miralax / Gatorade Bowel Prep Kit (Patient not taking: Reported on 10/31/2022) Bisacodyl (DULCOLAX) 5 mg tab Use as directed for Miralax / Gatorade Bowel Prep Kit (Patient not taking: Reported on 11/19/2023) dicyclomine (BENTYL) 20 mg tablet Take 1 tablet by mouth twice daily as needed. (Patient not taking: Reported on 10/31/2022) predniSONE (DELTASONE) 20 mg tablet Take 2 with lunch daily. (Patient not taking: Reported on 09/15/2020) colestipol (COLESTID) 1 gram tablet Take 1 tablet by mouth twice daily. (Patient not taking: Reported on 09/15/2020) clotrimazole-betamethasone (LOTRISONE) cream Apply 1 application to affected area twice daily. (Patient not taking: Reported on 09/15/2020) CALCIUM CARBONATE/VITAMIN D3 (CALCIUM 600 + D ORAL) Take 1 tablet by mouth once daily. (Patient nottaking: Reported on 09/15/2020) Cholecalciferol, Vitamin D3, (VITAMIN D-3) 5,000 unit tab Take 5,000 Units by mouth twice daily. Takes a total of 10,000 units a day (Patient not taking: Reported on 09/15/2020) ibuprofen 200 mg ORAL tablet Take 200 mg by mouth every 6 hours as needed. (Patient not taking: Reported on 11/19/2023) ASPIRIN 81 MG TAB Take one (1) tablet daily . (Patient not taking: Reported on 02/20/2023) ALLERGIES Allergen Reactions Gabapentin Mental Status Change Patient states was running into the yip. Morphine Other: See Comments dizzy- tachycardia Penicillin G Hives Sulfa (Sulfonamide * Hives FAMILY HISTORY Problem Relation Age of Onset other (Other) Mother Archana Gehrig's Heart Father Colon Cancer Brother PAST SURGICAL HISTORY Procedure Laterality Date ABDOMINAL [...] 1974 laminectomy SKIN BIOPSY HX TONSILLECTOMY HX SOCIAL HISTORY No social history on file. Tobacco Use: Low Risk (12/13/2023) Patient History Smoking Tobacco Use: Never Smokeless Tobacco Use: Never Passive Exposure: Not on file PHYSICAL EXAM 12/13/23 0659 12/13/23 0702 BP: 113/77 105/65 Pulse: 65 79 Resp: 18 SpO2: 100% Weight: 102.6 kg (226 lb 2.1 oz) Neurological Exam Cognitive and Language: Alert and answered questions appropriately. Language was fluent. Followed simple and complex commands. Cranial Nerves: Visual luevano were full tested binocularly to finger counting in all 4 quadrants with no visual extinction. Pupils were equal and both reactive to light. Extraocular movements were full with no diplopia or nystagmus. Facial sensation was normal to light touch in V1 to V3. Facial strength was symmetric. Normal hearing grossly bilaterally. Palatal raise was symmetric. Shoulder shrug was symmetric. Tongue protrusion was symmetric with no fasciculations. Right Left Shoulder Abduction: 5 5 Elbow Extension 5 5 Elbow Flexion 5 5 Wrist Extension 5 5 Finger Extension 5 5 Finger Abduction 5 5 Right Left Hip Flexion 5 5 Knee Extension 5 5 Knee Flexion 5 5 Dorsiflexion 5 5 Plantar Flexion 5 5 Rest tremor: absent Tone: Normal in all four limbs Reflexes: Absent Achilles bilaterally, significantly diminished patella bilaterally. 2/4 in upper extremities bilaterally, negative Simón Sensory: Chronic sensory changes to left lower extremity with decreases in vibration, light touch and temperature. Right lower extremity with some decrease in temperature compared to the upper extremities bilaterally. Decreased vibration throughout lower extremities and intact in upper extremities.Positive pseudoathetosis on Romberg testing Coordination: Normal finger to nose and heel to gay testing bilaterally. Positive romberg. Antalgic gait due to chronic foot drop Labs: Lab Results Component Value Date WBC 6.56 10/23/2020 HCT 43.7 10/23/2020 MCV 93.6 10/23/2020 PLT 234 10/23/2020 No results found for: HBA1C No results found for: CHOL, HDL, LDL, TG No results found for: TSH Radiology: MRI brain 09/05/23 This note was dictated using Mine speech recognition software and may contain some errors that were a result of the program not accurately transcribing what was dictated, despite efforts to make corrections. Note that unless urgent, test and MRI results will be discussed at next follow- up visit. PROMIS (Patient-Reported Outcomes Measurement Information System) is a set of person-centered measures that evaluates and monitors physical, social, and emotional health. It can be used with the general population and with individuals living with chronic conditions. PROMIS 10: PHYSICAL AND MENTAL HEALTH: Medical Decision Making: Medical Decision Making Level: 1 - N/A I spent a total of 50 minutes on the date of the service which included preparing to see the patient, [id number] patient care, completing clinical documentation, obtaining and/or reviewing separately obtained history, performing a medically appropriate examination, counseling and educating the pat ient/family/caregiver, and ordering medications, tests, or procedures. documented in this encounterMet[facility] History of Present illness Narrative* Adeline Juarez APRN.[employer] WAXER - 11/19/2023 8:32 AM EDT This note was created using [employer] The[employer]. Subjective Landon Case is a 78 year old female. Presents for 2 weeks of sinus pain, pressure, ear pressure and headache. Patient reports she has been taking tylenol with no relief. Objective BP 114/78 Pulse 65 Temp 36.3 C (97.4 F) Resp 20 Wt 102.9 kg (226 lb 13.7 oz) SpO2 95% BMI 36.03 kg/m Physical Exam PHYSICAL EXAMINATION: General appearance: Well appearing, alert, in no acute distress, well-hydrated, well nourished. Ears: External ears normal, canals clear Nose/Sinuses: Positive findings: mucosa erythematous and swollen, purulent rhinorrhea, frontal and maxillary sinuses tender with palpation. Oropharynx: Lips, mucosa, and tongue normal, teeth and gums normal, oropharynx normal Neck: Supple, no adenopathy; thyroid symmetric, normal size, no bruits Lungs: Lungs clear to auscultation. No wheezing, rhonchi, rales. Heart: RRR without murmur, gallop, or rubs. No ectopy Assessment and Plan ASSESSMENT/PLAN: 1. Bacterial sinusitis - ICD9: 473.9, 041.9, ICD10: J32.9, B96.89 - Will begin treatment with Doxycycline - The patient should also be given OTC decongestants prn for the first 5-7 days of treatment. - Supportive care with plenty of fluids, rest, and analgesia prn. - Follow up in 3-5 days if symptoms persist or worsen. - DOXYCYCLINE HYCLATE 100 MG TABLET - Would recommend use of flonase OTC as well to help with sinus and ear pressure. Adeline Juarez APRN.HAMMAD documented in this encounterMet[facility]05-31-2024 Instructions* Patient Instructions* Viri Bradford MA - 11/04/2023 9:05 AM EDT YOUR RECOVERY After your biopsy you may have: Vaginal bleeding (less than a normal menstrual period) Mild cramping Do NOT put anything in the vagina for 1 week after your endometrial biopsy. This includes: tampons douches and refraining from having sexual intercourse If you have any discomfort, you may take an over the counter pain medication (motrin, advil, ibuprofen, tylenol, etc). If this does not relieve your discomfort, contact the office. It is okay to wear a sanitary pad until the discharge and spotting stops. RISKS Although problems seldom occur with endometrial biopsies, there can be some complications. You may feel faint during and shortly after the procedure as well as have some bleeding after the procedure.There is also a risk of infection after the procedure. These complications are rare and can be easily treated. You should contact you doctor is you have any of the following: Heavy bleeding (more than your normal period) Bleeding with clots Severe abdominal pain Fever (more than 100.4F) Foul smelling vaginal discharge RESULTS We will have the results of your biopsy in 1-2 weeks. If you do not hear the results of your biopsyafter 2 weeks, please contact the office for the results. If you have any additional questions or concerns please do not hesitate to contact the office. documented in this encounterMet[facility]05-31-[facility] History of Present illness Narrative* NeyIsatu Rajput MD - 11/04/2023 9:04 AM EDT Landon Case presents for hysteroscopy. Indication: Postmenopausal bleeding, Increased endometrial thickness, and endometrial fluid. Age: [age] year old LMP: No LMP recorded. Patient is postmenopausal. Contraception: none test: n/a VS: BP 124/74 Pulse 66 Wt 224 lb (101.6kg) SpO2 96% UNIVERSAL PROTOCOL / SAFETY CHECKLIST Procedure to be Performed: Endosee and EMB Sign In: A Moment of CARE was completed. Personnel directly involved with the procedure wore the appropriate PPE (Personal Protective Equipment). Patient/Surrogate Stated/Verified: PATIENT VERIFIED(optional for EMERGENT procedures): Patient name, Date of , Relevant allergies, and The intended procedure Time Out Communication: Intended patient and procedure match the source documents. Consent documented and matches the intended procedure. Sign Out: SIGN OUT (optional for EMERGENT procedures): All specimen containers correctly labeled. Isatu Andrea MD OBJECTIVE: Cervix cleaned with betadine. Cervix was dilated. Under sterile conditions, using 50 mL normal saline as distention, ENDOSEE hysteroscopy performed without incident. No endocervical lesions seen. Endometrial lining is atrophic. No intrauterine lesions. Tubal ostia visualized and normal. E ndometrial biopsy performed. PROCEDURE SUMMARY: Patient tolerated procedure well. ASSESMENT: Postmenopausal bleeding, Increased endometrial thickness, and endometrial fluid with no lesions on hysteroscopy. PLAN: Follow up endometrial biopsy results. Discussed with patient if continues to have PMB would recommend further evaluation with hysteroscopy D&C Isatu Andrea MD documented in this encounterMet[facility]05-28-[facility]24 Telephone encounter Note * Telephone Encounter - Kamla Nunez RN - 11/01/2023 8:36 AM EDT Patient notified and rescheduled to 11/03. Kamla Nunez RN [facility] Miscellaneous Notes* Telephone Encounter - Kamla Nunez RN - 11/01/2023 8:36 AM EDT Patient notified and rescheduled to 11/03. Kamla Nunez RN * Telephone Encounter - Isatu Mast MD - 11/01/2023 7:39 AM EDT How about 9:30 on Tuesday11/04/23 * Telephone Encounter - Mallory Crandall RN - 10/28/2023 1:50 PM EDT Spoke with patient. We do have Endosee supplies and DM sent in RX for Cytotec. Patient notified. Scheduled soonest appointment which is 12/06. Patient asking if this is soon enough. Mallory Crandall RN * Telephone Encounter - Sophie Merino LPN - 10/28/2023 1:41 PM EDT Attempted to contact pt , unable to complete call d/t static on phone line and calls being dropped.Requested that pt call the office to discuss below results. Pt was agreeable with this. Sophie Merino LPN * Telephone Encounter - Sophie Merino LPN - 10/28/2023 1:41 PM EDT ----- Message from Isatu Jaeger MD sent at 10/28/2023 7:58 AM EDT ----- Please notify patient that due to how thick lining is and fluid in cavity I would recommend Endoseeand EMB however we do not have any or know when we are getting so my recommendation would be hysteroscopy D&C in [place]. If she is ok to proceed I will schedule and we can discuss at pre op. Please please [place] booking sheet in office. documented in this encounterMet[facility]05-28-2024 Telephone encounter Note * Telephone Encounter - Isatu Mast MD - 11/01/2023 7:39 AM EDT How about 9:30 on Tuesday11/04/23 [facility] Telephone encounter Note* Telephone Encounter - Mallory Crandall RN - 10/28/2023 1:50 PM EDT Spoke with patient. We do have Endosee supplies and DM sent in RX for Cytotec. Patient notified. Scheduled soonest appointment which is 12/06. Patient asking if this is soon enough. Mallory Crandall, RN [facility] Telephone encounter Note* Telephone Encounter - Sophie Merino LPN - 10/28/2023 1:41 PM EDT Attempted to contact pt , unable to complete call d/t static on phone line and calls being dropped.Requested that pt call the office to discuss below results. Pt was agreeable with this. Sophie Merino LPN [facility] Telephone encounter Note* Telephone Encounter - Sophie Merino LPN - 10/28/2023 1:41 PM EDT ----- Message from Isatu Jaeger MD sent at 10/28/2023 7:58 AM EDT ----- Please notify patient that due to how thick lining is and fluid in cavity I would recommend Endoseeand EMB however we do not have any or know when we are getting so my recommendation would be hysteroscopy D&C in [place]. If she is ok to proceed I will schedule and we can discuss at pre op. Please please OR booking sheet in office. [facility] Telephone encounter Note* Telephone Encounter - Sophie Merino LPN - 10/25/2023 3:51 PM EDT Pt returned call and was given below message and voiced understanding. Sophie Merino LPN [facility]05-[facility] Miscellaneous Notes* Telephone Encounter - Sophie Merino LPN - 10/25/2023 3:51 PM EDT Pt returned call and was given below message and voiced understanding. Sophie Merino LPN * Telephone Encounter - Kamla Nunez RN - 10/25/2023 3:47 PM EDT Left message for patient to call office. Kamla Nunez RN * Telephone Encounter - Caren Kelly APRN.CNM - 10/25/2023 3:40 PM EDT Agree with recommendations. Caren Kelly APRN.CNM * Telephone Encounter - Kamla Nunez RN - 10/25/2023 11:43 AM EDT Patient calling c/o pelvic pain that started shortly after having transvaginal u/s yesterday. Rating 7/10 on pain scale currently. States that it is cramping all over pelvic area and radiates into her back. Advised she can alternate ibuprofen/tylenol and using heating pad to help. u/s report still in process. Please advise. Kamla Nunez RN documented in this encounterMet[facility]05-21-2024 Telephone encounter Note * Telephone Encounter - Kamla Nunez RN - 10/25/2023 3:47 PM EDT Left message for patient to call office. Kamla Nunez RN [facility]05-[facility] Telephone encounter Note* Telephone Encounter - Caren Kelly APRN.CNM - 10/25/2023 3:40 PM EDT Agree with recommendations. Caren Kelly APRN.CNM [facility] Work Phone: [phone] 297-773405-21-2024 Telephone encounter Note* Telephone Encounter - Kamla Nunez RN - 10/25/2023 11:43 AM EDT Patient calling c/o pelvic pain that started shortly after having transvaginal u/s yesterday. Rating 7/10 on pain scale currently. States that it is cramping all over pelvic area and radiates into her back. Advised she can alternate ibuprofen/tylenol and using heating pad to help. u/s report still in process. Please advise. Kamla Nunez RN [facility] History of Present illness Narrative* Isatu Mast MD - 10/20/2023 2:06 PM EDT Speeder Worker offered: Patient declines. Landon Case is a 78 year old female who presents for concerns regarding vaginal brown spotting and cramping intermittently x 6 weeks. Pt reports sometimes just when wiping - it reminds her ofthe end of her menses. Pt reports over the last year she in general has not been feeling well and has been worked up but can't find a reason. Pt reports no changes in Bowel habits, no weight changes,no abdominal pain. Pt offers no other concerns today. Lost her last year. OB History T2 L2 SAB0 IAB0 Ectopic0 Multiple0 Live Births2 Patient Scheduler History LMP: Postmenopausal Age at Menarche: Age at First : Age at Menopause: Patient Scheduler History Comments: Sexual Activity: Not Currently; No partner data on record Contraception: No contraception data on record PAST MEDICAL HISTORY Diagnosis Date Abdominal pain, [...] 1974 laminectomy SKIN BIOPSY HX TONSILLECTOMY HX FAMILY HISTORY Problem Relation Age of Onset other (Other) Mother Archana Gehrig's Heart Father Colon Cancer Brother Social History Tobacco Use Smoking status: Never Smokeless tobacco: Never Substance Use Topics Alcohol use: No Drug use: No Current Outpatient Medications Medication Sig CREON 3,000-9,500- 15,000 unit delayed release capsule phenazopyridine (PYRIDIUM) 200 mg tablet Take 1 [...] needed. (Patient not taking: Reported on 10/31/2022) omeprazole (PRILOSEC) 40 mg capsule Take 1 capsule by mouth once daily. predniSONE (DELTASONE) 20 mg tablet Take 2 [...] 1 tablet by mouth once daily. (Patient nottaking: Reported on 09/15/2020 ) Cholecalciferol, Vitamin D3, (VITAMIN D-3) 5,000 unit tab Take 5,000 Units by mouth twice daily. Takes a total of 10,000 units a day (Patient not taking: Reported on 09/15/2020 ) propranolol 20 mg tablet Take 40 mg by mouth one time only. ibuprofen 200 mg ORAL tablet Take 200 mg by mouth every 6 hours as needed. ASPIRIN 81 MG TAB Take one (1) tablet daily . (Patient not taking: Reported on 02/20/2023) No current facility-administered medications for this visit. Allergies As of Date: 10/20/2023 Allergen Noted Reaction GABAPENTIN 09/16/2009 Mental Status Change MORPHINE 06/02/2010 Other: See Comments PENICILLIN G 06/21/2005 Hives SULFA (SULFONAMIDE ANTIBIOTICS) 06/21/2005 Hives Fully Assessed 02/20/2023 REVIEW OF SYSTEMS Abdomen: see hpi Bladder: no dysuria.. Expanded ROS: GENERAL: Negative for fever Allergies and current medication updated:Yes EXAM: BP 138/86 Wt 223 lb (101.2kg) GENERAL: pleasant, female in no apparent distress HEENT: Normocephalic, atraumatic, and mucus membranes moist NECK: full range of motion DERMATOLOGY: Normal and without lesions ABDOMEN: soft, non-tender, and no masses PELVIC: external genitalia normal, normal Bartholin's glands, urethra, Vivian's glands, no vulvar lesions, no cervical lesions, good vaginal support, normal appearing perineal body and perianal region, scant brown discharge, no active bleeding. No cervical lesions. BIMANUAL: uterus normal size, shape and consistency, no adnexal masses, and non-tender NEURO: alert and oriented x3,exam grossly non-focal EXTREMITIES: normal ASSESSMENT AND PLAN: Encounter Diagnosis ICD-10-CM 1. PMB (postmenopausal bleeding) N95.0 BACT/RAMAKRISHNA VAG GRAM STAIN PELVIC US WHI US FEMALE PELVIS TRANSVAG 2. Encounter for screening mammogram for malignant neoplasm of breast Z12.31 ANA SCREENING W JESUS 3. Discussed causes of PMB with patient reviewed likely EMB with endosee vs Hysteroscopy D&C inOR Medical Decision Making: Problems: Moderate: New problem with uncertain prognosis Data: Unique test(s) ordered: 3+ Medical Decision Making Level: 4 - Moderate Isatu Andrea MD documented in this encounterMet[facility]09-17-2023 History of Present illness Narrative* Deb Duval APRN.[facility] - 02/20/2023 8:23 AM EDT CC: Patient presents with: Flu Like Symptoms: Started 4 days ago HPI: Landon Case is a 77 year old female who [...] 1 tablet by mouth once daily. (Patient nottaking: Reported on 09/15/2020 ) Cholecalciferol, Vitamin D3, [...] plan. Deb Duval APRN.HAMMAD documented in this encounterMet[facility]05-28-2023 History of Present illness Narrative* BRI Vega - 10/31/2022 12:55 PM EDT This note was created using NoteWriter. Subjective Landon Case is a 77 year old female. HPI [...] 1 tablet by mouth once daily. (Patient nottaking: Reported on 09/15/2020 ) Cholecalciferol, Vitamin D3, [...] ER evaluation. BRI Vega documented in this encounterMetro[facility]10-11-2022 Miscellaneous Notes* Telephone Encounter - Citlaly Giron LPN - 03/16/2022 4:25 PM EDT Spoke with pt and information listed below given. Pt verbalizes understanding. Citlaly Giron LPN * Telephone Encounter - Violetta Segovia - 03/15/2022 8:16 AM EDT Unable to reach patient. Mailbox full/Mailbox not set up/ Number incorrect. Please try again later. Violetta Segovia * Telephone Encounter - Violetta Segovia - 03/15/2022 8:15 AM EDT ----- Message from Lakisha Melendez APRN.HAMMAD sent at 03/15/2022 7:15 AM EDT ----- Please advise patient: Urine culture did not show clear evidence of infection. She may continue to take antibiotic if it has been helpful. If not improving, recommend follow up with PCP. Lakisha Melendez CNP documented in this encounterMet[facility]10-08-2022 Instructions* Patient Instructions* Caren Jose APRN.HAMMAD - 03/13/2022 9:10 AM EDT Images from [...] treated. A physician, nurse practitioner or physician pharmacy sales assistant may treat with a short course [...] women if symptoms resolve. documented in this encounterMetro[facility]10-08-2022 History of Present illness Narrative* Caren Jose APRN.CNP - 03/13/2022 9:07 AM EDT This note was created using [employer]. Subjective Landon Case is a 76 year old female. 76 year old female with PMH gastritis and osteopenia presents with complaints of possible UTI. Acute onset yesterday evening. +suprapubic pressure that kept her up during night This morning she has developed burning with urination +lower back pain Denies vaginal bleeding. Denies vaginal discharge Denies recent sexual activity (states that her last week from [place]) The history is provided by the patient. No pet handler was used. UTI This is a new [...] stones, single kidney, urological procedure, recurrent UTIs, urinarystasis or catheterization. PAST MEDICAL HISTORY Diagnosis Date [...] 1 tablet by mouth once daily. (Patient nottaking: Reported on 09/15/2020 ) Cholecalciferol, Vitamin D3, (VITAMIN D-3) 5,000 unit tab Take 5,000 Units by mouth twice daily. Takes a total of 10,000 units a day (Patient not taking: Reported on 09/15/2020 ) ibuprofen 200 mg ORAL tablet Take 200 mg by mouth every 6 hours as needed. FAMILY HISTORY Problem Relation Age of Onset other (Other) Mother Archana Gehrlinda's Heart Father Colon Cancer Brother Social History [...] URINE (POC) - URINE CULTURE Caren Jose APRN.CNP documented in this encounterMetro[facility]04-20-2022 History of Present illness Narrative* Mimi Aguirre - 09/23/2021 9:30 AM EDT Radiology Service Progress Note PATIENT NAME: Landon Case DATE OF SERVICE: September 23, 2021 TIME: 9:19 AM PATIENT IDENTITY VERIFICATION COMPLETED USING TWO (2) IDENTIFIERS: Name and Date of confirmedby patient verbally. FALL SCREENING: Has the patient [...] 23, 2021 9:19 AM documented in this encounterMetro[facility]09-12-2012 History of Past illness Narrative* Problem Noted Date Resolved Date Post-menopausal bleeding 02/16/2012 015 Hip joint replacement by other means 07/24/2010 04/29/2015 Osteoarthrosis, unspecified whether generalized or localized, pelvic region and thigh 10/01/2009 07/20/2011 Palpitations 10/12/2006 04/29/2015 Unspecified constipation 08/03/2005 015 documented as of this encounter (statuses as of 09/24/2021) [facility] of Past illness Narrative* Problem Noted Date Resolved Date Post-menopausal bleeding 02/16/2012 11/24/2 015 Hip joint replacement by other means 07/24/2010 04/29/2015 Osteoarthrosis, unspecified whether generalized or localized, pelvic region and thigh 10/01/2009 07/20/2011 Palpitations 10/12/2006 04/29/2015 Unspecified constipation 08/03/2005 015 documented as of this encounter (statuses as of 09/24/2021) [facility] of Past illness Narrative* Problem Noted Date Resolved Date Post-menopausal bleeding 02/16/2012 015 Hip joint replacement by other means 07/24/2010 04/29/2015 Osteoarthrosis, unspecified whether generalized or localized, pelvic region and thigh 10/01/2009 07/20/2011 Palpitations 10/12/2006 04/29/2015 Unspecified constipation 08/03/2005 015 documented as of this encounter (statuses as of 03/13/2022) [facility] of Past illness Narrative* Problem Noted Date Resolved Date Post-menopausal bleeding 02/16/2012 015 Hip joint replacement by other means 07/24/2010 04/29/2015 Osteoarthrosis, unspecified whether generalized or localized, pelvic region and thigh 10/01/2009 07/20/2011 Palpitations 10/12/2006 04/29/2015 Unspecified constipation 08/03/2005 015 documented as of this encounter (statuses as of 03/16/2022) [facility] of Past illness Narrative* Problem Noted Date Resolved Date Post-menopausal bleeding 02/16/2012 015 Hip joint replacement by other means 07/24/2010 04/29/2015 Osteoarthrosis, unspecified whether generalized or localized, pelvic region and thigh 10/01/2009 07/20/2011 Palpitations 10/12/2006 04/29/2015 Unspecified constipation 08/03/2005 015 documented as of this encounter (statuses as of 10/31/2022) [facility] of Past illness Narrative* Problem Noted Date Diagnosed Date Resolved Date Post-menopausal bleeding 02/16/2012 Hip joint replacement by other means 07/24/2010 04/29/2015 Osteoarthrosis, unspecified whether generalized or localized, pelvic region and thigh 10/01/2009 07/20/2011 Palpitations 10/12/2006 04/29/2015 Unspecified constipation 08/03/2005 documented as of this encounter (statuses as of 02/20/2023) [facility] note* Diagnosis Abnormal mammogram Abnormal mammogram, unspecified documented in this encounter [facility] note* Diagnosis Abnormal mammogram Abnormal mammogram, unspecified documented in this encounter [facility] note* Diagnosis Onset Date Resolution Status Irritable bowel syndrome (IBS) acute Gastroesophageal reflux disease noneactive [facility] Work Phone: evaluation note* Diagnosis Dysuria- Primary documented in this encounter [facility] note* Diagnosis Onset Date Resolution Status Irritable bowel syndrome (IBS) acute Gastroesophageal reflux disease noneactive RUQ abdominal pain acute Chronic pancreatitis [facility] Work Phone: evaluation note* Diagnosis Onset Date Resolution Status RUQ abdominal pain acute Chronic pancreatitis [facility] Work Phone: Evaluation note* Diagnosis Acute frontal sinusitis, recurrence not specified- Primary documented in this encounter [facility] noteNo assessment information availableWWhite [facility] Work Phone: evaluation note* Diagnosis URI, acute- Primary Acute upper respiratory infections of unspecified site documented in this encounter [facility] note* Diagnosis Onset Date Resolution Status Acute sinusitis acute Urinary tract infection none active [facility] Work Phone: evaluation note* Diagnosis Onset Date Resolution Status Acute sinusitis acute Urinary tract infection none active Chronic pancreatitis chronic Irritable bowel syndrome (IBS) chronic RUQ abdominal pain [facility] Work Phone: Evaluation note* Diagnosis Onset Date Resolution Status Acute sinusitis acute Urinary tract infection none active Chronic pancreatitis chronic Irritable bowel syndrome (IBS) chronic RUQ abdominal pain chronic Nonrheumatic mitral (valve) prolapse chronic Pure hypercholesterolemia ch ronic [facility] Work Phone: Evaluation note* Diagnosis PMB (postmenopausal bleeding)- Primary Postmenopausal bleeding Encounter for screening mammogram for malignant neoplasm of breast Other screening mammogram documented in this encounter [facility] note* Diagnosis PMB (postmenopausal bleeding) Postmenopausal bleeding [facility] Diagnosis PMB (postmenopausal bleeding)- Primary Postmenopausal bleeding Thickened endometrium Nonspecific (abnormal) findings on radiological and other examination of genitourinary organs [facility]* Diagnosis Postmenopausal bleeding- Primary Thickened endometrium Nonspecific (abnormal) findings on radiological and other examination of genitourinary organs Fluid in endometrial cavity Other specified disorders of uterus, not elsewhere classified [facility]* Diagnosis Bacterial sinusitis- Primary Unspecified sinusitis (chronic) documented in this encounter [facility] note* Diagnosis Neuropathy- Primary Mononeuritis of unspecified site Positional lightheadedness Dizziness and giddiness Malaise and fatigue Other malaise and fatigue Low vitamin D level documented in this encounter [facility] note* Diagnosis LLQ abdominal pain- Primary Abdominal pain, left lower quadrant documented in this encounter [facility] note* Diagnosis Nausea- Primary Nausea alone Pelvic pressure in female Other specified symptom associated with female genital organs documented in this encounter [facility] note* Diagnosis Onset Date Resolution Status Admit Date Runny nose acute November 03, 2024 8:02am Seasonal allergies acute November 032024 8:02am Sinus congestion acute October 8:02am [facility] Randallia Meiyou Work Phone: [facility]* Diagnosis Light headed- Primary Dizziness and giddiness Headache, unspecified headache type CEBALLOS (dyspnea on exertion) Other dyspnea and respiratory abnormality documented in this encounter [facility] note* Diagnosis Postmenopausal bleeding- Primary documented in this encounter [facility] note* Diagnosis Urinary frequency- Primary documented in this encounter [facility] note* Diagnosis Urinary tract infection symptoms- Primary Other symptoms involving urinary system documented in this encounter [facility] note* Diagnosis Postmenopausal bleeding- Primary Endometrial thickening on ultrasound Fluid in endometrial cavity Other specified disorders of uterus, not elsewhere classified documented in this encounter [facility] note* Diagnosis PMB (postmenopausal bleeding)- Primary Postmenopausal bleeding Pre-op exam Preoperative examination, unspecified [facility] Discharge instructionsAdditional Instructions Take all the antibiotics for the UTI. You have multiple allergies so we tried Macrobid since you do not remember when you had a reaction to this and it was not severe. If you have any issues call your PCP or the ED.[facility] Work Phone: Reason for referral (narrative)* Diagnostic Procedure Only (Routine) - Closed Specialty Diagnoses / Procedures Referred By Jennifer villa Referred To Contact [facility] Diagnoses Abnormal mammogram Procedures US BREAST LTD RT US BREAST UNI REAL TIME WITH IMAGE LIMITED Isatu Mast MD [address] [place] [address] [facility] [address] [place] [phone] Referral ID Status Reason Start Date Expiration Date V isits Requested Visits Authorized [id number] Closed Auto-Generate d Referral 08/21/2021 09/20/2022 1 1 [facility] for referral (narrative)* Diagnostic Procedure Only (Routine) - Authorized Specialty Diagnoses / Procedures Referred By Jennifer villa Referred To Contact [facility] Diagnoses Encounter for screening mammogram for malignant neoplasm of breast Procedures ANA SCREENING W JESUS SCREENING DIGITAL BREAST TOMOSYNTHESIS BI SCREENING MAMMOGRAPHY BI 2-VIEW BREAST INC CAD Isatu Mast MD [address] [place] [address] [facility] [address] [place] [address] Referral ID Status Reason Start Date Expiration Date Visits Requested Visits Authorized [id number] Authorized Auto-Generat ed Referral 10/20/2023 11/18/2024 1 1 * Diagnostic Procedure Only (Routine) - Authorized Specialty Diagnoses / Procedures Referred By Jennifer villa Referred To Contact [facility] Diagnoses PMB (postmenopausal bleeding) Procedures US FEMALE PELVIS TRANSVAG US TRANSVAGINAL Isatu Mast MD [address] [place] [address] [facility] Imaging [id number] Referral ID Status Reason Start Date Expiration Date Visits Requested Visits Authorized [id number] Authorized Auto-Generat ed Referral 10/20/2023 11/18/2024 1 1 * Diagnostic Procedure Only (Routine) - Pending Review Specialty Diagnoses / Procedures Referred By Contac t Referred To Contact [facility] Diagnoses PMB (postmenopausal bleeding) Procedures PELVIC US WHI US PELVIC NONOBSTETRIC REAL-TIME IMAGE COMPLETE Isatu Mast MD [address] [place] [address] [place] [phone] Referral ID Status Reason Start Date Expiration Date Visits Requested Visits Authorized [id number] Pending Review Auto-Generat ed Referral 10/20/2023 10/19/2024 1 1 [facility] for referral (narrative)* Outpatient Procedure (Routine) - Authorized Specialty Diagnoses / Procedures Referred By Contac t Referred To Contact [facility] Diagnoses PMB (postmenopausal bleeding) Thickened endometrium Procedures OFFICE HYSTEROSCOPY HYSTEROSCOPY BX ENDOMETRIUM&/POLYPC W/WO D&C Isatu Mast MD [address] [place] [address] [place] [id number] [place] [id number] Referral ID Status Reason Start Date Expiration Date Visits Requested Visits Authorized [id number] Authorized Auto-Generat ed Referral 10/28/2023 10/27/2024 1 1 [facility] for referral (narrative)* Outpatient Procedure (Routine) - Pending Review Specialty Diagnoses / Procedures Referred By Contac t Referred To Contact [facility] Diagnoses Postmenopausal bleeding Thickened endometrium Fluid in endometrial cavity Procedures ENDOMETRIAL BIOPSY ENDOMETRIAL BX W/WO ENDOCERVIX BX W/O DILAT SPX Isatu Mast MD [address] [place] [address] [place] [address] [place] [address] Referral ID Status Reason Start Date Expiration Date Visits Requested Visits Authorized [id number] Pending Review Auto-Generat ed Referral 11/04/2023 11/03/2024 1 1 [facility] for referral (narrative)* Outpatient Procedure (Routine) - Pending Review Specialty Diagnoses / Procedures Referred By Contac t Referred To Contact [facility] Diagnoses Neuropathy Positional lightheadedness Procedures EMG(NEURO/NI) NERVE CONDUCTION STUDIES 9-10 STUDIES Jennifer Ray PA-C [address] [place] [address] [place] [address] Referral ID Status Reason Start Date Expiration Date Visits Requested Visits Authorized [id number] Pending Review Auto-Generat ed Referral 12/13/2023 12/12/2024 1 1 [facility] for referral (narrative)* Diagnostic Procedure Only (Routine) - New Request Specialty Diagnoses / Procedures Referred By Contac t Referred To Contact [facility] Diagnoses Nausea Procedures PELVIC US I US PELVIC NONOBSTETRIC REAL-TIME IMAGE COMPLETE Pipe Patel APRN.CNP [address] [place] [address] [address] Referral ID Status Reason Start Date Expiration Date Visits Requested Visits Authorized [id number] New Request Auto-Generat ed Referral 03/08/2024 03/08/2025 1 1 [facility] for referral (narrative)No reason for referral [facility] Work Phone: Reason for visit Narrative* Diagnostic Procedure Only (Routine) - Closed Specialty Diagnoses / Procedures Referred By Contac t Referred To Contact [facility] Diagnoses Abnormal mammogram Procedures US BREAST LTD RT US BREAST UNI REAL TIME WITH IMAGE LIMITED Isatu Mast MD [address] [place] [address] [facility] [address] [place] [address] Referral ID Status Reason Start Date Expiration Date V isits Requested Visits Authorized [id number] Closed Auto-Generate d Referral 08/21/2021 09/20/2022 1 1 [facility] for visit Narrative* Diagnostic Procedure Only (Routine) - Closed Specialty Diagnoses / Procedures Referred By Jennifer t Referred To Contact [facility] Diagnoses PMB (postmenopausal bleeding) Procedures US FEMALE PELVIS TRANSVAG US TRANSVAGINAL Isatu Mast MD [address] [place] [address] [place] [address] Referral ID Status Reason Start Date Expiration Date V isits Requested Visits Authorized [id number] Closed Auto-Generate d Referral 10/20/2023 11/18/2024 1 1 [facility] for visit Narrative* Diagnostic Procedure Only (Routine) - Closed Specialty Diagnoses / Procedures Referred By Contac t Referred To Contact [facility] Diagnoses Postmenopausal bleeding Procedures PELVIC US WHI US PELVIC NONOBSTETRIC REAL-TIME IMAGE COMPLETE Caren Kelly APRN.[facility] [address] [place] [address] Phone: tel: fax: 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 Advance Directive(s) Advance Directive(s) 10/07/2020 11:35 AM Advance Directive(s) 10/02/2020 10:48 AM Documents on File Type Date Recorded 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 Yes September 20, 2020 11:05am Advance Directive Response Recorded Date/ Time Do you have a Healthcare Power of Porcelain Turner? No February 01, 2025 5:11pm Chief Complaint and Reason for Visit Chief Complaint Admit Date CONCERN FOR SINUS INFECTION November 03 8:02am INT ORDERS January 10, 2025 3:1 8pm Reason for Visit Admit Date Runny nose November 03, 2024 8:02a m Seasonal allergies November 03, 2024 8:02a m Sinus congestion November 03, 2024 8:02a m Chief Complaint Gastroesophageal ref lux disease (GERD) INT LABS Reason for Visit Irritable bowel synd tristan (IBS) Gastroesophageal reflux disease Chief Complaint Gastroesophageal ref lux disease (GERD) INT LABS RUQ PAIN Reason for Visit Irritable bowel synd tristan (IBS) Gastroesophageal reflux disease Chief Complaint Gastroesophageal ref lux disease (GERD) INT LABS RUQ PAIN 3 MO FU E ORDER Reason for Visit Irritable bowel synd tristan (IBS) Gastroesophageal reflux disease RUQ abdominal pain Chronic pancreatitis Chief Complaint RUQ PAIN 3 MO FU E ORDER ABDOMINAL PAIN Reason for Visit RUQ abdominal pain Chronic pancreatitis Chief Complaint PALP Amb Documentation LOWER BACK/ABDOMINAL DISCOMFORT POSSIBLE SINUS INFECTION Urinary tract infection CONCERN FOR UTI Amb Documentation Reason for Visit Acute sinusitis Urinary tract infection Chief Complaint PALP Amb Documentation LOWER BACK/ABDOMINAL DISCOMFORT POSSIBLE SINUS INFECTION Urinary tract infection CONCERN FOR UTI Amb Documentation 6 mo fu Neoplasm of uncertain behavior of left kidney Reason for Visit Acute sinusitis Urinary tract infection Chronic pancreatitis Irritable bowel syndrome (IBS) RUQ abdominal pain Chief Complaint LOWER BACK/ABDOMINAL DISCOMFORT POSSIBLE SINUS INFECTION Urinary tract infection CONCERN FOR UTI Amb Documentation 6 mo fu Neoplasm of uncertain behavior of left kidney Reason for Visit Acute sinusitis Urinary tract infection Chronic pancreatitis Irritable bowel syndrome (IBS) RUQ abdominal pain Chief Complaint LOWER BACK/ABDOMINAL DISCOMFORT POSSIBLE SINUS INFECTION Urinary tract infection CONCERN FOR UTI Amb Documentation 6 mo fu Neoplasm of uncertain behavior of left kidney 1 y fu PREV PFM PT Benign neoplasm of cranial nerves Reason for Visit Acute sinusitis Urinary tract infection Chronic pancreatitis Irritable bowel syndrome (IBS) RUQ abdominal pain Nonrheumatic mitral (valve) prolapse Pure hypercholesterolemia Chief Complaint PALP Amb Documentation LOWER BACK/ABDOMINAL DISCOMFORT Chief Complaint Admit Date 6 M FU June 18, 2024 1 :35pm Reason for Visit Admit Date History of diverticulitis June 18, 2024 1:35pm Nausea June 18, 2024 1 :35pm Chronic pancreatitis June 18, 2024 1:35pm Irritable bowel syndrome (IBS) June 062024 1:35pm RUQ abdominal pain June 18, 2024 1 :35pm Abdominal pain June 18, 2024 1 :35pm Chief Complaint Admit Date CONCERN FOR SINUS INFECTION November 03 8:02am Chief Complaint Admit Date CONCERN FOR SINUS INFECTION November 03 8:02am INT ORDERS January 10, 2025 3:1 8pm CONCERN FOR UTI February 01, 2025 11 :21am Chief Complaint Admit Date CONCERN FOR SINUS INFECTION November 03 8:02am INT ORDERS January 10, 2025 3:1 8pm CONCERN FOR UTI February 01, 2025 11 :21am FLANK February 01, 2025 3: 31pm Reason for Visit Admit Date Runny nose November 03, 2024 8:02a m Seasonal allergies November 03, 2024 8:02a m Sinus congestion November 03, 2024 8:02a m Dysuria February 01, 2025 11 :21am Chief Complaint Admit Date CONCERN FOR SINUS INFECTION November 03 8:02am INT ORDERS January 10, 2025 3:1 8pm CONCERN FOR UTI February 01, 2025 11 :21am FLANK February 01, 2025 3: 31pm CONCERN FOR UTI February 03, 2025 9: 47am Reason for Visit Admit Date Runny nose November 03, 2024 8:02a m Seasonal allergies November 03, 2024 8:02a m Sinus congestion November 03, 2024 8:02a m Dysuria February 01, 2025 11 :21am Dysuria February 03, 2025 9: 47am Reason for Referral Specialty Diagnoses / Procedures Referred By Jennifer t Referred To Contact Caren Jose, TERESA.PORCELAIN WAXER [address] [place] [address] Referral ID Status Reason Start Date Expiration Date V isits Requested Visits Authorized [id number] Pending Review 1 1 Health Concerns Infection Onset Date Last Indicated Resolved Time COVID-19 Rule-Out 02/20/2023 02/20/2023 Additional Source Comments INFORMATION SOURCE (unrecogn ized section and content) DATE CREATED AUTHOR 10/08/2020 [facility] DATE CREATED AUTHOR AUTHOR'S ORGANIZ ATION 05/20/2021 [facility] DATE CREATED AUTHOR AUTHOR'S ORGANIZ ATION 01/15/[address] [facility] DATE CREATED AUTHOR AUTHOR'S ORGANIZ ATION 02/05/[address] [facility] DATE CREATED AUTHOR AUTHOR'S ORGANIZ ATION 02/06/2025 [facility] Source Comments (unrecognize d section and content) In the event this informatio n is protected by the Federal Confidentiality of Alcohol and Drug Abuse Patient Records regulations: The Federal rules restrict any use of the information to criminally investigate or prosecute any alcohol or drug abuse patient.[facility] the event this information is protected by the Federal Confidentiality of Alcohol and Drug Abuse Patient Records regulations: The Federal rules restrict any use of the information to criminally investigate or prosecute any alcohol or drug abuse patient.[facility] the event this information is protected by the Federal Confidentiality of Alcohol and Drug Abuse Patient Records regulations: The Federal rules restrict any use of the information to criminally investigate or prosecute any alcohol or drug abuse patient.[facility] the event this information is protected by the Federal Confidentiality of Alcohol and Drug Abuse Patient Records regulations: The Federal rules restrict any use of the information to criminally investigate or prosecute any alcohol or drug abuse patient.[facility] the event this information is protected by the Federal Confidentiality of Alcohol and Drug Abuse Patient Records regulations: The Federal rules restrict any use of the information to criminally investigate or prosecute any alcohol or drug abuse patient.[facility] the event this information is protected by the Federal Confidentiality of Alcohol and Drug Abuse Patient Records regulations: The Federal rules restrict any use of the information to criminally investigate or prosecute any alcohol or drug abuse patient.[facility] the event this information is protected by the Federal Confidentiality of Alcohol and Drug Abuse Patient Records regulations: The Federal rules restrict any use of the information to criminally investigate or prosecute any alcohol or drug abuse patient.[facility] the event this information is protected by the Federal Confidentiality of Alcohol and Drug Abuse Patient Records regulations: The Federal rules restrict any use of the information to criminally investigate or prosecute any alcohol or drug abuse patient.[facility] the event this information is protected by the Federal Confidentiality of Alcohol and Drug Abuse Patient Records regulations: The Federal rules restrict any use of the information to criminally investigate or prosecute any alcohol or drug abuse patient.[facility] the event this information is protected by the Federal Confidentiality of Alcohol and Drug Abuse Patient Records regulations: The Federal rules restrict any use of the information to criminally investigate or prosecute any alcohol or drug abuse patient.[facility] the event this information is protected by the Federal Confidentiality of Alcohol and Drug Abuse Patient Records regulations: The Federal rules restrict any use of the information to criminally investigate or prosecute any alcohol or drug abuse patient.[facility] the event this information is protected by the Federal Confidentiality of Alcohol and Drug Abuse Patient Records regulations: The Federal rules restrict any use of the information to criminally investigate or prosecute any alcohol or drug abuse patient.[facility] Center[facility] the event this information is protected by the Federal Confidentiality of Alcohol and Drug Abuse Patient Records regulations: The Federal rules restrict any use of the information to criminally investigate or prosecute any alcohol or drug abuse patient.[facility] Center[facility] the event this information is protected by the Federal Confidentiality of Alcohol and Drug Abuse Patient Records regulations: The Federal rules restrict any use of the information to criminally investigate or prosecute any alcohol or drug abuse patient.[facility] Center[facility] the event this information is protected by the Federal Confidentiality of Alcohol and Drug Abuse Patient Records regulations: The Federal rules restrict any use of the information to criminally investigate or prosecute any alcohol or drug abuse patient.[facility] Center[facility] the event this information is protected by the Federal Confidentiality of Alcohol and Drug Abuse Patient Records regulations: The Federal rules restrict any use of the information to criminally investigate or prosecute any alcohol or drug abuse patient.[facility] Center[facility] the event this information is protected by the Federal Confidentiality of Alcohol and Drug Abuse Patient Records regulations: The Federal rules restrict any use of the information to criminally investigate or prosecute any alcohol or drug abuse patient.[facility] Center[facility] the event this information is protected by the Federal Confidentiality of Alcohol and Drug Abuse Patient Records regulations: The Federal rules restrict any use of the information to criminally investigate or prosecute any alcohol or drug abuse patient.[facility] Center[facility] the event this information is protected by the Federal Confidentiality of Alcohol and Drug Abuse Patient Records regulations: The Federal rules restrict any use of the information to criminally investigate or prosecute any alcohol or drug abuse patient.[facility] Center[facility] the event this information is protected by the Federal Confidentiality of Alcohol and Drug Abuse Patient Records regulations: The Federal rules restrict any use of the information to criminally investigate or prosecute any alcohol or drug abuse patient.[facility] Center[facility] the event this information is protected by the Federal Confidentiality of Alcohol and Drug Abuse Patient Records regulations: The Federal rules restrict any use of the information to criminally investigate or prosecute any alcohol or drug abuse patient.[facility] Center[facility] the event this information is protected by the Federal Confidentiality of Alcohol and Drug Abuse Patient Records regulations: The Federal rules restrict any use of the information to criminally investigate or prosecute any alcohol or drug abuse patient.[facility] Center[facility] the event this information is protected by the Federal Confidentiality of Alcohol and Drug Abuse Patient Records regulations: The Federal rules restrict any use of the information to criminally investigate or prosecute any alcohol or drug abuse patient.[facility] CenterIn the event this information is protected by the Federal Confidentiality of Alcohol and Drug Abuse Patient Records regulations: The Federal rules restrict any use of the information to criminally investigate or prosecute any alcohol or drug abuse patient.[facility] Center[facility] the event this information is protected by the Federal Confidentiality of Alcohol and Drug Abuse Patient Records regulations: The Federal rules restrict any use of the information to criminally investigate or prosecute any alcohol or drug abuse patient.[facility] Center[facility] the event this information is protected by the Federal Confidentiality of Alcohol and Drug Abuse Patient Records regulations: The Federal rules restrict any use of the information to criminally investigate or prosecute any alcohol or drug abuse patient.[facility] Care Teams (unrecognized sec tion and content) Paint Roller Winder Relationship Specialty Start Date End Date Kasey Nicole MD [address] [place] [address] PCP - General 04/20/12 Paint Roller Winder Relationship Specialty Start Date End Date Kasey Nicole MD [address] [place] [address] PCP - General 04/20/12 Paint Roller Winder Relationship Specialty Start Date End Date Kasey Nicole MD [address] [place] [address] PCP - General 04/20/12 Paint Roller Winder Relationship Specialty Start Date End Date Kasey Nicole MD [address] [place] [address] PCP - General 04/20/12 Paint Roller Winder Relationship Specialty Start Date End Date Kasey Nicole MD [address] [place] [address] PCP - General 04/20/12 Team Status: Active Member Role Status Dates Dr. Dimitri Nicole MD Family Provider Active Dr. Dimitri Nicole MD Primary Care Provider Activ e Team Status: Inactive Member Role Status Dates Dr. Dimitri Nicole MD Primary Care Provider, Attending Provider, Referring Provider Active Paint Roller Winder Relationship Specialty Start Date End Date Kasey Nicole MD [address] [place] [id number] PCP - General 04/20/12 Team Status: Active Member Role Status Dates Dr. Dimitri Nicole MD Primary Care Provider Activ e Dr. Sarbjit Rausch MD Attending Provider, Referring Pr ovider Active Team Status: Active Member Role Status Dates Dr. Dimitri Nicole MD Primary Care Provider Activ e Imer Zarate TRIMMING OPERATOR, TRIMMING OPERATOR-C Attending Provider Active Team Status: Inactive Member Role Status Dates Dr. Dimitri Nicole MD Primary Care Provider, Refe rring Provider Active Lei GREGORY, PA Attending Provider Active Team Status: Inactive Member Role Status Dates Dr. Dimitri Nicole MD Primary Care Provider, Refe rring Provider Active Jen Jacobo NP-C Attending Provider Active Team Status: Inactive Member Role Status Dates Dr. Dimitri Nicole MD Primary Care Provider, Refe rring Provider Active Robson GREGORY PA Attending Provider Active Team Status: Active Member Role Status Dates Dr. Dimitri Nicole MD Primary Care Provider Activ e Dhara Duval Attending Provider Active Team Status: Inactive Member Role Status Dates Dr. Dimitri Nicole MD Primary Care Provider Activ e Robson GREGORY, PA Attending Provider, Referring Provi citlali Active Team Status: Inactive Member Role Status Dates Dr. Dimitri Nicole MD Primary Care Provider Activ e Imer Zarate TRIMMING OPERATOR, TRIMMING OPERATOR-C Attending Provider, Referring Pro vider Active Team Status: Inactive Member Role Status Dates Dr. Dimitri Nicole MD Primary Care Provider Activ e Lei Ram PA, PA Attending Provider, Referring Pr ovider Active Team Status: Inactive Member Role Status Dates Dr. Dimitri Nicole MD Primary Care Provider, Refe rring Provider Active Dr. Harsh Andres DO Attending Provider Active Team Status: Inactive Member Role Status Dates Dr. Dimitri Nicole MD Primary Care Provider Activ e Dr. Jean Suárez MD Attending Provider, Referr ing Provider Active Team Status: Inactive Member Role Status Dates Dr. Dimitri Nicole MD Primary Care Provider, Atte nding Provider Active Dr. Aria Jonhson MD Other Provider Active Team Status: Inactive Member Role Status Dates Dr. Dimitri Nicole MD Primary Care Provider Activ CARLOTTA Gregg Attending Provider, Referring Pro vider Active Team Status: Active Member Role Status Dates Dr. Kasey Nicole MD Family Provider Active Dr. Kasey Nicole MD Primary Care Provider Acti ve Team Status: Inactive Member Role Status Dates Dr. Kasey Nicole MD Primary Care Provider, Ref erring Provider Active Dr. Harsh Andres DO Attending Provider Active Team Status: Inactive Member Role Status Dates Dr. Kasey Nicole MD Primary Care Provider, Ref erring Provider Active Lei GREGORY, PA Attending Provider Active Team Status: Inactive Member Role Status Dates Dr. Kasey Nicole MD Primary Care Provider, Ref erring Provider Active KELLIE Paredes Attending Provider Active Team Status: Inactive Member Role Status Dates Dr. Kasey Nicole MD Primary Care Provider, Ref erring Provider Active Robson GREGORY, PA Attending Provider Active Team Status: Active Member Role Status Dates Dr. Kasey Nicole MD Primary Care Provider Acti ve Dhara Duval Attending Provider Active Team Status: Inactive Member Role Status Dates Dr. Kasey Nicole MD Primary Care Provider, Ref erring Provider Active Dr. Last Hull MD Active Dr. Hugo Mcgraw MD Attending Provider Active Team Status: Inactive Member Role Status Dates Dr. Kasey Nicole MD Primary Care Provider Acti ve Robson Bucio PA, PA Attending Provider, Referring Provi citlali Active Team Status: Inactive Member Role Status Dates Dr. Kasey Nicole MD Primary Care Provider Acti ve Dr. Jean Suárez MD Attending Provider, Referr ing Provider Active Team Status: Inactive Member Role Status Dates Dr. Kasey Nicole MD Primary Care Provider, Att ending Provider Active Dr. Aria Johnson MD Other Provider Active Team Status: Inactive Member Role Status Dates Dr. Kasey Nicole MD Primary Care Provider Acti ve Lei M Wyles PA, PA Attending Provider, Referring Pr ovidmelquiades Active Team Status: Inactive Member Role Status Dates Dr. Kasey Nicole MD Primary Care Provider CARLOTTA Lainez Attending Provider, Referring Pro vider Active Team Status: Inactive Member Role Status Dates Dr. Kasey Nicole MD Primary Care Provider CARLOTTA Nava Attending Provider Active Paint Roller Winder Relationship Specialty Start Date End Date Kasey Nicole MD [address] [facility] [place] [address] PCP - General 04/20/12 Paint Roller Winder Relationship Specialty Start Date End Date Kasey Nicole MD [address] [facility] [place] [address] PCP - General 04/20/12 Paint Roller Winder Relationship Specialty Start Date End Date Kasey Nicole MD [address] [facility] [place] [address] PCP - General 04/20/12 Paint Roller Winder Relationship Specialty Start Date End Date Kasey Nicole MD [address] [facility] [place] [address] PCP - General 04/20/12 Paint Roller Winder Relationship Specialty Start Date End Date Kasey Nicole MD [address] [facility] [place] [address] PCP - General 04/20/12 Paint Roller Winder Relationship Specialty Start Date End Date Kasey Nicole MD [address] [facility] [place] [address] PCP - General 04/20/12 Paint Roller Winder Relationship Specialty Start Date End Date Kasey Nicole MD [address] [place], [place] [address] PCP - General 04/20/12 Paint Roller Winder Relationship Specialty Start Date End Date Kasey Nicole MD [address] [place], [place] [id number] PCP - General 04/20/12 Paint Roller Winder Relationship Specialty Start Date End Date Kasey Nicole MD [address] [place], [place] [id number] PCP - General 04/20/12 Team Status: Inactive Member Role Status Dates Dr. Kasey Nicole MD Primary Care Provider Acti ve Start: June 18, 2024 End: June 18, 2024 Dr. Kasey Nicole MD Referring Provider Active Start: June 18, 2024 End: June 18, 2024 Dr. Harsh Andres DO Attending Provider Active Start: June 18, 2024 End: June 18, 2024 Team Status: Inactive Member Role Status Dates Dr. Kasey Nicole MD Primary Care Provider Acti ve Start: October 03, 2024 End: October 03, 2024 Dr. Kasey Nicole MD Attending Provider Active Start: October 03, 2024 End: October 03, 2024 Dr. Kasey Nicole MD Referring Provider Active Start: October 03, 2024 End: October 03, 2024 Team Status: Inactive Member Role Status Dates Dr. Kasey Nicole MD Primary Care Provider Acti ve Start: November 03, 2024 End: November 03, 2024 Dr. Kasey Nicole MD Referring Provider Active Start: November 03, 2024 End: November 03, 2024 KELLIE Paredes Attending Provider Active Start: November 03, 2024 End: November 03, 2024 Paint Roller Winder Relationship Specialty Start Date End Date Kasey Nicole MD [address] [facility] [place], [place] [id number] PCP - General 04/20/12 Paint Roller Winder Relationship Specialty Start Date End Date Kasey Nicole MD [address] [place] [address] PCP - General 04/20/12 Team Status: Active Member Role/Relationship Status Dates Dr. Kasey Nicole MD Family Provider Active Dr. Kasey Nicole MD Primary Care Provider Acti ve Team Status: Inactive Member Role/Relationship Status Dates Dr. Kasey Nicole MD Primary Care Provider Acti ve Start: October 03, 2024 End: October 03, 2024 Dr. Kasey Nicole MD Attending Provider Active Start: October 03, 2024 End: October 03, 2024 Dr. Kasey Nicole MD Referring Provider Active Start: October 03, 2024 End: October 03, 2024 Team Status: Inactive Member Role/Relationship Status Dates Dr. Kasey Nicole MD Primary Care Provider Acti ve Start: November 03, 2024 End: November 03, 2024 Dr. Kasey Nicole MD Referring Provider Active Start: November 03, 2024 End: November 03, 2024 KELLIE Paredes Attending Provider Active Start: November 03, 2024 End: November 03, 2024 Team Status: Inactive Member Role/Relationship Status Dates Dr. Kasey Nicole MD Primary Care Provider Acti ve Start: January 10, 2025 End: January 10, 2025 Lavell Bajwa MD Attending Provider Active Start : January 10, 2025 End: January 10, 2025 Lavell Bajwa MD Referring Provider Active Start : January 10, 2025 End: January 10, 2025 Paint Roller Winder Relationship Specialty Start Date End Date Kasey Nicole MD [address] [address] [facility] General 04/20/12 Paint Roller Winder Relationship Specialty Start Date End Date Kasey Nicole MD [address] [address] PCP - General 04/20/12 Paint Roller Winder Relationship Specialty Start Date End Date Kasey Nicole MD [address] [place] [address] PCP - General 04/20/12 Team Status: Active Member Role/Relationship Status Dates Dr. Kasey Nicole MD Primary Care Provider Acti ve Team Status: Inactive Member Role/Relationship Status Dates Dr. Kasey Nicole MD Primary Care Provider Acti ve Start: November 03, 2024 End: November 03, 2024 Dr. Kasey Nicole MD Referring Provider Active Start: November 03, 2024 End: November 03, 2024 KELLIE Paredes Attending Provider Active Start: November 03, 2024 End: November 03, 2024 Team Status: Inactive Member Role/Relationship Status Dates Dr. Kasey Nicole MD Primary Care Provider Acti ve Start: January 10, 2025 End: January 10, 2025 Lavell Bajwa MD Attending Provider Active Start : January 10, 2025 End: January 10, 2025 Lavell Bajwa MD Referring Provider Active Start : January 10, 2025 End: January 10, 2025 Team Status: Inactive Member Role/Relationship Status Dates Dr. Kasey Nicole MD Primary Care Provider Acti ve Start: February 01, 2025 End: February 01, 2025 Dr. Kasey Nicole MD Referring Provider Active Start: February 01, 2025 End: February 01, 2025 BRI Zurita Attending Provider Active Sta rt: February 01, 2025 End: February 01, 2025 Team Status: Active Member Role/Relationship Status Dates Dr. Kasey Nicole MD Primary Care Provider Acti ve Start: February 01, 2025 Robson GREGORY PA Attending Provider Active Sta rt: February 01, 2025 BRI Zurita Referring Provider Active Sta rt: February 01, 2025 Team Status: Inactive Member Role/Relationship Status Dates Dr. Kasey Nicole MD Primary Care Provider Acti ve Start: February 01, 2025 End: February 01, 2025 Dr. Lobo Elkins MD Emergency Provider Active S tart: February 01, 2025 End: February 01, 2025 Team Status: Inactive Member Role/Relationship Status Dates Dr. Kasey Nicole MD Primary Care Provider Acti ve Start: February 03, 2025 End: February 03, 2025 Dr. Kasey Nicole MD Referring Provider Active Start: February 03, 2025 End: February 03, 2025 Imer Zarate TRIMMING OPERATOR, TRIMMING OPERATOR-C Attending Provider Active S tart: February 03, 2025 End: February 03, 2025 Paint Roller Winder Relationship Specialty Start Date End Date aKsey Nicole MD [place] [address] PCP - General 04/20/12 Team Status: Inactive Member Role/Relationship Status Dates Dr. Kasey Nicole MD Primary Care Provider Acti ve Start: February 01, 2025 End: February 01, 2025 BRI Zurita Attending Provider Active Sta rt: February 01, 2025 End: February 01, 2025 BRI Zurita Referring Provider Active Sta rt: February 01, 2025 End: February 01, 2025 Reason for Visit (unrecogniz ed section and content) Reason Comments Radiology Mammogram Specialty Diagnoses / Procedures Referred By Joshuaac t Referred To Contact [facility] Diagnoses Abnormal mammogram Procedures ANA DIAGNOSTIC RT DIAGNOSTIC MAMMOGRAPHY COMPUTER-AIDED DETCJ [facility] Isatu Mast MD [address] [address] [facility] [address] [place] [address] Referral ID Status Reason Start Date Expiration Date V isits Requested Visits Authorized [id number] Closed Auto-Generate d Referral 08/21/2021 09/20/2022 1 1 Reason Comments lower abdominal discomfort Started last night-not really having any other urinary symptoms Reason Comments Results Reason Comments Sinus Problem sinus pressure x 10 days Reason Comments Flu Like Symptoms Started 4 days ago Reason Comments Vaginal Problem Reason Comments Pelvic Pain Reason Comments Endometrial Biopsy Specialty Diagnoses / Procedures Referred By Contac t Referred To Contact [facility] Diagnoses PMB (postmenopausal bleeding) Thickened endometrium Procedures OFFICE HYSTEROSCOPY HYSTEROSCOPY BX ENDOMETRIUM&/POLYPC W/WO D&C Isatu Mast MD [address] [place] [address] [facility] [address] [place] [address] Referral ID Status Reason Start Date Expiration Date V isits Requested Visits Authorized [id number] Closed Auto-Generate d Referral 10/28/2023 10/27/2024 1 1 Reason Comments Sinus Problem Possible sinus infec tion x 2.5 weeks Reason Comments New Patient Evaluation Reason Comments Orders Reason Comments stomach hurts X 2 days-started aft er eating several bowls of lyman soup Reason Comments Patient Question Reason Comments Pelvic Pain Reason Comments Dizziness Headache pressure in back of head, lightheaded, nauseated, bilat ear pressure x 10 days Reason Comments Vaginal Problem Reason Comments UTI Low back pain, frequ ency x last night Reason Onset Date Comments Results 01/24/2025 Reason Comments Pre-Op Visit Reason Comments Urinary Urgency Goals (unrecognized section and content) Goals may be documented in a n alternate sectionGoals may be documented in an alternate sectionGoals may be documented in an alternate sectionGoals may be documented in an alternate sectionGoals may be documented in an alternate sectionGoals may be documented in an alternate sectionGoals may be documented in an alternate sectionGoals may be documented in an alternate sectionGoals may be documented in an alternate sectionGoals may be documented in an alternate sectionGoals may be documented in an alternate sectionGoals may be documented in an alternate sectionGoals may be documented in an alternate sectionGoals may be documented in an alternate sectionGoals may be documented in an alternate sectionGoals may be documented in an alternate sectionGoals may be documented in an alternate sectionGoals may be documented in an alternate sectionGoals may be documented in an alternate section FOR RECORDS PERTAINING TO PATIENTS WHO ARE [...] BE BASED ON THE PRIMARY CLINICAL RECORDS. [facility] [employer] [facility]. provides no warranty or guarantee of the accuracy or completeness of information in this document.
[2025-02-08] MEDS: Lactated Ringers 1,000 ML 15 ML IV (06:42)
--- NOTE | 2025-02-08 07:15 | PRE.ANES_ITS ---
ASA Classification* ASA Classification ASA Classification: 2 Assessment & Plan Anesthesia* Anesthesia Assessment Anesthesia Assessment: Discussed sedation and/or anesthesia options, risks, benefits, and alternatives with patient/parents/legal guardian/POA. Questions invited. The patient/parents/legal guardian/POA seems to understand and agrees to proceed with anesthesia plan. Reviewed the physical assessment, medical history, allergy history and patient home medications list prior to surgery/procedure/anesthetic and documented any changes. Performed airway and anesthesia risk assessments. Anesthesia Type Anesthesia Type: MAC History Source History Obtained from:: Patient and Chart Anesthesia Focused Assessment* Temperature: 97.1 F Pulse Rate: 62 Blood Pressure: 125/75 Respiratory Rate: 16 Pulse Ox: 97 Oxygen Delivery Method: Room Air Airway Assessment Mouth opens: >3 cm Mallampati Score: III Teeth Condition: Caps/Crowns (Patient has a couple crowns. They are tight. ) and Missing (Patient has couple teeth missing.) Neck Range of motion (ROM): Limited ROM (Somewhat Decreased) Labs Anesthesia Preop lab: CBC WBC 10.1 K/mm3 (4.4-11.0) 02/01/25 16:35 02/01/25 RBC 4.88 M/mm3 (4.2-5.4) 02/01/25 16:35 02/01/25 Hgb 15.8 g/dL (12.0-15.0) H 02/01/25 16:35 5 Hct 46.3 % (37-47) 02/01/25 16:35 02/01/25 Plt Count 278 K/mm3 (150-450) 02/01/25 16:35 02/01/25 CHEMISTRY Potassium 4.3 mmol/L (3.3-5.1) 02/01/25 16:35 02/01/25 Sodium 142 mmol/L (133-145) 02/01/25 16:35 02/01/25 BUN 22 mg/dL (4-19) H 02/01/25 16:35 02/01/25 Creatinine 0.90 mg/dL (0.70-1.20) 02/01/25 16:35 02/01/25 Glucose 110 mg/dL (70-99) H 02/01/25 16:35 02/01/25 TSH 1.140 uIU/mL (0.300-4.200) 10/03/24 11:04 04/ COAG PT 13.1 SECONDS (11.7-14.9) 01/30/14 09:01 Pre-Assessment Diagnosis/Proposed Procedure Planned Operative Procedure(s): HYSTEROSCOPY DILATION AND CURRETAGE Anesthesia History 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 When Was Last Pacemaker Check QUESTION #4 FULL TEXT: You/Your Family Experience fever (hyperthermia) with Anesthesia Last Oral Intake Last Oral intake: Last Oral Intake NPO since 00:00 02/08/25 06:27 Meds taken in AM with sips of Yes 02/08/25 06:27 water? 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 Female Yes 02/05/25 10:45 HX of Motion Sickness No 02/05/25 10:45 HX of N/V After Surgery No 02/05/25 10:45 Non-Smoker Yes 02/05/25 10:45 Duration of Surgery greater No 02/05/25 10:45 than 60 minutes Number of Risk Factors 2 02/05/25 10:45 PONV Score Moderate Risk 02/05/25 10:45 Height & Weight Height & Weight: Anesthesia: Height & Weight Height 5 ft 6 in 02/08/25 06:27 Weight: 100 kg 02/08/25 06:27 Body Mass Index (BMI) 35.6 02/08/25 06:27 Respiratory Assessment Respiratory Assessment - 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 Has anyone observed you stop No 02/05/25 10:45 breathing during sleep? STOP Results Negative 02/05/25 10:45 QUESTION #5 FULL TEXT : Do you snore loudly (louder than talking or can be heard through closed doors)? 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 Specify any problems Hx of Preganancy in last 3 No 02/05/25 10:45 Months Nurse Filling Out Transfusion [id number] 02/05/25 10:45 & Questions: Date: 02/05/25 02/05/25 10:45 Time: 10:51 02/05/25 10:45 Patient unable to answer at this time (ie. 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: /Reproductive Hx- caltrans equipment operator Hx Now Gestational Age (in weeks): EDC: Hx Hx Para Hx Section SAB Active Medications Active Medications: Current Medications Generic Name Dose Route Start Last Admin Trade Name Freq PRN Reason Stop Dose Admin Lactated Ringer's 1,000 mls @ 15 mls/hr 02/08/25 06:15 02/08/25 06:42 IV 15 mls/hr .Q48H RODY Administration PFSH Medical History Wears glasses Depression Ambulates with cane Gastric reflux History of echocardiogram History of Holter monitoring Tilt table evaluation Cardiology follow-up encounter Dizziness Earache, right (Unknown) RUQ abdominal pain Irritable bowel syndrome (IBS) Seasonal allergies Nonrheumatic mitral (valve) prolapse Pure hypercholesterolemia Lightheadedness Palpitations joint terminal attack controller use of drug Home Medications ?Medication ?Instructions ?Recorded ?Last Taken ?Type omeprazole 20 mg capsule,delayed 20 mg PO QDAY PRN RENA D 06/18/24 02/08/25 History release propranolol 40 mg tablet 40 mg PO DAILY dose increase d back 11/29/24 Unknown Rx to 40 mg #90 tabs cefdinir 300 mg capsule 300 mg PO BID 7 days #14 cap s 02/03/25 02/07/25 Rx [id number] 3 cap PO DAILY 02/05/2509/28 History 3,000-9,500-15,000 unit capsule, delayed rel (Creon) ondansetron HCl 4 mg tablet 4 mg PO Q12H 02/05/25 Unkn own History Allergy/AdvReac Type Severity Reaction Status Date / Time nitrofurantoin (From Allergy Mild Rash Verified 02/05/25 10:41 Macrobid) ciprofloxacin (From Cipro) Allergy Itching Verified 02/05/25 10:41 Penicillins (PCN) Allergy Hives Verified 02/05/25 10:41 Sulfa (Sulfonamide Allergy Hives Verified 02/05/25 10:41 Antibiotics) atorvastatin (From Lipitor) AdvReac Severe Myalgias Verified 02/05/25 10:41 pravastatin (From Pravachol) AdvReac Intermediate Myalgias Verified 02/05/25 10:41 Family History Father CAD (coronary artery disease) Myocardial infarction Brother CAD (coronary artery disease) Colon cancer Myocardial infarction Mother No problems noted. Surgical History History of knee replacement History of hip replacement H/O laminectomy FH: cholecystectomy Social History Smoking Status: Never smoker alcohol intake: never caffeine: Yes Type: other what type of physical activity do you participate in: none Review of Systems (Anesthesia) ROS Narrative System reviewed and no additional complaints, except as documented.
--- NOTE | 2025-02-08 07:27 | DCINST_ITS ---
Discharge Instructions DC O2, CPAP, BIPAP needs Home O2 Discharge instructions: No Dressing / Incision May resume sexual activity in: 1 week Dressing / Incision Call your doctor if you observe: Fever of 101 or Higher, Inability to urinate, Using more than 1 pad per hour and Uncontrolled pain Follow Up Care Please Follow Up With: Isatu Andrea MD When: I will call you with pathology results in 1-2 weeks, if you feel you need an appointment please call [phone] Test Results: Test results from this visit will be discussed in further detail at your follow- up appointment, if applicable. Discharge Plan Admission Attending Provider: Isatu Andrea Primary Care Provider: Mart Nicole Instructions Print Language: [place] Leonean Discharge Orders/Prescriptions Prescriptions: No Action omeprazole 20 mg capsule,delayed release(DR/EC) 20 mg PO QDAY PRN (Reason: GERD) cefdinir 300 mg capsule 300 mg PO BID 7 Days Qty: 14 0RF ondansetron HCl 4 mg tablet 4 mg PO Q12H Creon 3,000-9,500- 15,000 unit capsule,delayed release(DR/EC) 3 cap PO DAILY Rx Instructions: take three caps with meals and one to two with snacks. propranolol 40 mg tablet 40 mg PO DAILY Qty: 90 3RF Referrals / Follow Up: Mart Nicloe MD [Primary Care Provider] - Disposition Disposition (needs filled in before D/C Order can be placed): Home, Self Care
--- NOTE | 2025-02-08 07:30 | POL_PTH ---
PATIENT: LANDON CABRAL [place] [facility] [place][id number] AGE/SX: 79/F ROOM: RE02/08/[address]: Dr. Isatu Andrea, MDDOB: 1945 BED: DIS: 02/08/2025 SPEC #: [id number] RECD: 02/08/25 10:43 STATUS: PRITI MARCELO #: [id number] KYREE: 02/08/25 07:[address]: Isatu Andrea DEPT: SURGICAL PATHOLOGY RECD BY: Nazario Alvarez ENTERED: 02/08/25 15:09 SP TYPE: Polyp OTHR DR: Dr. Mart Nicole MD Tissues: A - Endometrium, NOS Procedures: Surgery Specimen Level IV HEADER OPERATION: Hysteroscopy, dilation and curettage, polypectomy PRE-OP DIAGNOSIS: Post menopausal bleeding TISSUE SUBMITTED: A- Endometrial polyp and endometrial curettings MICROSCOPIC DIAGNOSIS A. Endometrium, polyp, biopsy and curettage: - Benign endometrial polyp. - Fragments of inactive to weakly proliferative endometrium and superficial myometrium. MICROSCOPIC DESCRIPTION Slides are reviewed. GROSS DESCRIPTION A. Received in formalin labeled with the patient's name and date of . Designated as endometrial polyp and endometrial curettings is a 2.0 x 0.8 x 0.2 cm aggregate of lam-pink to red tissue fragments. Entirely submitted in 1 cassette. OK 02/08/2025 CPT:51981
[2025-02-08] MEDS: Lidocaine 1% (5 ml sdv) 5 ML Vial IV (07:32)
[2025-02-08] MEDS: fentaNYL 100 MCG/2 ML Ampul IV (07:47)
--- NOTE | 2025-02-08 07:56 | PCM.OPRPT ---
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 She was given anesthesia. She was then placed in the [facility] where she was prepped and draped in the normal sterile fashion. At this time the weighted speculum was placed in the posterior fornix of vagina. Single-tooth tenaculum was used to gently grasp the anterior lip the cervix. At this time the uterine cavity was sounded to approximately 7 cm. Gentle dilatation was performed once adequate dilatation of the cervix was achieved the hysteroscope using normal saline as a distention medium was placed. Tubal ostia visualized. polyp noted on left uterine side. At this time hysteroscope changed to Symphion and resecting device used to obtain endometrial curettings and to perform polypectomy. Tissue will be sent to pathology for evaluation. Tenaculum removed. Good hemostasis. Instrument, lap count correct x 2. Vaginal Sweep was negative. Fluid deficit 350cc Surgical Findings: endometrial polyp- otherwise appears atrophic Complications Complications: No Admit VTE Documentation VTE Present on Admission: Yes VTE Mechan Device Prophylaxis: SCD's VTE Pharm Prophylaxis ordered?: No Reason prophylaxis not ordered: Treatment Not Indicated
--- NOTE | 2025-02-08 08:10 | PCM.POST.ANE ---
Anesthesia: Postop Eval I Current Vital Signs Temperature: 97 F Pulse Rate: 65 Blood Pressure: 98/65 Respiratory Rate: 16 Pulse Ox: 94 Oxygen Delivery Method: Room Air Assessment Airway patent: Yes Spontaneous unlabored respirations: Yes Mental status: Awake and Calm nausea: No Vomiting: No Anesthesia Complication: No Fluid Hydration Crystalloid volume administer (ml): 800 Total IV fluid infused: 800 Progress Note Anesthesia document: Postop Eval 1 completed: Yes
--- NOTE | 2025-02-08 21:27 | POSTOPAN2_ITS ---
Anesthesia Postop Eval I Sum Postop Eval Completion status Anesthesia document: Postop Eval 1 completed: Yes Anesthesia Postop Eval I Summary Anesthesia Postop Eval I Summary: Anesthesia Postop Eval I: Assessment Summary Airway patent Yes 02/08/25 08:11 [email or web address] [email or web address] Spontaneous unlabored Yes 02/08/25 08:11 FRUIT [email or web address] respirations Mental status Awake,Calm 02/08/25 08:11 [email or web address] nausea No 02/08/25 08:11 [email or web address] [email or web address] Vomiting No 02/08/25 08:11 [email or web address] Anesthesia Postop Eval I: Fluid Summary Crystalloid volume administer 800 02/08/25 08:11 [email or web address] [email or web address] (ml) Colloids volume administered ( ml) Blood Product volume administered (ml) Total IV fluid infused 800 02/08/25 08:11 [email or web address] Anesthesia Postop Eval I: Summary Notes Anesthesia Complication No 02/08/25 08:11 [email or web address] [email or web address] Anesthesia Complication Comment: Post-operative progress note Anesthesia: Postop Eval II Evaluation Mental status: Awake and Calm Pain Level: 1 nausea: No Vomiting: No Complications Anesthesia Complication: No
--- NOTE | 2025-02-08 21:27 | PCM.POSTANE2 ---
Anesthesia Postop Eval I Sum Postop Eval Completion status Anesthesia document: Postop Eval 1 completed: Yes Anesthesia Postop Eval I Summary Anesthesia Postop Eval I Summary: Anesthesia Postop Eval I: Assessment Summary Airway patent Yes 02/08/25 08:11 [email or web address] Spontaneous unlabored Yes 02/08/25 08:11 [email or web address] respirations Mental status Awake,Calm 02/08/25 08:11 [email or web address] nausea No 02/08/25 08:11 [email or web address] Vomiting No 02/08/25 08:11 [email or web address] Anesthesia Postop Eval I: Fluid Summary Crystalloid volume administer 800 02/08/25 08:11 [email or web address] (ml) Colloids volume administered ( ml) Blood Product volume administered (ml) Total IV fluid infused 800 02/08/25 08:11 [email or web address] Anesthesia Postop Eval I: Summary Notes Anesthesia Complication No 02/08/25 08:11 [email or web address] Anesthesia Complication Comment: Post-operative progress note Anesthesia: Postop Eval II Evaluation Mental status: Awake and Calm Pain Level: 1 nausea: No Vomiting: No Complications Anesthesia Complication: No
== END 2025-02-08 10:23 | disposition home or self-care (01) ==
LOC: SDC 05:49 → AC 05:50
PROVIDERS: PCP Family Medicine; Referring Provider Obstetrics & Gynecology; Visit Provider Obstetrics & Gynecology
PROC: 0UDB8ZZ Extraction of Endometrium, Via Natural or Artificial Opening Endoscopic (ICD-10-PCS; CPT 58558; principal; 2025-02-08 07:20)
DX: N84.0 Polyp of corpus uteri (principal); N95.0 Postmenopausal bleeding; K21.9 Gastro-esophageal reflux disease without esophagitis
CPT/HCPCS: 58558; 00952; 88305; J2405